=== PATIENT | female | born 1950 | race Caucasian/White ===

== ENCOUNTER 2023-02-01 08:34 | Outpatient (RCR) | payer MEDICARE, SELFPAY ==
--- NOTE | ~2023-02-01 | XR_ITS ---
EXAMINATION: XR ANKLE, RIGHT CLINICAL INFORMATION: Nonhealing wound rule out osteomyelitis COMPARISON: None available. TECHNIQUE: AP, lateral, and mortise views of the right ankle. FINDINGS: Diffuse marked soft tissue swelling about the ankle with a soft tissue defect overlying the medial malleolus which may reflect ulceration. ORIF of a chronic distal fibular diaphyseal fracture with hardware fracture of the lateral plate and lucency surrounding several of the fibular screws and a syndesmotic screws suggesting hardware loosening. Displaced medial malleolus fracture with medial dislocation of the tibia with respect to the talar dome. An additional osseous fragment is adjacent to the medial malleolus fracture of indeterminate donor site. Large tibiotalar joint effusion. There is some indistinctness of the fracture margins of the medial malleolus underlying soft tissue swelling and patchy lucency in the tibial metaphysis for which osteomyelitis cannot be excluded. XR/XR ankle RT min 3V IMPRESSION: 1. Diffuse marked soft tissue swelling about the ankle with a soft tissue defect overlying the medial malleolus which may reflect ulceration. 2. Displaced medial malleolus fracture with medial dislocation of the tibia with respect to the talar dome. An additional osseous fragment is adjacent to the medial malleolus fracture of indeterminate donor site. 3. There is some indistinctness of the fracture margins of the medial malleolus underlying soft tissue swelling and patchy lucency in the tibial metaphysis for which osteomyelitis cannot be excluded. MRI could be obtained for further evaluation. 4. ORIF of a chronic distal fibular diaphyseal fracture with hardware fracture of the lateral plate and lucency surrounding several of the fibular screws and a syndesmotic screws suggesting hardware loosening. 5. Large tibiotalar joint effusion.
[2023-04-11 07:57] LABS: MANUAL DIFF FLAG NO
[2023-04-11 08:34] LABS: Basophils Percent Auto 0.5 % (0-2); Eosinophils Absolute Auto 0.2 X10*3/uL (0.0-0.4); Hematocrit 33.2 % (37.0-47.0); Hemoglobin 10.1 g/dl (12.0-16.0); Imm Gran Abs Auto 0.04 X10*3/uL (0.00-0.03); Imm Gran Pct Auto 0.5 % (0.0-0.4); Lymphocytes Absolute Auto 1.4 X10*3/uL (1.2-4.9); Lymphocytes Percent Auto 17.5 % (20-40); Mean Corpuscular HGB Conc 30.4 g/dl (31.0-35.0); Mean Corpuscular Hemoglobin 31.9 pg (27.0-33.0); Mean Corpuscular Volume 104.7 fL (80.0-98.0); Mean Platelet Volume 9.5 fL (9.4-12.3); Monocytes Absolute Auto 0.6 X10*3/uL (0.1-1.2); Monocytes Percent Auto 7.2 % (2-11); Neutrophils Absolute Auto 5.7 x10*3/uL (2.0-8.3); Neutrophils Percent Auto 72.3 % (45-73); Platelet Count 271 X10*3/uL (160-400); Red Blood Count 3.17 X10*6/uL (4.20-5.50); Red Cell Distribution Width 14.4 % (11.0-16.0); White Blood Count 7.8 X10*3/uL (4.8-10.8)
[2023-04-11 09:19] LABS: Erythrocyte Sedimentation Rate 97 MM/HR (0-20)
[2023-04-11 09:20] LABS: Blood Urea Nitrogen 24 mg/dL (9-16); C Reactive Protein 3.41 mg/dL (< or = 0.50); Calcium 9.2 mg/dL (8.4-10.2); Estimated Glomerular Filt Rate 40; Glucose Random 141 mg/dL (60-115)
[2023-04-11 09:40] LABS: Anion Gap 16 (12-20); Carbon Dioxide 38 mmol/L (22-29); Chloride 94 mmol/L (96-108); Potassium 4.7 mmol/L (3.3-5.1); Sodium 143 mmol/L (135-145)
== END 2023-07-26 16:00 | disposition home or self-care (01) ==
LOC: HO.WCC 08:34
PROVIDERS: Physician Assistant; Visit Provider Surgery
DX: I87.311 Chronic venous hypertension (idiopathic) with ulcer of right lower extremity (principal); L97.319 Non-pressure chronic ulcer of right ankle with unspecified severity; L76.34 Postprocedural seroma of skin and subcutaneous tissue following other procedure; T81.41XD Infection following a procedure, superficial incisional surgical site, subsequent encounter; Z79.82 Long term (current) use of aspirin; Z79.84 Long term (current) use of oral hypoglycemic drugs; Z79.899 Other long term (current) drug therapy
CPT/HCPCS: 10140; 11042; 36415; 73610; 80048; 84134; 85025; 85652; 86140; 87070; 87073; 87077; 87147; 87186; 87205; 97597; 99212; 99213

== ENCOUNTER 2025-01-01 05:21 | Inpatient (IN) | payer MEDICARE, SELFPAY ==
[2025-01-01] VITALS (14 sets, daily range): BP systolic 129–155; BP diastolic 36–70; PULSE 60–76; RESP 12–25; TEMP 36.4–36.9; O2SAT 89–95; BMI 42.4; BMI 41.8
--- NOTE | 2025-01-01 | ECG_ITS ---
Test Reason : FALL Blood Pressure : */* mmHG Vent. Rate : 71 BPM Atrial Rate : 71 BPM P-R Int : 184 ms QRS Dur : 128 ms QT Int : 390 ms P-R-T Axes : 3 85 -56 degrees QTcB Int : 423 ms Normal sinus rhythm Right bundle branch block Septal infarct , age undetermined T wave abnormality, consider inferolateral ischemia Abnormal ECG No previous ECGs available Referred By: Generic ED Physician Electronically Signed By: TOM GUZMÁN
--- NOTE | ~2025-01-01 | XR_ITS ---
EXAMINATION: XR CHEST 1 VIEW HISTORY: CHF f/u COMPARISON: Comparison is made with the prior examination dated 01/02/2025. FINDINGS: A single AP portable view of the chest performed at 10:18 AM is submitted. There are low lung volumes. Again seen is prominence of the pulmonary vasculature, consistent with congestion. There are small bilateral pleural effusions. No pneumothorax. The heart is enlarged. The aorta is calcified. There is degenerative disc disease of the spine. XR/XR chest 1V IMPRESSION: Cardiomegaly, pulmonary vascular congestion, and small bilateral pleural effusions. Electronically signed by: Aman Griffin MD 01/07/2025 11:01 AM [facility]
--- NOTE | ~2025-01-01 | XR_ITS ---
EXAMINATION: XR KNEE, LEFT CLINICAL INFORMATION: S/p fall COMPARISON: None available. TECHNIQUE: Two views of the left knee. FINDINGS: There is osteopenia. No fracture, dislocation, or suspicious bone lesion. Probable subtle bone infarct in the distal femoral metaphysis. Normal alignment. The patella appears laterally subluxed on the AP view. No patellofemoral view. Joint spaces are preserved. No significant arthropathy. There is a suprapatellar joint effusion. There is prominent prepatellar soft tissue swelling. There are vascular calcifications present. XR/XR knee LT 2V IMPRESSION: 1. Osteopenia, with no definite fracture identified. 2. Mild lateral subluxation of the patella on the AP view. Correlate clinically for transient patellar dislocation. 3. There is a joint effusion and there is prominent prepatellar soft tissue swelling. 4. Probable subtle bone infarct in the distal femoral metaphysis. Electronically signed by: Gregory Hernandez MD 01/01/2025 09:14 AM [facility]
--- NOTE | ~2025-01-01 | XR_ITS ---
CLINICAL HISTORY: sob 1 view chest x-ray Comparison: None Findings: Low lung volumes. The heart is enlarged. Pulmonary vascular prominence with blunting of the costophrenic angles. Patchy airspace disease in the lung bases. No acute osseous findings. IMPRESSION: 1. Enlarged heart with small bilateral effusions and pulmonary vascular congestion suggesting edema. This document has been electronically signed by: Sandra Queen MD on 01/01/2025 07:20:17
--- NOTE | ~2025-01-01 | XR_ITS ---
EXAMINATION: XR HIP, LEFT CLINICAL INFORMATION: S/p fall and pain COMPARISON: None available. TECHNIQUE: Two views of the left hip. FINDINGS: Mildly limited exam due to habitus, and osteopenia. There is abdominal pannus overlying the hip joints. There are findings suggesting associated abdominal hernia. Allowing for limitations, no definite pelvic or hip fracture. Iliopectineal and ilioischial lines are intact. Normal hip joint alignment. Sacral arches are intact. Mild degenerative SI joint changes. Following for limitations, no discrete soft tissue abnormality. Vascular calcifications present. XR/XR hip LT min 2V IMPRESSION: 1. Exam limitations as described. 2. No definite fracture or dislocation evident. Electronically signed by: Gregory Hernandez MD 01/01/2025 09:11 AM [facility]
--- NOTE | ~2025-01-01 | CT_ITS ---
CLINICAL HISTORY: abd pain, hypothermia, obstipation CT abdomen and pelvis without contrast Comparison: None Findings: Moderate-sized right and trace left pleural effusions. Right lung base compressive atelectasis. Cardiomegaly. Distended gallbladder, measuring 6.6 cm in transverse dimension. There is cholelithiasis. No definitive gallbladder wall thickening. There is pericholecystic fluid/ascites. Cirrhotic liver morphology. There is a Warren catheter in the bladder which is decompressed. The other solid organs are unremarkable. No bowel wall thickening or dilation. A normal appendix is identified. Colonic diverticulosis. No aneurysm. Severe calcified atherosclerotic disease. No lymphadenopathy. Small ascites. Infiltration of the subcutaneous fat indicating anasarca. No acute osseous abnormality. Impression: Distended gallbladder with stones and pericholecystic fluid versus ascites. Consider acute cholecystitis. Moderate-sized right and trace left pleural effusions. Small ascites. Anasarca. This document has been electronically signed by: Nazanin Early MD on 01/12/2025 17:31:54
--- NOTE | ~2025-01-01 | XR_ITS ---
CLINICAL HISTORY: hypoxia 1 view chest x-ray Comparison: 01/01/2025 Findings: The heart is enlarged. Atherosclerotic vascular disease of the aortic arch. Prominence of pulmonary vasculature. Bilateral interstitial thickening and bilateral basilar pulmonary opacities. Bilateral pleural effusions. No significant pneumothorax. No acute fracture. IMPRESSION: 1. Findings suggestive of congestive heart failure with bilateral pleural effusions with interval mild worsening. 2. Bilateral basilar pneumonia not excluded. This document has been electronically signed by: Niharika Daly MD on 01/02/2025 02:11:05
--- NOTE | ~2025-01-01 | US_ITS ---
CLINICAL HISTORY: pain swelling L posterior thigh Venous duplex ultrasound left lower extremity Comparison: None Findings: The visualized deep veins are fully compressible with normal Doppler color flow and spectral tracings. No popliteal cyst. IMPRESSION: 1. Negative for left lower extremity deep vein thrombosis. This document has been electronically signed by: Michael Keith MD on 01/11/2025 12:21:23
--- NOTE | ~2025-01-01 | XR_ITS ---
CLINICAL HISTORY: hypothermia Chest Radiograph Comparison: CT/SR - CT ABDOMEN PELVIS WO IV CON - 01/12/25 16:05 EST CR - XR CHEST 1V - 01/11/25 08:32 EST CR/SR - XR CHEST 1V - 01/07/25 10:18 EST Findings: Cardiomegaly. Normal mediastinal contours. No pneumothorax. Right mid and lower lung zone opacity. Moderate-sized right pleural effusion. Normal upper abdomen. No acute fracture. Impression: Moderate-sized right pleural effusion. Right mid and lower lung zone opacity is likely secondary to atelectasis. This document has been electronically signed by: Nazanin Early MD on 01/12/2025 17:46:25
--- NOTE | ~2025-01-01 | XR_ITS ---
CLINICAL HISTORY: significant swelling and pain, abn xr 2 20, s p fa 2 view left knee Comparison: CR/AK/SR - XR KNEE LT 2V - 01/01/25 09:01 EST Findings: Bone infarct distal femur. Mild degenerative changes. Unchanged medial joint space narrowing. There is a large suprapatellar effusion. No radiopaque foreign body. IMPRESSION: 1. There is a large suprapatellar effusion. 2. Mild degenerative changes. Unchanged medial joint space narrowing. This document has been electronically signed by: Michael Keith MD on 01/11/2025 10:46:52
--- NOTE | ~2025-01-01 | XR_ITS ---
CLINICAL HISTORY: chf, sob, hypoxia 1 view chest x-ray Comparison: CR/SR - XR CHEST 1V - 01/07/25 10:18 EST Findings: There are bilateral pleural effusions possibly enlarging on the right. There is no focal pneumonia. Cardiomediastinal structures are magnified. No acute fracture. IMPRESSION: There are bilateral pleural effusions possibly enlarging on the right. This document has been electronically signed by: Michael Keith MD on 01/11/2025 10:15:21
--- NOTE | ~2025-01-01 | US_ITS ---
EXAMINATION: US RETROPERITONEAL LIMITED (RENAL ONLY) CLINICAL INFORMATION: CKD, rule out obstruction. COMPARISON: None available. TECHNIQUE: Real-time imaging of the kidneys. FINDINGS: Exam mildly limited by patient habitus. This limits sensitivity for subtle findings. RIGHT KIDNEY: 9.8 x 5.6 x 5.1 cm (SAG x AP x TRV). The kidney is normal in size, contour, and echogenicity. Renal cortical thickness is normal. No calculi or focal parenchymal lesions. No hydronephrosis. LEFT KIDNEY: 9.5 x 5.4 x 5.1 cm (SAG x AP x TRV). The kidney is normal in size, contour, and echogenicity. Renal cortical thickness is normal. No calculi or focal parenchymal lesions. No hydronephrosis. Cholelithiasis incidentally noted. US/US renal BI IMPRESSION: 1. Normal kidneys without hydronephrosis. 2. Cholelithiasis. Electronically signed by: Gregory Hernandez MD 01/06/2025 03:41 PM EST
[2025-01-01 06:17] LABS: MANUAL DIFF FLAG NO
[2025-01-01 06:18] LABS: Basophils Percent Auto 0.2 % (0-2); Eosinophils Absolute Auto 0.1 X10*3/uL (0.0-0.4); Hematocrit 26.9 % (37.0-47.0); Hemoglobin 7.7 g/dl (12.0-16.0); Imm Gran Abs Auto 0.07 X10*3/uL (0.00-0.03); Imm Gran Pct Auto 0.7 % (0.0-0.4); Lymphocytes Absolute Auto 1.1 X10*3/uL (1.2-4.9); Mean Corpuscular HGB Conc 28.6 g/dl (31.0-35.0); Mean Corpuscular Hemoglobin 30.9 pg (27.0-33.0); Mean Platelet Volume 9.8 fL (9.4-12.3); Monocytes Absolute Auto 0.5 X10*3/uL (0.1-1.2); Monocytes Percent Auto 4.8 % (2-11); NRBC Pct Auto 0.2 /100WBC (0.0-0.2); Neutrophils Percent Auto 82.3 % (45-73); Platelet Count 251 X10*3/uL (160-400); Red Blood Count 2.49 X10*6/uL (4.20-5.50); Red Cell Distribution Width 16.3 % (11.0-16.0); White Blood Count 9.7 X10*3/uL (4.8-10.8)
--- OUTSIDE RECORDS SUMMARY | 2025-01-01 06:23 | XMS_ITS | Encounter Summary ---
Author Organization [facility] Address [address] [place] [address] Care Team Providers Care Copper Plater Name Role Phone Maine Myers MD Primary Care Provider [phone] Encounter Details Date Type Department Care Team (Late st Contact Info) Description 08/08/2023 Orders Only [facility] Interventional Radiology [address] [place] [address] Aida Orozco PA [address] [place] [address] Social History Tobacco Use Types Packs/Day Years Used Date Smoking Tobacco: Former Cigarettes 1 50 Smokeless Tobacco: Never Comments:Quit 05/2020 Alcohol Use Standard Drinks/Week Comments Not Currently 0 (1 standard drink = 0.6 oz pur e alcohol) Comments No Sex and Gender Information Value Date Recorded Sex Assigned at Not on file Legal Sex Female 1:11 PM EDT Gender Identity Not on file Sexual Orientation Not on file documented as of this encounter Plan of Treatment Not on file documented as of this encounter Visit Diagnoses Not on filedocumented in this encounter Care Teams Copper Plater Relationship Specialty Start Date End Date Maine Myers MD PCP - General 05/02/23 documented as of this encounter
--- OUTSIDE RECORDS SUMMARY | 2025-01-01 06:23 | XMS_ITS | Encounter Summary ---
Author Organization [facility] Address [address] [place] [address] Care Team Providers Care Mirror Machine Feeder Name Role Phone Maine Myers MD Primary Care Provider [phone] Reason for Referral * Imaging (Routine) - Pending Review Specialty Diagnoses / Procedures Referred By Monique whittington Referred To Contact Radiology Diagnoses Encounter for screening mammogram for breast cancer Procedures MG Mammo Digital Screening w Trista bilat MG Mammo Digital Screening w Maine Watson MD [address] [place] [id number] Phone: tel: fax: [facility] Referral ID Status Reason Start Date Expiration Date V isits Requested Visits Authorized [id number] Pending Review 08/28/2024 08/28/2025 1 1 Reason for Visit * Imaging (Routine) - Pending Review Specialty Diagnoses / Procedures Referred By Monique whittington Referred To Contact Radiology Diagnoses Encounter for screening mammogram for breast cancer Procedures MG Mammo Digital Screening w Trista bilray MG Mammo Digital Screening w Maine Watson MD [address] [place] [address] Phone: tel: fax: [facility] Referral ID Status Reason Start Date Expiration Date V isits Requested Visits Authorized [id number] Pending Review 08/28/2024 08/28/2025 1 1 Encounter Details Date Type Department Care Team (Latest Contact Info) Description 12/11/2024 10:00 AM EST - 12/11/2024 11:59 PM EST Hospital Encounter Radiology Department - [address] [id number] Encounter for screening mammogram for breast cancer Discharge Disposition: Home or Self Care Social History Tobacco Use Types Packs/Day Years Used Date Smoking Tobacco: Former Cigarettes 1 40.5 0 11/12/1979 - 05/30/2020 Smokeless Tobacco: Never Alcohol Use Standard Drinks/Week Comments Yes 0 (1 standard drink = 0.6 oz pur e alcohol) Comments No Sex and Gender Information Value Date Recorded Sex Assigned at Not on file Legal Sex Female 3:19 PM EST Gender Identity Not on file Sexual Orientation Not on file documented as of this encounter Medications at Time of Discharge aspirin 81 mg chewable tablet Take 81 mg by mouth daily. bumetanide (BUMEX) 1 mg tablet TAKE 1 TABLET BY MOUTH IN THE MORNING AND 1 IN THE EVENING 01/25/2024 busPIRone (BUSPAR) 5 mg tablet Take 1 tablet (5 mg total) by mouth 3 (three) times a day. 270 tablet 1 11/18/2024 calcitrioL (ROCALTROL) 0.25 mcg capsule Take 1 capsule (0.25 mcg total) by mouth every other day. 03/10/2024 carvediloL (COREG) 3.125 mg tablet Take 1 Tablet by mouth 2 times daily (with meals). 01/14/2024 docusate sodium (COLACE) 100 mg capsule Take 1 Capsule by mouth daily as needed for Constipation. 07/13/2022 doxycycline (MONODOX) 100 mg capsule TAKE 1 CAPSULE BY MOUTH EVERY 12 HOURS CONTINUE 6 MONTHS OR LONGER DETERMINED BY INFECTIOUS DISEASE 11/14/2023 loratadine (CLARITIN) 10 mg tablet Take 1 tablet (10 mg total) by mouth 1 (one) time each day. 04/17/2024 multivit-min/jerzy emiliano fumarate (MULTI VITAMIN ORAL) t tab po qd 12/09/2007 omeprazole (PriLOSEC) [address] capsule Take 1 capsule (20 mg total) by mouth 1 (one) time each day. 03/04/2024 Oxygen Therapy (O2) gas Inhale 3 L into the lungs continuous prn (with rest exertion and sleep. Can you 2L when resting.). 04/01/2022 umeclidinium-ciara anteroL (Anoro Ellipta) 62.5-25 mcg/actuation inhaler Inhale 1 Puff into the lungs daily. 06/15/2023 documented as of this encounter Discharge Disposition Disposition Code Departure Means Destination Home or Self Care documented in this encounter Plan of Treatment Upcoming Encounters Date Type Department Care Team (Late st Contact Info) Description 07/29/2025 8:30 AM EDT Office Visit Pulmonolgy - [place] [address] [facility] [address] [place] [id number] Dana Sutherland NP [address] [facility] [address] [place] [address] documented as of this encounter Procedures Procedure Name Priority Date/Time Associated Diagnosis Comments MG MAMMO DIGITAL SCREENING W TRISTA BILAT Routine 12/11/2024 10:28 AM EST Encounter for screening mammogram for breast cancer documented in this encounter Results * MG Mammo Digital Screening w Trista bilat (12/11/2024 10:28 AM EST) Anatomical Region Laterality Modality Breast Bilateral Mammography 12/11/2024 3:23 PM EST Impressions 12/11/2024 3:26 PM EST Limited exam without mammographic evidence of malignancy. BREAST DENSITY: B - There are scattered areas of fibroglandular density. BI-RADS CATEGORY: 1 - NEGATIVE RECOMMENDATION: Screening bilateral mammogram is recommended in 1 year. MAMMO LOCATION: [facility], [address] [place] [address], [id number], . -------- FINAL REPORT -------- Dictated By: Yanely Miner Dictated Date: 12/11/2024 15:23 ET Assigned Physician: Yanely Miner Reviewed and Electronically Signed By: Yanely Miner Signed Date: 12/11/2024 15:26 ET Workstation ID: [id number] Transcribed By: Self Edit Transcribed Date: 12/11/2024 15:23 ET Narrative 12/11/2024 3:26 PM EST EXAM: Screening Mammogram CLINICAL: 74 years old, Female, routine annual exam. COMPARISON: 11/29/2023 and as far back as 10/15/2021 ?? TECHNIQUE: Bilateral MLO and CC views were obtained digitally with 3-D mammogram (digital breast tomosynthesis). Computer-aided detection was utilized in evaluation of this exam (CAD). ??Patient unable to hold breath for imaging and unable to stand resulting in suboptimal imaging. ??Images obtained are the best possible. FINDINGS: No new suspicious mass, architectural distortion, or suspicious calcifications. Procedure Note Yanely Miner MD - 12/11/2024 EXAM: Screening Mammogram CLINICAL: 74 years old, Female, routine annual exam. COMPARISON: 11/29/2023 and as far back as 10/15/2021 TECHNIQUE: Bilateral MLO and CC views were obtained digitally with 3-Dmammogram (digital breast tomosynthesis). Computer-aided detection wasutilized in evaluation of this exam (CAD). Patient unable to hold breathfor imaging and unable to stand resulting in suboptimal imaging. Imagesobtained are the best possible. FINDINGS: No new suspicious mass, architectural distortion, or suspiciouscalcifications. IMPRESSION: Limited exam without mammographic evidence of malignancy. BREAST DENSITY: B - There are scattered areas of fibroglandular density. BI-RADS CATEGORY: 1 - NEGATIVE RECOMMENDATION: Screening bilateral mammogram is recommended in 1 year. MAMMO LOCATION: [facility], [address] [place] [address], [id number], . -------- FINAL REPORT -------- Dictated By: Yanely Miner Dictated Date: 12/11/2024 15:23 ET Assigned Physician: Yanely Miner Reviewed and Electronically Signed By: Yanely Miner Signed Date: 12/11/2024 15:26 ET Workstation ID: [id number] Transcribed By: Self Edit Transcribed Date: 12/11/2024 15:23 ET us Maine Myers MD IMG BI PROCEDURES Final Result documented in this encounter Visit Diagnoses Diagnosis Encounter for screening mammogram for breast cancer documented in this encounter Care Teams Mirror Machine Feeder Relationship Specialty Start Date End Date Maine Myers MD [address] [place] [phone] PCP - General Internal Medicine 09/18/24 documented as of this encounter
--- OUTSIDE RECORDS SUMMARY | 2025-01-01 06:23 | XMS_ITS | Referral Summary ---
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 Active umeclidinium-vi lanteroL (Anoro Ellipta) 62.5-25 mcg/actuation blister with device Inhale by mouth. 1 puff in AM Active docusate sodium (COLACE) 100 mg capsule Take 100 mg by mouth daily as needed for constipation. Active acetaminophen (TYLENOL) 325 mg tablet Take 2 tablets (650 mg total) by mouth every 6 hours. 3 Active polyethylene glycol 3350 (MIRALAX) 17 gram packet Take 1 packet (17 g total) by mouth once a day. Mix powder in 4 to 8 oz of water, juice, coffee, or tea prior to administration. 3 Active Additional Information Patient not taking.Reported on 12/26/2023 senna (SENOKOT) 8.6 mg tablet Take 2 tablets (17.2 mg total) by mouth once a day. 3 Active Additional Information Patient not taking.Reported on 12/26/2023 multivitamin tablet Take 1 tablet by mouth once a day. 0 3 Active aspirin 81 mg EC tablet Take 1 tablet (81 mg total) by mouth 2 times a day. 3 Active oxyCODONE IR (ROXICODONE) 5 mg tablet 3 Active metFORMIN (GLUCOPHAGE) 500 mg tablet Take 500 mg by mouth 2 times a day with meals. Active Active Problems Problem Noted Date Diagnosed Date Acute blood loss anemia 10/12/2023 Assessment & Plan (10/18/2023 1:37 PM EST): Acute blood loss anemia postop with hemoglobin down to 6.1. 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 Patient underwent removal of her medial malleolus with fixation October 2022 due to irritation from the screws. She has had chronic residual displacement of the ankle and developed a draining wound.. As a result patient was admitted on July for which she underwent right ankle removal of hardware, I&D and ex-fix placement 07/31/[address] Nascimento. OR cultures positive for E faecalis,S ludanesis, Staph epi, and Staph auricularis for which ID recommended 6-week course of vancomycin and ceftriaxone, then placed on Bactrim suppression for prosthetic joint infection. Patient was seen in the orthopedic clinic on 09/19/2023, planned for definitive surgery of the fusion with antibiotic coated TTC nail removal of her external fixator. 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 Patient presented to [facility] on 10/11 for planned orthopedic surgery as above. Cultures were not obtained during that procedure. Patient received tobramycin and vancomycin on 10/11 day of admission as a paste that was used in the joint intraoperatively. Infectious Disease was consulted on admission. They noted that of all organisms isolated, Staph lugdunensis is the most pathogenic. Given that she continued to have retained hardware they recommended resumption of doxycycline. S/p R ankle external fixation removal, antibiotic nail, EFFIE on 10/11/23. 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 There were no significant valvular abnormalities. Her diuretics were restarted on hospital day 2 after she was noted to be fluid overloaded on exam, with a bump in creatinine, was about to receive a unit of blood for a low hemoglobin. She is not in respiratory distress at that time, tolerated the diuretic well. Her diuretics were held later that admission given a persistently elevated bicarbonate which was thought to be chronic metabolic alkalosis in response to a chronic respiratory acidosis. Her Lasix was restarted at 80 mg daily on 10/18. Her home dosing is 80 mg daily, 40 mg nightly. She also received a one-time dose of acetazolamide 250 mg x 1 on 10/18. -TTE 10/17/23 showed Normal LV systolic function with LVEF 55-60% by visual estimate. The right ventricle is dilated. There is mildly increased wall thickness. Global systolic function is reduced. Systolic flattening of the intraventricular septum consistent with right ventricular pressure overload. Bi-atrial enlargement. Moderate tricuspid valve regurgitation. Moderate pulmonary HTN. PASP of 52 mmHg by peak TR velocity plus right atrial pressure; inferior vena cava is not well visualized. At discharge: - Frequent evaluations of volume status - Continue Lasix 80 mg daily for 3 days (10/18 - 10/20) and then reassess volume status as well as kidney function with BMP - BMPs at least weekly if possible - If tolerating Lasix and still volume overloaded, ideally would titrate up to home dosing of Lasix 80 mg daily and 40 mg nightly Assessment & Plan (08/08/2023 3:00 PM EDT): Home meds: Lasix 80 mg in AM and 40 mg PM Last echocardiogram is from January 2022 revealing a normal left ventricular ejection fraction of 60 to 65% with septal flattening in diastole consistent with RV pressure overload, indeterminate diastolic function, mildly dilated right ventricle with preserved function, and no significant pulmonary hypertension noted. There were no significant valvular abnormalities. -Lasix as per CHEYANNE section -Strict I/Os -Daily weights Assessment & Plan (08/06/2023 3:14 PM EDT): Home meds: Lasix 80 mg in AM and 40 mg PM Last echocardiogram is from January 2022 revealing a normal left ventricular ejection fraction of 60 to 65% with septal flattening in diastole consistent with RV pressure overload, indeterminate diastolic function, mildly dilated right ventricle with preserved function, and no significant pulmonary hypertension noted. There were no significant valvular abnormalities. 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 She underwent removal of her medial malleolus fixation in Oct 2022 due to irration from screws. She also had residual displacement of the ankle fracture with a newly developed draining wound. She was referred from her orthopedic surgeon to [facility] orthopedics and seen in clinic on 05/23/23 with plan for hardware removal/admission for IV antibiotics. She is now s/p right ankle removal of hardware and negative pressure wound vac placement on 07/31. She was started on vancomycin and cefepime post-operatively. 07/31 OR cultures now growing Staph lugdunensis and Staph epidermidis. Per ID, cefepime discontinued and is clear to receive PICC for long-term IV antibiotics. 08/07: culture now with GNB: -Started ceftriaxone 2 g daily per ID recs, follow culture speciation -Continuing vancomycin (D1: 07/31) -PICC placement 08/03 -ID following,appreciate recs -DVT prophylaxis, pain management, surgical management per orthopedics Assessment & Plan (08/07/2023 5:22 PM EDT): The patient had a right ankle fracture in May 2022 with ORIF in June 2022. She underwent removal of her medial malleolus fixation in Oct 2022 due to irration from screws. She also had residual displacement of the ankle fracture with a newly developed draining wound. She was referred from her orthopedic surgeon to [facility] orthopedics and seen in clinic on 05/23/23 with plan for hardware removal/admission for IV antibiotics. She is now s/p right ankle removal of hardware and negative pressure wound vac placement on 07/31. She was started on vancomycin and cefepime post-operatively. 07/31 OR cultures now growing Staph lugdunensis and Staph epidermidis. Per ID, cefepime discontinued and is clear to receive PICC for long-term IV antibiotics. 08/07: culture now with GNB: -Started ceftriaxone 2 g daily per ID recs, follow culture speciation -Continuing vancomycin (D1: 07/31) -PICC placement 08/03 -ID following,appreciate recs -DVT prophylaxis, pain management, surgical management per orthopedics COPD (chronic obstructive pulmonary disease) Assessment & Plan (10/18/2023 1:27 PM EST): Home meds: Anoro Ellipta She follows with pulmonology. Past smoker with 46 pack year history, quit in May 2020. She is on 3L baseline O2 at home. No wheezing on exam, no concern for COPD exacerbation on admission. - Stiolto twice daily as interchange for an oral Ellipta (ellipta nonformulary) - resume home anoro ellipta at discharge - albuterol nebs as needed - Wean to home 3 L nasal cannula - SpO2 goal 88-92% Assessment & Plan (08/08/2023 3:00 PM EDT): Home meds: Anoro Ellipta She follows with pulmonology. Past smoker with 46 pack year history, quit in May 2020. She is on 3L baseline O2 at home, required LMA during procedure and successfully transitioned to 4LNC. Now back to baseline 3L NC and saturating well. -Supplemental O2 with goal sat 88-92% -Duonebs 4 times daily standing Assessment & Plan (08/06/2023 2:38 PM EDT): Home meds: Anoro Ellipta She follows with pulmonology. Past smoker with 46 pack year history, quit in May 2020. She is on 3L baseline O2 at home, required LMA during procedure and successfully transitioned to 4LNC. Now back to baseline 3L NC and saturating well. -Supplemental O2 with goal sat 88-92% -Duonebs 4 times daily standing HTN (hypertension) 07/31/2023 Assessment & Plan (10/12/2023 4:28 PM EST): Home meds: Coreg 3.125 BID Follow with cardiology, home meds as above. She has been hemodynamically stable since admission -Continue home dose Coreg with holding parameters Assessment & Plan (08/08/2023 3:00 PM EDT): Home meds: Coreg 3.125 BID Follow with cardiology, home meds as above. She has remained hemodynamically stable -Continue coreg 3.125 BID Assessment & Plan (08/06/2023 3:12 PM EDT): Home meds: Coreg 3.125 BID Follow with cardiology, home meds as above. She has remained hemodynamically stable -Continue coreg 3.125 BID Pulmonary hypertension 05/10/2022 Overview (10/12/2023): Last Assessment & Plan: She has a history of pulmonary hypertension although this was not present on most recent echocardiogram. Her breathing is stable. She has had no decompensations since her hospitalizations. She likely still has some degree given her severe COPD on oxygen. In any event I am not going to make any changes to medications. We will continue to monitor. Assessment & Plan (10/18/2023 1:30 PM EST): She follows with pulmonology and cardiology. Last TTE January 2022 showed EF 60- 65%, normal LV size and wall thickness, dilated RV with normal systolic fnx, septal flattening in diastole consistent with RV pressure overload, no valvular disease. Her pHTN is thought to be group 3 secondary to her COPD. -manage RV dysfunction and COPD per sections -TTE 10/17/23 showed Normal LV systolic function with LVEF 55-60% by visual estimate. The right ventricle is dilated. There is mildly increased wall thickness. Global systolic function is reduced. Systolic flattening of the intraventricular septum consistent with right ventricular pressure overload. Bi-atrial enlargement. Moderate tricuspid valve regurgitation. Moderate pulmonary HTN. PASP of 52 mmHg by peak TR velocity plus right atrial pressure; inferior vena cava is not well visualized. Discussed with patient that she will require outpatient pulmonology follow-up given that her pulmonary hypertension is suspected to be secondary to group 3 and related to her pulmonary disease. Her labs including blood gases indicate that she is in chronic respiratory failure and chronically retaining CO2, leading to compensatory metabolic alkalosis. Discussed with patient that she would greatly benefit from a sleep study, as well as possibly CPAP/BiPAP to help improve her chronic respiratory failure, in order to improve her quality of life, breathing. Initially patient was very hesitant to the idea of wearing a mask, but says that she will consider it. -Follow-up with outpatient pulmonology after discharge from rehabilitation (ideally within 1 month) Assessment & Plan (08/08/2023 3:00 PM EDT): She follows with pulmonology and cardiology. Last TTE January 2022 showed EF 60- 65%, normal LV size and wall thickness, dilated RV with normal systolic fnx, septal flattening in diastole consistent with RV pressure overload, no valvular disease. Her pHTN is thought to be secondary to her COPD. Assessment & Plan (08/06/2023 2:38 PM EDT): She follows with pulmonology and cardiology. Last TTE January 2022 showed EF 60- 65%, normal LV size and wall thickness, dilated RV with normal systolic fnx, septal flattening in diastole consistent with RV pressure overload, no valvular disease. Her pHTN is thought to be secondary to her COPD. Peripheral neuropathy 08/10/2021 Positive RASHMI (antinuclear antibody) 10/11/2020 Overview (10/12/2023): 09/2020-positive double-stranded DNA, positive anticardiolipin, negative C3/C4, negative anti-Graham/RADIOLOGY TEACHER, negative SSA/SSB. Anticardiolipin antibody positive 09/08/2020 Overview (10/12/2023): 09/2020-negative rheumatoid factor, mild elevated CRP, normal ESR 09/2020- Recheck in 3 to 4 months Assessment & Plan (10/12/2023 4:28 PM EST): Noted to be IgG anticardiolipin positive on multiple lab tests 12 weeks apart. She saw hematology in 2020 who did not believe she had antiphospholipid syndrome given no history of thromboembolic events or multiple miscarriages. They did not recommend full anticoagulation but were amenable with aspirin 81mg daily. -Continue home ASA 81 mg daily Assessment & Plan (08/08/2023 3:00 PM EDT): Noted to be IgG anticardiolipin positive on multiple lab tests 12 weeks apart. She saw hematology in 2020 who did not believe she had antiphospholipid syndrome given no history of thromboembolic events or multiple miscarriages. They did not recommend full anticoagulation but were amenable with aspirin 81mg daily. -Continue ASA 81 mg daily Assessment & Plan (08/06/2023 2:39 PM EDT): Noted to be IgG anticardiolipin positive on multiple lab tests 12 weeks apart. She saw hematology in 2020 who did not believe she had antiphospholipid syndrome given no history of thromboembolic events or multiple miscarriages. They did not recommend full anticoagulation but were amenable with aspirin 81mg daily. -Continue ASA 81 mg daily Cor pulmonale (chronic) 08/30/2020 Chronic hypoxemic respiratory failure 05/31/2020 Cataract 04/30/2020 Osteoarthritis of ankle and foot 09/11/2019 CKD (chronic kidney disease) stage 3, GFR 30-59 ml/min 12/30/2018 Assessment & Plan (10/16/2023 10:13 AM EST): Known CKD stage 3. Baseline Cre ranges between 1.3-1.6 based on chart review. - Trend BMP and replete electrolytes as indicated - inquire whether patient would be willing to follow up in [facility] renal CHEYANNE clinic - see CHEYANNE problem Assessment & Plan (08/08/2023 3:00 PM EDT): CKD3 with recent baseline Cr 1.3, on arrival Cr was 1.26. Creatinine bump to 1.68 on 08/03 possibly due to prolonged IV vancomycin. -Daily BMP -Avoid nephrotoxic agents -Renally dose medications -Strict I/Os Assessment & Plan (08/06/2023 2:38 PM EDT): CKD3 with recent baseline Cr 1.3, on arrival Cr was 1.26. Creatinine bump to 1.68 on 08/03 possibly due to prolonged IV vancomycin. -Daily BMP -Avoid nephrotoxic agents -Renally dose medications -Strict I/Os Onychomycosis 10/27/2015 Type 2 diabetes mellitus 09/28/2014 Assessment & Plan (10/18/2023 1:37 PM EST): Home meds: metformin 500mg BID Follows with endocrinology, not currently on insulin. A1c 6.1 on 07/31. Blood sugars have been well-controlled this admission on low-dose insulin correction scale alone At discharge: -discontinue metformin, given borderline GFR -Low dose insulin sliding scale -Diabetic diet Assessment & Plan (08/08/2023 3:00 PM EDT): Home meds: metformin 500mg BID Follows with endocrinology, not currently on insulin. A1c 6.1 on 07/31. -Hold metformin while inpatient -LDISS ACHS -Carb consistent diet -POCT glucose Assessment & Plan (08/06/2023 2:39 PM EDT): Home meds: metformin 500mg BID Follows with endocrinology, not currently on insulin. A1c 6.1 on 07/31. -Hold metformin while inpatient -LDISS ACHS -Carb consistent diet -POCT glucose Disorder of nervous system due to type 2 diabete s mellitus 09/28/2014 Edema of both legs 07/17/2014 Elevated brain natriuretic peptide (BNP) level 0 05/19/2014 Severe obesity (BMI 35.0-39.9) with comorbidity 11/06/2013 Overview (10/12/2023): BMI 40.52 on 09/15/13. Diverticulitis of colon without hemorrhage 04/04 Overview (10/12/2023): CN 04/04/2013. Osteopenia 12/31/2012 Tobacco use disorder 11/19/2008 Benign essential hypertension 04/02/2008 Overview (10/12/2023): Last Assessment & Plan: 138/80 in office today, well-controlled. Continue carvedilol and Lasix at current doses. Resolved Problems Problem Noted Date Diagnosed Date Resolved Date Acute kidney injury superimposed on CKD 08/04/2023 10/18/2023 Assessment & Plan (10/18/2023 1:34 PM EST): CKD stage 3 with baseline Cr 1.3-1.6, now with Creatinine of 1.94. Etiology of CHEYANNE is unclear. Patient has received a few days of her home lasix 80 mg QAM and 40 mg QPM and this may be contributing, however she still appears fluid overloaded on exam with 2+ pitting edema, faint crackles, and B lines on lung POCUS. UA showed no protein or casts, FEUrea showed >35% consistent with intrinsic disease, POCUS of lungs at bedside revealed B lines consistent with fluid overload. Renal US 10/16 showed no hydronephrosis. -VBG showed pco2 81, pH 7.36, consistent with suspected renal compensation for a degree of respiratory acidosis -Nephrology consulted, suspected CHEYANNE secondary to ATN versus prerenal. Daily BMPs and electrolytes were monitored At discharge: - Repeat BMP in 3 days (around 10/20 - 10/21) to monitor for bump in creatinine since resuming Lasix as per RV dysfunction section - Ideally would check BMP at least weekly - Avoid nephrotoxic medications - Caution with up titration of diuretics Assessment & Plan (08/08/2023 5:17 PM EDT): Patient with cr of 1.3 at baseline with worsening renal function. FEUrea <35% suggesting pre-renal disease. Does not appear to have an issue with PO intake at this time. -Hold lasix -Follow up 24 hour vanc level, dosing with pharm recs -Repeat BMP in the AM -Encourage PO intake -Daily BMP -Avoid nephrotoxic agents -Renally dose medications -Strict I/Os 08/07: creatinine remains elevated from baseline, seen by Renal team, consult appreciated, testing in progress: kidney US, complement levels, urine sediment, orthostatics 08/08-creatinine trending down, renal recommends outpatient follow up Assessment & Plan (08/07/2023 5:21 PM EDT): Patient with cr of 1.3 at baseline with worsening renal function. FEUrea <35% suggesting pre-renal disease. Does not appear to have an issue with PO intake at this time. -Hold lasix -Follow up 24 hour vanc level, dosing with pharm recs -Repeat BMP in the AM -Encourage PO intake -Daily BMP -Avoid nephrotoxic agents -Renally dose medications -Strict I/Os 08/07: creatinine remains elevated from baseline, seen by Renal team, consult appreciated, testing in progress: kidney US, complement levels, urine sediment, orthostatics Immunizations Immunization Administration Dates Next Due COVID-19, Pfizer, mRNA, Biva lent Booster, PF, 10 mcg/0.2 mL dose (for age 5-11 y) 09/02/2022 Influenza, High Dose Seasona l, Preservative Free 07/21/2019,07/19/2018,07/18/2017 Influenza, High Dose Seasona l, Quadrivalent PF 08/09/2023,09/02/2022,09/04/2020 Influenza, Trivalent, MDV, Injectable ,07/21/2019,07/19/2018,07/18,07/31/2016,07/30/2015,09/28/2014 ,08/08/2012,08/23/2011,09/06/2010,07/15,09/10/2008 Influenza, Unspecified 09/02/2022,2020,09/04/2020,08/03 Pneumococcal Conjugate Vacci ne, 13 Valent 06/02/2020,01/16/2018 Pneumococcal Polysaccharide Vaccine, 23 Valent 11/10/2021 Tetanus Toxoid, Reduced Diph theria Toxoid, and Acellular Pertussis Vaccine, Adsorbed 08/08/2012 Social History Tobacco Use Types Packs/Day Years [...] on file Sexual Orientation Not on file Last Filed Vital Signs Vital Sign Reading Time Taken Comments Blood Pressure 134/75 10/18/2023 7:41 PM EST Pulse 59 10/18/2023 7:41 PM EST Temperature 36.2 ??C (97.2 ??F) 10/18/2023 7:41 PM ES T Respiratory Rate 18 10/18/2023 7:41 PM EST Oxygen Saturation 98% 10/18/2023 7:41 PM EST Inhaled Oxygen Concentration - - Weight 87.5 kg (193 lb) 11/13/2023 10:36 AM EST Height 165.1 cm (5' 5 ) 11/13/2023 10:36 AM EST Body Mass Index 32.12 11/13/2023 10:36 AM EST Plan of Treatment Not on file Medical Devices Implanted Type Area Performance Improvement Manager Device Identifier Shelf Expiration Date Model / Serial / Lot Kit Rapid Cure 20cc Paste Volume 50cc Bead Volume Stimulan - [id number] Implanted:Qty: 1 on 10/11/2023 by Brandon Nascimento MD at [facility] Implant Right: Ankle [employer] 01/09/2026 [id number] / / [id number] Description:BOX STIMULAN MIX ED WITH 2 GRAMS VANCOMYCIN AND 1.2 GRAMS TOBRAMYCIN Nail Intramedullary Large Right [id number] Valor - [id number] Implanted:Qty: 1 on 10/11/2023 by Brandon Nascimento MD at [facility] Implant Right: Ankle [employer] 06/06/2031 [id number] / / [id number] Screw Bone Fully Threaded Titanium [id number] Valor - [id number] Implanted:Qty: 1 on 10/11/2023 by Brandon Nascimento MD at [facility] Implant Right: Ankle [employer] 10/26/2030 [id number] / / [id number] Cement Radiopaque Full Dose 40gr Simplex P - [id number] Implanted:Qty: 2 on 10/11/2023 by Brandon Nascimento MD at [facility] Implant Right: Ankle [employer] 12/12/2025 [id number] / / [id number] Screw Hindfoot [id number] Valor - [id number] Implanted:Qty: 1 on 10/11/2023 by Brandon Nascimento MD at [facility] Screw Right: Ankle [employer] 02/09/2031 [id number] / / [id number] Screw Hindfoot [id number] Valor - [id number] Implanted:Qty: 1 on 10/11/2023 by Brandon Nascimento MD at [facility] Screw Right: Ankle [place] 06/12/2031 [id number] / / [id number] Screw Bone Non Cannulated Non Locking Fully Threaded Non Sterile Titanium [id number] Valor - [id number] Implanted:Qty: 1 on 10/11/2023 by Brandon Nascimento MD at [facility] Screw Right: Ankle [employer] 07/06/2031 [id number] / / [id number] Screw Bone Fully Threaded Titanium [id number] Valor - [id number] Implanted:Qty: 1 on 10/11/2023 by Brandon Nascimento MD at [facility] Screw Right: Ankle [employer] 07/24/2031 [id number] / / [id number] Stimulan Implanted:Qty: 1 on 07/31/2023 by [facility] [facility] Right: Ankle [employer] 11/11/2025 620-020 / / [id number] Description:Adeed Tobramycin 1.2 grams x3, vancomycin 1 am x3 Explanted Type Area Performance Improvement Manager Device Identifier Shelf Expiration Date Model / Serial / Lot Pin Steinmann Central Thread [id number] - [id number] Implanted:Qty: 1 on 07/31/2023 by Brandon Nascimento MD at [facility] Explanted:Qty: 1 on 10/11/2023 by Brandon Nascimento MD at [facility] Implant Right: Ankle DEPUY [employer] 293.840 / / Screw Schanz Blunted Trocar Point 5.7eza900pd - [id number] Implanted:Qty: 1 on 07/31/2023 by Brandon Nascimento MD at [facility] Explanted:Qty: 1 on 10/11/2023 by Brandon Nascimento MD at [facility] Screw Right: Ankle DEPUY [employer] 294.55 / / Screw Schanz Self-Drilling 20mm Thread Stainless Steel 4.0mm/3.0mmx80 mm - [id number] Implanted:Qty: 2 on 07/31/2023 by Brandon Nascimento MD at [facility] Explanted:Qty: 2 on 10/11/2023 by Brandon Nascimento MD at [facility] Screw Right: Ankle DEPUY SYNTHES [employer] 294.771 / / Procedures * Due to [place] state law, this organization might not be sharing negative HIV tests. Procedure Name Priority Date/Time Associated Diagnosis Comments BASIC METABOLIC PANEL Add-On 10/18/2023 6:49 AM EST CBC STAT 10/17/2023 4:33 AM EST PHOSPHORUS Routine 10/12/2023 4:46 AM EST HEMOGLOBIN A1C Timed 07/31/2023 1:19 PM EDT VITAMIN D, 25-HYDROXY, TOTAL, IMMUNOASSAY Routine 05/23/2023 12:54 PM EDT Right ankle pain, unspecified chronicity PTH, INTACT (WITHOUT CALCIUM) Routine 05/23/2023 12:54 PM EDT Right ankle pain, unspecified chronicity from Last 3 Months or Most Recently Relevant to Health Maintenance Results * Due to [place] state law, this organization might not be sharing negative HIV tests. * (ABNORMAL) Basic metabolic panel (10/18/2023 6:49 AM EST) NA 141 135 - 145 mmol/L 10/18/2023 9:17 AM EST [facility] K 4.5 3.5 - 5.3 mmol/L 10/18/2023 9:17 AM EST [facility] Cl 93(L) 97 - 110 mmol/L 10/18/2023 9:17 AM EST [facility] CO2 42(HH) 24 - 32 mmol/L 10/18/2023 9:17 AM EST [facility] BUN 43(H) 7 - 23 mg/dL 10/18/2023 9:17 AM EST [facility] Creatinine 1.98(H) 0.50 - 1.20 mg/dL 10/18/2023 9:17 AM EST [facility] Glucose 94 70 - 99 mg/dL 10/18/2023 9:17 AM EST [facility] Calcium 9.9 8.7 - 10.7 mg/dL 10/18/2023 9:17 AM EST [facility] Anion Gap 6 5 - 15 10/18/2023 9:17 AM EST [facility] eGFR 27(L) >=60 mL/min/1 .73m2 10/18/2023 9:17 AM EST [facility] Comment:The estimated glomer ular filtration rate (eGFR) is calculated using a new formula developed by the NKF-ASN task force to eliminate race-based correction factors. The new formula uses serum/plasma creatinine, age, and gender to determine eGFR. A value below 60mls/min might indicate kidney disease and will be flagged. For additional information, see Familia et al, Am J Kidney Dis. 2021;79(2):268- 288, A Unifying Approach for GFR estimation: Recommendations of the NKF-ASN Task Force on Reassessing the Inclusion of Race in Diagnosing Kidney Disease . Blood Structure of peripheral vein / Unknown Venipuncture / Unknown 10/18/2023 6:49 AM EST 10/18/2023 7:02 AM EST us Familia Landers MD LAB BLOOD ORDERABLES Fin al Result [facility] [address] [place] [address], * (ABNORMAL) CBC (10/17/2023 4:33 AM EST) WBC 6.9 4.3 - 10.8 10*3/uL 10/17/2023 4:47 AM EST [facility] RBC 2.62(L) 3.80 - 5.10 10*6/uL 10/17/2023 4:47 AM EST [facility] Hemoglobin 7.8(L) 11.7 - 15.5 g/dL 10/17/2023 4:47 AM EST [facility] Hematocrit 24.6(L) 35.0 - 46.0 % 10/17/2023 4:47 AM EST [facility] MCV 94.1 80.0 - 100.0 fL 10/17/2023 4:47 AM EST [facility] MCH 29.8 27.0 - 34.0 pg 10/17/2023 4:47 AM EST [facility] MCHC 31.6 29.0 - 36.0 g/dL 10/17/2023 4:47 AM EST [facility] RDW 17.5(H) 11.0 - 15.0 % 10/17/2023 4:47 AM EST [facility] Platelets 221 140 - 440 10*3/uL 10/17/2023 4:47 AM EST [facility] MPV 7.6 7.6 - 11.6 fL 10/17/2023 4:47 AM EST [facility] Smear Review? No 10/17/2023 4:47 AM EST [facility] Blood Structure of peripheral vein / Unknown Venipuncture / Unknown 10/17/2023 4:33 AM EST 10/17/2023 4:42 AM EST Brandon Nascimento MD LAB BLOOD ORDERABLES Final Re sult Performing Organization Address City/[facility]/ZIP Co de Phone Number [facility] [address] [place] [address], [place] * (ABNORMAL) Phosphorus (10/12/2023 4:46 AM EST) Phosphorus 4.7(H) 2.5 - 4.5 mg/dL 10/12/2023 5:18 AM EST [facility] Blood Structure of peripheral vein / Unknown Venipuncture / Unknown 10/12/2023 4:46 AM EST 10/12/2023 4:46 AM EST Evette Byrne MD LAB BLOOD ORDERABLES Final Resul t Performing Organization Address City/[facility]/ZIP Co de Phone Number [facility] [address] [place] [address], [place] * (ABNORMAL) Hemoglobin A1c (07/31/2023 1:19 PM EDT) Hemoglobin A1C 6.1(H) <5.7 % of total Hgb 08/01/2023 1:[address] [facility] Comment: For someone without known diabetes, a hemoglobin A1c value between 5.7% and 6.4% is consistent with prediabetes and should be confirmed with a follow-up test. For someone with known diabetes, a value <7% indicates that their diabetes is well controlled. A1c targets should be individualized based on duration of diabetes, age, comorbid conditions, and other considerations. This assay result is consistent with an increased risk of diabetes. Currently, no consensus exists regarding use of hemoglobin A1c for diagnosis of diabetes for children. eAG (MG/DL) 128 mg/dL 08/01/2023 1:24 AM EDT [employer] eAG (MMOL/L) 7.1 mmol/L 08/01/2023 1:24 AM EDT [employer] Blood Structure of peripheral vein / Unknown Venipuncture / Unknown 07/31/2023 1:19 PM EDT 07/31/2023 1:28 PM EDT [facility] 08/01/2023 1:24 AM EDT [facility] Received Date: Brandon Nascimento MD LAB BLOOD ORDERABLES Final Re sult [facility] [address], [place] [address], [facility] [address], [place] [address], * Vitamin D, 25-Hydroxy, Total, Immunoassay (05/23/2023 12:54 PM EDT) [facility] Signature Calcidiol+ercalc idiol 57 30 - 100 ng/mL 05/23/2023 10:00 PM EDT [employer] Comment: Vitamin D Status ? 25-OH Vitamin D: Deficiency: ?<20 ng/mL Insufficiency: ? 20 - 29 ng/mL Optimal: ? > or = 30 ng/mL For 25-OH Vitamin D testing on patients on D2-supplementation and patients for whom quantitation of D2 and D3 fractions is required, the QuestAssureD() 25-OH VIT D, (D2,D3), LC/MS/MS is recommended: order code [id number] (patients >2yrs). See Note 1 Note 1 For additional information, please refer to http://education.Isentropic/faq/YDY725 (This link is being provided for informational/ educational purposes only.) Blood Structure of peripheral vein / Unknown Venipuncture / Unknown 05/23/2023 12:54 PM EDT 05/23/2023 1:01 PM EDT Narrative [facility] - 05/23/2023 10:00 PM EDT [facility] Received Date: Brandon Nascimento MD LAB BLOOD ORDERABLES Final Re sult [address], [place] [address], [facility] [address], [place] [address], * (ABNORMAL) PTH, Intact (without Calcium) (05/23/2023 12:54 PM EDT) Parathyroid Hormone, Intact 85(H) 16 - 77 pg/mL 05/24/2023 5:34 AM EDT [facility] [facility] Comment: Interpretive Guide ?Intact PTH ? Calcium ? ------- Normal Parathyroid ?Normal ? Normal Hypoparathyroidism ?Low or Low Normal ?Low Hyperparathyroidism ?? Primary ?Normal or High ? High ?? Secondary ?High ? Normal or Low ?? Tertiary ? High ? High Non-Parathyroid ?? Hypercalcemia ?Low or Low Normal ?High Blood Structure of peripheral vein / Unknown Venipuncture / Unknown 05/23/2023 12:54 PM EDT 05/23/2023 1:01 PM EDT Narrative [facility] - 05/24/2023 5:34 AM EDT [facility] Received Date:[id number] us Brandon Nascimento MD LAB BLOOD ORDERABLES Final Re sult [facility] 200 [facility] 3rd Floor, [place] [address], [place] [phone] [employer] [facility] 200 [facility] 3rd Floor, [place] [address], [place] [phone] from Last 3 Months or Most Recently Relevant to Health Maintenance Insurance BCBS MCR REPLACE PPO Advance Directives Documents on File Type Date Recorded Patient Counseling Director Expl anation Health Care Proxy 10/15/2023 9:45 AM 10-15 [facility]ST 10/12/2023 6:42 PM 08-09-2023 * Full Code (Latest Code Status on File) Date Activated Date Inactivated Comments 10/11/2023 3:09 PM 10/18/2023 10:20 PM * Full Code Date Activated Date Inactivated Comments 10/11/2023 7:13 AM 10/11/2023 3:09 PM * Full Code Date Activated Date Inactivated Comments 07/31/2023 6:04 AM 08/09/2023 4:59 PM Healthcare Agents on File Name Relationship Healthcare Agent Relationshi p Communication Renetta Umana Sister Health Care Agent Chau Johnson Alternate Health Care Age nt Care Teams Carbide Tool Maker Relationship Specialty Start Date End Date Maine Myers MD PCP - General 05/02/23
--- OUTSIDE RECORDS SUMMARY | 2025-01-01 06:23 | XMS_ITS | Clinical Summary ---
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 Patient presented to [facility] on 10/11 for planned orthopedic surgery as [...] was referred from her orthopedic surgeon to [facility] orthopedics and seen in clinic on [...] was referred from her orthopedic surgeon to [facility] orthopedics and seen in clinic on [...] double-stranded DNA, positive anticardiolipin, negative C3/C4, negative anti-Graham/MOUNTER SAXOPHONES, negative SSA/SSB. Anticardiolipin antibody positive 09/08/2020 Overview [...] would be willing to follow up in [facility] renal [facility] clinic - see CHEYANNE problem [...] 11/13/2023 10:36 AM EST Plan of Treatment Health Maintenance Due Date Last Done Comments CKD: Referral to Nephrology 1952 Cologuard 1952 Colon Cancer Screening 1952 Colonoscopy 1952 FOBT / Fit Test 1952 Hepatitis C Screening 1952 Sigmoidoscopy 1952 Ophthalmology Exam [address] Lung Cancer Screening (Baseline) 2002 Osteoporosis Screening 2002 Zoster Vaccines (1 of 2) 2002 DTaP,Tdap,and Td Vaccines (2 - Td or Tdap) 08/08/2022 08/08/2012 25 Hydroxy / Vitamin D 05/23/2024 05/23/2023 PTH 05/23/2024 05/23/2023 Hemoglobin A1C 05/28/2024 11/28/2023, 07/13, 06/01/2023, Additional history exists Basic Metabolic Panel 07/03/2024 03/03/2024 , 01/16/2024, 11/28/2023, Additional history exists COVID-19 Vaccine ( season) 2024 09/02/2022, 02/16/2022, 09/12/2021, Additional history exists Influenza Vaccine (#1) 2024 , 09/02/2022, 09/02/2022, Additional history exists Phosphorus 10/12/2024 10/12/2023 Hemoglobin 10/17/2024 10/17/2023, 03/2023, 10/15/2023, Additional history exists Alcohol/Substance Use Screening 11/12/2024 Depression Screening and Follow-Up 11/12/2024 Health Care Proxy Review 11/12/2024 Social Drivers of Health Annual Screening 11/12/2024 Mammogram 11/29/2025 11/29/2023, 11/24/2022 Pneumococcal Vaccine: 50+ Years Completed 11/10/2021, 06/02/2020, 01/16/2018 RSV Vaccine (60+ years old and patients) Completed 11/13/2023 Hepatitis B Vaccines Aged Out No long er eligible based on patient's age to complete this topic Medical Devices Implanted Type Area Electrical Assemblies Supervisor Device Identifier Shelf Expiration Date Model / Serial / Lot Kit Rapid Cure 20cc Paste Volume 50cc Bead Volume Stimulan - [id number] Implanted:Qty: 1 on 10/11/2023 by Brandon Nascimento MD at [facility] Implant Right: Ankle [employer] 01/09/2026 620-020 / / [id number] Description:BOX STIMULAN MIX ED WITH 2 GRAMS VANCOMYCIN AND 1.2 GRAMS TOBRAMYCIN Nail Intramedullary Large Right 73ldn794my Valor - [id number] Implanted:Qty: 1 on 10/11/2023 by Brandon Nascimento MD at [facility] Implant Right: Ankle [email or web address] 06/06/2031 [id number] / / [id number] Screw Bone Fully Threaded Titanium [id number] Valor - [id number] Implanted:Qty: 1 on 10/11/2023 by Brandon Nascimento MD at [facility] Implant Right: Ankle [email or web address] 10/26/2030 [id number] / / [id number] Cement Radiopaque Full Dose 40gr Simplex P - [id number] Implanted:Qty: 2 on 10/11/2023 by Brandon Nascimento MD at [facility] Implant Right: Ankle D[employer] 12/12/2025 6191-1-010 / / [id number] Screw Hindfoot 5.4evj55uu Valor - [id number] Implanted:Qty: 1 on 10/11/2023 by Brandon Nascimento MD at [facility] Screw Right: Ankle [email or web address] 02/09/2031 [id number] / / [id number] Screw Hindfoot 5.5adr71mv Valor - [id number] Implanted:Qty: 1 on 10/11/2023 by Brandon Nascimento MD at [facility] Screw Right: Ankle [email or web address] 06/12/2031 [id number] / / [id number] Screw Bone Non Cannulated Non Locking Fully Threaded Non Sterile Titanium [id number] Valor - [id number] Implanted:Qty: 1 on 10/11/2023 by Brandon Nascimento MD at [facility] Screw Right: Ankle [email or web address] 07/06/2031 [id number] / / [id number] Screw Bone Fully Threaded Titanium [id number] Valor - [id number] Implanted:Qty: 1 on 10/11/2023 by Brandon Nascimento MD at [facility] Screw Right: Ankle [email or web address] 07/24/2031 [id number] / / [id number] Stimulan Implanted:Qty: 1 on 07/31/2023 by Brandon Nascimento MD at [facility] Right: Ankle [employer] 11/11/2025 620-020 / / [id number] Description:Adeed Tobramycin 1.2 grams x3, vancomycin 1 am x3 Explanted Type Area Electrical Assemblies Supervisor Device Identifier Shelf Expiration Date Model / Serial / Lot Pin Steinmann Central Thread [id number] - [id number] Implanted:Qty: 1 on 07/31/2023 by Brandon Nascimento MD at [facility] Explanted:Qty: 1 on 10/11/2023 by Brandon Nascimento MD at [facility] Implant Right: Ankle DEPUY [employer] [facility] 293.840 / / Screw Schanz Blunted Trocar Point 5.7uob185gh - [id number] Implanted:Qty: 1 on 07/31/2023 by Brandon Nascimento MD at [facility] Explanted:Qty: 1 on 10/11/2023 by Brandon Nascimento MD at [facility] Screw Right: Ankle DEPUY [employer] [facility] 294.55 / / Screw Schanz Self-Drilling 20mm Thread Stainless Steel 4.0mm/3.0mmx80 mm - [id number] Implanted:Qty: 2 on 07/31/2023 by Brandon Nascimento MD at [facility] Explanted:Qty: 2 on 10/11/2023 by Brandon Nascimento MD at [facility] Screw Right: Ankle DEPUY [employer] 294.771 / / Procedures * Due to [place] state law, this organization might not be [...] to Health Maintenance Results * Due to [place] state law, this organization might not be sharing negative HIV tests. * (ABNORMAL) Basic metabolic panel (10/18/2023 6:49 AM EST) NA 141 135 - 145 mmol/L 10/18/2023 9:17 AM EST [facility] K 4.5 3.5 - 5.3 mmol/L 10/18/2023 9:17 AM EST [facility] Cl 93(L) 97 - 110 mmol/L 10/18/2023 9:17 AM EST [facility] CO2 42(HH) [...] will be flagged. For additional information, see Barbosa et al, Am J Kidney Dis. 2021;79(2):268- 288, A Unifying Approach for GFR estimation: Recommendations of the NKF-ASN Task Force on Reassessing the Inclusion of Race in Diagnosing Kidney Disease . Blood Structure of peripheral vein / Unknown Venipuncture / Unknown 10/18/2023 6:49 AM EST 10/18/2023 7:02 AM EST us Familia Landers MD LAB BLOOD ORDERABLES Fin al Result [facility] [employer] [facility] [address] [place] [address], * (ABNORMAL) CBC (10/17/2023 4:33 AM EST) [...] - 15.0 % 10/17/2023 4:47 AM EST [facility] [employer] [facility] Platelets 221 140 - 440 10*3/uL 10/17/2023 4:47 AM EST [facility] [employer] [facility] MPV 7.6 7.6 - 11.6 fL 10/17/2023 4:47 AM EST [facility] [employer] [facility] Smear Review? No 10/17/2023 4:47 AM EST [facility] Blood Structure of peripheral vein / Unknown Venipuncture / Unknown 10/17/2023 4:33 AM EST 10/17/2023 4:42 AM EST us Brandon Nascimento MD LAB BLOOD ORDERABLES Final Re sult Performing Organization Address [facility] Co de Phone Number [facility] [address] [place] [address], [place] * (ABNORMAL) Phosphorus (10/12/2023 4:46 AM EST) Phosphorus 4.7(H) 2.5 - 4.5 mg/dL 10/12/2023 5:18 AM EST [facility] Blood Structure of peripheral vein / Unknown Venipuncture / Unknown 10/12/2023 4:46 AM EST 10/12/2023 4:46 AM EST Evette Byrne MD LAB BLOOD ORDERABLES Final Resul t Performing Organization Address City/[facility]/ZIP Co de Phone Number [facility] [address] [place] [address], [place] * (ABNORMAL) Hemoglobin A1c (07/31/2023 1:19 PM EDT) Hemoglobin A1C 6.1(H) <5.7 % of total Hgb 08/01/2023 1:24 AM EDT [facility] Comment: For someone without known diabetes, a [...] (MG/DL) 128 mg/dL 08/01/2023 1:24 AM EDT [facility] eAG (MMOL/L) 7.1 mmol/L 08/01/2023 1:24 AM EDT [facility] Blood Structure of peripheral vein / Unknown Venipuncture / Unknown 07/31/2023 1:19 PM EDT 07/31/2023 1:28 PM EDT [facility] - 08/01/2023 1:24 AM EDT [facility] Received Date: Brandon Nascimento MD LAB BLOOD ORDERABLES Final Re sult [facility] 200 [facility] 3rd Floor, [place] [address], [facility] 200 [facility] 3rd Floor, [place] [address], * Vitamin D, 25-Hydroxy, Total, Immunoassay (05/23/2023 12:54 PM EDT) [facility] Signature Calcidiol+ercalc idiol 57 30 - 100 ng/mL 05/23/2023 10:00 PM EDT [facility] Comment: Vitamin D Status ? 25-OH Vitamin D: Deficiency: ?<20 ng/mL Insufficiency: ? 20 - 29 ng/mL Optimal: ? > or = 30 ng/mL For 25-OH Vitamin D testing on patients on D2-supplementation and patients for whom quantitation of D2 and D3 fractions is required, the QuestAssureD() 25-OH VIT D, (D2,D3), LC/MS/MS is recommended: order code [id number] (patients >2yrs). See Note 1 Note 1 For additional information, please refer to http://education.Sliced [employer]ing/faq/OEV973 (This link is being provided for informational/ educational purposes only.) Blood Structure of peripheral vein / Unknown Venipuncture / Unknown 05/23/2023 12:54 PM EDT 05/23/2023 1:01 PM EDT Narrative [facility] - 05/23/2023 10:00 PM EDT [facility] Received Date: Brandon Nascimento MD LAB BLOOD ORDERABLES Final Re sult [facility] [address], [place] [address], [facility] [address], [place] [address], * (ABNORMAL) PTH, Intact (without Calcium) (05/23/2023 12:54 PM EDT) Parathyroid Hormone, Intact 85(H) 16 - 77 pg/mL 05/24/2023 5:34 AM EDT [facility] Comment: Interpretive Guide ?Intact PTH ? Calcium [...] PM EDT 05/23/2023 1:01 PM EDT [facility]ative [facility] - 05/24/2023 5:34 AM EDT [facility] Received Date:[id number] us Brandon Nascimento MD LAB BLOOD ORDERABLES Final Re sult [facility] [address] [facility] 3rd Floor, [place] [address], [place] [phone] [facility] 200 [facility] 3rd Floor, [place] [address], [place] [phone] from Last 3 Months or Most Recently Relevant to Health Maintenance Insurance BCBS MCR REPLACE PPO Advance Directives Documents on File Type Date Recorded Patient Component Prep Operator Expl anation Health Care Proxy 10/15/2023 9:45 [...] Relationship Healthcare Agent Relationshi p Communication Renetta Reynoldselojuan Sister Health Care Agent Chau Johnson Alternate Health Care Age nt Care Teams Position Description Manager Relationship Specialty Start Date End Date Maine Myers MD PCP - General 05/02/23
--- OUTSIDE RECORDS SUMMARY | 2025-01-01 06:23 | XMS_ITS | Encounter Summary ---
Author Organization [facility] Address [address] [place] [address] Care Team Providers Care Physical Education Specialist Name Role Phone Maine Myers MD Primary Care Provider [phone] Encounter Details Date Type Department Care Team (Late st Contact Info) Description 08/03/2023 Orders Only [facility] Interventional Radiology [address] [place] [address] Aida Orozco PA [address] [place] [address] Social History Tobacco Use Types Packs/Day Years [...] on filedocumented in this encounter Care Teams Physical Education Specialist Relationship Specialty Start Date End Date Maine Myers MD PCP - General 05/02/23 documented as of this encounter
--- OUTSIDE RECORDS SUMMARY | 2025-01-01 06:23 | XMS_ITS | Clinical Summary ---
Author Organization [facility] [address] [place] [address] [place] [id number] Phone Care Team Providers Care Electronic Drafter Name Role Phone Maine Myers MD Primary Care Provider Allergies Active Allergy Reactions Criticality Noted Date Comments Hydrochlorothiazide Other 11/25/2010 Leukocytoclastic vasculitis Shellfish Containing Products Nausea And Vomiting High 06/26/2007 Shellfish Derived GI intolerance 09/25/2024 Sulfamethoxazole-Trimethop rim Rash 10/11/2023 There was clinical concern for SJS, treated with steroids with improvement in rash Medications umeclidinium-vi lanteroL (Anoro Ellipta) 62.5-25 mcg/actuation inhaler Inhale 1 Puff into the lungs daily. 3 Active carvediloL (COREG) 3.125 mg tablet Take 1 Tablet by mouth 2 times daily (with meals). 4 Active bumetanide (BUMEX) 1 mg tablet TAKE 1 TABLET BY MOUTH IN THE MORNING AND 1 IN THE EVENING 4 Active calcitrioL (ROCALTROL) 0.25 mcg capsule Take 1 capsule (0.25 mcg total) by mouth every other day. 4 Active loratadine (CLARITIN) 10 mg tablet Take 1 tablet (10 mg total) by mouth 1 (one) time each day. 4 Active omeprazole (PriLOSEC) [address] capsule Take 1 capsule (20 mg total) by mouth 1 (one) time each day. 4 Active doxycycline (MONODOX) 100 mg capsule TAKE 1 CAPSULE BY MOUTH EVERY 12 HOURS CONTINUE 6 MONTHS OR LONGER DETERMINED BY INFECTIOUS DISEASE 4 Active docusate sodium (COLACE) 100 mg capsule Take 1 Capsule by mouth daily as needed for Constipation. 2 Active Oxygen Therapy (O2) gas Inhale 3 L into the lungs continuous prn (with rest exertion and sleep. Can you 2L when resting.). 2 Active aspirin 81 mg chewable tablet Take 81 mg by mouth daily. Active multivit-min/fe rrous fumarate (MULTI VITAMIN ORAL) t tab po qd 8 Active busPIRone (BUSPAR) 5 mg tablet Take 1 tablet (5 mg total) by mouth 3 (three) times a day. 270 tablet 1 5 Active Active Problems Problem Noted Date Diagnosed Date Seasonal allergies 04/17/2024 Anxiety 04/17/2024 Pulmonary hypertension 05/10/2022 Overview (08/16/2024): Last Assessment & Plan: She has a history of pulmonary hypertension although this was not present on most recent echocardiogram. Her breathing is stable. She has had no decompensations since her hospitalizations. She likely still has some degree given her severe COPD on oxygen. In any event I am not going to make any changes to medications. We will continue to monitor. Peripheral neuropathy 08/10/2021 Positive anti-CCP test 10/11/2020 Overview (08/16/2024): 09/2020-negative rheumatoid factor, mild elevated CRP, normal ESR Positive RASHMI (antinuclear antibody) 10/11/2020 Overview (08/16/2024): 09/2020-positive double-stranded DNA, positive anticardiolipin, negative C3/C4, negative anti-Graham/[employer], negative SSA/SSB. Anticardiolipin antibody positive 09/08/2020 Overview (08/16/2024): 09/2020- Recheck in 3 to 4 months Cor pulmonale (chronic) 08/30/2020 Chronic hypoxemic respiratory failure 05/31/2020 COPD with hypoxia 04/30/2020 Cataract 04/30/2020 Osteoarthritis of ankle and foot 09/11/2019 CKD stage 3 secondary to diabetes 12/30/2018 CKD (chronic kidney disease) stage 3, GFR 30-59 ml/min 12/30/2018 Onychomycosis 10/27/2015 Type II or unspecified type diabetes mellitus with neurological manifestations, uncontrolled(250.62) 09/28/2014 Type 2 diabetes mellitus 09/28/2014 Edema of both legs 07/17/2014 Elevated MCV 05/19/2014 Elevated brain natriuretic peptide (BNP) level 0 05/19/2014 Morbid obesity 11/06/2013 Overview (08/16/2024): BMI 40.52 on 09/15/13. Severe obesity (BMI 35.0-39.9) with comorbidity 11/06/2013 Overview (08/16/2024): BMI 40.52 on 09/15/13. Diverticulitis of colon without hemorrhage 04/04 Overview (08/16/2024): CN 04/04/2013. Osteopenia 12/31/2012 Tobacco use disorder 11/19/2008 Benign essential hypertension 04/02/2008 Overview (08/16/2024): Last Assessment & Plan: 138/80 in office today, well-controlled. Continue carvedilol and Lasix at current doses. Encounters Date Type Department Care Team Description 12/11/2024 10:00 AM EST - 12/11/2024 11:59 PM [facility] Hospital Encounter Radiology Department - [address] [id number] Encounter for screening mammogram for breast cancer Discharge Disposition: Home or Self Care from Last 3 Months Immunizations Name Administration Dates Next Due Influenza trivalent, 0.5mL ( Fluzone High-dose) 65yo and older 09/02/2022,09/04/2020,07/21/2019,07/19,07/18/2017 Influenza trivalent, with pr eservative (Fluzone; Afluria) 6mo and older 07/31/2016,07/30/2015,09/28/2014,08/08,08/23/2011,09/06/2010,08/11/2009 ,09/10/2008 Influenza, Unspecified 08/01/2021,08/03/2020 Pfizer (ages 12 & older) Biv alent, COVID-19 09/02/2022 Pneumococcal conjugate 13 va lent (Prevnar 13, PCV13) 2mo and older 01/16/2018 Pneumococcal polysaccharide 23 valent (Pneumovax 23) 2yo and older 11/10/2021 Tdap Tetanus diptheria acell ular pertussis (Boostrix; Adacel) 7yo and older 08/08/2012 Surgical History Surgery Date Site/Laterality Comments TONSILLECTOMY PROCEDURE: HISTORICAL TONSILLECTOMY; COMMENT: child SECTION PROCEDURE: HISTORICAL DELIVERY COLONOSCOPY 2012 PROCEDURE: TN COLONOSCOPY FLX DX W/COLLJ SPEC WHEN PFRMD; COMMENT: Minimal diverticulosis Medical History Medical History Date Comments Obesity DX:Obesity Historical Medical DX DX:Diabete s mellitus without mention of complication Essential hypertension, benign D X:Essential hypertension, benign DM II (diabetes mellitus, ty pe II), controlled (CMS/HCC) 12/16/2012 DX:DM II (diabetes mellitus, type II), controlled ([facility]) Diverticulosis of colon (wit hout mention of hemorrhage) 04/04/2013 DX:Diverticulosis of colon ( without mention of hemorrhage); COMMENT: Incidental finding at colonoscopy 04/04/2013. Edema of both legs 07/17/2014 DX:Edema of b oth legs DM (diabetes mellitus), type 2 with renal complications (CMS/HCC) 08/10/2021 DX:DM (diabetes mellitus ), type 2 with renal complications (HCC) CKD (chronic kidney disease) stage 3, GFR 30-59 ml/min (CMS/HCC) 12/30/2018 DX:CKD (chronic kidney dise ase) stage 3, GFR 30-59 ml/min (HCC) Type 2 diabetes mellitus wit h cataract (CMS/HCC) 08/10/2021 DX:Type 2 diabetes mellitus with cataract (HCC) Severe obesity (BMI 35.0-39. 9) with comorbidity (CMS/HCC) 11/06/2013 DX:Severe obesity (BMI 35.0- 39.9) with comorbidity ([facility]); COMMENT: BMI 40.52 on 09/15/13. DM (diabetes mellitus), type 2 with neurological complications (CMS/HCC) 09/28/2014 DX:DM (diabetes m ellitus), type 2 with neurological complications (HCC) Peripheral neuropathy 08/10/2021 DX:Periphe ral neuropathy Family History Medical History Relation Name Comments No Known Problems Brother No Known Problems Father Arthritis Mother No Known Problems Sister Breast cancer Neg Hx Relation Name Status Comments Brother Alive Father Mother Sister Alive Social History Tobacco Use Types Packs/Day Years [...] on file Sexual Orientation Not on file Obstetrics History Para Term AB IAB SAB Ectopic Multiple Livin g Live Births 2 2 2 Date Outcome GA Total Labor Labor/2nd/3rd Weight Sex Type Anes PTL Fariha A1 A5 Name Clin Term Term Last Filed Vital Signs Vital Sign Reading Time Taken Comments Blood Pressure 138/64 09/25/2024 9:18 AM EST Pulse 85 09/25/2024 8:16 AM EST Temperature 36.6 ??C (97.8 ??F) 09/25/2024 8:16 AM ES T Respiratory Rate 18 09/25/2024 8:16 AM EST Oxygen Saturation 94% 09/25/2024 9:18 AM EST Inhaled Oxygen Concentration - - Weight 90.7 kg (200 lb) 09/25/2024 8:16 AM EST Height 165.1 cm (5' 5 ) 09/25/2024 8:16 AM EST Body Mass Index 33.28 09/25/2024 8:16 AM EST Plan of Treatment Upcoming Encounters Date Type Department Care Team (Late st Contact Info) Description 07/29/2025 8:30 AM EDT Office Visit Pulmonolgy - [place] [address] [place] [id number] Dana Sutherland NP [address] [place] [address] Health Maintenance Due Date Last Done Comments Diabetes: Annual Foot Exam 1962 Diabetes: Annual Retina Eye Exam 1960 DTaP,Tdap,and Td Vaccines (2 - Td or Tdap) 08/08/2022 08/08/2012 Falls Risk Assessment 10/21/2022 Lung Cancer Screening (Low Dose CT) 10/21/2022 Osteoporosis Screening (Bone Density Screening) 10/21/2022 Social Influencers of Health Screening 10/21/2022 Colorectal Cancer Screening: Colonoscopy 04/04/2023 04/04/2013 Diabetes: Blood Sugar Control Test (HGBA1C) 05/28/2024 11/28/2023, 07/31/2023 Depression Screening 06/12/2024 06/12/2023 Medicare Annual Wellness Visit 06/12/2024 06/12/2023 Zoster Vaccines (2 of 2) 09/24/2024 07/30/2024 Diabetes: Annual Urine Albumin-Creatinine Ratio (uACR) 08/26/2025 08/26/2024, 03/03/2024 Diabetes: Annual GFR (Glomerular Filtration Rate) 08/26/2025 08/26/2024, 01/16/2024, 10/18/2023 Hypertension/CHF/CAD Annual BMP Blood Test 08/26/2025 08/26/2024, 01/16/2024, 10/18/2023 Breast Cancer Screening 12/11/2026 12/11/19 25, 11/29/2023, 11/24/2022, Additional history exists Cholesterol Screening (Lipid Panel) 08/26/2029 08/26/2024, 11/28/2023 Hepatitis C Screening Completed 08/30/2020 Pneumococcal Vaccine: 50+ Years Completed 11/10/2021, 06/02/2020, 01/16/2018 RSV Immunization Patients 60+ Years Old Completed 11/13/2023 COVID-19 Vaccine Completed 07/30/2024, , 02/16/2022, Additional history exists Influenza Vaccine Completed 07/30/2024, , 09/02/2022, Additional history exists HIB Vaccines Aged Out No longer eligi ble based on patient's age to complete this topic HPV Vaccines Aged Out No longer eligi ble based on patient's age to complete this topic Hepatitis A Vaccines Aged Out No long er eligible based on patient's age to complete this topic Hepatitis B Vaccines Aged Out No long er eligible based on patient's age to complete this topic IPV Vaccines Aged Out No longer eligi ble based on patient's age to complete this topic MMR Vaccines Aged Out No longer eligi ble based on patient's age to complete this topic Meningococcal ACWY Vaccine Aged Out N o longer eligible based on patient's age to complete this topic Meningococcal B Vacine Aged Out No lo nger eligible based on patient's age to complete this topic RSV Immunization Patients Under 20 months Aged Out No longer eligible based on patient's age to complete this topic Varicella Vaccines Aged Out No longer eligible based on patient's age to complete this topic Procedures Procedure Name Priority Date/Time Associated Diagnosis Comments MG MAMMO DIGITAL SCREENING W OZZIE BILAT Routine 12/11/2024 10:28 AM EST Encounter for screening mammogram for breast cancer URINE ALBUMIN CREATININE RATIO Routine 03/03/2024 ANNUAL BMP BLOOD TEST Routine 01/16/2024 HEMOGLOBIN A1C Routine 11/28/2023 LIPID PANEL Routine 11/28/2023 DEPRESSION SCREENING Routine 06/12/2023 HEPATITIS C SCREENING Routine 08/30/2020 COLONOSCOPY Routine 04/04/2013 from Last 3 Months or Most Recently Relevant to Health Maintenance Results * MG Mammo Digital Screening w Ozzie bilat (12/11/2024 10:28 AM EST) Anatomical Region Laterality Modality Breast Bilateral Mammography 12/11/2024 3:23 PM EST Impressions 12/11/2024 3:26 PM EST Limited exam without mammographic evidence of malignancy. BREAST DENSITY: B - There are scattered areas of fibroglandular density. BI-RADS CATEGORY: 1 - NEGATIVE RECOMMENDATION: Screening bilateral mammogram is recommended in 1 year. MAMMO LOCATION: [facility], [address] [place] [address], [id number], . -------- FINAL REPORT -------- Dictated By: Yanely Miner Dictated Date: 12/11/2024 15:23 ET Assigned Physician: Yanely Miner Reviewed and Electronically Signed By: Yanely Miner Signed Date: 12/11/2024 15:26 ET Workstation ID: [id number] Transcribed By: Self Edit Transcribed Date: 12/11/2024 [...] is recommended in 1 year. MAMMO LOCATION: [facility], [address] [place] [address], [id number], . -------- FINAL REPORT -------- Dictated By: Yanely Miner Dictated Date: 12/11/2024 15:23 ET Assigned Physician: Yanely Miner Reviewed and Electronically Signed By: Yanely Miner Signed Date: 12/11/2024 15:26 ET Workstation ID: [id number] Transcribed By: Self Edit Transcribed Date: 12/11/2024 15:23 ET Result [facility] Maine Myers MD IMG BI PROCEDURES Final Result * Urine Albumin Creatinine Ratio (03/03/2024) [facility] Urine Albumin Creatinine Ratio ABSTRACTED Result [facility] HEALTH MAINTENANCE Final Result * Annual BMP Blood Test (01/16/2024) [facility] Annual BMP Blood Test ABSTRACTED Result [facility] HEALTH MAINTENANCE Final Result * Hemoglobin A1c (11/28/2023) [facility] Hemoglobin A1C 5.2 <=6.5 % Blood Venous blood specimen / Unknown Result [facility] Provider LAB BLOOD ORDERABLES Ce l Result * (ABNORMAL) Lipid panel (11/28/2023) [facility] LDL/HDL Ratio 4 0 - 4 Triglycerides 214(A) 0 - 150 mg/dL Cholesterol 168 0 - 200 mg/dL HDL 40 >=40 mg/dL LDL Cholesterol 86 0 - 100 mg/dL Blood Venous blood specimen / Unknown Result [facility] Provider LAB BLOOD ORDERABLES Ce l Result * Depression Screening (06/12/2023) [facility] Depression Screening ABSTRACTED Result [facility] Provider HEALTH MAINTENANCE Final Result * Hepatitis C Screening (08/30/2020) [facility] Hepatitis C Screening ABSTRACTED Result [facility] HEALTH MAINTENANCE Final Result * Colonoscopy (04/04/2013) Colonoscopy no interpretation , abstracted Anatomical Region Laterality Modality Other Historical Provider HEALTH MAINTENANCE Final Result from Last 3 Months or Most Recently Relevant to Health Maintenance Insurance BLUE CROSS - [place] MEDICARE ADVANTAGE [place]ICA[place] Care Teams Electronic Drafter Relationship Specialty Start Date End Date Maine Myers MD [address] [place] [id number] PCP - General Internal Medicine 09/18/24
--- OUTSIDE RECORDS SUMMARY | 2025-01-01 06:23 | XMS_ITS | Clinical Summary ---
Author Organization [facility] Address [address] [place] [address] Care Team Providers Care Urban Planner Name Role Phone Lor Francisco MD Primary Care Provider Allergies Active Allergy Reactions Criticality Noted Date Comments Hydrochlorothiazide 03/07/2021 Shellfish Nausea And Vomiting 03/07/2021 Medications Medication Sig Dispensed Refills Start Date End Date Status furosemide (LASIX) 40 MG tablet Take 40 mg by mouth 2 (two) times a day. 0 Active Diclofenac Sodium 1 % GEL Apply topically. 0 Active tiotropium (Spiriva HandiHaler) [address] 18 mcg into inhaler and inhale daily. 0 Active carvedilol (COREG) 3.125 MG tablet Take 3.125 mg by mouth 2 (two) times a day with meals. 0 Active silver sulfADIAZINE (SILVADENE) 1 % cream Apply 1 application topically 2 (two) times a day. 0 Active aspirin EC 81 MG tablet Take 81 mg by mouth daily. 0 Active Multiple Vitamin (MULTI-VITAMIN DAILY PO) Take by mouth. 0 Active Active Problems Problem Noted Date Diagnosed Date Abnormal laboratory test result 03/08/2021 Chronic hypoxemic respiratory failure 05/31/2020 COPD with hypoxia 04/30/2020 CKD stage 3 secondary to diabetes 12/30/2018 Type II diabetes mellitus wi th neurological manifestations, uncontrolled 09/28/2014 Morbid obesity 11/06/2013 Overview: BMI 40.52 on 09/15/13. Benign essential hypertension 04/02/2008 Anticardiolipin antibody positive Pulmonary hypertension Family History Medical History Relation Name Comments No Sig Med Hx Brother Heart attack Father Alcohol abuse Mother Relation Name Status Comments Brother Father (Age 89) Mother (Age 76) Complicati ons of alcoholism Social History Tobacco Use Types Packs/Day Years Used Date Smoking Tobacco: Former Cigarettes 1 Smokeless Tobacco: Never Alcohol Use Standard Drinks/Week Comments Yes 0 (1 standard drink = 0.6 oz pur e alcohol) rarely Sex and Gender Information Value Date Recorded Sex Assigned at Not on file Gender Identity Not on file Sexual Orientation Not on file Last Filed Vital Signs Vital Sign Reading Time Taken Comments Blood Pressure 184/80 03/08/2021 1:22 PM EDT Pulse 75 03/08/2021 1:22 PM EDT Temperature 36.3 ??C (97.4 ??F) 03/08/2021 1:22 PM ED T Respiratory Rate - - Oxygen Saturation 98% 03/08/2021 1:22 PM EDT Inhaled Oxygen Concentration - - Weight 110.7 kg (244 lb) 03/08/2021 1:22 PM EDT Height 165.1 cm (5' 5 ) 03/08/2021 1:22 PM EDT Body Mass Index 40.6 03/08/2021 1:22 PM EDT Plan of Treatment Health Maintenance Due Date Last Done Comments Hepatitis C Screening 1950 COVID-19 Vaccine (#1) 1952 Depression Screening 1964 Preventative Health Evaluation 1970 Colon Cancer Screening (Colonoscopy) 1997 Breast Cancer Screening (Mammogram) 2002 Shingrix-Zoster Vaccine (1 of 2) 2002 RSV Adult > 60+ Yrs or (1 - Risk 60-74 years 1-dose series) 2012 Fall Risk Assessment 2017 Osteoporosis Screening (DEXA Scan) 2017 Pneumococcal Vaccine (2 of 2 - PPSV23 or PCV20) 03/13/2018 01/16/2018 DTap / Tdap / Td (2 - Td or Tdap) 08/08/2022 08/08/2012 Influenza Vaccine (#1) 2024 9, 07/19/2018, 07/18/2017, Additional history exists Hepatitis B Vaccines Aged Out No long er eligible based on patient's age to complete this topic RSV Ped < 20 months Aged Out No longe r eligible based on patient's age to complete this topic Care Teams Urban Planner Relationship Specialty Start Date End Date Lor Francisco MD PCP - General Internal Medicine 02/04/21
[2025-01-01 06:30] LABS: Alanine Aminotransferase 7 U/L (0-31); Albumin Level 3.1 g/dL (3.5-5.0); Alkaline Phosphatase 73 U/L (39-117); Anion Gap 15 (12-20); Aspartate Amino Transferase 30 U/L (5-31); Bilirubin Total 0.6 mg/dL (0.0-1.0); Blood Urea Nitrogen 88 mg/dL (9-16); Calcium 8.6 mg/dL (8.4-10.2); Carbon Dioxide 38 mmol/L (22-29); Chloride 96 mmol/L (96-108); Creatinine Clr Calc Pharmacy 20.4; Estimated Glomerular Filt Rate 16; Glucose Random 172 mg/dL (60-115); Potassium 4.9 mmol/L (3.3-5.1); Sodium 144 mmol/L (135-145); Total Protein 7.7 g/dL (6.5-8.0)
[2025-01-01 06:33] LABS: Troponin-I High Sensitivity 19.6 ng/L (<3.5-17.0)
[2025-01-01 06:49] LABS: Influenza A PCR NEGATIVE (Negative); Influenza B PCR NEGATIVE (Negative); Resp Syncy Virus RNA Qual PCR NEGATIVE (Negative); SARS COV2 PCR INHOUSE NEGATIVE (Negative)
--- NOTE | 2025-01-01 08:15 | ED_ITS ---
HPI - General Adult General Chief complaint: General Medical Stated complaint: FALL/COPD/SOB Time Seen by Provider: 01/01/25 07:39 Source: patient and EMS Mode of arrival: EMS Limitations: no limitations History of Present Illness ED Provider: DR. Vences HPI narrative: 74-year-old female lives home with her sister mostly independently, patient ambulate with a walker at home, presented after sustained a mechanical fall this morning, patient stated that the walker got stuck in the rug causing her to fall on her left side landing on left elbow, left knee and left hip area, patient declined any head injury, no neck pain, no CP, no abdominal pain, no LOC before or after the fall, the was no symptoms of dizziness before the fall. Patient is reporting exertional dyspnea patient with history of COPD/emphysema use 3 L of supplemental oxygen normally. Patient also experiencing PND, bilateral lower extremity edema. No head injury, no headache, no LOC, no blood thinner, no neck pain, no CP, no abdominal pain. Patient sustained a superficial laceration to the left elbow, right chin, complaining of left knee pain. Related Data Home Medications ?Medication ?Instructions ?Recorded ?Confirmed aspirin 81 mg tablet,delayed 81 mg PO DAILY 01/01/25 01/01/25 release bumetanide 1 mg tablet 1 mg PO BID 01/01/25 01/01/25 buspirone 5 mg tablet 5 mg PO TID 01/01/25 01/01/25 calcitriol 0.25 mcg capsule 0.25 mcg PO Q OTHER DAY 01/01/25 01/01/25 carvedilol 3.125 mg tablet 3.125 mg PO BID 01/01/25 01/01/25 docusate sodium 100 mg capsule 100 mg PO DAILY PRN Constipation 01/01/25 01/01/25 multivitamin 1 tab PO DAILY 01/01/25 01/01/25 umeclidinium 62.5 mcg-vilanterol 1 ea inhalation DAILY 01/01/25 01/01/25 25 mcg/actuation powdr for inhalation (Anoro Ellipta) Allergies Allergy/AdvReac Type Severity Reaction Status Date / Time shellfish derived [shellfish] AdvReac Hives Verified 01/01/25 05:49 Review of Systems 2 Review of Systems: All other systems are reviewed and are negative Constitutional: Reports as per HPI and Reports no additional constitutional complaints Eyes: Reports as per HPI and Reports no additional eye complaints Reports system reviewed and no additional complaints, except as documented Cardiovascular: Reports as per HPI and Reports no additional cardiovascular complaints Respiratory: Reports as per HPI and Reports no additional respiratory complaints Gastrointestinal: Reports as per HPI and Reports no additional gastrointestinal complaints Genitourinary: Reports no additional female genitourinary complaints Musculoskeletal: Reports no additional musculoskeletal complaints Skin/Breast: Reports system reviewed and no additional complaints, except as docu Psychiatric: Reports no additional psychiatric complaints Endocrine: Reports no additional endocrine complaints Hematologic/Lymphatic: Reports no additional hematologic/lymphatic complaints Allergic/Immunologic: Reports no additional allergic/immunologic complaints Reports system reviewed and no additional complaints, except as documented and Reports Abnormal speech present [facility] Social History Social History Smoked in Last 30 Days: No Use of substances other than those prescribed or required for medical reasons: No Advance Directives: No Advance Directives Information Provided: Yes Do you have a plan to hurt others: No Plan Physical Exam ED Vital Signs: Vital Signs - 24 hr 01/01/25 05:43 01/01/25 06:32 01/01/25 11:42 Temperature 98.3 F 97.8 F Pulse Rate 76 75 71 Respiratory Rate 12 20 24 H Blood Pressure 143/60 H 131/44 L Pulse Oximetry 92 Oxygen Delivery Method Nasal Cannula Nasal Cannula Oxygen Flow Rate 5 01/01/25 11:47 01/01/25 12:13 Temperature Pulse Rate 67 Respiratory Rate 19 Blood Pressure 150/61 H 155/53 H Pulse Oximetry 91 L Oxygen Delivery Method Nasal Cannula Oxygen Flow Rate BMI result Body Mass Index 42.4 Vital signs have been reviewed and appear to be correct. Blood pressure elevated. Heart rate normal. Respiratory rate normal. Temperature normal. Oxygen saturation normal. Appearance: Alert. Oriented X3. No acute distress. Head: Normal external exam. Normocephalic. Atraumatic. No Hernandez signs noted. No raccoon eyes noted Eyes: PERRLA. EOMI. Conjunctiva and sclera normal. Eyelids normal. ENT: TM's Normal. Pharynx normal. Uvula midline. Moist mucous membranes. No trismus noted. No drooling noted. No muffled voice noted. Neck: Normal inspection. Neck supple. FROM. No adenopathy. Thyroid Normal. No meningeal signs. No neck mass noted. CVS: Normal heart rate and rhythm. Heart sound normal. No murmurs noted. Pulses normal throughout. Respiratory: No respiratory distress. Painless inspiration. Breath sounds normal. No wheezes/rales/rhonchi noted. Chest nontender. No accessory muscle usage noted or decreased air movement noted. Abdomen: Soft and nontender. Bowel sounds normal in all 4 quadrants. No distention noted. No organomegaly noted. No visible injury noted. Rectal exam: Brown stool trace of blood, guaiac positive. Back: No CVA tenderness. Full range of motion noted. Skin: Skin warm and dry. Normal skin color. Normal skin turgor. No rashes/lesions/lacerations noted. Extremities: Superficial skin tear over the left elbow otherwise neurovascularly intact of the left upper extremity. Bilateral lower extremities + 3 edema with draining blisters seems to be chronic otherwise neurovascularly intact. Left knee: Left knee effusion is appreciated. Neuro: Oriented X 3. Cranial nerve exam: II-XII are grossly intact No motor deficit. No sensory deficit. Reflexes normal. Course Reevaluation(s) Reevaluation #1: 74-year-old female came in after sustaining a mechanical fall with her walker. GCS of 15, normal neuro exam, no reported head injury. 1. Left knee effusion, left hip pain x-ray is equivocal for fracture patient was made to walk in the emergency department with a walker able to bear weight on her left lower extremity hip fracture/knee fracture is unlikely. Left knee effusion the need to be monitored. 2. CHF/bilateral lower extremity edema: Consider diuresis and Lasix. 3. COPD exacerbation, no sepsis: Continue with bronchodilator, Solu-Medrol, and magnesium. 4. Anemia with guaiac-positive will transfuse 1 unit of PRC Time: 11:44 Medications Administered Discontinued Medications Generic Name Dose Route Start Last Admin Trade Name Freq PRN Reason Stop Dose Admin Albuterol Sulfate 5 mg/ 0 mg 01/01/25 11:41 01/01/25 11:46 Albuterol/Ipratropium 3 ml INHALE 01/01/25 11:42 7.5 each ONCE ONE Administration Furosemide 40 mg 01/01/25 11:32 01/01/25 11:47 Furosemide 40 Mg/4 Ml Vial IVPUSH 01/01/25 11:33 40 mg STAT STA Administration Protocol Magnesium Sulfate 2 gm in 50 mls @ 25 mls/hr 01/01/25 11:32 01/01/25 11:47 Magnesium Sulfate/H2o IV 01/01/25 13:31 25 mls/hr ONCE ONE Administration Methylprednisolone Sodium Succinate 125 mg 01/01/25 11:32 01/01/25 11:47 Methylprednisolone Sod Succ 125 Mg/2 Ml Vial IVPUSH 01/01/25 11:33 125 mg ONCE ONE Administration Medical Decision Making Differential Diagnosis Differential Diagnoses: The differential diagnosis associated with the presentation includes (COPD, pneumonia, pneumothorax, CHF, ACS, left hip fracture, left knee fracture, electrolyte derangement, severe anemia.) Admission/Observation Consideration of admission/observation: Escalation of care including admission/observation considered Consult Healthcare Provider Management of the patient was discussed with: Hospitalist (Dr. Haines) Lab Data MDM Lab Attestation statement: I reviewed the patient's lab results. 01/01/25 06:06 01/01/25 06:06 Labs: Lab Results 01/01/25 01/01/25 01/01/25 Range/Units 06:06 08:22 08:24 WBC 9.7 (4.8-10.8) X10*3/uL RBC 2.49 L D (4.20-5.50) X10*6/uL Hgb 7.7 L D (12.0-16.0) g/dl Hct 26.9 L (37.0-47.0) % MCV 108.0 H (80.0-98.0) fL MCH 30.9 (27.0-33.0) pg MCHC 28.6 L (31.0-35.0) g/dl RDW 16.3 H (11.0-16.0) % Plt Count 251 (160-400) X10*3/uL MPV 9.8 (9.4-12.3) fL Immature Gran % (Auto) 0.7 H (0.0-0.4) % Neut % (Auto) 82.3 H (45-73) % Lymph % (Auto) 11.0 L (20-40) % [place] % (Auto) 4.8 (2-11) % Eos % (Auto) 1.0 (0-4) % Baso % (Auto) 0.2 (0-2) % Lymph # (Auto) 1.1 L (1.2-4.9) X10*3/uL [place] # (Auto) 0.5 (0.1-1.2) X10*3/uL Eos # (Auto) 0.1 (0.0-0.4) X10*3/uL Baso # (Auto) 0.0 (0.0-0.2) X10*3/uL Abs Immat Gran (auto) 0.07 H (0.00-0.03) X10*3/uL Absolute Neuts (auto) 8.0 (2.0-8.3) x10*3/uL Absolute Nucleated RBC 0.020 H (0.0-0.012) X10*3/uL Nucleated RBC % (auto) 0.2 (0.0-0.2) /100WBC Sodium 144 (135-145) mmol/L Potassium 4.9 (3.3-5.1) mmol/L Chloride 96 (96-108) mmol/L Carbon Dioxide 38 H (22-29) mmol/L Anion Gap 15 (12-20) BUN 88 H (9-16) mg/dL Creatinine 2.83 H (0.5-1.4) mg/dL Estim Creat Clear Calc 20.4 Estimated GFR 16 Random Glucose 172 H (60-115) mg/dL Calcium 8.6 D (8.4-10.2) mg/dL Total Bilirubin 0.6 (0.0-1.0) mg/dL AST 30 (5-31) U/L ALT 7 (0-31) U/L Alkaline Phosphatase 73 (39-117) U/L Total Creatine Kinase 15 L (26-140) U/L Troponin I High Sens 19.6 H 22.0 H (<3.5-17.0) ng/L B-Natriuretic Peptide 2967 H (<100) pg/mL Total Protein 7.7 (6.5-8.0) g/dL Albumin 3.1 L (3.5-5.0) g/dL Stool Occult Blood POSITIVE (NEGATIVE) Influenza Type A (PCR) NEGATIVE (Negative) Influenza Type B (PCR) NEGATIVE (Negative) RSV RNA Qual (PCR) NEGATIVE (Negative) SARS-CoV-2 RNA (RT-PCR) NEGATIVE (Negative) Blood Type Antibody Screen Crossmatch 01/01/25 Range/Units 10:53 WBC (4.8-10.8) X10*3/uL RBC (4.20-5.50) X10*6/uL Hgb (12.0-16.0) g/dl Hct (37.0-47.0) % MCV (80.0-98.0) fL MCH (27.0-33.0) pg MCHC (31.0-35.0) g/dl RDW (11.0-16.0) % Plt Count (160-400) X10*3/uL MPV (9.4-12.3) fL Immature Gran % (Auto) (0.0-0.4) % Neut % (Auto) (45-73) % Lymph % (Auto) (20-40) % [place] % (Auto) (2-11) % Eos % (Auto) (0-4) % Baso % (Auto) (0-2) % Lymph # (Auto) (1.2-4.9) X10*3/uL [place] # (Auto) (0.1-1.2) X10*3/uL Eos # (Auto) (0.0-0.4) X10*3/uL Baso # (Auto) (0.0-0.2) X10*3/uL Abs Immat Gran (auto) (0.00-0.03) X10*3/uL Absolute Neuts (auto) (2.0-8.3) x10*3/uL Absolute Nucleated RBC (0.0-0.012) X10*3/uL Nucleated RBC % (auto) (0.0-0.2) /100WBC Sodium (135-145) mmol/L Potassium (3.3-5.1) mmol/L Chloride (96-108) mmol/L Carbon Dioxide (22-29) mmol/L Anion Gap (12-20) BUN (9-16) mg/dL Creatinine (0.5-1.4) mg/dL Estim Creat Clear Calc Estimated GFR Random Glucose (60-115) mg/dL Calcium (8.4-10.2) mg/dL Total Bilirubin (0.0-1.0) mg/dL AST (5-31) U/L ALT (0-31) U/L Alkaline Phosphatase (39-117) U/L Total Creatine Kinase (26-140) U/L Troponin I High Sens (<3.5-17.0) ng/L B-Natriuretic Peptide (<100) pg/mL Total Protein (6.5-8.0) g/dL Albumin (3.5-5.0) g/dL Stool Occult Blood (NEGATIVE) Influenza Type A (PCR) (Negative) Influenza Type B (PCR) (Negative) RSV RNA Qual (PCR) (Negative) SARS-CoV-2 RNA (RT-PCR) (Negative) Blood Type O Positive Antibody Screen NEGATIVE Crossmatch See Detail Independent Interpretation I performed an independent interpretation of an: Plain X-Ray (Left knee/left hip:1. Exam limitations as described. 2. No definite fracture or dislocation evident. 1. Osteopenia, with no definite fracture identified. 2. Mild lateral subluxation of the patella on the AP view. Correlate clinically for transient patellar dislocation. 3. There is a joint effusion) Radiology Impression Discussion of test interpretation with radiology: I have reviewed the radiologist's reading. Critical Care Time Critical Care Time Critical Care Time: Yes Total Critical Care Time: 60 Attestation: The patient was critically ill with a high probability of imminent or life- threatening deterioration. I spent greater than 30 minutes of discontinuous time evaluating the patient, delivering critical care at the bedside, discussing evaluating data with consultants. Critical care time does not include time spent performing separately billable procedures or teaching. Time spent performing critical care was 60 minutes. Discharge Plan Discharge Clinical Impression: Congestive heart failure, COPD exacerbation, Knee effusion, left, Anemia Patient Disposition: Admitted As Inpatient Print Language: Com[place]an
[2025-01-01 08:33] LABS: OBS Int Ctl Valid YES; OBS1 POSITIVE (NEGATIVE)
[2025-01-01 08:51] LABS: B Type Natriuretic Peptide 2967 pg/mL (<100)
[2025-01-01] MEDS: Albuterol Sulfate 5 MG, Albuterol/Iprat 2.5/0.5MG 3 ML 3 ML INHALE (11:46)
[2025-01-01] MEDS: Magnesium Sulfate/H2O 2 GM/50 ML PIGGYBACK IV (11:47)
[2025-01-01] MEDS: methylPREDNISolone Sod Succ 125 MG/2 ML VIAL IVPUSH (11:47)
[2025-01-01] MEDS: Furosemide 40 MG/4 ML VIAL IVPUSH (11:47)
--- NOTE | 2025-01-01 13:01 | PHA.MEDREC ---
Pharmacy Consult ? Medication Reconciliation Pharmacy has completed the medication reconciliation. Spoke with pt at bedside to confirmed medications. She provided a list, which matched claims.
--- NOTE | 2025-01-01 14:43 | PM.IMHP ---
History of Present Illness Date of Service: 01/01/25 Chief Complaint: Mechanical fall 74-year-old female with past medical history significant for COPD on 3 L of home oxygen, history of chronic kidney disease unspecified, presented to [facility] after a mechanical fall this morning as per patient she was ambulating with a walker that got stuck in the rug causing her to fall on her left side landing on left elbow, left knee and left hip patient denied head injury, no chest pain, no abdominal pain, no nausea, no vomiting, no syncope patient denied symptoms of dizziness lightheadedness prior to fall, patient does provide history of chronic shortness of breath with exertion, orthopnea, denies shortness of breath at rest, denies chest pain, no palpitations No fevers, no chills, no recent illness patient missed her PCP appointment yesterday, was last seen by PCP 6 months ago, is being followed by Dr. Hand from Nephrology. ED workup showed hemoglobin 7.7, hematocrit 26.9, last hematocrit 33.22 years ago, chronically elevated MCV, stool guaiac positive, creatinine of 2.83 last creatinine 1.32 years ago, blood sugar 172, BNP 2967, troponin 19.6 repeat 22, albumin 3.1, chest x-ray showed enlarged heart with small bilateral effusion and pulmonary vascular congestion suggesting edema, left hip x-ray showed limited exam, no definite fracture or dislocation noted, x-ray left knee, showed osteopenia with no definite fractures, mild lateral subluxation of patella, joint effusion and prominent prepatellar soft tissue swelling, probable subtle bone infarction in the distal femoral metaphysis In ED patient received 1 unit of packed, IV Lasix 40 mg, IV steroid 125 mg, IV magnesium 2 g and updraft treatment patient is now being admitted to [facility] due to mechanical fall with significant left knee injury, anemia with guaiac-positive stool and probable acute on chronic [place] and congestive heart failure with unknown EF. Review of Systems Review of Systems: General no headache, no dizziness no fever chills. CVS no chest pain, no palpitation. Respiratory no cough , chronic dyspnea on exertion, positive orthopnea. Gastrointestinal no nausea no vomiting, no abdominal pain no urgency no frequency Musculoskeletal left knee pain All other system reviewed and are negative PMFSH Social History Household Members: Family Household Members Other:: sister Housing: House Do you presently have visiting nurse or other home services: No Patient Tobacco Use Status: Former Tobacco user Tobacco use type: Cigarette Meds Allergies Allergy/AdvReac Type Severity Reaction Status Date / Time shellfish derived [shellfish] AdvReac Hives Verified 01/01/25 05:49 Home Medications ?Medication ?Instructions ?Recorded ?Confirmed ?Last Taken ?Type aspirin 81 mg tablet,delayed 81 mg PO DAILY 01/01/25 01/01/25 12/31/24 History release bumetanide 1 mg tablet 1 mg PO BID 01/01/25 01/01/25 12/31/24 History buspirone 5 mg tablet 5 mg PO TID 01/01/25 01/01/25 12/31/24 History calcitriol 0.25 mcg capsule 0.25 mcg PO Q OTHER DAY 01/01/25 01/01/25 12/31/24 History carvedilol 3.125 mg tablet 3.125 mg PO BID 01/01/25 01/01/25 12/31/24 History docusate sodium 100 mg capsule 100 mg PO DAILY PRN Constipation 01/01/25 01/01/25 12/31/24 History multivitamin 1 tab PO DAILY 01/01/25 01/01/25 12/31/24 History umeclidinium 62.5 mcg-vilanterol 1 ea inhalation DAILY 01/01/25 01/01/25 12/31/24 History 25 mcg/actuation powdr for inhalation (Anoro Ellipta) Physical Exam Vital Signs and Narrative: Vital Signs: Last Vital Signs Temp 97.8 F 01/01/25 06:32 Pulse 67 01/01/25 12:13 Resp 19 01/01/25 12:13 BP 155/53 H 01/01/25 12:13 Pulse Ox 91 L 01/01/25 12:13 O2 Del Method Nasal Cannula 01/01/25 12:13 O2 Flow Rate 5 01/01/25 06:32 BMI result Body Mass Index 42.4 Const: Other: General alert oriented x3, in no acute distress. Anicteric sclera Neck supple no JVD. CVS regular rate rhythm, Respiratory lungs crackles, no respiratory distress, no wheeze, no rhonchi. Gastrointestinal abdomen soft, non tender, bowel sounds audible, no guarding , no rigidity,protuberant umblicus. Extremities bilateral lower extremity edema left greater than right, with left lower extremity redness and warmth Left elbow dressing in place Left knee ecchymosis/bruise/swelling Left hip good range of motion Neuro non focal ,moving all 4 extremity ,speech clear. Psych appropriate affect Results Labs 01/02/25 05:31 01/02/25 05:31 Labs: Laboratory Results - last 24 hr 01/01/25 01/01/25 01/01/25 06:06 08:22 08:24 MCV 108.0 H MCH 30.9 MCHC 28.6 L RDW 16.3 H Plt Count 251 MPV 9.8 Immature Gran % (Auto) 0.7 H Neut % (Auto) 82.3 H Lymph % (Auto) 11.0 L [place] % (Auto) 4.8 Eos % (Auto) 1.0 Baso % (Auto) 0.2 Lymph # (Auto) 1.1 L [place] # (Auto) 0.5 Eos # (Auto) 0.1 Baso # (Auto) 0.0 Abs Immat Gran (auto) 0.07 H Absolute Neuts (auto) 8.0 Absolute Nucleated RBC 0.020 H Nucleated RBC % (auto) 0.2 Anion Gap 15 Estim Creat Clear Calc 20.4 Estimated GFR 16 Random Glucose 172 H Calcium 8.6 D Total Bilirubin 0.6 AST 30 ALT 7 Alkaline Phosphatase 73 Total Creatine Kinase 15 L B-Natriuretic Peptide 2967 H Total Protein 7.7 Albumin 3.1 L Stool Occult Blood POSITIVE Influenza Type A (PCR) NEGATIVE Influenza Type B (PCR) NEGATIVE RSV RNA Qual (PCR) NEGATIVE SARS-CoV-2 RNA (RT-PCR) NEGATIVE Blood Type Antibody Screen Crossmatch 01/01/25 10:53 MCV MCH MCHC RDW Plt Count MPV Immature Gran % (Auto) Neut % (Auto) Lymph % (Auto) [place] % (Auto) Eos % (Auto) Baso % (Auto) Lymph # (Auto) [place] # (Auto) Eos # (Auto) Baso # (Auto) Abs Immat Gran (auto) Absolute Neuts (auto) Absolute Nucleated RBC Nucleated RBC % (auto) Anion Gap Estim Creat Clear Calc Estimated GFR Random Glucose Calcium Total Bilirubin AST ALT Alkaline Phosphatase Total Creatine Kinase B-Natriuretic Peptide Total Protein Albumin Stool Occult Blood Influenza Type A (PCR) Influenza Type B (PCR) RSV RNA Qual (PCR) SARS-CoV-2 RNA (RT-PCR) Blood Type O Positive Antibody Screen NEGATIVE Crossmatch See Detail Imaging Radiologist's Impressions: Impressions Hip X-Ray 01/01/25 08:00 IMPRESSION: 1. Exam limitations as described. 2. No definite fracture or dislocation evident. Electronically signed by: Gregory Hernandez MD 01/01/2025 09:11 AM [email or web address] Knee X-Ray 01/01/25 08:00 IMPRESSION: 1. Osteopenia, with no definite fracture identified. 2. Mild lateral subluxation of the patella on the AP view. Correlate clinically for transient patellar dislocation. 3. There is a joint effusion and there is prominent prepatellar soft tissue swelling. 4. Probable subtle bone infarct in the distal femoral metaphysis. Electronically signed by: Gregory Hernandez MD 01/01/2025 09:14 AM EST RP Assessment and Plan (1) Anemia: Status: Acute (2) Knee effusion, left: Status: Acute (3) COPD exacerbation: Status: Acute (4) Congestive heart failure: Status: Acute Plan 74-year-old female patient who lives at home with sister history of COPD on 3 L of home oxygen, history of chronic kidney disease unspecified presented to [facility] after a mechanical fall and sustained left elbow left knee and left hip injury without any preceding symptoms of lightheadedness dizziness, no chest pain or palpitations, patient provide history of chronic dyspnea on exertion, orthopnea in ED noted to have macro anemia, elevated creatinine and BNP with no recent baseline labs available, EKG showed normal sinus rhythm, right bundle branch block, T-wave abnormality inferolateral lead, no previous EKGs for comparison Will be admitted for following medical issues. Mechanical fall with left elbow/left hip and left knee injury Imaging study showed no acute fractures, x-ray left knee abnormal consult Orthopedic surgery/analgesics PT eval once medically stable Acute on chronic kidney disease/cardiorenal syndrome Spoke with Dr. Hand patient baseline creatinine between 1.8 in 2 Avoid nephrotoxins all medications renally dosed. Was on Bumex 1 mg b.i.d. will hold and place on IV Lasix drip Monitor BMP while being diuresed Acute on chronic macrocytic anemia No acute GI bleed, stool guaiac positive Check B12/folate/iron studies Received 1 unit of packed RBC follow CBC and obtained old record from PCP Further workup as per blood work report Acute on Chronic hypoxic respiratory failure due to acute chf exacerbation unspecified/no acute COPD exacerbation Elevated BNP due to acute CHF exacerbation unspecified EF, no prior labs available On 3 L of home oxygen Currently requiring OxyMask finger oximetry 90-92% Place on DuoNeb q.i.d./hold IV Solu-Medrol treatment IV Lasix drip as above Monitor I's and O's/daily weight follow BMP and BNP Echocardiogram/Cardiology consult Elevated troponin but flat, , asymptomatic no chest pain, abnormal EKG however no prior EKGs available for comparison. Cardiology consult Obtain echocardiogram Tele monitoring Hyperglycemia No history of diabetes check hemoglobin A1c Class 3 obesity Recommend low-calorie diet DVT prophylaxis compression boots due to anemia Full code In my clinical judgment patient requires 2 night inpatient hospitalization for management of acute CHF/acute hypoxic respiratory failure Quality Stroke Does the patient have a stroke diagnosis?: No VTE Prior VTE?: No VTE Risk Level:: Medical - moderate - high VTE Device Contraindication: N/A - Device Ordered VTE Drug Contraindication: Treatment Not Indicated
--- NOTE | 2025-01-01 15:00 | CA_ITS ---
Transthoracic Echocardiogram Patient (Last, First, Middle): Kylah Cisse, Gender: Female Date of : 1950 Age: 74 Procedure Date: 01/01/2025 Procedure Type: Transthoracic Echocardiogram Location: ER Height: 157. cm Weight: 104.78 kg BSA: 2.03 m2 Heart Rate: 73 bpm BP: 135 / 55 mmHg Drop Hammer Mechanic: ANN Referring MD: Thierno Haines MD Symptoms: chf Study Quality: Technically Difficult w/Contrast ECG Rhythm: Sinus Conclusions: - The left ventricular systolic function is hyperdynamic. The visually estimated ejection fraction is >70%. - Moderately increased right ventricular cavity size. - There is moderate tricuspid valve regurgitation. - Moderate to severe pulmonary hypertension is present. Findings Procedure Information Contrast agent, definity, is being given per protocol without apparent complications. Left Ventricle Normal left ventricular cavity size. The left ventricular systolic function is hyperdynamic. The visually estimated ejection fraction is >70%. There is no evidence of regional wall motion abnormalities. There is a flattened septum in systole consistent with right ventricular pressure overload. Right Ventricle Moderately increased right ventricular cavity size. There is normal right ventricular systolic function. Atria The left atrium is normal in size. The right atrium is moderately dilated. Aortic Valve There is a normal trileaflet aortic valve. There is no aortic valve stenosis. There is no aortic valve regurgitation. Mitral Valve There is mild mitral annular calcification. There is no mitral valve regurgitation. There is no mitral valve stenosis. Pulmonic Valve The pulmonic valve is likely normal. Tricuspid Valve Normal tricuspid valve structure. There is moderate tricuspid valve regurgitation. The right ventricular systolic pressure is 67 mmHg. Moderate to severe pulmonary hypertension is present. Great Vessels The asc aorta is normal in size. Venous The inferior vena cava is mildly dilated. Pericardium/Pleural There is no evidence of pericardial effusion. Prior Study Comparison No prior study available for comparison. Measurements 2D Linear Measurements IVSd: 0.95 0.6-0.9/0.6-1.0 cm LVIDd: 4.31 3.9-5.3/4.2-5.9 cm LVIDd Index: 2.12 2.4-3.2/2.2-3.1 cm/m2 LVIDs: 2.66 2.0-3.6 cm LVPWd: 1.14 0.7-1.1 cm LA Diam: 3.90 2.7-3.8/3.0-4.0 cm LAIDs Index: 1.92 1.5-2.3 cm/m2 LV Mass: 189.24 67-162/88-224 g LV Mass Index: 93.22 43-95/49-115 g/m2 LVOT Diam: 1.80 3.0+(-)1.3 cm 2D Systolic Function EF 4C: 80.90 >55% EF 2C: 62.30 >55% EF BiP: 73.10 >55% Mitral Valve MV Pk E: 1.22 MV PK A: 1.10 MV Decel Time: 373.00 E/A: 1.10 E'Lateral: 6.31 E'Medial: 5.00 E/E' Med: 24.40 E/E' Lat: 19.30 PHT: 109.00 MVA PHT: 2.02 Decel [place]: 3.27 Aortic Valve AoV Pk Jagdish: 2.07 AoV Mn Jagdish: 1.26 AoV VTI: 0.42 AoV Pk Grad: 17.00 Aov Mn Grad: 8.00 PHYLLIS Cont.VTI: 1.87 LVOT LVOT Pk Jagdish: 1.38 LVOT Mn Jagdish: 0.89 LVOT VTI: 0.31 LVOT Pk Grad: 8.00 LVOT Mn Grad: 4.00 LVOT Diam: 1.80 LVOT Area: 2.54 Diastolic Function MV Pk E: 1.22 MV Pk A: 1.10 E/A: 1.10 E'Medial: 5.00 E/E' Med: 24.40 E' Laterial: 6.31 E/E' Lat: 19.30 Right Ventricle TAPSE (mm): 16.80 TVS' Jagdish: 13.10 Tricuspid Valve TR Pk Jagdish: 3.85 TR Pk Grad: 59.00 RVSP: 67.00 Great Vessels Aorta Sinus of Valsalva: 2.80 2.0-3.5 cm Ao Asc: 3.00 2.1-3.4 cm Pulmonary Valve PV Pk Jagdish: 1.17 Peak PV Grad: 5.00 Updated in Other Vendor System with Status of Final José Miguel Keita MD electronically signed on 01/01/2025 4:28:47 PM with status of Final
--- NOTE | 2025-01-01 15:38 | PM.CNOR ---
History of Present Illness HPI Consult date: 01/01/25 Chief complaint: Acute congestive heart failure Narrative: 74-year-old female admitted to the hospital for evaluation and treatment of acute CHF and a fall onto the left knee with associated pain X-rays taken in the emergency department reveal slight lateralization of the patella, no definitive fracture or acute bony abnormality, questionable bony infarct of the medial condyle of the left femur reported on lateral view Patient does report knee pain at this time, but reports it has improved since arrival to the ED Patient does report that her left knee is very swollen, and that there is a small superficial abrasion just distal to the left knee Denies any other acute complaints or concerns at this time Review of Systems Review of Systems: Yes all other systems are reviewed and are negative PMFSH Social History Social History Smoked in Last 30 Days: No Use of substances other than those prescribed or required for medical reasons: No Advance Directives: No Advance Directives Information Provided: Yes Do you have a plan to hurt others: No Plan Meds Allergies Allergy/AdvReac Type Severity Reaction Status Date / Time shellfish derived [shellfish] AdvReac Hives Verified 01/01/25 05:49 Active Medications: Current Medications Acetaminophen (Acetaminophen 325 Mg Tablet) 650 mg PO Q6H PRN PRN Reason: Pain, Mild 1-3,fever,headache Aspirin (Aspirin Enteric Coated 81 Mg Tablet.Dr) 81 mg PO DAILY DAVID Buspirone HCl (Buspirone Hcl 5 Mg Tablet) 5 mg PO TID DAVID Calcitriol (Calcitriol 0.25 Mcg Capsule) 0.25 mcg PO Q48H DAVID Calcium Carbonate (Calcium Carbonate 750 Mg Tab.Chew) 750 mg PO Q4H PRN PRN Reason: Heartburn Carvedilol (Carvedilol 3.125 Mg Tablet) 3.125 mg PO BID [facility]; Protocol Docusate Sodium (Docusate Sodium 100 Mg Capsule) 100 mg PO DAILY PRN PRN Reason: Constipation Magnesium Hydroxide (Milk Of Magnesia 30 Ml Oral.Susp) 30 ml PO DAILY PRN PRN Reason: Constipation Melatonin (Melatonin 3 Mg Tablet) 6 mg PO BEDTIME PRN PRN Reason: Insomnia Multivitamins/Vitamin C (Multivitamin Tablet) 1 tab PO DAILY [facility] Non-Formulary Medication (Umeclidinium-Vilanterol [Anoro Ellipta]) 1 each INHALE DAILY [facility] Ondansetron HCl (Ondansetron Hcl 4 Mg/2 Ml Vial) 4 mg IVPUSH Q8H PRN PRN Reason: Nausea and Vomiting Sodium Chloride (0.9 % Sodium Chloride Flush 3 Ml Syringe) 3 ml IVFLUSH QSHIFT [facility] Home Medications ?Medication ?Instructions ?Recorded ?Confirmed ?Last Taken ?Type aspirin 81 mg tablet,delayed 81 mg PO DAILY 01/01/25 01/01/25 12/31/24 History release bumetanide 1 mg tablet 1 mg PO BID 01/01/25 01/01/25 12/31/24 History buspirone 5 mg tablet 5 mg PO TID 01/01/25 01/01/25 12/31/24 History calcitriol 0.25 mcg capsule 0.25 mcg PO Q OTHER DAY 01/01/25 01/01/25 12/31/24 History carvedilol 3.125 mg tablet 3.125 mg PO BID 01/01/25 01/01/25 12/31/24 History docusate sodium 100 mg capsule 100 mg PO DAILY PRN Constipation 01/01/25 01/01/25 12/31/24 History multivitamin 1 tab PO DAILY 01/01/25 01/01/25 12/31/24 History umeclidinium 62.5 mcg-vilanterol 1 ea inhalation DAILY 01/01/25 01/01/25 12/31/24 History 25 mcg/actuation powdr for inhalation (Anoro Ellipta) Physical Exam Vital Signs: Vital Signs: Last Vital Signs Temp 97.8 F 01/01/25 06:32 Pulse 72 01/01/25 14:54 Resp 23 H 01/01/25 14:54 BP 141/50 H 01/01/25 14:54 Pulse Ox 90 L 01/01/25 14:54 O2 Del Method Oxymask 01/01/25 14:54 O2 Flow Rate 5 01/01/25 06:32 BMI result Body Mass Index 42.4 Extrem: Other: Patient's left knee significantly swollen to inspection, with some ecchymosis concerning for potential hemarthrosis versus joint effusion No erythema noted Small abrasion noted distal to the the joint No evidence of infection Patient reports very mild tenderness to palpation of the circumferential left knee No evidence of patellar instability with apprehension testing Able to fully extend and flex the left knee to approximately 50 degrees without difficulty Distal sensation intact Capillary refill brisk Results Labs 01/01/25 06:06 01/01/25 06:06 Labs: Abnormal lab results 01/01/25 01/01/25 01/01/25 Range/Units 06:06 08:22 10:53 RBC 2.49 L D (4.20-5.50) X10*6/uL Hgb 7.7 L D (12.0-16.0) g/dl Hct 26.9 L (37.0-47.0) % MCV 108.0 H (80.0-98.0) fL MCHC 28.6 L (31.0-35.0) g/dl RDW 16.3 H (11.0-16.0) % Immature Gran % (Auto) 0.7 H (0.0-0.4) % Neut % (Auto) 82.3 H (45-73) % Lymph % (Auto) 11.0 L (20-40) % Lymph # (Auto) 1.1 L (1.2-4.9) X10*3/uL Abs Immat Gran (auto) 0.07 H (0.00-0.03) X10*3/uL Absolute Nucleated RBC 0.020 H (0.0-0.012) X10*3/uL Carbon Dioxide 38 H (22-29) mmol/L BUN 88 H (9-16) mg/dL Creatinine 2.83 H (0.5-1.4) mg/dL Random Glucose 172 H (60-115) mg/dL Total Creatine Kinase 15 L (26-140) U/L Troponin I High Sens 19.6 H 22.0 H (<3.5-17.0) ng/L B-Natriuretic Peptide 2967 H (<100) pg/mL Albumin 3.1 L (3.5-5.0) g/dL Crossmatch See Detail H & H 01/01/25 Range/Units 06:06 Hgb 7.7 L D (12.0-16.0) g/dl Hct 26.9 L (37.0-47.0) % All other labs normal. Diagnostic results Knee x-ray: report reviewed and image reviewed Assessment and Plan (1) Knee effusion, left: Status: Acute Plan 1. Effusion of left knee concerning for potential hemarthrosis Status post fall Date of injury 01/01/25 Patient was discussed with Dr. Acosta, and a collaborative treatment plan was formed: At this time, x-rays are not concerning for any acute surgical intervention, however there is a questionable area over the medial femoral condyle However, as the patient is largely nontender in this area, Dr. Acosta does not feel CT scan is necessary at this time Patient may weightbear as tolerated on the left knee per Dr. Acosta Continue with all other recommendations per Medicine Encourage gentle compression of the left knee for control of effusion Procedures Date of Service Date of Service: 01/01/25
[2025-01-01] MEDS: busPIRone HCl 5 MG TABLET PO ×2 (18:19→23:02)
[2025-01-01] MEDS: Furosemide 200 MG in 0.9 % Sodium Chloride 80 ML IVCONT (18:19)
[2025-01-01] MEDS: Albuterol/Iprat 2.5/0.5MG 3 ML AMPUL.NEB INHALE (19:27)
[2025-01-01] MEDS: carvediloL 3.125 MG TABLET PO (23:01)
[2025-01-01] MEDS: Acetaminophen 325 MG TABLET 650 MG PO (23:02)
[2025-01-02] VITALS (28 sets, daily range): BP systolic 99–146; BP diastolic 39–66; PULSE 50–70; RESP 14–28; TEMP 36–37; O2SAT 88–98
[2025-01-02 01:36] LABS: ABG Base Excess 15.1 mmol/L; ABG HCO3 45 mmol/L (22-26); ABG pCO2 103 mmHg (32-45); ABG pH 7.25 (7.35-7.45); ABG pO2 65 mmHg (83-108)
--- NOTE | 2025-01-02 01:53 | PM.EVENT ---
Event Note Date of Service: 01/02/25 Event Note: The RN reported desaturation while sleeping and has diffuse rales on exam, and a stat CXR shows pulmonary edema. ABG results indicate pH 7.24, pCO2 102, and O2 65. She has been on 15 liters of oxygen via Oxymask, maintaining a saturation of 90% at best, with significantly lower levels when asleep. Her medical history includes CKD, COPD on home oxygen, and morbid obesity, though she has no formal diagnosis of LUISITO, stating that she previously refused testing. On examination, she is awake, alert, and oriented, with bilateral rales and massive leg edema. She is currently on a Lasix drip at 5 mg/hr. In light of her hypoxia, CO2 retention, and acidosis, she will be transferred to the ICU for BiPAP. The Lasix drip may need to be increased or replaced with a Bumex drip for decompensated HFpEF, EF > 70%. This was discussed with ICU physician Dr. Preston. Time Spent With Patient Time: Total time managing care of this patient today ____ minutes.
[2025-01-02] MEDS: Docusate Sodium 100 MG CAPSULE PO (02:17)
--- NOTE | 2025-01-02 04:47 | PM.EVENT ---
Documented by User: Candida Hugo NP 01/02/25 04:50 Event Note Date of Service: 01/02/25 Event Note: The pt arrived in ICU. She is A&O x 3. BiPAP initiated on arrival. Time Spent With Patient Time: Total time managing care of this patient today ____ minutes. Documented by User: Sandra Preston MD 01/02/25 07:39 Event Note Date of Service: 01/02/25
--- NOTE | 2025-01-02 04:54 | PC.NURSE ---
Addendum entered by Alisa Segura RN 01/02/25 06:03: overnight provider notified that patient is sating 96% on 15L oxy mask while alseep, 88-90% while awake. pt presenting with diffuse crackles throughout. this RN called respiratory to the bedside to assess patient. Overnight provider to the bedside to assess patient. provider ordered stat CXR and ABGs. pt ABGs showing elevated co2, provider ordered for patient to transfer to ICU for Bipap. Pt alert & oriented x4, sating 86-90% awaiting bed for ICU. ICU called for report around 0335, patient then made ready for transport. case supervisor came to bedside and stated ICU still not ready to receive patient. This RN called respiratory to place patient on Bipap informed by respiratory unable to start bipap on this unit. Original Note: around 0100 overnight provider notified that patient is sating 96% on 15L oxy mask while alseep, 88-90% while awake. pt presenting with diffuse crackles throughout. this RN called respiratory to the bedside to assess patient. Overnight provider to the bedside to assess patient. provider ordered stat CXR and ABGs. pt ABGs showing elevated co2, provider ordered for patient to transfer to ICU for Bipap. Pt alert & oriented x4, sating 86-90% awaiting bed for ICU, wait time prolonged, This RN called respiratory to place patient on Bipap informed by respiratory unable to start bipap on this unit.
[2025-01-02 05:44] LABS: Hematocrit 28.7 % (37.0-47.0); Hemoglobin 8.3 g/dl (12.0-16.0); Mean Corpuscular HGB Conc 28.9 g/dl (31.0-35.0); Mean Corpuscular Hemoglobin 30.4 pg (27.0-33.0); Mean Corpuscular Volume 105.1 fL (80.0-98.0); Mean Platelet Volume 9.7 fL (9.4-12.3); NRBC Pct Auto 0.3 /100WBC (0.0-0.2); Platelet Count 198 X10*3/uL (160-400); Red Blood Count 2.73 X10*6/uL (4.20-5.50); Red Cell Distribution Width 18.6 % (11.0-16.0)
[2025-01-02 06:01] LABS: Albumin Level 2.8 g/dL (3.5-5.0); Anion Gap 17 (12-20); Blood Urea Nitrogen 81 mg/dL (9-16); Calcium 8.5 mg/dL (8.4-10.2); Carbon Dioxide 34 mmol/L (22-29); Chloride 99 mmol/L (96-108); Creatinine Clr Calc Pharmacy 20.8; Estimated Glomerular Filt Rate 17; Glucose Random 161 mg/dL (60-115); Iron 65 mcg/dL (30-160); Magnesium 2.9 mg/dL (1.6-2.6); Percent Iron Saturation 29 % (15-50); Potassium 6.1 mmol/L (3.3-5.1); Sodium 144 mmol/L (135-145); Total Iron Binding Capacity 223 mcg/dL (228-428); Unsaturated Iron Binding 158 ug/dL
[2025-01-02 06:03] LABS: B Type Natriuretic Peptide 3589 pg/mL (<100)
--- NOTE | 2025-01-02 06:10 | PC.RT ---
At 0100 RN calls this RT for high flow. This RT explained that there needs to be an order, and request for MD to evaluate as Pt has diffuse crackles. MD evaluates patient and orders ABG. ABG performed at 0130. MD orders pt to be transferred to ICU when results recieved. RT offerd to place pt on BIPAP prior to transport, MD wants patient in ICU, no orders provided. RN called RT at 0416 for BIPAP. Order requested, but patient transferred to ICU at this time, order placed by ICU provider.
--- NOTE | 2025-01-02 06:20 | HO.SKINPHOTO ---
Location: Buttocks Category: Stage: Length: Width: Depth: cm Location: L elbow Category: Stage: Length: Width: Depth: cm Location: L flank Category: Stage: Length: Width: Depth: cm Location: L knee Category: Stage: Length: Width: Depth: cm Location: L lower leg Category: Stage: Length: Width: Depth: cm Location: R lower leg Category: Stage: Length: Width: Depth: cm Location: L pannus Category: Stage: Length: Width: Depth: cm Location: R pannus Category: Stage: Length: Width: Depth: cm
[2025-01-02 06:35] LABS: Folate 15.9 ng/mL (> or = 4.0); Vitamin B12 1388 pg/mL (200-900)
[2025-01-02] MEDS: Albumin Human 25 % 50 ML 100 ML IV ×2 (07:04→07:39)
--- NOTE | 2025-01-02 07:18 | PC.NURSE ---
Pulley Man assumed care of this patent at 04:40 on arrival to ICU from [facility], requiring bipap. Pt arrived on 15L oxymask and was immediately transitioned to BIPAP by respiratory at bedside. Pt has been tolerating without issue. No cough noted. Denies sob. Breathing is even and unlabored without distress. Settings adjusted by RT; spo2 goal per MANAGER [place] for pt hx COPD. Pt has remained A&Ox4. SB with first degree HB and BBB on tele. Pt denies dizziness, chest pain, sob, and n/v. Lungs auscultated, dim with fine crackles throughout. Edema to BLE, elevated/offloaded in boots. Pt on lasix gtt infusing at 5mg/hr (2.5ml/hr) on arrival via left wrist IV. Lasix gtt was increased to 10mg/hr per MANAGER CHINA Bethel verbal order. Potassium back critical at 6.1 this morning. MANAGER [place] made aware. Lasix gtt had been recently increased. Albumin ordered and initiated. Pericare provided and purewick was replaced on arrival. Pt bladder scanned per MANAGER [place] request as pt had not voided and continues on lasix gtt. Results reported to MANAGER [place]. Pt has already declined an indwelling catheter that the MANAGER [place] had ordered on arrival for accurate fluid management. Discussed IUC again with patient, pt still declining. Later able to void cyu. Multiple wound photos, see photos uploaded. Foams placed, interdry placed to pannus. WC consult placed. Pt repositioned q2h. Bed alarm on, safety measures in place. Call altamirano within reach and educated on use. Please see shift assessment, tasks, and MAR for full details. Handoff report given to oncoming RN at 07:00.
[2025-01-02 07:23] LABS: Estimated Average Glucose 108 mg/dL; Hemoglobin A1C 78.9907 umol/L; Hemoglobin A1c % 5.4 % (<6.0); Total Hemoglobin (HGBA1C) 2207.6048 umol/L
[2025-01-02] MEDS: 0.9 % Sodium Chloride Flush 3 ML SYRINGE IVFLUSH ×3 (07:40→19:37)
--- NOTE | 2025-01-02 07:45 | P.PNCC_ITS ---
Subjective Subjective Date of Service: 01/02/25 Interval History: tranferred to ICU overnight d/t c/f mixed respiratory failure, started on BiPAP upon arrival to ICU Critical Care Time (minutes): 60 Physical Exam 2 Vital Signs: Vital Signs: Last Vital Signs Temp 97.4 F 01/02/25 04:40 Pulse 55 01/02/25 06:00 Resp 22 H 01/02/25 06:00 BP 99/52 L 01/02/25 06:00 Pulse Ox 97 01/02/25 06:00 O2 Del Method BiPAP 01/02/25 06:00 O2 Flow Rate 15 01/02/25 00:00 FiO2 60 01/02/25 06:00 BMI result Body Mass Index 41.8 Const: General: cooperative, healthy appearing, comfortable, no acute distress, well developed, alert and awake Orientation/consciousness: patient oriented x3 HEENT: Head: Yes normal to inspection, Yes normocephalic and Yes atraumatic Eyes: General: appearance normal, both eyes and all related structures Neck: Neck: Yes normal visual inspection, Yes full ROM, Yes no meningeal signs, Yes trachea midline and Yes supple Chest: Chest palpation & inspection: normal inspection of the chest Resp: Other: diminished breath sounds throughout; no appreciable overt rales, rhonchi, wheezing Effort & Inspection: normal respiratory effort Cardio: Rate: regular rate Rhythm: abnormal rhythm GI: Inspection: Yes normal to inspection, No Abdominal wall edema and No distended Palpation (GI): Soft to palpation, not firm, nontender, no guarding and not rigid Skin: General skin exam: no rashes or lesions noted Neuro: General: patient oriented x3, tone normal, moves all extremities, no meningeal signs and no focal motor deficits Extrem: Other: appreciable 1+ pitting edema to bilateral shins General: Yes normal to inspection, Yes full ROM and Yes capillary refill normal Psych: Appearance: grossly normal Objective Data Labs 01/02/25 05:31 01/02/25 05:31 Labs: Laboratory Results - last 24 hr 01/01/25 01/01/25 01/01/25 08:22 08:24 10:53 WBC RBC Hgb Hct MCV MCH MCHC RDW Plt Count MPV Absolute Nucleated RBC Nucleated RBC % (auto) O2 Saturation ABG pH at Pt Temp ABG pCO2 at Pt Temp ABG pO2 at Pt Temp ABG HCO3 ABG Base Excess (Actual) Sodium Potassium Chloride Carbon Dioxide Anion Gap BUN Creatinine Estim Creat Clear Calc Estimated GFR Random Glucose Estimat Average Glucose Hemoglobin A1c % Calcium Phosphorus Magnesium Iron TIBC % Saturation Unsat Iron Binding Total Creatine Kinase 15 L Troponin I High Sens 22.0 H B-Natriuretic Peptide 2967 H Albumin Vitamin B12 Folate Stool Occult Blood POSITIVE Blood Type O Positive Antibody Screen NEGATIVE Crossmatch See Detail 01/02/25 01/02/25 01:31 05:31 WBC 6.0 RBC 2.73 L Hgb 8.3 L Hct 28.7 L MCV 105.1 H MCH 30.4 MCHC 28.9 L RDW 18.6 H Plt Count 198 MPV 9.7 Absolute Nucleated RBC 0.020 H Nucleated RBC % (auto) 0.3 H O2 Saturation 86.0 ABG pH at Pt Temp 7.25 L ABG pCO2 at Pt Temp 103 H* ABG pO2 at Pt Temp 65 L ABG HCO3 45 H ABG Base Excess (Actual) 15.1 Sodium 144 Potassium 6.1 H* D Chloride 99 Carbon Dioxide 34 H Anion Gap 17 BUN 81 H Creatinine 2.75 H Estim Creat Clear Calc 20.8 Estimated GFR 17 Random Glucose 161 H Estimat Average Glucose 108 Hemoglobin A1c % 5.4 Calcium 8.5 Phosphorus 6.0 H Magnesium 2.9 H Iron 65 TIBC 223 L % Saturation 29 Unsat Iron Binding 158 Total Creatine Kinase Troponin I High Sens B-Natriuretic Peptide 3589 H Albumin 2.8 L Vitamin B12 1388 H Folate 15.9 Stool Occult Blood Blood Type Antibody Screen Crossmatch Progress Note: A&P Assessment and plan (1) COPD exacerbation: Status: Acute (2) CHF exacerbation: Status: Acute (3) Acute on chronic respiratory failure with hypoxia and hypercapnia: Status: Acute Plan Patient is a 74 Y F w/ CHF, COPD c/b chronic respiratory failure on 3L NC, chronic renal insufficiency, initially presenting to emergency department on 01/01 w/ L leg pain s/p mechanical fall; trauma work-up grossly reassuring, though further work-up demonstrating multiple abnormalities including elevated BNP, admitted medicine for diuresis; on 01/01 PM, patient developed mixed respiratory failure, transferred ICU for non-invasive ventilation N: no acute issues; to continue to monitor CV: CHF exacerbation, diuresis as tolerated; atrial fibrillation does not appear to be on anticoagulation R: acute on chronic mixed respiratory failure, likely multi-factorial including CHF and COPD exacerbation, BiPAP vs NC as tolerated, duonebs, steroids, empiric antibiotics GI: NPO while on BiPAP, otherwise cardiac diet : acute on chronic renal insufficiency; diuresis as tolerated; to closely monitor renal indices, electrolytes H: anemia; to continue to monitor; chemical DVT prophylaxis w/ heparin SQ ID: empiric antibiotics in setting of COPD exacerbation; otherwise, no overt stigmata of infection E: no acute issues; to monitor hypo-/hyper-glycemia P: no acute issues Quality Stroke Does the patient have a stroke diagnosis?: No VTE Prior VTE?: No VTE Risk Level:: Medical - moderate - high VTE Device Contraindication: N/A - Device Ordered VTE Drug Contraindication: N/A - Med Ordered
[2025-01-02 07:47] LABS: ABG Base Excess 18.3 mmol/L; ABG HCO3 47 mmol/L (22-26); ABG pCO2 84 mmHg (32-45); ABG pH 7.35 (7.35-7.45); ABG pO2 80 mmHg (83-108)
[2025-01-02] MEDS: methylPREDNISolone Sod Succ 125 MG/2 ML VIAL 60 MG IVPUSH ×2 (08:30→19:36)
[2025-01-02] MEDS: acetaZOLAMIDE sodium 500 MG VIAL IVPUSH (08:30)
[2025-01-02] MEDS: busPIRone HCl 5 MG TABLET PO ×2 (08:31→19:37)
[2025-01-02] MEDS: Heparin Sodium,Porcine 5,000 UNIT/ML VIAL 5000 UNIT SUBCUT ×3 (08:31→23:25)
[2025-01-02] MEDS: Aspirin Enteric Coated 81 MG TABLET.DR PO (08:31)
[2025-01-02] MEDS: Azithromycin 500 MG in 0.9 % Sodium Chloride 250 ML 125 MG IV (08:31)
[2025-01-02] MEDS: Bumetanide 25 MG in Container,Empty 0 ML 8 MG IVCONT ×2 (08:38→19:33)
[2025-01-02] MEDS: Nystatin Powder 15 GM BOTTLE 1 APPL TOPICAL ×2 (08:38→19:33)
[2025-01-02] MEDS: Albuterol/Iprat 2.5/0.5MG 3 ML AMPUL.NEB INHALE ×3 (11:49→21:21)
[2025-01-02 13:11] LABS: ABG Refer to POC result
--- NOTE | 2025-01-02 14:15 | MHC.CM.PN ---
Pt on BiPAP in ICU: difficulty conversing: call placed to pt's sister with whom she resides: pt is independent w/care needs, has a working glucometer, walker and [employer] for home O2. Renetta, pt's sister, transports her to all appointments. Renetta states pt is very depressed - son passed suddenly in October - would like a MH consult if applicable. Info to be relayed to MD. [facility] to transport pt to home, IMM in chart, HCP requested. CM to follow.
--- NOTE | 2025-01-02 18:11 | PC.NURSE ---
Patient remains in ICU for rescue Bipap - patient removed multiple times to Oxymask but became drowsy requiring bipap support. Care ongoing. 1800 VBG obtained - results pending.
[2025-01-02 18:14] LABS: VBG Base Excess 19.6 mmol/L; VBG HCO3 48 mmol/L (22-26); VBG pCO2 84 mmHg; VBG pH 7.36 (7.32-7.43); VBG pO2 30 mmHg
[2025-01-02 19:02] LABS: Anion Gap 13 (12-20); Blood Urea Nitrogen 89 mg/dL (9-16); Calcium 8.9 mg/dL (8.4-10.2); Carbon Dioxide 42 mmol/L (22-29); Chloride 96 mmol/L (96-108); Creatinine Clr Calc Pharmacy 19.4; Estimated Glomerular Filt Rate 16; Glucose Random 154 mg/dL (60-115); Magnesium 2.9 mg/dL (1.6-2.6); Phosphorus 5.8 mg/dL (2.7-4.5); Potassium 5.2 mmol/L (3.3-5.1); Sodium 146 mmol/L (135-145)
[2025-01-02] MEDS: Acetaminophen 325 MG TABLET 650 MG PO (19:38)
[2025-01-02 21:18] LABS: Venous Blood Gas Refer to POC result
[2025-01-03] VITALS (30 sets, daily range): BP systolic 118–157; BP diastolic 38–59; PULSE 55–76; RESP 13–25; TEMP 36.1–36.4; O2SAT 86–96
[2025-01-03] MEDS: Morphine Sulfate 2 MG/ML CARTRIDGE 1 MG IVPUSH (01:15)
[2025-01-03] MEDS: Acetaminophen 325 MG TABLET 650 MG PO (05:19)
[2025-01-03 05:21] LABS: VBG Base Excess 23.7 mmol/L; VBG HCO3 50 mmol/L (22-26); VBG pCO2 69 mmHg; VBG pH 7.46 (7.32-7.43); VBG pO2 31 mmHg
[2025-01-03 05:44] LABS: Venous Blood Gas Refer to POC result
[2025-01-03 05:48] LABS: Basophils Percent Auto 0.2 % (0-2); Hematocrit 25.3 % (37.0-47.0); Hemoglobin 7.3 g/dl (12.0-16.0); Imm Gran Abs Auto 0.02 X10*3/uL (0.00-0.03); Imm Gran Pct Auto 0.3 % (0.0-0.4); Lymphocytes Absolute Auto 0.2 X10*3/uL (1.2-4.9); Lymphocytes Percent Auto 3.3 % (20-40); MANUAL DIFF FLAG SCAN; Mean Corpuscular HGB Conc 28.9 g/dl (31.0-35.0); Mean Corpuscular Hemoglobin 30.4 pg (27.0-33.0); Mean Corpuscular Volume 105.4 fL (80.0-98.0); Mean Platelet Volume 10.1 fL (9.4-12.3); Monocytes Absolute Auto 0.2 X10*3/uL (0.1-1.2); Monocytes Percent Auto 2.5 % (2-11); NRBC Pct Auto 0.3 /100WBC (0.0-0.2); Neutrophils Absolute Auto 5.6 x10*3/uL (2.0-8.3); Neutrophils Percent Auto 93.7 % (45-73); Platelet Count 191 X10*3/uL (160-400); Red Cell Distribution Width 17.6 % (11.0-16.0); SCAN SMEAR FLAG 1
[2025-01-03] MEDS: Lidocaine 4 % Patch ADH..PATCH 1 PATCH TRANSDERMA (05:48)
[2025-01-03] MEDS: oxyCODONE HCl Immed Release 5 MG TABLET PO (05:49)
[2025-01-03 06:17] LABS: Albumin Level 3.3 g/dL (3.5-5.0); Anion Gap 15 (12-20); Blood Urea Nitrogen 96 mg/dL (9-16); Calcium 8.8 mg/dL (8.4-10.2); Carbon Dioxide 40 mmol/L (22-29); Chloride 96 mmol/L (96-108); Creatinine Clr Calc Pharmacy 19.8; Estimated Glomerular Filt Rate 16; Glucose Random 149 mg/dL (60-115); Magnesium 2.8 mg/dL (1.6-2.6); Phosphorus 5.1 mg/dL (2.7-4.5); Sodium 146 mmol/L (135-145)
[2025-01-03 06:43] LABS: SLIDE REVIEW VERIFIED
--- NOTE | 2025-01-03 07:35 | PC.NURSE ---
Upon initial assessment at 1900- pt A&Ox4, intermittently anxious and resistive to care. C/o pain to L knee/chest d/t previous fall. Given morphine 1 mg IVP x1 with little effect. PRN APAP given x2 and oxycodone 5 mg PO x1 per MAR. Lidocaine patch placed per pt request. Afebrile. NSR/SB on tele with BBB and PACs, HR 50-60s. Bumex gtt infusing per JAN. Tolerated BiPAP most of night, removed at approx 0545 and 5L Oxymask applied. Tolerating PO intake. Pt refused urinary catheter insertion, purewick in place, diuresing well- approx 1L out overnight. No BM. Skin overall intact- see skin integrity assessment. Repositioned in bed q2hr with pillows. Bed alarm on and locked in lowest position. Call altamirano in reach. Pt aware of plan of care. See EMR/flowsheet for further details.
[2025-01-03] MEDS: Albuterol/Iprat 2.5/0.5MG 3 ML AMPUL.NEB INHALE ×4 (07:59→19:39)
[2025-01-03] MEDS: Bumetanide 25 MG in Container,Empty 0 ML 8 MG IVCONT ×2 (08:18→18:45)
[2025-01-03] MEDS: busPIRone HCl 5 MG TABLET PO ×3 (08:18→21:29)
[2025-01-03] MEDS: Nystatin Powder 15 GM BOTTLE 1 APPL TOPICAL ×2 (08:18→21:29)
[2025-01-03] MEDS: Aspirin Enteric Coated 81 MG TABLET.DR PO (08:18)
[2025-01-03] MEDS: Heparin Sodium,Porcine 5,000 UNIT/ML VIAL 5000 UNIT SUBCUT ×2 (08:21→16:07)
[2025-01-03] MEDS: methylPREDNISolone Sod Succ 125 MG/2 ML VIAL 60 MG IVPUSH ×2 (08:21→21:29)
[2025-01-03] MEDS: 0.9 % Sodium Chloride Flush 3 ML SYRINGE IVFLUSH ×2 (08:22→16:07)
[2025-01-03] MEDS: Azithromycin 500 MG in 0.9 % Sodium Chloride 250 ML 125 MG IV (08:25)
--- NOTE | 2025-01-03 09:06 | P.PNCC_ITS ---
Subjective Subjective Date of Service: 01/03/25 Interval History: no significant overnight events; of note, intermittent compliance w/ BiPAP Critical Care Time (minutes): 60 Physical Exam 2 Vital Signs: Vital Signs: Last Vital Signs Temp 97.1 F 01/03/25 08:00 Pulse 69 01/03/25 08:01 Resp 18 01/03/25 08:01 BP 139/49 L 01/03/25 08:00 Pulse Ox 94 01/03/25 08:00 O2 Del Method Oxymask 01/03/25 08:00 O2 Flow Rate 5 01/03/25 08:00 FiO2 50 01/03/25 08:50 BMI result Body Mass Index 41.8 Const: General: cooperative, healthy appearing, comfortable, no acute distress, well developed, alert, awake and Physically active O rientation/consciousness: patient oriented x3 HEENT: Head: Yes normal to inspection, Yes normocephalic and Yes atraumatic Eyes: General: appearance normal, both eyes and all related structures Neck: Neck: Yes normal visual inspection, Yes full ROM, Yes trachea midline and Yes supple Chest: Chest palpation & inspection: normal inspection of the chest Resp: Other: diminished breath sounds throughout; no appreciable overt rales, rhonchi, wheezing Effort & Inspection: normal respiratory effort Cardio: Rate: bradycardic Rhythm: regular rhythm GI: Inspection: Yes normal to inspection, No Abdominal wall edema and No distended Palpation (GI): Soft to palpation, not firm, nontender, no guarding and not rigid Skin: General skin exam: no rashes or lesions noted Neuro: General: patient oriented x3, tone normal, moves all extremities and no focal motor deficits Extrem: Other: 1+ pitting edema to bilateral shins General: Yes normal to inspection, Yes full ROM and Yes capillary refill normal Psych: Appearance: grossly normal Objective Data Labs 01/03/25 05:13 01/03/25 05:13 Labs: Laboratory Results - last 24 hr 01/02/25 01/02/25 01/03/25 18:08 18:10 05:13 WBC 6.0 RBC 2.40 L Hgb 7.3 L Hct 25.3 L MCV 105.4 H MCH 30.4 MCHC 28.9 L RDW 17.6 H Plt Count 191 MPV 10.1 Immature Gran % (Auto) 0.3 Neut % (Auto) 93.7 H Lymph % (Auto) 3.3 L [place] % (Auto) 2.5 Eos % (Auto) 0.0 Baso % (Auto) 0.2 Lymph # (Auto) 0.2 L [place] # (Auto) 0.2 Eos # (Auto) 0.0 Baso # (Auto) 0.0 Abs Immat Gran (auto) 0.02 Absolute Neuts (auto) 5.6 Absolute Nucleated RBC 0.020 H Nucleated RBC % (auto) 0.3 H Smear Tech's Comments VERIFIED VBG pH 7.36 VBG pCO2 84 VBG pO2 30 VBG HCO3 48 H VBG O2 Saturation 43.0 VBG Base Excess 19.6 Sodium 146 H 146 H Potassium 5.2 H 5.0 Chloride 96 96 Carbon Dioxide 42 H* D 40 H* Anion Gap 13 15 BUN 89 H 96 H Creatinine 2.95 H 2.89 H Estim Creat Clear Calc 19.4 19.8 Estimated GFR 16 16 Random Glucose 154 H 149 H Calcium 8.9 8.8 Phosphorus 5.8 H 5.1 H Magnesium 2.9 H 2.8 H Albumin 3.3 L 01/03/25 05:17 WBC RBC Hgb Hct MCV MCH MCHC RDW Plt Count MPV Immature Gran % (Auto) Neut % (Auto) Lymph % (Auto) [place] % (Auto) Eos % (Auto) Baso % (Auto) Lymph # (Auto) [place] # (Auto) Eos # (Auto) Baso # (Auto) Abs Immat Gran (auto) Absolute Neuts (auto) Absolute Nucleated RBC Nucleated RBC % (auto) Smear Tech's Comments VBG pH 7.46 H VBG pCO2 69 VBG pO2 31 VBG HCO3 50 H VBG O2 Saturation 49.0 VBG Base Excess 23.7 Sodium Potassium Chloride Carbon Dioxide Anion Gap BUN Creatinine Estim Creat Clear Calc Estimated GFR Random Glucose Calcium Phosphorus Magnesium Albumin Progress Note: A&P Assessment and plan (1) Acute on chronic respiratory failure with hypoxia and hypercapnia: Status: Acute (2) COPD exacerbation: Status: Acute (3) CHF exacerbation: Status: Acute Plan Patient is a 74 Y F w/ CHF, COPD c/b chronic respiratory failure on 3L NC, chronic renal insufficiency, initially presenting to emergency department on 01/01 w/ L leg pain s/p mechanical fall; trauma work-up grossly reassuring, though further work-up demonstrating multiple abnormalities including elevated BNP, admitted medicine for diuresis; on 01/01 PM, patient developed mixed respiratory failure, transferred ICU for non-invasive ventilation N: no acute issues; to continue to monitor CV: CHF exacerbation, diuresis as tolerated; atrial fibrillation does not appear to be on anticoagulation R: acute on chronic mixed respiratory failure, likely multi-factorial including CHF and COPD exacerbation, BiPAP vs NC as tolerated, duonebs, steroids, empiric antibiotics GI: NPO while on BiPAP, otherwise cardiac diet : acute on chronic renal insufficiency; diuresis as tolerated; to closely monitor renal indices, electrolytes H: anemia; to continue to monitor; chemical DVT prophylaxis w/ heparin SQ ID: empiric antibiotics in setting of COPD exacerbation; otherwise, no overt stigmata of infection E: no acute issues; to monitor hypo-/hyper-glycemia P: no acute issues Quality Stroke Does the patient have a stroke diagnosis?: No VTE Prior VTE?: No VTE Risk Level:: Medical - moderate - high VTE Device Contraindication: N/A - Device Ordered VTE Drug Contraindication: N/A - Med Ordered
[2025-01-03] MEDS: Albumin Human 25 % 50 ML 100 ML IV (10:00)
[2025-01-03] MEDS: acetaZOLAMIDE sodium 500 MG VIAL IVPUSH (10:30)
[2025-01-03] MEDS: Lidocaine 4 % Patch ADH..PATCH 2 PATCH TRANSDERMA (11:21)
[2025-01-03] MEDS: Acetaminophen 325 MG TABLET 975 MG PO (11:23)
[2025-01-03 18:44] LABS: Anion Gap 16 (12-20); Blood Urea Nitrogen 99 mg/dL (9-16); Calcium 8.7 mg/dL (8.4-10.2); Carbon Dioxide 40 mmol/L (22-29); Chloride 93 mmol/L (96-108); Creatinine Clr Calc Pharmacy 18.7; Estimated Glomerular Filt Rate 15; Glucose Random 208 mg/dL (60-115); Magnesium 2.8 mg/dL (1.6-2.6); Phosphorus 6.1 mg/dL (2.7-4.5); Potassium 5.3 mmol/L (3.3-5.1); Sodium 144 mmol/L (135-145)
--- NOTE | 2025-01-03 19:27 | PC.NURSE ---
Patient alert and oriented, anxious at times placed on NC 6L due to desat while eating, as she removed oxymask to eat, tolerated well, refusing Bipap, allowed x1 this shift. patient made aware that needs Bipap while napping and at night for bed. purewick in place, draining clear yellow urine, pad moist x1 this shift, Bumex continues to run at 2mg/hr.
[2025-01-04] VITALS (30 sets, daily range): BP systolic 107–139; BP diastolic 30–56; PULSE 52–70; RESP 12–64; TEMP 35.9–36.6; O2SAT 89–98
[2025-01-04] MEDS: Heparin Sodium,Porcine 5,000 UNIT/ML VIAL 5000 UNIT SUBCUT ×3 (00:39→16:08)
[2025-01-04 04:50] LABS: VBG Base Excess 22.9 mmol/L; VBG HCO3 49 mmol/L (22-26); VBG pCO2 68 mmHg; VBG pH 7.46 (7.32-7.43); VBG pO2 47 mmHg
[2025-01-04 05:00] LABS: Hematocrit 25.4 % (37.0-47.0); Hemoglobin 7.2 g/dl (12.0-16.0); Imm Gran Abs Auto 0.02 X10*3/uL (0.00-0.03); Imm Gran Pct Auto 0.5 % (0.0-0.4); Lymphocytes Absolute Auto 0.2 X10*3/uL (1.2-4.9); Lymphocytes Percent Auto 3.9 % (20-40); MANUAL DIFF FLAG SCAN; Mean Corpuscular HGB Conc 28.3 g/dl (31.0-35.0); Mean Corpuscular Hemoglobin 29.9 pg (27.0-33.0); Mean Corpuscular Volume 105.4 fL (80.0-98.0); Mean Platelet Volume 9.8 fL (9.4-12.3); Monocytes Absolute Auto 0.1 X10*3/uL (0.1-1.2); NRBC Pct Auto 0.5 /100WBC (0.0-0.2); Neutrophils Absolute Auto 4.1 x10*3/uL (2.0-8.3); Neutrophils Percent Auto 93.6 % (45-73); Platelet Count 188 X10*3/uL (160-400); Red Blood Count 2.41 X10*6/uL (4.20-5.50); Red Cell Distribution Width 17.1 % (11.0-16.0); SCAN SMEAR FLAG 1; White Blood Count 4.4 X10*3/uL (4.8-10.8)
[2025-01-04 05:14] LABS: Albumin Level 3.4 g/dL (3.5-5.0); Anion Gap 16 (12-20); Blood Urea Nitrogen 104 mg/dL (9-16); Calcium 8.7 mg/dL (8.4-10.2); Carbon Dioxide 38 mmol/L (22-29); Chloride 95 mmol/L (96-108); Creatinine Clr Calc Pharmacy 19.3; Estimated Glomerular Filt Rate 16; Glucose Random 182 mg/dL (60-115); Magnesium 2.7 mg/dL (1.6-2.6); Phosphorus 5.4 mg/dL (2.7-4.5); Potassium 5.1 mmol/L (3.3-5.1); Sodium 144 mmol/L (135-145)
[2025-01-04 05:15] LABS: Venous Blood Gas Refer to POC result
[2025-01-04 05:19] LABS: SLIDE REVIEW VERIFIED
[2025-01-04] MEDS: acetaZOLAMIDE sodium 500 MG VIAL IVPUSH (07:43)
[2025-01-04] MEDS: methylPREDNISolone Sod Succ 125 MG/2 ML VIAL 60 MG IVPUSH (07:43)
[2025-01-04] MEDS: Azithromycin 500 MG TABLET PO (07:43)
[2025-01-04] MEDS: busPIRone HCl 5 MG TABLET PO ×3 (07:44→20:00)
[2025-01-04] MEDS: Albuterol/Iprat 2.5/0.5MG 3 ML AMPUL.NEB INHALE ×3 (07:44→19:21)
[2025-01-04] MEDS: 0.9 % Sodium Chloride Flush 3 ML SYRINGE IVFLUSH ×3 (07:44→20:04)
[2025-01-04] MEDS: Aspirin Enteric Coated 81 MG TABLET.DR PO (07:44)
[2025-01-04] MEDS: Lidocaine 4 % Patch ADH..PATCH 2 PATCH TRANSDERMA (07:46)
[2025-01-04] MEDS: Nystatin Powder 15 GM BOTTLE 1 APPL TOPICAL ×2 (07:47→20:04)
[2025-01-04] MEDS: Acetaminophen 325 MG TABLET 975 MG PO ×2 (07:49→23:27)
--- NOTE | 2025-01-04 08:25 | P.CDIM_ITS ---
PROVIDER RESPONSE TEXT: To clarify, the appropriate diagnosis supported by the clinical indicators: Acute renal insufficiency QUERY TEXT: PHYSICIAN'S DOCUMENTATION REQUEST Date of Query: 01/02/2025 09:58 AM EST Patient Name: Kylah Cisse Admit Date: 01/01/2025 Dear Sandra Preston MD, A review of the medical record indicates additional documentation may be needed. Please review below and update the documentation accordingly. Clinical Indicators: H&P dated 01/01 - Acute on chronic kidney disease/cardiorenal syndrome Avoid nephrotoxins all medications renally dosed. Was on Bumex 1 mg b.i.d. will hold and place on IV Lasix drip. Monitor BMP while being diuresed. ICU progress note 01/02 - Acute on chronic renal insufficiency; diuresis as tolerated; to closely catal[place] tor renal indices, electrolytes. Please clarify which of the following accurately represents the patient's renal status: Acute renal Injury ([place]) Acute renal insufficiency Other (explain) Clinically unable to determine (explain) Thank you, Kera Castellon, CCS, CDIS Use of terms such as suspected, likely, concern for, or probable (associated with a specific diagnosi s that is being evaluated, monitored, or treated as if it exists) are acceptable and can be coded in the inpatient se tting, when documented at the time of discharge. Please use your independent medical judgment in providing your response. THIS QUERY IS PART OF THE PERMANENT MEDICAL RECORD
--- NOTE | 2025-01-04 09:31 | P.PNCC_ITS ---
Subjective Subjective Date of Service: 01/04/25 Interval History: no significant overnight events; intermittent compliance w/ BiPAP Critical Care Time (minutes): 0 Physical Exam 2 Vital Signs: Vital Signs: Last Vital Signs Temp 97.8 F 01/04/25 08:00 Pulse 60 01/04/25 09:00 Resp 17 01/04/25 09:00 BP 115/46 L 01/04/25 09:00 Pulse Ox 90 L 01/04/25 09:00 O2 Del Method Nasal Cannula 01/04/25 09:00 O2 Flow Rate 5 01/04/25 09:00 FiO2 35 01/04/25 04:00 BMI result Body Mass Index 41.8 Const: General: cooperative, healthy appearing, comfortable, no acute distress, well developed and alert Objective Data Labs 01/04/25 04:43 01/04/25 04:43 Labs: Laboratory Results - last 24 hr 01/03/25 01/04/25 01/04/25 18:09 04:43 04:46 WBC 4.4 L RBC 2.41 L Hgb 7.2 L Hct 25.4 L MCV 105.4 H MCH 29.9 MCHC 28.3 L RDW 17.1 H Plt Count 188 MPV 9.8 Immature Gran % (Auto) 0.5 H Neut % (Auto) 93.6 H Lymph % (Auto) 3.9 L [place] % (Auto) 2.0 Eos % (Auto) 0.0 Baso % (Auto) 0.0 Lymph # (Auto) 0.2 L [place] # (Auto) 0.1 Eos # (Auto) 0.0 Baso # (Auto) 0.0 Abs Immat Gran (auto) 0.02 Absolute Neuts (auto) 4.1 Absolute Nucleated RBC 0.020 H Nucleated RBC % (auto) 0.5 H Smear Tech's Comments VERIFIED VBG pH 7.46 H VBG pCO2 68 VBG pO2 47 VBG HCO3 49 H VBG O2 Saturation 79.0 VBG Base Excess 22.9 Sodium 144 144 Potassium 5.3 H 5.1 Chloride 93 L 95 L Carbon Dioxide 40 H* 38 H Anion Gap 16 16 BUN 99 H 104 H Creatinine 3.06 H 2.97 H Estim Creat Clear Calc 18.7 19.3 Estimated GFR 15 16 Random Glucose 208 H 182 H Calcium 8.7 8.7 Phosphorus 6.1 H 5.4 H Magnesium 2.8 H 2.7 H Albumin 3.4 L Progress Note: A&P Assessment and plan (1) Acute on chronic respiratory failure with hypoxia and hypercapnia: Status: Acute (2) CHF exacerbation: Status: Acute (3) COPD exacerbation: Status: Acute Plan Patient is a 74 Y F w/ CHF, COPD c/b chronic respiratory failure on 3L NC, chronic renal insufficiency, initially presenting to emergency department on 01/01 w/ L leg pain s/p mechanical fall; trauma work-up grossly reassuring, though further work-up demonstrating multiple abnormalities including elevated BNP, admitted medicine for diuresis; on 01/01 PM, patient developed mixed respiratory failure, transferred ICU for non-invasive ventilation N: no acute issues; to continue to monitor CV: CHF exacerbation, diuresis as tolerated; atrial fibrillation does not appear to be on anticoagulation R: acute on chronic mixed respiratory failure, likely multi-factorial including CHF and COPD exacerbation, BiPAP vs NC as tolerated, duonebs, steroids, empiric antibiotics; suspect LUISITO, to follow-up sleep study; in the meantime BiPAP for naps and PM GI: NPO while on BiPAP, otherwise cardiac diet : acute on chronic renal insufficiency; diuresis as tolerated; to closely monitor renal indices, electrolytes H: anemia; to continue to monitor; chemical DVT prophylaxis w/ heparin SQ ID: empiric antibiotics in setting of COPD exacerbation; otherwise, no overt stigmata of infection E: no acute issues; to monitor hypo-/hyper-glycemia P: no acute issues Quality Stroke Does the patient have a stroke diagnosis?: No VTE Prior VTE?: No VTE Risk Level:: Medical - moderate - high VTE Device Contraindication: N/A - Device Ordered VTE Drug Contraindication: N/A - Med Ordered
[2025-01-04] MEDS: Albumin Human 25 % 50 ML 100 ML IV (10:55)
[2025-01-04] MEDS: Bumetanide 25 MG in Container,Empty 0 ML 4 MG IVCONT (16:09)
[2025-01-04 18:56] LABS: Anion Gap 15 (12-20); Blood Urea Nitrogen 117 mg/dL (9-16); Calcium 8.6 mg/dL (8.4-10.2); Carbon Dioxide 40 mmol/L (22-29); Chloride 93 mmol/L (96-108); Creatinine Clr Calc Pharmacy 19.4; Estimated Glomerular Filt Rate 16; Glucose Random 270 mg/dL (60-115); Magnesium 2.6 mg/dL (1.6-2.6); Phosphorus 6.4 mg/dL (2.7-4.5); Potassium 5.3 mmol/L (3.3-5.1); Sodium 143 mmol/L (135-145)
--- NOTE | 2025-01-04 19:03 | PC.NURSE ---
N-patient alert and oriented, anxious at times, encouragement needed, easily redirected, in better spirits with family at bedside.? CV-swelling to lower extremities and sacral/ abdomen, on Bumex drip at 1mg/hr Pulm- patient goal 88-92% on 5L NC, refusing Bipap for naps, encouraged to use for naps and Bedtime, desats while eating and intermittently but reaches goal easily.? GI- No BM noted, tolerating diet well. - Purewick in place draining pale yellow urine. Turn and repo as tolerated every 2hours to maintain skin integrity, abrasion to elbow to knee from fall, lidocaine patch in place, pink foam on coccyx C/D/I, under breast and abdomen cleansed and nystatin powder applied.? Medicated for pain with PRN Tylenol as requested with good effect stated per patient, See MAR for full details.?? bruising noted to left abdomen, aware
[2025-01-05] VITALS (25 sets, daily range): BP systolic 96–139; BP diastolic 41–73; PULSE 50–64; RESP 15–25; TEMP 36.3–36.6; O2SAT 4–97
[2025-01-05] MEDS: Heparin Sodium,Porcine 5,000 UNIT/ML VIAL 5000 UNIT SUBCUT ×3 (00:41→16:26)
[2025-01-05 04:36] LABS: VBG Base Excess 20.5 mmol/L; VBG HCO3 49 mmol/L (22-26); VBG pCO2 92 mmHg; VBG pH 7.34 (7.32-7.43); VBG pO2 28 mmHg
[2025-01-05 05:06] LABS: MANUAL DIFF FLAG NO
[2025-01-05 05:15] LABS: Hemoglobin 7.4 g/dl (12.0-16.0); Imm Gran Abs Auto 0.05 X10*3/uL (0.00-0.03); Imm Gran Pct Auto 0.9 % (0.0-0.4); Lymphocytes Absolute Auto 0.3 X10*3/uL (1.2-4.9); Lymphocytes Percent Auto 5.5 % (20-40); Mean Corpuscular HGB Conc 28.5 g/dl (31.0-35.0); Mean Corpuscular Hemoglobin 30.5 pg (27.0-33.0); Mean Platelet Volume 10.3 fL (9.4-12.3); Monocytes Absolute Auto 0.4 X10*3/uL (0.1-1.2); Monocytes Percent Auto 6.6 % (2-11); NRBC Pct Auto 0.5 /100WBC (0.0-0.2); Platelet Count 204 X10*3/uL (160-400); Red Blood Count 2.43 X10*6/uL (4.20-5.50); Red Cell Distribution Width 16.7 % (11.0-16.0); White Blood Count 5.8 X10*3/uL (4.8-10.8)
--- NOTE | 2025-01-05 05:41 | PC.NURSE ---
CARE ASSUMED 7PM..ALERT..ORIENTED X3..O2 5 L/M CANNULA..DENIESD SOB...BUMEX DRIP 1 MG/HR...PURWIK EXTERNAL CATHETER YELLOW URINE...BUMEX DRIP HELD 9PM PER ICU LEAD INVESTIGATOR..PLAN FOR NOCTURNAL BIPAP PER ICU LEAD INVESTIGATOR..PATIENT INITIALLY REFUSED BIPAP UNTIL I'M READY FOR SLEEP AT 11PM ....BIPA ATTEMPTED X3 TIMES OVERNIGHT BUT PATIENT UNABLE TO TOLERATE BIPAP MORE THAN 15 MINUTES EACH TIME....REMAINED ALERT..ORIENTED X3..MENTATING APPRPRIATELY..AM VBG= pH 7.34/PCO2 92...ICU LEAD INVESTIGATOR AT BEDSIDE..INFORMED PATIENT OF NECESSITY TO WEAR BIPAP...RETURNED TO BIPAP BACKUP RATE 15 16/8 AND FIO2 49%...Ve 8 L/M..SAO2 92-84%...TOLERATING BIPAP X45 MINUTES AND CURRENTLY DOZING
[2025-01-05 05:42] LABS: Albumin Level 3.5 g/dL (3.5-5.0); Anion Gap 16 (12-20); Blood Urea Nitrogen 116 mg/dL (9-16); Calcium 8.6 mg/dL (8.4-10.2); Carbon Dioxide 40 mmol/L (22-29); Chloride 94 mmol/L (96-108); Creatinine Clr Calc Pharmacy 18.4; Estimated Glomerular Filt Rate 15; Glucose Random 144 mg/dL (60-115); Magnesium 2.7 mg/dL (1.6-2.6); Phosphorus 6.5 mg/dL (2.7-4.5); Potassium 5.1 mmol/L (3.3-5.1); Sodium 145 mmol/L (135-145)
[2025-01-05] MEDS: Albuterol/Iprat 2.5/0.5MG 3 ML AMPUL.NEB INHALE ×4 (07:19→20:06)
[2025-01-05] MEDS: 0.9 % Sodium Chloride Flush 3 ML SYRINGE IVFLUSH ×2 (08:12→16:27)
[2025-01-05] MEDS: methylPREDNISolone Sod Succ 125 MG/2 ML VIAL 60 MG IVPUSH (08:12)
[2025-01-05] MEDS: Aspirin Enteric Coated 81 MG TABLET.DR PO (08:13)
[2025-01-05] MEDS: busPIRone HCl 5 MG TABLET PO ×3 (08:13→19:50)
[2025-01-05] MEDS: Lidocaine 4 % Patch ADH..PATCH 2 PATCH TRANSDERMA (08:13)
[2025-01-05] MEDS: Acetaminophen 325 MG TABLET 975 MG PO ×2 (08:14→19:54)
[2025-01-05] MEDS: Nystatin Powder 15 GM BOTTLE 1 APPL TOPICAL (08:15)
[2025-01-05 08:31] LABS: Venous Blood Gas Refer to POC result
[2025-01-05] MEDS: acetaZOLAMIDE sodium 500 MG VIAL IVPUSH (10:37)
--- NOTE | 2025-01-05 11:22 | P.PNCC_ITS ---
Subjective Subjective Date of Service: 01/05/25 Interval History: 74-year-old lady with underlying COPD on 3 L of home oxygen, diastolic dysfunction, pulmonary hypertension secondary to left heart dysfunction, CKD followed by [facility] admitted on 01/01/2025 after mechanical fall, and also worsening dyspnea on exertion and orthopnea. Patient initially admitted to telemetry abarca and started empiric treatment for congestive heart failure and COPD exacerbation. Hospital course significant for worsening respiratory failure with CO2 retention requiring BiPAP support and transferred to intensive care unit. Patient diuresed with Bumex drip and titrated off BiPAP support. No events overnight. Critical Care Time (minutes): 0 Physical Exam 2 Vital Signs: Vital Signs: Last Vital Signs Temp 97.6 F 01/05/25 08:00 Pulse 58 01/05/25 11:20 Resp 19 01/05/25 11:20 BP 125/45 L 01/05/25 10:00 Pulse Ox 91 L 01/05/25 10:00 O2 Del Method Nasal Cannula 01/05/25 10:00 O2 Flow Rate 5 01/05/25 10:00 FiO2 40 01/05/25 07:30 BMI result Body Mass Index 41.8 Const: General: no acute distress, alert and awake Eyes: Sclerae: sclerae normal EOM: EOMs intact bilaterally Neck: Neck: Yes no lymphadenopathy, Yes trachea midline and Yes supple Resp: Effort & Inspection: normal respiratory effort and no respiratory distress Auscultation: crackles (Mild bilateral) Cardio: Rate: bradycardic Rhythm: regular rhythm Heart sounds: no gallops, no murmurs and no rubs GI: Palpation (GI): Soft to palpation and Other GI palpation findings present ( Nontender) Auscultation: normal bowel sounds Extrem: General: No clubbing, No cyanosis and Yes edema (1+ bilateral) Objective Data Labs 01/05/25 04:31 01/05/25 04:31 Labs: Laboratory Results - last 24 hr 01/04/25 01/05/25 01/05/25 17:51 04:31 04:33 WBC 5.8 RBC 2.43 L Hgb 7.4 L Hct 26.0 L MCV 107.0 H MCH 30.5 MCHC 28.5 L RDW 16.7 H Plt Count 204 MPV 10.3 Immature Gran % (Auto) 0.9 H Neut % (Auto) 87.0 H Lymph % (Auto) 5.5 L [place] % (Auto) 6.6 Eos % (Auto) 0.0 Baso % (Auto) 0.0 Lymph # (Auto) 0.3 L [place] # (Auto) 0.4 Eos # (Auto) 0.0 Baso # (Auto) 0.0 Abs Immat Gran (auto) 0.05 H Absolute Neuts (auto) 5.0 Absolute Nucleated RBC 0.030 H Nucleated RBC % (auto) 0.5 H VBG pH 7.34 VBG pCO2 92 VBG pO2 28 VBG HCO3 49 H VBG O2 Saturation 31.0 VBG Base Excess 20.5 Sodium 143 145 Potassium 5.3 H 5.1 Chloride 93 L 94 L Carbon Dioxide 40 H* 40 H* Anion Gap 15 16 BUN 117 H 116 H Creatinine 2.95 H 3.12 H Estim Creat Clear Calc 19.4 18.4 Estimated GFR 16 15 Random Glucose 270 H 144 H Calcium 8.6 8.6 Phosphorus 6.4 H 6.5 H Magnesium 2.6 2.7 H Albumin 3.5 Progress Note: A&P Assessment and plan (1) CHF exacerbation: Status: Acute (2) Acute on chronic respiratory failure with hypoxia and hypercapnia: Status: Acute (3) COPD (chronic obstructive pulmonary disease): Status: Acute (4) History of chronic carbon dioxide retention: Status: Acute (5) CKD (chronic kidney disease): Status: Acute Plan Assessment: 74-year-old lady with underlying COPD on 3 L with chronic CO2 retention, CKD, diastolic heart failure admitted with dyspnea and hypoxia after mechanical fall. Plan: Neuro: No acute issues. Cardiac: Acute on chronic exacerbation of underlying diastolic congestive heart failure, improving with diuresis. Continue acetazolamide. Pulmonary: Acute on chronic hypoxic and hypercapnic respiratory failure secondary to exacerbation of underlying congestive heart failure and iatrogenic hyperoxia. Titrated off daytime BiPAP support. Continue nocturnal BiPAP. Maintain O2 saturation of 88-92%. Underlying chronic CO2 retention. Renal: No acute issues. Underlying chronic kidney disease. Endo: No acute issues. GI: No acute issues. ID: No acute issues Heme/Onc: No acute issues. Psych: No acute issues. Miscellaneous: No acute issues. Prophylaxis: Heparin Diet: Cardiac Quality Stroke Does the patient have a stroke diagnosis?: No VTE Prior VTE?: No VTE Risk Level:: Medical - moderate - high VTE Device Contraindication: N/A - Device Ordered VTE Drug Contraindication: N/A - Med Ordered
--- NOTE | 2025-01-05 14:30 | MHC.CM.PN ---
Met with pt and son to review d/c planning needs: pt considering STR before returning to home d/t deconditioning. [facility] referrals made. Pt may be able to transfer out of ICU on 01/06 to a medical floor where she will be evaluated by PT. CM to follow for finalization of d/c needs
--- NOTE | 2025-01-05 15:57 | HO.WOUND ---
Wound Consult: Initial 74yr old?female admitted to [facility] [place] on 01/01/25 - See progress notes and H&P for detailed history.? Wound consult placed for Sacrum and multiple abrasions and bruising secondary to fall.? Patient agreeable to assessment and photo documentation.? Sacrum Etiology: ??Intact Wound Bed: hyperpigmentation noted - irregular pattern noted Drainage / Odor: None Renetta wound: ? Intact Goals of Treatment: ? Preventative barrier cream or Foam dressing if foam dressing were to be able to stay dry in the presence of incontinence. Abrasions to elbow. knee and leg - continue to to treat for outcome of moist wound healing with xeroform and gauze dressings. Recommendations: 1. Turn and Reposition every 2 hours and as needed for patient comfort.? Use pillows or wedges to support off loading positions. 2. Off Load all bony prominences with use of pillows and heel boots if needed.? Apply Preventative foams where needed. ? 3. Monitor for incontinence and moisture control, use barrier creams when needed for prevention and treatment. 4. Provide adequate and supplemental nutrition.? 5. Continue low air loss mattress. 6. When applicable maintain blood glucose levels per Providers order. 7. Sacrum - Off Load Pressure with Q2 hr turns and use of pillows - Cleanse with PH balance spray or wipes, pat dry. ?Apply foam dressing to aid in off loading and protection from friction. Change every 5 days and PRN. 8. Abrasion site - Cleanse with NS moist gauze, pat dry. Apply skin prep. Cover wound bed with xeroform and abd pad and gauze wrap. Change daily. Re-consult wound care Nurse for wound deterioration or wound changes.
--- NOTE | 2025-01-05 17:53 | PC.NURSE ---
N-patient alert and oriented, anxious at times, encouragement needed, easily redirected, in better spirits today son at bedside.? CV-swelling to lower extremities and sacral/ abdomen, Diamox given this AM see LILIANA Pulm- patients SpO2 goal 88-92% on 3-4L O2 via NC, refusing Bipap for naps, encouraged to use for naps and Bedtime, desats while eating and intermittently but reaches goal easily.? GI- No BM noted, tolerating diet well. - Purewick in place draining pale yellow urine, incontinent of large amount this morning. Turn and repo as tolerated every 2hours to maintain skin integrity, refusing at times, abrasion to elbow to knee from fall, lidocaine patch in place, pink foam on coccyx C/D/I, under breast and abdomen cleansed and nystatin powder applied.? Medicated for pain with PRN Tylenol as requested with good effect stated per patient, See MAR for full details.??
--- NOTE | 2025-01-05 19:20 | PC.NURSE ---
Pt arrived to [facility] and settled in room, son at bedside. Pt denied pain, endorsed comfort at this time. She denies current needs. call altamirano in reach and bed alarm, tele alarm in place. report given to oncoming RN.
[2025-01-05] MEDS: acetaZOLAMIDE sodium 500 MG VIAL 375 MG IVPUSH (19:51)
[2025-01-05] MEDS: Milk of Magnesia 30 ML ORAL.SUSP PO (20:30)
[2025-01-06] VITALS (16 sets, daily range): BP systolic 117–151; BP diastolic 58–65; PULSE 53–66; RESP 18–29; TEMP 35.9–37.1; O2SAT 88–97
[2025-01-06] MEDS: Heparin Sodium,Porcine 5,000 UNIT/ML VIAL 5000 UNIT SUBCUT ×3 (01:06→17:02)
[2025-01-06] MEDS: 0.9 % Sodium Chloride Flush 3 ML SYRINGE IVFLUSH ×3 (01:07→17:02)
[2025-01-06 06:55] LABS: Glucose, Whole Blood 232 mg/dL (60-115)
--- NOTE | 2025-01-06 06:59 | PM.EVENT ---
Event Note Date of Service: 01/06/25 Event Note: Rapid response was called as patient was found to be hypoxic and lethargic. Patient was undergoing sleep study overnight and was on her baseline 3-4 L supplemental oxygen. Patient was put on non-rebreather initially. Ordered BiPAP. Opening eyes to verbal stimulus but falls back asleep. Will obtain ABG Time Spent With Patient Time: Total time managing care of this patient today ____ minutes.
--- NOTE | 2025-01-06 07:10 | HO.PM.IMPN ---
Subjective Subjective Date of Service: 01/07/25 Interval History: Rapid response called in this morning, patient was noted to be lethargic and hypoxic, was undergoing sleep study overnight on her baseline 3-4 L of supplemental oxygen, subsequently patient placed on BiPAP, ABG showed pH 7.25, pCO2 96 and PO2 of 72 patient tolerated BiPAP repeat ABGs showed pH 7.3 pCO2 93, patient became more awake alert, able to communicate and follow commands. Patient denies shortness of breath, no chest pain denies nausea, no vomiting, no abdominal pain, no lightheadedness or dizziness. Review of Systems All other system reviewed and are negative. Physical Exam Vital Signs: Vital Signs: Last Vital Signs Temp 98 F 01/06/25 03:47 Pulse 58 01/06/25 03:47 Resp 18 01/06/25 03:47 BP 127/64 01/06/25 03:47 Pulse Ox 90 L 01/06/25 03:47 O2 Del Method Nasal Cannula 01/06/25 03:47 O2 Flow Rate 4 01/06/25 03:47 FiO2 40 01/05/25 07:30 BMI result Body Mass Index 41.8 Const: Other: General resting comfortably in no acute distress. Anicteric sclera Moist mucous membrane Neck no JVD. CVS regular rate rhythm, Respiratory lungs clear to auscultation, no respiratory distress, no wheeze, no rhonchi. Gastrointestinal abdomen soft, non tender, bowel sounds audible Neuro non focal , moving all 4 extremity, speech clear. left knee dressing in place no drainage notedl Psych appropriate affect Objective Data Active Medications Acetaminophen (Acetaminophen 325 Mg Tablet) 975 mg PO Q6H PRN PRN Reason: Pain, Moderate(Pain Scale 4-6) Last Admin: 01/05/25 19:54 Dose: 975 mg Documented By: CLARK Acetazolamide (Acetazolamide Sodium 500 Mg Vial) 375 mg IVPUSH BID [facility] Last Admin: 01/05/25 19:51 Dose: 375 mg Documented By: CLARK Albuterol/Ipratropium (Albuterol/Iprat 2.5/0.5mg 3 Ml Ampul.Neb) 3 ml INHALE RQ4H WHILE AWAKE [facility] Last Admin: 01/05/25 20:06 Dose: 3 ml Documented By: TOSHIA Aspirin (Aspirin Enteric Coated 81 Mg Tablet.) 81 mg PO DAILY [facility] Last Admin: 01/05/25 08:13 Dose: 81 mg Documented By: MERCY Buspirone HCl (Buspirone Hcl 5 Mg Tablet) 5 mg PO TID [facility] Last Admin: 01/05/25 19:50 Dose: 5 mg Documented By: CLARK Heparin Sodium (Porcine) (Heparin Sodium,Porcine 5,000 Unit/Ml Vial) 5,000 unit SUBCUT Q8H [facility] Last Admin: 01/06/25 01:06 Dose: 5,000 unit Documented By: SAMUEL Lidocaine (Lidocaine 4 % Patch Adh..Patch) 2 patch TRANSDERMA DAILY [facility]; Protocol Last Admin: 01/05/25 08:13 Dose: 2 patch Documented By: MERCY Magnesium Hydroxide (Milk Of Magnesia 30 Ml Oral.Susp) 30 ml PO DAILY PRN PRN Reason: Constipation Last Admin: 01/05/25 20:30 Dose: 30 ml Documented By: CLARK Nystatin (Nystatin Powder 15 Gm Bottle) 1 appl TOPICAL BID [facility]; Protocol Last Admin: 01/05/25 19:51 Dose: Not Given Documented By: CLARK Non-Admin Reason: Med Not Available Ondansetron HCl (Ondansetron Hcl 4 Mg/2 Ml Vial) 4 mg IVPUSH Q8H PRN PRN Reason: Nausea and Vomiting Sodium Chloride (0.9 % Sodium Chloride Flush 3 Ml Syringe) 3 ml IVFLUSH QSHIFT [facility] Last Admin: 01/06/25 01:07 Dose: 3 ml Documented By: SAMUEL Labs 01/06/25 07:22 01/07/25 08:52 Labs: Laboratory Results - last 24 hr 01/06/25 06:49 POC Glucose 232 H Assessment and Plan (1) CKD (chronic kidney disease): Status: Acute (2) History of chronic carbon dioxide retention: Status: Acute (3) COPD (chronic obstructive pulmonary disease): Status: Acute (4) Acute on chronic respiratory failure with hypoxia and hypercapnia: Status: Acute (5) CHF exacerbation: Status: Acute (6) Anemia: Status: Acute Plan 74-year-old lady with underlying COPD on 3 L of home oxygen, diastolic dysfunction, pulmonary hypertension secondary to left heart dysfunction, CKD followed by [facility] admitted on 01/01/2025 after mechanical fall, and also worsening dyspnea on exertion and orthopnea. Patient initially admitted to telemetry abarca and started empiric treatment for congestive heart failure and COPD exacerbation. Hospital course significant for worsening respiratory failure with CO2 retention requiring BiPAP support and transferred to intensive care unit. Patient diuresed with Bumex drip and titrated off daytime BiPAP support, continued on nocturnal BiPAP due to underlying chronic CO2 retention. Acute on Chronic hypercarbic and hypoxic respiratory failure due to acute chf exacerbation pEF moderate TR and [id number] pulmonary hypo/no acute COPD exacerbation/likely LUISITO Elevated BNP 2967 on admission repeat 3589 , no prior labs available,On 3 L of home oxygen, treated in ICU initially with IV Bumex subsequently transitioned to acetazolamide IV Echocardiogram showed EF greater than 70, moderately increased right ventricular cavity size, moderate tricuspid regurg, [id number] pulmonary hypertension, no wall motion abnormality Case discussed with Dr. Hand from Nephrology he recommend to place patient back on Bumex 1 mg b.i.d. Strict Is&Os/daily weight Follow overnight sleep study result Continue BiPAP at night and daytime for naps Place Warren catheter for fluid management Acute on chronic kidney disease/cardiorenal syndrome baseline creatinine between 1.8 was on Bumex 1 mg b.i.d. at home Creatinine trending up from 2.83 to 3.09 Case discussed with Nephrology they recommend renal ultrasound rule out obstruction, check UA, urinary sodium/creatinine, spot urine protein creatinine ratio Avoid nephrotoxins all medications renally dosed. Monitor BMP while being diuresed Elevated phosphorus/magnesium, follow labs add phosphate binders Acute on chronic macrocytic anemia likely anemia of chronic disease No acute GI bleed, stool guaiac positive nl B12/folate/iron studies Received 1 unit of packed RBC , hematocrit improved but trending down Will require Procrit consult nephrology Elevated troponin but flat, , asymptomatic no chest pain, abnormal EKG however no prior EKGs available for comparison. echocardiogram no WMA Tele monitoring Hold Coreg due to bradycardia cardiology consult Mechanical fall with left elbow/left hip and left knee injury Imaging study showed no acute fractures, x-ray left knee abnormal Ortho recommended no acute intervention outpatient follow-up upon discharge Hyperglycemia No history of diabetes hemoglobin A1c 5.4 Class 3 obesity Recommend low-calorie diet DVT prophylaxis compression boots /heparin Full code In my clinical judgment patient requires continued inpatient hospitalization for management of acute CHF/acute hypoxic respiratory failure Quality Stroke Does the patient have a stroke diagnosis?: No VTE Prior VTE?: No VTE Risk Level:: Medical - moderate - high VTE Device Contraindication: N/A - Device Ordered VTE Drug Contraindication: N/A - Med Ordered
[2025-01-06 07:14] LABS: ABG Base Excess 12.6 mmol/L; ABG HCO3 42 mmol/L (22-26); ABG pCO2 96 mmHg (32-45); ABG pH 7.25 (7.35-7.45); ABG pO2 72 mmHg (83-108)
[2025-01-06 07:28] LABS: MANUAL DIFF FLAG NO
[2025-01-06] MEDS: Albuterol/Iprat 2.5/0.5MG 3 ML AMPUL.NEB INHALE ×4 (07:33→19:36)
[2025-01-06 07:34] LABS: Venous Blood Gas Refer to POC result
[2025-01-06 07:35] LABS: VBG Base Excess 14.7 mmol/L; VBG HCO3 44 mmol/L (22-26); VBG pCO2 92 mmHg; VBG pH 7.28 (7.32-7.43); VBG pO2 88 mmHg
[2025-01-06 07:35] LABS: Basophils Percent Auto 0.2 % (0-2); Hematocrit 28.2 % (37.0-47.0); Hemoglobin 7.8 g/dl (12.0-16.0); Lymphocytes Absolute Auto 0.5 X10*3/uL (1.2-4.9); Lymphocytes Percent Auto 4.8 % (20-40); Mean Corpuscular HGB Conc 27.7 g/dl (31.0-35.0); Mean Corpuscular Volume 108.5 fL (80.0-98.0); Monocytes Absolute Auto 0.8 X10*3/uL (0.1-1.2); Monocytes Percent Auto 7.7 % (2-11); NRBC Pct Auto 1.2 /100WBC (0.0-0.2); Neutrophils Percent Auto 86.3 % (45-73); Platelet Count 253 X10*3/uL (160-400); Red Cell Distribution Width 16.8 % (11.0-16.0); White Blood Count 10.4 X10*3/uL (4.8-10.8)
[2025-01-06 07:52] LABS: Albumin Level 3.5 g/dL (3.5-5.0); Anion Gap 17 (12-20); Calcium 8.5 mg/dL (8.4-10.2); Carbon Dioxide 38 mmol/L (22-29); Chloride 93 mmol/L (96-108); Creatinine Clr Calc Pharmacy 18.5; Estimated Glomerular Filt Rate 15; Glucose Random 237 mg/dL (60-115); Phosphorus 7.8 mg/dL (2.7-4.5); Potassium 5.2 mmol/L (3.3-5.1); Sodium 143 mmol/L (135-145)
[2025-01-06 08:03] LABS: Blood Urea Nitrogen 132 mg/dL (9-16)
--- NOTE | 2025-01-06 08:19 | PC.NURSE ---
Pt A&O at start of shift, unitizing 4-5L O2 via NC, had sleep study done overnight with respiratory therapist, occasionally episodes of desats, Around 0640, pt noted to desating as low as 60% bradycardic, HR30s, lethargic, pale, Rapid Response called, placed on BiPAP by respiratory team, ordered by Dr Amanda Rosales, Sats up to 90% on 188 @ 45%. [id number], Resp 16bpm, BP172/71mmHg, Pt more alert, oriented x 4. See RR documentation for more details
[2025-01-06] MEDS: acetaZOLAMIDE sodium 500 MG VIAL 375 MG IVPUSH (09:01)
[2025-01-06] MEDS: Lidocaine 4 % Patch ADH..PATCH 2 PATCH TRANSDERMA (09:02)
[2025-01-06 11:21] LABS: ABG Refer to POC result
[2025-01-06 11:40] LABS: VBG Base Excess 17.2 mmol/L; VBG HCO3 46 mmol/L (22-26); VBG pCO2 93 mmHg; VBG pO2 42 mmHg
[2025-01-06 11:41] LABS: Venous Blood Gas Refer to POC result
[2025-01-06 13:56] LABS: Appearance Urine Clear; Color Urine Yellow; Glucose Urine UA Negative (Negative); Leukocyte Esterase Urine Trace (Negative); Nitrite Urine Negative (Negative); PH 5.5 (5.0-9.0); Specific Gravity - Urine 1.015 (1.005-1.025); UMIC TRIGGER UA YES; Urine Blood Negative (Negative); Urine Ketones Negative (Negative); Urine Protein Negative (Neg-Trace)
[2025-01-06 14:08] LABS: Bacteria Urine 4+ (None Seen); RBC Urine 0-2 /HPF (0-2); Squamous Epithelial Cell Urine 0-2 /HPF (0-2); WBC Urine 0-5 /HPF (0-5)
[2025-01-06 14:30] LABS: Creatinine Urine 78.39 mg/dL; Total Protein Urine Random 10 mg/dL (<12)
[2025-01-06] MEDS: busPIRone HCl 5 MG TABLET PO ×2 (17:02→20:38)
[2025-01-06] MEDS: Bumetanide 1 MG TABLET PO (17:02)
[2025-01-07] VITALS (12 sets, daily range): BP systolic 116–139; BP diastolic 55–65; PULSE 55–73; RESP 18–24; TEMP 36.2–36.9; O2SAT 88–98
--- NOTE | 2025-01-07 | ECG_ITS ---
Test Reason : ABNORMAL RYTHM Blood Pressure : */* mmHG Vent. Rate : 72 BPM Atrial Rate : 72 BPM P-R Int : 192 ms QRS Dur : 136 ms QT Int : 406 ms P-R-T Axes : * 121 228 degrees QTcB Int : 444 ms Sinus rhythm with Premature supraventricular complexes Right bundle branch block Cannot rule out Septal infarct Lateral infarct , age undetermined Inferior infarct , age undetermined T wave abnormality, consider anterior ischemia Abnormal ECG When compared with ECG of 01-Jan-2025 05:32, Significant changes have occurred Referred By: Thierno Haines Electronically Signed By: Eliezer Garcia
[2025-01-07] MEDS: Heparin Sodium,Porcine 5,000 UNIT/ML VIAL 5000 UNIT SUBCUT ×2 (01:24→23:01)
[2025-01-07] MEDS: 0.9 % Sodium Chloride Flush 3 ML SYRINGE IVFLUSH ×4 (01:25→21:03)
[2025-01-07] MEDS: Albuterol/Iprat 2.5/0.5MG 3 ML AMPUL.NEB INHALE ×4 (07:47→20:06)
[2025-01-07] MEDS: Lidocaine 4 % Patch ADH..PATCH 2 PATCH TRANSDERMA (08:54)
[2025-01-07] MEDS: Aspirin Enteric Coated 81 MG TABLET.DR PO (09:09)
[2025-01-07] MEDS: busPIRone HCl 5 MG TABLET PO ×3 (09:09→21:02)
[2025-01-07] MEDS: Nystatin Powder 15 GM BOTTLE 1 APPL TOPICAL ×2 (09:10→21:02)
[2025-01-07 09:32] LABS: Anion Gap 17 (12-20); Calcium 8.3 mg/dL (8.4-10.2); Carbon Dioxide 36 mmol/L (22-29); Chloride 94 mmol/L (96-108); Creatinine Clr Calc Pharmacy 21.3; Estimated Glomerular Filt Rate 17; Glucose Random 94 mg/dL (60-115); Magnesium 2.8 mg/dL (1.6-2.6); Potassium 4.8 mmol/L (3.3-5.1); Sodium 142 mmol/L (135-145)
[2025-01-07 09:41] LABS: Blood Urea Nitrogen 124 mg/dL (9-16)
--- NOTE | 2025-01-07 09:59 | P.CONCA_ITS ---
History of Present Illness History of Present Illness Date of Service: 01/07/25 Requesting physician: Thierno Haines Chief complaint: Acute congestive heart failure Narrative: [age] year female with complex medical issues who was in the intensive care unit with hypercapnia requiring BiPAP support. She has background of COPD on 3 L oxygen at home, chronic kidney disease who presented with mechanical fall and left elbow and knee injury. She had acute kidney injury anemia and required blood transfusions. She is currently on oral Bumex and we have been asked to see her for congestive heart failure. The patient just got off the BiPAP. She was coherent and complaining of pain all over the body. She also had some shortness of breath but was saying that overall she feels better. She is not coughing up any phlegm. No other complaints. She is currently on oral Bumex. She is on supplemental oxygen. EKG and echo reviewed. [facility] Social History Social History Household Members: Family Household Members Other:: sister Housing: House Do you presently have visiting nurse or other home services: No Comment: 1:1 sitter at bedside Patient Tobacco Use Status: Former Tobacco user Tobacco use type: Cigarette service: No Meds Allergies Allergy/AdvReac Type Severity Reaction Status Date / Time shellfish derived [shellfish] AdvReac Hives Verified 01/01/25 05:49 Active Medications: Current Medications Acetaminophen (Acetaminophen 325 Mg Tablet) 975 mg PO Q6H PRN PRN Reason: Pain, Moderate(Pain Scale 4-6) Last Admin: 01/05/25 19:54 Dose: 975 mg Albuterol/Ipratropium (Albuterol/Iprat 2.5/0.5mg 3 Ml Ampul.Neb) 3 ml INHALE RQ4H WHILE AWAKE [facility] Last Admin: 01/07/25 07:47 Dose: 3 ml Aspirin (Aspirin Enteric Coated 81 Mg Tablet.) 81 mg PO DAILY [facility] Last Admin: 01/07/25 09:09 Dose: 81 mg Bumetanide (Bumetanide 1 Mg Tablet) 1 mg PO BID@0800,1700 [facility]; Protocol Last Admin: 01/06/25 17:02 Dose: 1 mg Buspirone HCl (Buspirone Hcl 5 Mg Tablet) 5 mg PO TID [facility] Last Admin: 01/07/25 09:09 Dose: 5 mg Heparin Sodium (Porcine) (Heparin Sodium,Porcine 5,000 Unit/Ml Vial) 5,000 unit SUBCUT Q8H [facility] Last Admin: 01/07/25 09:18 Dose: Not Given Lidocaine (Lidocaine 4 % Patch Adh..Patch) 2 patch TRANSDERMA DAILY [facility]; Protocol Last Admin: 01/07/25 08:54 Dose: 2 patch Magnesium Hydroxide (Milk Of Magnesia 30 Ml Oral.Susp) 30 ml PO DAILY PRN PRN Reason: Constipation Last Admin: 01/05/25 20:30 Dose: 30 ml Nystatin (Nystatin Powder 15 Gm Bottle) 1 appl TOPICAL BID [facility]; Protocol Last Admin: 01/07/25 09:10 Dose: 1 appl Ondansetron HCl (Ondansetron Hcl 4 Mg/2 Ml Vial) 4 mg IVPUSH Q8H PRN PRN Reason: Nausea and Vomiting Sodium Chloride (0.9 % Sodium Chloride Flush 3 Ml Syringe) 3 ml IVFLUSH QSHIFT [facility] Last Admin: 01/07/25 09:18 Dose: 3 ml Home Medications ?Medication ?Instructions ?Recorded ?Confirmed ?Last Taken ?Type aspirin 81 mg tablet,delayed 81 mg PO DAILY 01/01/25 01/01/25 12/31/24 History release bumetanide 1 mg tablet 1 mg PO BID 01/01/25 01/01/25 12/31/24 History buspirone 5 mg tablet 5 mg PO TID 01/01/25 01/01/25 12/31/24 History calcitriol 0.25 mcg capsule 0.25 mcg PO Q OTHER DAY 01/01/25 01/01/25 12/31/24 History carvedilol 3.125 mg tablet 3.125 mg PO BID 01/01/25 01/01/25 12/31/24 History docusate sodium 100 mg capsule 100 mg PO DAILY PRN Constipation 01/01/25 01/01/25 12/31/24 History multivitamin 1 tab PO DAILY 01/01/25 01/01/25 12/31/24 History umeclidinium 62.5 mcg-vilanterol 1 ea inhalation DAILY 01/01/25 01/01/25 12/31/24 History 25 mcg/actuation powdr for inhalation (Anoro Ellipta) Physical Exam 2 Vital Signs: Vital Signs: Last Vital Signs Temp 98.3 F 01/07/25 07:24 Pulse 55 01/07/25 07:50 Resp 18 01/07/25 07:50 BP 116/55 L 01/07/25 07:24 Pulse Ox 94 01/07/25 07:24 O2 Del Method Nasal Cannula 01/07/25 07:24 O2 Flow Rate 4 01/07/25 07:24 FiO2 32 01/07/25 04:00 BMI result Body Mass Index 41.8 GENERAL APPEARANCE: in no acute distress, pleasant. On supplemental oxygen. NECK: no carotid bruit, ++ jugular venous distention. SKIN: no suspicious lesions, warm and dry. HEART: no murmurs, regular rate and rhythm. Systolic murmur left sternal border. LUNGS: Diminished at bases with some crackles. ABDOMEN: soft, nontender. EXTREMITIES: Mild edema. PERIPHERAL PULSES: equal. NEUROLOGIC: No gross deficits, AAO X 3 Objective Labs and Meds 01/06/25 07:22 01/07/25 08:52 Lab results: Laboratory Results - last 24 hr 01/06/25 01/06/25 01/07/25 11:31 13:48 08:52 VBG pH 7.30 L VBG pCO2 93 VBG pO2 42 VBG HCO3 46 H VBG O2 Saturation 64.0 VBG Base Excess 17.2 Sodium 142 Potassium 4.8 Chloride 94 L Carbon Dioxide 36 H Anion Gap 17 BUN 124 H Creatinine 2.69 H Estim Creat Clear Calc 21.3 Estimated GFR 17 Random Glucose 94 Calcium 8.3 L Magnesium 2.8 H Urine Color Yellow Urine Appearance Clear Urine pH 5.5 Ur Specific [place] 1.015 Urine Protein Negative Urine Glucose (UA) Negative Urine Ketones Negative Urine Blood Negative Urine Nitrite Negative Ur Leukocyte Esterase Trace H Urine RBC 0-2 Urine WBC 0-5 Ur Squamous Epith Cells 0-2 Urine Bacteria 4+ Hyaline Casts 3-5 U Random Total Protein 10 Ur Random Sodium 28.0 Urine Creatinine 78.39 Imaging Radiologist's impression: Impressions Renal Ultrasound 01/06/25 14:46 IMPRESSION: 1. Normal kidneys without hydronephrosis. 2. Cholelithiasis. Electronically signed by: Gregory Hernandez MD 01/06/2025 03:41 PM [facility] Assessment and Plan (1) Acute on chronic respiratory failure with hypoxia and hypercapnia: Status: Acute (2) CHF exacerbation: Status: Acute Plan [age] year female with complex medical issues who presented with mechanical fall and hypercapnic respiratory failure. She has been requiring BiPAP off and on. Clinically she does appear to be volume overloaded. She also has diminished breath sounds at bases. Check chest x-ray today to assess for any effusions. She has significant volume overload then would favor starting her on a Lasix or Bumex drip. Otherwise 1 mg IV b.i.d. Bumex should be started. She has [id number] pulmonary hypertension, moderate RV dysfunction and hyperdynamic left ventricle. We will follow along with you. Thank you for allowing me to participate in the care of your patient. Please feel free to contact me if you have any questions. Procedures Date of Service Date of Service: 01/07/25
--- NOTE | 2025-01-07 10:08 | PM.PNNEP ---
Subjective Subjective Date of Service: 01/07/25 Interval history: Chart reviewed Full consult dictated Cr is better Continue Bumex PO No need for Acetazolamide now Epo 20 K x 1 dose ordered Fe stores are OK . Physical Exam Vital Signs: Vital Signs: Last Vital Signs Temp 98.3 F 01/07/25 07:24 Pulse 55 01/07/25 07:50 Resp 18 01/07/25 07:50 BP 116/55 L 01/07/25 07:24 Pulse Ox 94 01/07/25 07:24 O2 Del Method Nasal Cannula 01/07/25 07:24 O2 Flow Rate 4 01/07/25 07:24 FiO2 32 01/07/25 04:00 BMI result Body Mass Index 41.8 Objective Data Labs 01/06/25 07:22 01/07/25 08:52 Labs: Laboratory Results - last 24 hr 01/06/25 01/06/25 01/07/25 11:31 13:48 08:52 VBG pH 7.30 L VBG pCO2 93 VBG pO2 42 VBG HCO3 46 H VBG O2 Saturation 64.0 VBG Base Excess 17.2 Sodium 142 Potassium 4.8 Chloride 94 L Carbon Dioxide 36 H Anion Gap 17 BUN 124 H Creatinine 2.69 H Estim Creat Clear Calc 21.3 Estimated GFR 17 Random Glucose 94 Calcium 8.3 L Magnesium 2.8 H Urine Color Yellow Urine Appearance Clear Urine pH 5.5 Ur Specific [place] 1.015 Urine Protein Negative Urine Glucose (UA) Negative Urine Ketones Negative Urine Blood Negative Urine Nitrite Negative Ur Leukocyte Esterase Trace H Urine RBC 0-2 Urine WBC 0-5 Ur Squamous Epith Cells 0-2 Urine Bacteria 4+ Hyaline Casts 3-5 U Random Total Protein 10 Ur Random Sodium 28.0 Urine Creatinine 78.39 Procedures Date of Service Date of Service: 01/07/25 Assessment & Plan Time Spent With Patient Time: Total time managing care of this patient today ____ minutes. Progress Note: Quality Stroke Does the patient have a stroke diagnosis?: No
--- NOTE | 2025-01-07 10:29 | MHC.CM.PN ---
Per ROUNDS discussion, Patient is not yet medically cleared for dc (Still in heart failure); Patient may benefit from a PT Eval to assist with disposition. CM will follow.
--- NOTE | 2025-01-07 11:42 | HO.WOUND ---
Wound Consult: Follow up 74yr old?female admitted to [facility] [place] on 01/01/25 - See progress notes and H&P for detailed history.? Wound consult placed for Sacrum and multiple abrasions and bruising secondary to fall.? Patient agreeable to assessment and photo documentation.? Iniital assessment completed after photo review and discussion with direct care nurse. Today skin was assessed in person. Sacrum Etiology: Deep tissue Injury POA Wound Bed: Red maroon purple nonblanchable tissue over sacral bones - irregular pattern remains intact Drainage / Odor: None Renetta wound: ? MASD Goals of Treatment: ? Foam dressing Bilateral Ischium Etiology: Chronic MASD Wound Bed: Red purple blanchable tissue mirrored pattern Drainage / Odor: None Renetta wound: ? MASD Goals of Treatment: ?barrier cream to protect from moisture and friction Right Heel Etiology: Deep tissue Injury POA Wound Bed: purple nonblanchable intact tissue Drainage / Odor: None Renetta wound: ? red pink slow to bhargav tissue Goals of Treatment: ? Foam dressing to aid in pressure redistribution Right Lower Leg Abrasions to elbow. knee and leg - continue to to treat for outcome of moist wound healing with xeroform and gauze dressings. Recommendations: 1. Turn and Reposition every 2 hours and as needed for patient comfort.? Use pillows or wedges to support off loading positions. 2. Off Load all bony prominences with use of pillows and heel boots if needed.? Apply Preventative foams where needed. ? 3. Monitor for incontinence and moisture control, use barrier creams when needed for prevention and treatment. 4. Provide adequate and supplemental nutrition.? 5. Continue low air loss mattress. 6. When applicable maintain blood glucose levels per Providers order. 7. Sacrum - Off Load Pressure with Q2 hr turns and use of pillows - Cleanse with PH balance spray or wipes, pat dry. ?Apply foam dressing to aid in off loading and protection from friction. Change every 5 days and PRN. 8. Abrasion site - Cleanse with NS moist gauze, pat dry. Apply skin prep. Cover wound bed with xeroform and abd pad and gauze wrap. Change daily. 9. Bilateral Heels - Elevate heels off of bed surface with pillows - Apply skin prep allow to dry. Apply foam dressing to aid in off loading and protection from friction. Change every 5 days and PRN. 10. Right Leung - Cleanse with NS moist gauze, pat dry. Apply skin prep. Cover wound bed with foam dressing change every 3 days and PRN. Re-consult wound care Nurse for wound deterioration or wound changes.
[2025-01-07] MEDS: Sevelamer Carbonate Tablet 800 MG TABLET PO ×2 (12:19→16:43)
[2025-01-07] MEDS: Bumetanide 1 MG TABLET PO ×2 (12:19→16:43)
--- NOTE | 2025-01-07 13:09 | CONS_ITS ---
DATE OF SERVICE: 01/07/2025 REASON FOR CONSULTATION: Consult requested by the medical team to evaluate and help in management of patient with renal insufficiency. HISTORY OF PRESENT ILLNESS: Patient is a 74-year-old female with past medical history of COPD, on home oxygen; history of chronic kidney disease. Baseline creatinine ranging around 1.8, who presented a few days ago to [facility] after she had a mechanical fall and sustained a left elbow, left knee, and left hip injury without any preceding symptoms. She had chronic dyspnea on exertion. Patient in the ER was noted to have anemia and elevated creatinine around 3. She also had elevated BNP. She was initially admitted to the medical floor. Patient has been followed up in our office. She was initially in the telemetry unit for treatment of the CHF and COPD exacerbation. Hospital course was significant for worsening respiratory failure with CO2 retention, requiring BiPAP, respiratory support, and transferred to the ICU. Patient was also initially diuresed with Bumex drip and she is off BiPAP at the present time. She is continued on nocturnal BiPAP. Echocardiogram showed EF of around 70%. She was initiated on acetazolamide. Yesterday, we switched over the Bumex to 1 mg p.o. b.i.d. She does have a Warren catheter in place. At the present time, patient is feeling better. There is no chest pain. She does complain of shortness of breath and fatigue. REVIEW OF SYSTEMS: As noted above. Other system review negative. PAST MEDICAL HISTORY: Include history of COPD, oxygen dependency, chronic kidney disease stage 3/4 at baseline, history of recent mechanical fall, secondary hyperparathyroidism, obesity. ALLERGIES: INCLUDE ALLERGY TO SHELLFISH. MEDICATIONS: At home include aspirin, Bumex 1 mg p.o. b.i.d., buspirone, calcitriol 0.25 mcg every other day, carvedilol 3.125 b.i.d., Colace, multivitamin. She is also on Ellipta. PHYSICAL EXAMINATION: GENERAL: Patient is resting in the bed. Awake, alert, oriented x3. VITAL SIGNS: Blood pressure was 116/55, pulse 56, afebrile. HEENT: Shows pupils equal, round, and reactive bilaterally to light. No jugular venous distention is noted. NECK: Supple. CARDIOVASCULAR SYSTEM: S1, S2 without rub. RESPIRATORY SYSTEM: Mildly decreased in the bases. No crepitation or rhonchi. ABDOMEN: Obese, soft. Bowel sounds normal. EXTREMITIES: Showed chronic changes without significant edema. LABORATORY DATA: Last VBG was 7.30, pCO2 of 93, pO2 of 42. Labs done today; sodium 142, potassium 4.8, chloride 94, CO2 of 36, BUN 124, creatinine 2.69. Estimated GFR was 17, calcium 8.3, magnesium 2.8. Urinalysis yesterday showed yellow urine, which is clear, specific gravity 1.015, protein negative, glucose negative, rbc's were 0 to 2, wbc 0 to 5. Renal ultrasound done yesterday showed kidney size is around 9.5 to 9.8 without any hydronephrosis or stones. Hemoglobin yesterday was 7.8, hematocrit 28.2. Urine sodium was 28. Urine creatinine 78. Review of patient's baseline creatinine shows that they have been anywhere around 1.8 to 2.0. IMPRESSION: 1. A 74-year-old female with acute kidney injury. Acute kidney injury in this patient likely due to multifactorial reasons. Patient initially presented with congestive heart failure and likely had renal hypoperfusion associated with it. She was also diuresed with diuretic-induced worsening renal function/mild cardiorenal state. Obstruction has been ruled out on this patient. I doubt patient has acute glomerulonephritis/interstitial nephritis in the absence of hematuria/pyuria or proteinuria. 2. Chronic kidney disease stage IIIB at baseline in setting of longstanding hypertension. 3. Congestive heart failure. 4. Chronic obstructive pulmonary disease exacerbation. 5. Anemia of chronic disease. RECOMMENDATION: At this juncture, I recommend continuation of Bumex at 1 mg p.o. b.i.d. There is no immediate need for acetazolamide at the present time. She does have COPD and we need to aggressively manage COPD with bronchodilators. In regard to anemia, her iron stores are acceptable and I will give her 1 dose of erythropoietin 20,000 units. From renal standpoint, she needs to be on 2 g sodium diet and a fluid restriction of 2 L. Her renal function is already improving and we will continue to monitor. When she is ready to be discharged, she can be followed up in our office. Thank you for allowing me to participate in medical management of the patient. MD THAD Barnett/EMILIA / [phone]
--- NOTE | 2025-01-07 15:21 | HO.PM.IMPN ---
Subjective Subjective Date of Service: 01/07/25 Interval History: More awake alert complaining of generalized pain, overall not feeling well complaining of shortness of breath, no chest pain, no palpitations, no fevers or chills. No acute events overnight tolerating BiPAP. Review of Systems All other system reviewed and are negative Physical Exam Vital Signs: Vital Signs: Last Vital Signs Temp 97.5 F 01/07/25 11:09 Pulse 67 01/07/25 14:33 Resp 18 01/07/25 14:33 BP 139/65 01/07/25 11:09 Pulse Ox 95 01/07/25 11:09 O2 Del Method Nasal Cannula 01/07/25 11:09 O2 Flow Rate 4 01/07/25 11:09 FiO2 32 01/07/25 04:00 BMI result Body Mass Index 41.8 Const: Other: General resting comfortably in no acute distress. Anicteric sclera Moist mucous membrane Neck + JVD. CVS regular rate rhythm, Respiratory lungs bilateral basilar crackles, no respiratory distress, no wheeze, no rhonchi. Gastrointestinal abdomen soft, non tender, bowel sounds audible Neuro non focal , moving all 4 extremity, speech clear. left knee dressing in place no drainage notedl Psych appropriate affect Objective Data Active Medications Acetaminophen (Acetaminophen 325 Mg Tablet) 975 mg PO Q6H PRN PRN Reason: Pain, Moderate(Pain Scale 4-6) Last Admin: 01/05/25 19:54 Dose: 975 mg Documented By: CLARK Albuterol/Ipratropium (Albuterol/Iprat 2.5/0.5mg 3 Ml Ampul.Neb) 3 ml INHALE RQ4H WHILE AWAKE [facility] Last Admin: 01/07/25 14:33 Dose: 3 ml Documented By: VANNESA Aspirin (Aspirin Enteric Coated 81 Mg Tablet.) 81 mg PO DAILY [facility] Last Admin: 01/07/25 09:09 Dose: 81 mg Documented By: PANCHO Bumetanide (Bumetanide 1 Mg Tablet) 1 mg PO BID@0800,1700 [facility]; Protocol Last Admin: 01/07/25 12:19 Dose: 1 mg Documented By: PANCHO Buspirone HCl (Buspirone Hcl 5 Mg Tablet) 5 mg PO TID [facility] Last Admin: 01/07/25 09:09 Dose: 5 mg Documented By: PANCHO Heparin Sodium (Porcine) (Heparin Sodium,Porcine 5,000 Unit/Ml Vial) 5,000 unit SUBCUT Q8H [facility] Last Admin: 01/07/25 09:18 Dose: Not Given Documented By: PANCHO Non-Admin Reason: Physician Approved Lidocaine (Lidocaine 4 % Patch Adh..Patch) 2 patch TRANSDERMA DAILY [facility]; Protocol Last Admin: 01/07/25 08:54 Dose: 2 patch Documented By: PANCHO Magnesium Hydroxide (Milk Of Magnesia 30 Ml Oral.Susp) 30 ml PO DAILY PRN PRN Reason: Constipation Last Admin: 01/05/25 20:30 Dose: 30 ml Documented By: CLARK Nystatin (Nystatin Powder 15 Gm Bottle) 1 appl TOPICAL BID [facility]; Protocol Last Admin: 01/07/25 09:10 Dose: 1 appl Documented By: PANCHO Ondansetron HCl (Ondansetron Hcl 4 Mg/2 Ml Vial) 4 mg IVPUSH Q8H PRN PRN Reason: Nausea and Vomiting Oxycodone HCl (Oxycodone Hcl Immed Release 5 Mg Tablet) 5 mg PO Q6H PRN PRN Reason: Pain, Moderate(Pain Scale 4-6) Sevelamer Carbonate (Sevelamer Carbonate Tablet 800 Mg Tablet) 800 mg PO TIDWM [facility] Last Admin: 01/07/25 12:19 Dose: 800 mg Documented By: PANCHO Sodium Chloride (0.9 % Sodium Chloride Flush 3 Ml Syringe) 3 ml IVFLUSH QSHIFT [facility] Last Admin: 01/07/25 09:18 Dose: 3 ml Documented By: PANCHO Labs 01/06/25 07:22 01/07/25 08:52 Labs: Laboratory Results - last 24 hr 01/06/25 01/07/25 07:22 08:52 Smear Path Review Anion Gap 17 Estim Creat Clear Calc 21.3 Estimated GFR 17 Random Glucose 94 Calcium 8.3 L Magnesium 2.8 H Assessment and Plan (1) CKD (chronic kidney disease): Status: Acute (2) History of chronic carbon dioxide retention: Status: Acute (3) COPD (chronic obstructive pulmonary disease): Status: Acute (4) Acute on chronic respiratory failure with hypoxia and hypercapnia: Status: Acute Plan 74-year-old lady with underlying COPD on 3 L of home oxygen, diastolic dysfunction, pulmonary hypertension secondary to left heart dysfunction, CKD followed by [facility] admitted on 01/01/2025 after mechanical fall, and also worsening dyspnea on exertion and orthopnea. Patient initially admitted to telemetry abarca and started empiric treatment for congestive heart failure and COPD exacerbation. Hospital course significant for worsening respiratory failure with CO2 retention requiring BiPAP support and transferred to intensive care unit. Patient diuresed with Bumex drip and titrated off daytime BiPAP support, continued on nocturnal BiPAP due to underlying chronic CO2 retention. Acute on Chronic hypercarbic and hypoxic respiratory failure due to acute chf exacerbation pEF moderate TR and [id number]-ph-[id number] pulmonary hypo/no acute COPD exacerbation/likely LUISITO Elevated BNP 2967 on admission repeat 3589 , no prior labs available,On 3 L of home oxygen, treated in ICU initially with IV Bumex subsequently transitioned to acetazolamide IV Echocardiogram showed EF greater than 70, moderately increased right ventricular cavity size, moderate tricuspid regurg, [id number]-we-rsicyu pulmonary hypertension, no wall motion abnormality Chest x-ray 01/07 showed cardiomegaly, pulmonary vascular congestion and small bilateral effusion Continue Bumex 1 mg b.i.d. give metolazone 5 mg x 1 Seen by cardiology they agree with diuresis Strict Is&Os/daily weight Follow overnight sleep study result Continue BiPAP at night and daytime for naps Place Warren catheter for fluid management Acute on chronic kidney disease/cardiorenal syndrome baseline creatinine between 1.8 was on Bumex 1 mg b.i.d. at home Creatinine trending down Renal ultrasound showed no obstruction Monitor BMP while being diuresed Elevated phosphorus/magnesium, follow labs add phosphate binders Acute on chronic macrocytic anemia likely anemia of chronic disease No acute GI bleed, stool guaiac positive nl B12/folate/iron studies Received 1 unit of packed RBC , hematocrit improved , Procrit given Elevated troponin but flat, , asymptomatic no chest pain, abnormal EKG however no prior EKGs available for comparison. echocardiogram no [facility] Tele monitor showed atrial tachycardia Seen by cardiology resume Coreg Mechanical fall with left elbow/left hip and left knee injury Imaging study showed no acute fractures, x-ray left knee abnormal Ortho recommended no acute intervention outpatient follow-up upon discharge Hyperglycemia No history of diabetes hemoglobin A1c 5.4 Class 3 obesity Recommend low-calorie diet DVT prophylaxis compression boots /heparin Full code In my clinical judgment patient requires continued inpatient hospitalization for management of acute CHF/acute hypoxic respiratory failure Quality Stroke Does the patient have a stroke diagnosis?: No VTE Prior VTE?: No VTE Risk Level:: Medical - moderate - high VTE Device Contraindication: N/A - Device Ordered VTE Drug Contraindication: N/A - Med Ordered
[2025-01-07] MEDS: metOLazone 5 MG TABLET PO (16:43)
[2025-01-07] MEDS: oxyCODONE HCl Immed Release 5 MG TABLET PO (16:43)
[2025-01-07] MEDS: carvediloL 3.125 MG TABLET PO (21:02)
[2025-01-08] VITALS (14 sets, daily range): BP systolic 117–140; BP diastolic 50–72; PULSE 56–66; RESP 15–23; TEMP 36.1–37.1; O2SAT 91–95; BMI 42.6
[2025-01-08 07:05] LABS: B Type Natriuretic Peptide 2860 pg/mL (<100)
[2025-01-08 07:09] LABS: Anion Gap 15 (12-20); Blood Urea Nitrogen 125 mg/dL (9-16); Calcium 8.4 mg/dL (8.4-10.2); Chloride 92 mmol/L (96-108); Creatinine Clr Calc Pharmacy 22.5; Estimated Glomerular Filt Rate 18; Glucose Random 153 mg/dL (60-115); Magnesium 2.9 mg/dL (1.6-2.6); Potassium 4.7 mmol/L (3.3-5.1); Sodium 142 mmol/L (135-145)
[2025-01-08 07:16] LABS: Carbon Dioxide 40 mmol/L (22-29)
[2025-01-08] MEDS: 0.9 % Sodium Chloride Flush 3 ML SYRINGE IVFLUSH ×3 (08:01→21:25)
[2025-01-08] MEDS: carvediloL 3.125 MG TABLET PO (08:30)
[2025-01-08] MEDS: Aspirin Enteric Coated 81 MG TABLET.DR PO (08:30)
[2025-01-08] MEDS: Heparin Sodium,Porcine 5,000 UNIT/ML VIAL 5000 UNIT SUBCUT ×2 (08:32→16:27)
[2025-01-08] MEDS: acetaZOLAMIDE 250 MG TABLET PO ×2 (08:38→21:25)
[2025-01-08] MEDS: Bumetanide 1 MG TABLET PO ×2 (08:49→16:29)
[2025-01-08] MEDS: busPIRone HCl 5 MG TABLET PO ×3 (08:49→21:25)
[2025-01-08] MEDS: Albuterol/Iprat 2.5/0.5MG 3 ML AMPUL.NEB INHALE ×3 (08:52→19:38)
[2025-01-08] MEDS: Lidocaine 4 % Patch ADH..PATCH 2 PATCH TRANSDERMA (10:59)
[2025-01-08] MEDS: Nystatin Powder 15 GM BOTTLE 1 APPL TOPICAL ×2 (11:04→21:25)
--- NOTE | 2025-01-08 11:26 | P.PNIM_ITS ---
Subjective Subjective Date of Service: 01/08/25 Interval History: Receiving updraft treatment feels better with less shortness of breath, denies chest pain, no headache, no dizziness, tolerated BiPAP but intermittently take of BiPAP mask, sitter in place. Review of Systems All other system reviewed and negative. Physical Exam 2 Vital Signs: Vital Signs: Last Vital Signs Temp 98.7 F 01/08/25 11:13 Pulse 60 01/08/25 11:13 Resp 15 01/08/25 11:13 BP 120/52 L 01/08/25 11:13 Pulse Ox 95 01/08/25 11:13 O2 Del Method Nasal Cannula 01/08/25 11:13 O2 Flow Rate 4 01/08/25 11:13 FiO2 32 01/08/25 08:00 BMI result Body Mass Index 42.6 Const: Other: General resting comfortably in no acute distress. Anicteric sclera Moist mucous membrane Neck + JVD. CVS regular rate rhythm, Respiratory lungs bilateral basilar crackles, no respiratory distress, no wheeze, no rhonchi. Gastrointestinal abdomen soft, non tender, bowel sounds audible Neuro non focal , moving all 4 extremity, speech clear. left knee dressing in place no drainage noted Psych appropriate affect Objective Data Active Medications Acetaminophen (Acetaminophen 325 Mg Tablet) 975 mg PO Q6H PRN PRN Reason: Pain, Moderate(Pain Scale 4-6) Last Admin: 01/05/25 19:54 Dose: 975 mg Documented By: CLARK Acetazolamide (Acetazolamide 250 Mg Tablet) 250 mg PO BID [facility] Last Admin: 01/08/25 08:38 Dose: 250 mg Documented By: FERMIN Albuterol/Ipratropium (Albuterol/Iprat 2.5/0.5mg 3 Ml Ampul.Neb) 3 ml INHALE RQ4H WHILE AWAKE [facility] Last Admin: 01/08/25 08:52 Dose: 3 ml Documented By: JASON Aspirin (Aspirin Enteric Coated 81 Mg Tablet.) 81 mg PO DAILY [facility] Last Admin: 01/08/25 08:30 Dose: 81 mg Documented By: FERMIN Bumetanide (Bumetanide 1 Mg Tablet) 1 mg PO BID@0800,1700 [facility]; Protocol Last Admin: 01/08/25 08:49 Dose: 1 mg Documented By: FERMIN Buspirone HCl (Buspirone Hcl 5 Mg Tablet) 5 mg PO TID [facility] Last Admin: 01/08/25 08:49 Dose: 5 mg Documented By: FERMIN Carvedilol (Carvedilol 3.125 Mg Tablet) 3.125 mg PO BID [facility]; Protocol Last Admin: 01/08/25 08:30 Dose: 3.125 mg Documented By: FERMIN Heparin Sodium (Porcine) (Heparin Sodium,Porcine 5,000 Unit/Ml Vial) 5,000 unit SUBCUT Q8H [facility] Last Admin: 01/08/25 08:32 Dose: 5,000 unit Documented By: FERMIN Lidocaine (Lidocaine 4 % Patch Adh..Patch) 2 patch TRANSDERMA DAILY [facility]; Protocol Last Admin: 01/08/25 10:59 Dose: 2 patch Documented By: FERMIN Magnesium Hydroxide (Milk Of Magnesia 30 Ml Oral.Susp) 30 ml PO DAILY PRN PRN Reason: Constipation Last Admin: 01/05/25 20:30 Dose: 30 ml Documented By: CLARK Nystatin (Nystatin Powder 15 Gm Bottle) 1 appl TOPICAL BID [facility]; Protocol Last Admin: 01/08/25 11:04 Dose: 1 appl Documented By: FERMIN Ondansetron HCl (Ondansetron Hcl 4 Mg/2 Ml Vial) 4 mg IVPUSH Q8H PRN PRN Reason: Nausea and Vomiting Oxycodone HCl (Oxycodone Hcl Immed Release 5 Mg Tablet) 5 mg PO Q6H PRN PRN Reason: Pain, Moderate(Pain Scale 4-6) Last Admin: 01/07/25 16:43 Dose: 5 mg Documented By: PANCHO Sevelamer Carbonate (Sevelamer Carbonate Tablet 800 Mg Tablet) 800 mg PO TIDWM [facility] Last Admin: 01/08/25 08:54 Dose: Not Given Documented By: FERMIN Non-Admin Reason: Patient Refused Sodium Chloride (0.9 % Sodium Chloride Flush 3 Ml Syringe) [facility] Last Admin: 01/08/25 08:01 Dose: 3 ml Documented By: FERMIN Labs 01/06/25 07:22 01/08/25 06:13 Labs: Laboratory Results - last 24 hr 01/06/25 01/08/25 07:22 06:13 Smear Path Review Anion Gap 15 Estim Creat Clear Calc 22.5 Estimated GFR 18 Random Glucose 153 H Calcium 8.4 Magnesium 2.9 H B-Natriuretic Peptide 2860 H Assessment and Plan (1) CHF exacerbation: Status: Acute (2) Anemia: Status: Acute (3) Congestive heart failure: Status: Acute Plan 74-year-old lady with underlying COPD on 3 L of home oxygen, diastolic dysfunction, pulmonary hypertension secondary to left heart dysfunction, CKD followed by [facility] admitted on 01/01/2025 after mechanical fall, and also worsening dyspnea on exertion and orthopnea. Patient initially admitted to telemetry abarca and started empiric treatment for congestive heart failure and COPD exacerbation. Hospital course significant for worsening respiratory failure with CO2 retention requiring BiPAP support and transferred to intensive care unit. Patient diuresed with Bumex drip and titrated off daytime BiPAP support, continued on nocturnal BiPAP due to underlying chronic CO2 retention. Acute on Chronic hypercarbic and hypoxic respiratory failure due to obstructive sleep apnea not on home CPAP acute chf exacerbation pEF moderate TR and [id number]-[id number] pulmonary hypo/no acute COPD exacerbation Elevated BNP 2967 on admission repeat 3589 , no prior labs available,On 3 L of home oxygen, treated in ICU initially with IV Bumex subsequently transitioned to acetazolamide IV Echocardiogram showed EF greater than 70, moderately increased right ventricular cavity size, moderate tricuspid regurg, [id number] pulmonary hypertension, no wall motion abnormality Chest x-ray 01/07 showed cardiomegaly, pulmonary vascular congestion and small bilateral effusion Continue Bumex 1 mg b.i.d. s/p metolazone 5 mg x 1 on 01/07 Strict Is&Os/daily weight > 1liter neg Follow overnight sleep study result Continue BiPAP at night and daytime for naps Warren catheter for fluid management Acute on chronic kidney disease stage 3/cardiorenal syndrome baseline creatinine between 1.8 was on Bumex 1 mg b.i.d. at home Creatinine trending down with diuresis Renal ultrasound showed no obstruction Monitor BMP while being diuresed Elevated phosphorus/magnesium, follow labs add phosphate binders Supraventricular tachycardia continue Coreg/tele monitoring Acute on chronic macrocytic anemia likely anemia of chronic disease No acute GI bleed, stool guaiac positive nl B12/folate/iron studies Received 1 unit of packed RBC , hematocrit improved , Procrit given 01/07 Elevated troponin but flat, , asymptomatic no chest pain, abnormal EKG however no prior EKGs available for comparison. echocardiogram no [facility] Tele monitor showed atrial tachycardia Seen by cardiology resume Coreg Mechanical fall with left elbow/left hip and left knee injury Imaging study showed no acute fractures, x-ray left knee abnormal Ortho recommended no acute intervention outpatient follow-up upon discharge Hyperglycemia No history of diabetes hemoglobin A1c 5.4 Class 3 obesity Recommend low-calorie diet DVT prophylaxis compression boots /heparin Full code In my clinical judgment patient requires continued inpatient hospitalization for management of acute CHF/acute hypoxic respiratory failure Quality Stroke Does the patient have a stroke diagnosis?: No VTE Prior VTE?: No VTE Risk Level:: Medical - moderate - high VTE Device Contraindication: N/A - Device Ordered VTE Drug Contraindication: N/A - Med Ordered
[2025-01-08] MEDS: Sevelamer Carbonate Tablet 800 MG TABLET PO ×2 (12:19→16:30)
--- NOTE | 2025-01-08 13:08 | P.PNCA_ITS ---
Subjective Subjective Date of Service: 01/08/25 Interval history: Seen examined at bedside. She has been off and on BiPAP. Overnight she was pulling the BiPAP off and had sitter in the room. Physical Exam Vital Signs: Last Vital Signs Temp 98.7 F 01/08/25 11:13 Pulse 59 01/08/25 11:33 Resp 16 01/08/25 11:33 BP 120/52 L 01/08/25 11:13 Pulse Ox 95 01/08/25 11:13 O2 Del Method Nasal Cannula 01/08/25 11:13 O2 Flow Rate 4 01/08/25 11:13 FiO2 32 01/08/25 08:00 BMI result Body Mass Index 42.6 GENERAL APPEARANCE: in no acute distress, pleasant. On supplemental oxygen. NECK: no carotid bruit, ++ jugular venous distention. SKIN: no suspicious lesions, warm and dry. HEART: regular rate and rhythm. Systolic murmur left sternal border. LUNGS: Diminished at bases with some crackles. ABDOMEN: soft, nontender. EXTREMITIES: Mild edema. PERIPHERAL PULSES: equal. NEUROLOGIC: No gross deficits, AAO X 3 Objective Labs and Meds 01/06/25 07:22 01/08/25 06:13 Lab results: Laboratory Results - last 24 hr 01/06/25 01/08/25 07:22 06:13 Smear Path Review Sodium 142 Potassium 4.7 Chloride 92 L Carbon Dioxide 40 H* Anion Gap 15 BUN 125 H Creatinine 2.57 H Estim Creat Clear Calc 22.5 Estimated GFR 18 Random Glucose 153 H Calcium 8.4 Magnesium 2.9 H B-Natriuretic Peptide 2860 H Progress Note: A&P Assessment and plan (1) CHF exacerbation: Status: Acute Plan [age] year female with chronic kidney disease, COPD, acute on chronic respiratory failure with hypoxia and hypercapnia and congestive heart failure. She is requiring BiPAP due to hypercapnia. She should be using it every time she naps or sleeps. She continues to be volume overloaded. Agree with IV diuretics. I's and O's need to be monitor closely. Overall she is still hypervolemic at this point and we should continue diuresis with close monitoring of electrolytes. She had run of supraventricular tachycardia on telemetry. She is on carvedilol currently. I think we continue diuresing for now and not titrate the beta- everton further till she reaches euvolemia. Thank you for allowing me to participate in the care of your patient. Please feel free to contact me if you have any questions. Time Spent With Patient Time: Total time managing care of this patient today ____ minutes. Progress Note: Quality Stroke Does the patient have a stroke diagnosis?: No Procedures Date of Service Date of Service: 01/08/25
[2025-01-08] MEDS: oxyCODONE HCl Immed Release 5 MG TABLET PO (17:14)
--- NOTE | 2025-01-08 18:17 | PC.NURSE ---
Patient reporting right lateral abdominal pain 6-8/10 described as aching and sharp stating she can not bear the pain. Medicated with 5mg immediate release oxycodone at 1715. Last bowel movement 12/31. Discussed with Dr. Haines who evaluated patient and will add bowel regimen to patient's MAR. Re-evaluated patient after 1 hour and patient reporting pain reduction to 4/10. Will continue to monitor.
[2025-01-09] VITALS (15 sets, daily range): BP systolic 107–141; BP diastolic 49–70; PULSE 53–94; RESP 16–22; TEMP 36.2–36.6; O2SAT 90–97; BMI 42.6
[2025-01-09] MEDS: Heparin Sodium,Porcine 5,000 UNIT/ML VIAL 5000 UNIT SUBCUT ×3 (02:02→16:21)
[2025-01-09 06:56] LABS: Calcium 9.1 mg/dL (8.4-10.2); Creatinine Clr Calc Pharmacy 24.1; Estimated Glomerular Filt Rate 20; Glucose Random 122 mg/dL (60-115)
[2025-01-09] MEDS: Albuterol/Iprat 2.5/0.5MG 3 ML AMPUL.NEB INHALE ×3 (07:33→19:14)
[2025-01-09 07:40] LABS: Anion Gap 16 (12-20); Blood Urea Nitrogen 119 mg/dL (9-16); Carbon Dioxide 40 mmol/L (22-29); Chloride 90 mmol/L (96-108); Potassium 4.3 mmol/L (3.3-5.1); Sodium 142 mmol/L (135-145)
[2025-01-09] MEDS: 0.9 % Sodium Chloride Flush 3 ML SYRINGE IVFLUSH ×3 (07:47→21:19)
--- NOTE | 2025-01-09 08:08 | PC.NURSE ---
08 run of SVT on front desk monitor reverting to SR. Patient receiving duoneb treatment at the time. Patient denies palpitations, dizziness or shortness of breath.
[2025-01-09] MEDS: carvediloL 3.125 MG TABLET PO (08:36)
[2025-01-09] MEDS: Bumetanide 1 MG TABLET PO ×2 (08:37→16:20)
[2025-01-09] MEDS: busPIRone HCl 5 MG TABLET PO ×3 (08:37→21:18)
[2025-01-09] MEDS: Aspirin Enteric Coated 81 MG TABLET.DR PO (08:38)
[2025-01-09] MEDS: Sevelamer Carbonate Tablet 800 MG TABLET PO ×2 (08:39→17:28)
[2025-01-09] MEDS: Nystatin Powder 15 GM BOTTLE 1 APPL TOPICAL ×2 (08:43→21:22)
[2025-01-09] MEDS: Lidocaine 4 % Patch ADH..PATCH 2 PATCH TRANSDERMA (08:43)
[2025-01-09] MEDS: acetaZOLAMIDE 250 MG TABLET 500 MG PO ×2 (08:47→21:19)
--- NOTE | 2025-01-09 10:13 | MHC.CM.PN ---
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
[2025-01-09] MEDS: Sennosides/Docusate Sodium TABLET 1 TAB PO (10:34)
--- NOTE | 2025-01-09 11:48 | MHC.CLN ---
PT WITH INCREASED NUTRITION RISK R/T PRESSURE INJURY CARDIAC DIET IN PLACE WITH POOR PO INTAKE RECOMMEND ADDING ENSURE MAX BID TO PROMOTE WOUND HEALING SUPP TO PROVIDE 300KCALS, 60G PROTEIN MONITOR PO INTAKE AND ENCOURAGE SUPPLEMENTS SEE ALSO FULL CLINICAL NUTRITION ASSESSMENT
--- NOTE | 2025-01-09 12:56 | PM.PNCARD ---
Subjective Subjective Date of Service: 01/09/25 Interval history: Seen and examined at bedside. She is denying any significant symptoms currently. She is on BiPAP. On telemetry she has runs of atrial tachycardia with aberrancy. Physical Exam Vital Signs: Last Vital Signs Temp 97.2 F 01/09/25 11:31 Pulse 69 01/09/25 11:31 Resp 21 H 01/09/25 11:49 BP 107/59 L 01/09/25 11:31 Pulse Ox 92 01/09/25 11:31 O2 Del Method BiPAP 01/09/25 11:31 O2 Flow Rate 3 01/09/25 07:42 FiO2 35 01/09/25 11:31 BMI result Body Mass Index 42.6 GENERAL APPEARANCE: in no acute distress, pleasant. On supplemental oxygen. NECK: no carotid bruit, ++ jugular venous distention. SKIN: no suspicious lesions, warm and dry. HEART: regular rate and rhythm. Systolic murmur left sternal border. LUNGS: Diminished at bases with some crackles. ABDOMEN: soft, nontender. EXTREMITIES: Mild edema. PERIPHERAL PULSES: equal. NEUROLOGIC: No gross deficits, AAO X 3 Objective Labs and Meds 01/06/25 07:22 01/09/25 05:56 Lab results: Laboratory Results - last 24 hr 01/09/25 05:56 Hold Purple Top SEE NOTE Sodium 142 Potassium 4.3 Chloride 90 L Carbon Dioxide 40 H* Anion Gap 16 BUN 119 H Creatinine 2.41 H Estim Creat Clear Calc 24.1 Estimated GFR 20 Random Glucose 122 H Calcium 9.1 D Progress Note: A&P Assessment and plan (1) CHF exacerbation: Status: Acute Plan [age] year female with chronic kidney disease, COPD, acute on chronic respiratory failure with hypoxia and hypercapnia and congestive heart failure. She is requiring BiPAP due to hypercapnia. She should be using it every time she naps or sleeps. She continues to be volume overloaded. Agree with IV diuretics. I's and O's need to be monitor closely. Overall she is still hypervolemic at this point and we should continue diuresis with close monitoring of electrolytes. We can runs of atrial tachycardia. Low-dose beta-everton and electrolyte management. Thank you for allowing me to participate in the care of your patient. Please feel free to contact me if you have any questions. Time Spent With Patient Time: Total time managing care of this patient today ____ minutes. Progress Note: Quality Stroke Does the patient have a stroke diagnosis?: No Procedures Date of Service Date of Service: 01/09/25
--- NOTE | 2025-01-09 14:24 | P.PNIM_ITS ---
Subjective Subjective Date of Service: 01/09/25 Interval History: Being followed for acute on chronic hypoxic and hypercarbic respiratory failure Tolerating BiPAP at night and with naps Complaining of shortness of breath/right flank pain has resolved/constipated no bowel movement in several days. Tolerating diet no nausea no vomiting or abdominal pain. Review of Systems All other systems reviewed and are negative Physical Exam 2 Vital Signs: Vital Signs: Last Vital Signs Temp 97.2 F 01/09/25 11:31 Pulse 69 01/09/25 11:31 Resp 21 H 01/09/25 11:49 BP 107/59 L 01/09/25 11:31 Pulse Ox 92 01/09/25 11:31 O2 Del Method BiPAP 01/09/25 11:31 O2 Flow Rate 3 01/09/25 07:42 FiO2 35 01/09/25 11:31 BMI result Body Mass Index 42.6 Const: Other: General resting comfortably in no acute distress. Anicteric sclera Moist mucous membrane Neck + JVD. CVS regular rate rhythm, Respiratory lungs bilateral basilar crackles, no respiratory distress, no wheeze, no rhonchi. Gastrointestinal abdomen soft, non tender, bowel sounds audible Lower back subcutaneous edema Neuro non focal , moving all 4 extremity, speech clear. left knee dressing in place no drainage noted No edema Psych appropriate affect Objective Data Active Medications Acetaminophen (Acetaminophen 325 Mg Tablet) 975 mg PO Q6H PRN PRN Reason: Pain, Moderate(Pain Scale 4-6) Last Admin: 01/05/25 19:54 Dose: 975 mg Documented By: CLARK Acetazolamide (Acetazolamide 250 Mg Tablet) 500 mg PO BID [facility] Last Admin: 01/09/25 08:47 Dose: 500 mg Documented By: FERMIN Albuterol/Ipratropium (Albuterol/Iprat 2.5/0.5mg 3 Ml Ampul.Neb) 3 ml INHALE RQ6H WHILE AWAKE [facility] Last Admin: 01/09/25 07:33 Dose: 3 ml Documented By: VANNESA Aspirin (Aspirin Enteric Coated 81 Mg Tablet.) 81 mg PO DAILY [facility] Last Admin: 01/09/25 08:38 Dose: 81 mg Documented By: FERMIN Bumetanide (Bumetanide 1 Mg Tablet) 1 mg PO BID@0800,1700 [facility]; Protocol Last Admin: 01/09/25 08:37 Dose: 1 mg Documented By: FERMIN Buspirone HCl (Buspirone Hcl 5 Mg Tablet) 5 mg PO TID [facility] Last Admin: 01/09/25 08:37 Dose: 5 mg Documented By: FERMIN Docusate Sodium (Docusate Sodium 100 Mg Capsule) 100 mg PO BEDTIME [facility] Heparin Sodium (Porcine) (Heparin Sodium,Porcine 5,000 Unit/Ml Vial) 5,000 unit SUBCUT Q8H [facility] Last Admin: 01/09/25 08:39 Dose: 5,000 unit Documented By: FERMIN Lactulose (Lactulose 20 Gm/30 Ml Solution) 10 gm PO DAILY PRN PRN Reason: Constipation Lidocaine (Lidocaine 4 % Patch Adh..Patch) 2 patch TRANSDERMA DAILY [facility]; Protocol Last Admin: 01/09/25 08:43 Dose: 2 patch Documented By: FERMIN Magnesium Hydroxide (Milk Of Magnesia 30 Ml Oral.Susp) 30 ml PO DAILY PRN PRN Reason: Constipation Last Admin: 01/05/25 20:30 Dose: 30 ml Documented By: CLARK Nystatin (Nystatin Powder 15 Gm Bottle) 1 appl TOPICAL BID [facility]; Protocol Last Admin: 01/09/25 08:43 Dose: 1 appl Documented By: FERMIN Ondansetron HCl (Ondansetron Hcl 4 Mg/2 Ml Vial) 4 mg IVPUSH Q8H PRN PRN Reason: Nausea and Vomiting Oxycodone HCl (Oxycodone Hcl Immed Release 5 Mg Tablet) 5 mg PO Q6H PRN PRN Reason: Pain, Moderate(Pain Scale 4-6) Last Admin: 01/08/25 17:14 Dose: 5 mg Documented By: FERMIN Polyethylene Glycol (Polyethylene Glycol 3350 17 Gm Powd.Pack) 17 gm PO DAILY [facility] Sevelamer Carbonate (Sevelamer Carbonate Tablet 800 Mg Tablet) 800 mg PO TIDWM [facility] Last Admin: 01/09/25 12:04 Dose: Not Given Documented By: FERMIN Non-Admin Reason: on BiPAP Sodium Chloride (0.9 % Sodium Chloride Flush 3 Ml Syringe) 3 ml IVFLUSH QSHIFT [facility] Last Admin: 01/09/25 07:47 Dose: 3 ml Documented By: FERMIN Labs 01/06/25 07:22 01/09/25 05:56 Labs: Laboratory Results - last 24 hr 01/09/25 05:56 Hold Purple Top SEE NOTE Anion Gap 16 Estim Creat Clear Calc 24.1 Estimated GFR 20 Random Glucose 122 H Calcium 9.1 D Assessment and Plan (1) CKD (chronic kidney disease): Status: Acute (2) History of chronic carbon dioxide retention: Status: Acute (3) COPD (chronic obstructive pulmonary disease): Status: Acute (4) Acute on chronic respiratory failure with hypoxia and hypercapnia: Status: Acute (5) CHF exacerbation: Status: Acute (6) Anemia: Status: Acute (7) Knee effusion, left: Status: Acute Plan 74-year-old lady with underlying COPD on 3 L of home oxygen, diastolic dysfunction, pulmonary hypertension secondary to left heart dysfunction, CKD followed by [facility] admitted on 01/01/2025 after mechanical fall, and also worsening dyspnea on exertion and orthopnea. Patient initially admitted to telemetry abarca and started empiric treatment for congestive heart failure and COPD exacerbation. Hospital course significant for worsening respiratory failure with CO2 retention requiring BiPAP support and transferred to intensive care unit. Patient diuresed with Bumex drip and titrated off daytime BiPAP support, continued on nocturnal BiPAP due to underlying chronic CO2 retention. Acute on Chronic hypercarbic and hypoxic respiratory failure due to obstructive sleep apnea not on home CPAP/mild COPD exacerbation overnight sleep study done to be read by Dr. Mercer Continue BiPAP at night and daytime for naps Elevated bicarb added diamox Continue updraft q.6 hours. Acute chf exacerbation pEF moderate TR and [id number] pulmonary hypertension Elevated BNP 2967 > 3589 >2860, no prior labs available,On 3 L of home oxygen, treated in ICU initially with IV Bumex subsequently transitioned to acetazolamide IV Echocardiogram showed EF greater than 70, moderately increased right ventricular cavity size, moderate tricuspid regurg, [id number] pulmonary hypertension, no wall motion abnormality Chest x-ray 01/07 showed cardiomegaly, pulmonary vascular congestion and small bilateral effusion Discussed with Cardiology and Nephrology they recommend to continue Bumex 1 mg b.i.d. s/p metolazone 5 mg x 1 on 01/07 Strict Is&Os/daily weight > 2liter neg Warren catheter for fluid management Acute on chronic kidney disease stage 3/cardiorenal syndrome baseline creatinine between 1.8 was on Bumex 1 mg b.i.d. at home Creatinine trending down 3.12 to 2.41 with diuresis > 2 L negative Renal ultrasound showed no obstruction Monitor BMP while being diuresed Elevated phosphorus/magnesium, follow labs added phosphate binders Renvela 800 mg t.i.d. on 01/01 Supraventricular tachycardia Tele monitor showed frequent atrial tachycardia/SVT with episode of bradycardia case discussed with Cardiology, will dc Coreg, heart rate improved with BiPAP Acute on chronic macrocytic anemia likely anemia of chronic disease No acute GI bleed, stool guaiac positive nl B12/folate/iron studies Received 1 unit of packed RBC , hematocrit improved , Procrit given 01/07 Elevated troponin but flat, , asymptomatic no chest pain, abnormal EKG however no prior EKGs available for comparison. echocardiogram no WMA Constipation added stool softeners. Mechanical fall with left elbow/left hip and left knee injury Imaging study showed no acute fractures, x-ray left knee abnormal Ortho recommended no acute intervention outpatient follow-up upon discharge PT eval prior to discharge once respiratory status and heart rate stable Hyperglycemia No history of diabetes hemoglobin A1c 5.4 Class 3 obesity Recommend low-calorie diet Deep tissue injury sacrum/ischium/right heel present on admission continue barrier cream and foam dressing to sacrum DVT prophylaxis compression boots /heparin Full code Disposition will require PT prior to discharge will likely need short-term rehab In my clinical judgment patient requires continued inpatient hospitalization for management of acute CHF/acute hypoxic respiratory failure Quality Stroke Does the patient have a stroke diagnosis?: No VTE Prior VTE?: No VTE Risk Level:: Medical - moderate - high VTE Device Contraindication: N/A - Device Ordered VTE Drug Contraindication: N/A - Med Ordered
--- NOTE | 2025-01-09 14:56 | P.CDIM_ITS ---
PROVIDER RESPONSE TEXT: To clarify, the appropriate diagnosis supported by the clinical indicators: Deep tissue injury right heel: present QUERY TEXT: PHYSICIAN'S DOCUMENTATION REQUEST Date of Query: 01/09/2025 07:52 AM EST Patient Name: Kylah Cisse Admit Date: 01/01/2025 Dear Thierno Haines MD, A review of the medical record indicates additional documentation may be needed. Please review below and update the documentation accordingly. Clinical Indicators: Wound care consultation note 01/07 - Deep tissue injury right heel, present on arrival. Purple non-blanchable intact tissue. Foam dressing to aid in pressure redistribution. Based on the above, could you please provide further information regarding the ulcer/wound/injury: Deep tissue injury right heel possible, probable, suspected Pressure (decubitus) ulcer right heel Other (explain) Clinically unable to determine (explain) Thank you, Kera Castellon, CCS, CDIS Use of terms such as suspected, likely, concern for, or probable (associated with a specific diagnosi s that is being evaluated, monitored, or treated as if it exists) are acceptable and can be coded in the inpatient se tting, when documented at the time of discharge. Please use your independent medical judgment in providing your response. THIS QUERY IS PART OF THE PERMANENT MEDICAL RECORD
--- NOTE | 2025-01-09 14:56 | P.CDIM_ITS ---
PROVIDER RESPONSE TEXT: To clarify, the appropriate diagnosis supported by the clinical indicators: Deep Tissue Injury sacrum: present QUERY TEXT: PHYSICIAN'S DOCUMENTATION REQUEST Date of Query: 01/09/2025 07:49 AM EST Patient Name: Kylah Cisse Admit Date: 01/01/2025 Dear Thierno Haines MD, A review of the medical record indicates additional documentation may be needed. Please review below and update the documentation accordingly. Clinical Indicators: Wound care consultation note dated 01/07 - Deep tissue injury sacrum, present on arrival. Red maroon purple non-blanchable tissue over sacral bones - irregular pattern. Foam dressing. Based on the above, could you please provide further information regarding the ulcer/wound/injury: Deep Tissue Injury sacrum possible, probable, suspected Pressure (decubitus) ulcer sacrum Other (explain) Clinically unable to determine (explain) Thank you, Kera Castellon, CCS, CDIS Use of terms such as suspected, likely, concern for, or probable (associated with a specific diagnosi s that is being evaluated, monitored, or treated as if it exists) are acceptable and can be coded in the inpatient se tting, when documented at the time of discharge. Please use your independent medical judgment in providing your response. THIS QUERY IS PART OF THE PERMANENT MEDICAL RECORD
[2025-01-09] MEDS: Docusate Sodium 100 MG CAPSULE PO (21:18)
[2025-01-10] VITALS (13 sets, daily range): BP systolic 110–125; BP diastolic 53–60; PULSE 55–67; RESP 18–22; TEMP 36.2–36.7; O2SAT 88–95; BMI 43.2
[2025-01-10] MEDS: Heparin Sodium,Porcine 5,000 UNIT/ML VIAL 5000 UNIT SUBCUT ×4 (01:05→23:52)
--- NOTE | 2025-01-10 03:11 | PC.NURSE ---
Assumed care of patient at 19:00. Pt continues on tele; see tele assessment for full details. +radial and dp/pt pulses, +cms. Pt on 3L nc per baseline on assuming care. Denies sob. Breathing is even and unlabored without distress. Pt educated on BIPAP for naps and sleep per MD order due to increased co2. Pt required much education/resisted bipap but was later agreeable and bipap was placed by RT at ~22:00. Pt tolerated bipap for one hour before requesting bipap be removed and nc was replaced. RT was notified. Pt continues with tavares catheter. Intact and patent of concentrated cyu. Tavares wipes/catheter care provided. Bed alarm on and safety measures in place. Q2h turning and repositioning provided, though with much pt resistance requiring education and encouragement. Remains on low air loss bed. Call altamirano is within reach and educated on use. Rings to make needs known. Please see shift assessments, tasks, and MAR for full details
[2025-01-10] MEDS: Albuterol/Iprat 2.5/0.5MG 3 ML AMPUL.NEB INHALE ×3 (07:32→18:58)
[2025-01-10] MEDS: 0.9 % Sodium Chloride Flush 3 ML SYRINGE IVFLUSH ×3 (08:05→20:56)
--- NOTE | 2025-01-10 08:05 | HO.PM.IMPN ---
Subjective Subjective Date of Service: 01/10/25 Interval History: Seen in follow-up for acute on chronic respiratory failure, CHF, acute kidney injury Interval history: Reports improvement in work of breathing and shortness of breath. +orthopnea and edema. Hgb 6.6 this morning. BUN 130. A&Ox3. Variable HR 50s-60s with nonsustained runs atrial tachycardia up to 130s. Reports no BM in 1 week. No abd pain, n/v Review of Systems Review of Systems: Yes all other systems are reviewed and are negative Physical Exam Vital Signs: Vital Signs: Last Vital Signs Temp 97.1 F 01/10/25 07:52 Pulse 56 01/10/25 07:52 Resp 18 01/10/25 07:52 BP 110/53 L 01/10/25 07:52 Pulse Ox 88 L 01/10/25 07:52 O2 Del Method Nasal Cannula 01/10/25 07:52 O2 Flow Rate 2 01/10/25 07:52 FiO2 35 01/09/25 11:31 BMI result Body Mass Index 43.2 Constitutional - Awake and Alert, No apparent distress Eyes - PERRLA, EOMI Cardiovascular - S1S2, RRR, 2+ edema Respiratory - Normal lung expansion, Normal respiratory effort, No respiratory distress, scattered crackles Gastrointestinal - NT / ND; +BS; No rebound or guarding Extremities - no calf tenderness bilaterally, no swelling Musculoskeletal - Normal inspection, normal ROM Skin - Warm/Dry Neurological - Alert & oriented x3 Psychological - Appropriate affect Objective Data Active Medications Acetaminophen (Acetaminophen 325 Mg Tablet) 975 mg PO Q6H PRN PRN Reason: Pain, Moderate(Pain Scale 4-6) Last Admin: 01/05/25 19:54 Dose: 975 mg Documented By: CLARK Acetazolamide (Acetazolamide 250 Mg Tablet) 500 mg PO BID [facility] Last Admin: 01/09/25 21:19 Dose: 500 mg Documented By: GEETA Albuterol/Ipratropium (Albuterol/Iprat 2.5/0.5mg 3 Ml Ampul.Neb) 3 ml INHALE RQ6H WHILE AWAKE [facility] Last Admin: 01/10/25 07:32 Dose: 3 ml Documented By: MEERA Aspirin (Aspirin Enteric Coated 81 Mg Tablet.) 81 mg PO DAILY [facility] Last Admin: 01/09/25 08:38 Dose: 81 mg Documented By: FERMIN Bumetanide (Bumetanide 1 Mg Tablet) 1 mg PO BID@0800,1700 [facility]; Protocol Last Admin: 01/09/25 16:20 Dose: 1 mg Documented By: FERMIN Buspirone HCl (Buspirone Hcl 5 Mg Tablet) 5 mg PO TID [facility] Last Admin: 01/09/25 21:18 Dose: 5 mg Documented By: GEETA Docusate Sodium (Docusate Sodium 100 Mg Capsule) 100 mg PO BEDTIME [facility] Last Admin: 01/09/25 21:18 Dose: 100 mg Documented By: GEETA Heparin Sodium (Porcine) (Heparin Sodium,Porcine 5,000 Unit/Ml Vial) 5,000 unit SUBCUT Q8H [facility] Last Admin: 01/10/25 01:05 Dose: 5,000 unit Documented By: GEETA Lactulose (Lactulose 20 Gm/30 Ml Solution) 10 gm PO DAILY PRN PRN Reason: Constipation Lidocaine (Lidocaine 4 % Patch Adh..Patch) 2 patch TRANSDERMA DAILY [facility]; Protocol Last Admin: 01/09/25 08:43 Dose: 2 patch Documented By: FERMIN Magnesium Hydroxide (Milk Of Magnesia 30 Ml Oral.Susp) 30 ml PO DAILY PRN PRN Reason: Constipation Last Admin: 01/05/25 20:30 Dose: 30 ml Documented By: CLARK Nystatin (Nystatin Powder 15 Gm Bottle) 1 appl TOPICAL BID [facility]; Protocol Last Admin: 01/09/25 21:22 Dose: 1 appl Documented By: GEETA Ondansetron HCl (Ondansetron Hcl 4 Mg/2 Ml Vial) 4 mg IVPUSH Q8H PRN PRN Reason: Nausea and Vomiting Oxycodone HCl (Oxycodone Hcl Immed Release 5 Mg Tablet) 5 mg PO Q6H PRN PRN Reason: Pain, Moderate(Pain Scale 4-6) Last Admin: 01/08/25 17:14 Dose: 5 mg Documented By: FERMIN Polyethylene Glycol (Polyethylene Glycol 3350 17 Gm Powd.Pack) 17 gm PO DAILY [facility] Sevelamer Carbonate (Sevelamer Carbonate Tablet 800 Mg Tablet) 800 mg PO TIDWM [facility] Last Admin: 01/09/25 17:28 Dose: 800 mg Documented By: FERMIN Sodium Chloride (0.9 % Sodium Chloride Flush 3 Ml Syringe) 3 ml IVFLUSH QSHIFT [facility] Last Admin: 01/09/25 21:19 Dose: 3 ml Documented By: GEETA Labs 01/10/25 07:38 01/10/25 07:38 Assessment and Plan (1) CHF exacerbation: Status: Acute (2) Acute on chronic respiratory failure with hypoxia and hypercapnia: Status: Acute (3) COPD (chronic obstructive pulmonary disease): Status: Acute (4) Anemia: Status: Acute (5) History of chronic carbon dioxide retention: Status: Acute (6) CKD (chronic kidney disease): Status: Acute (7) Atrial tachycardia: Status: Acute Plan 74-year-old lady with underlying COPD on 3 L of home oxygen, diastolic dysfunction, pulmonary hypertension secondary to left heart dysfunction, CKD followed by [facility] admitted on 01/01/2025 after mechanical fall, and also worsening dyspnea on exertion and orthopnea. Patient initially admitted to telemetry abarca and started empiric treatment for congestive heart failure and COPD exacerbation. Hospital course significant for worsening respiratory failure with CO2 retention requiring BiPAP support and transferred to intensive care unit. Patient diuresed with Bumex drip and titrated off daytime BiPAP support, continued on nocturnal BiPAP due to underlying chronic CO2 retention. Acute on Chronic hypercarbic and hypoxic respiratory failure due to obstructive sleep apnea not on home CPAP/mild COPD exacerbation overnight sleep study done to be read by Dr. Mercer Continue BiPAP at night and daytime for naps. Supplemental O2, baseline 3-4 L Elevated bicarb added diamox Continue updraft q.6 hours. Acute chf exacerbation pEF moderate TR and [id number] pulmonary hypertension Elevated BNP 2967 > 3589 >2860 > 2547, no prior labs available,On 3 L of home oxygen, treated in ICU initially with IV Bumex subsequently transitioned to acetazolamide IV Echocardiogram showed EF greater than 70, moderately increased right ventricular cavity size, moderate tricuspid regurg, [id number] pulmonary hypertension, no wall motion abnormality Chest x-ray 01/07 showed cardiomegaly, pulmonary vascular congestion and small bilateral effusion Discussed with Cardiology and Nephrology they recommend to continue Bumex 1 mg b.i.d. s/p metolazone 5 mg x 1 on 01/07. Continue diamox 500mg BID Strict Is&Os/daily weight > 3.5liter neg Warren catheter for fluid management, strict I&O Acute on chronic kidney disease stage 3/cardiorenal syndrome baseline creatinine between 1.8 was on Bumex 1 mg b.i.d. at home Creatinine trending down 3.12 to 2.41 with diuresis > 2 L negative Renal ultrasound showed no obstruction Monitor BMP while being diuresed Elevated phosphorus/magnesium, follow labs added phosphate binders Renvela 800 mg t.i.d. on 01/01 Supraventricular tachycardia Tele monitor showed frequent atrial tachycardia/SVT with episode of bradycardia case discussed with Cardiology, dinh espinal'd 01/07, heart rate improved with BiPAP Continues with runs of tachcyardia. Added metoprolol 12.5mg bid Acute on chronic macrocytic anemia likely anemia of chronic disease Stool guaiac positive in ED nl B12/folate/iron studies Received 1 unit of packed RBC , hematocrit improved , Procrit given 01/07 Worsening Hgb 6.6 this am, given 1 unit PRBC Given worsening anemia despite the above and increasing BUN 130 today, recheck FOBT. IV PPI, clear liquids, GI consult Elevated BUN Mentation baseline- no uremia possibly steroid related, but consider GI bleed Recheck FOBT, IV PPI and clears for now GI consult Elevated troponin but flat, , asymptomatic no chest pain, abnormal EKG however no prior EKGs available for comparison. echocardiogram no WMA Constipation added stool softeners. Mechanical fall with left elbow/left hip and left knee injury Imaging study showed no acute fractures, x-ray left knee abnormal Ortho recommended no acute intervention outpatient follow-up upon discharge PT eval prior to discharge once respiratory status and heart rate stable Hyperglycemia No history of diabetes hemoglobin A1c 5.4 Class 3 obesity Recommend low-calorie diet Deep tissue injury sacrum/ischium/right heel present on admission continue barrier cream and foam dressing to sacrum DVT prophylaxis compression boots /heparin Full code Disposition will require PT prior to discharge will likely need short-term rehab In my clinical judgment patient requires continued inpatient hospitalization for management of acute CHF/acute hypoxic respiratory failure Quality Stroke Does the patient have a stroke diagnosis?: No VTE Prior VTE?: No VTE Risk Level:: Medical - moderate - high VTE Device Contraindication: N/A - Device Ordered VTE Drug Contraindication: N/A - Med Ordered
[2025-01-10] MEDS: acetaZOLAMIDE 250 MG TABLET 500 MG PO ×2 (08:06→20:56)
[2025-01-10] MEDS: Aspirin Enteric Coated 81 MG TABLET.DR PO (08:06)
[2025-01-10] MEDS: busPIRone HCl 5 MG TABLET PO ×3 (08:07→20:56)
[2025-01-10] MEDS: polyethylene glycoL 3350 17 GM POWD.PACK PO (08:07)
[2025-01-10] MEDS: Sevelamer Carbonate Tablet 800 MG TABLET PO ×3 (08:07→16:59)
[2025-01-10] MEDS: Bumetanide 1 MG TABLET PO ×2 (08:07→16:59)
[2025-01-10] MEDS: Lidocaine 4 % Patch ADH..PATCH 2 PATCH TRANSDERMA (08:08)
[2025-01-10 08:09] LABS: Hematocrit 22.6 % (37.0-47.0); Mean Corpuscular HGB Conc 29.2 g/dl (31.0-35.0); Mean Corpuscular Hemoglobin 30.7 pg (27.0-33.0); Mean Corpuscular Volume 105.1 fL (80.0-98.0); Mean Platelet Volume 11.4 fL (9.4-12.3); Platelet Count 161 X10*3/uL (160-400); Red Blood Count 2.15 X10*6/uL (4.20-5.50); Red Cell Distribution Width 17.2 % (11.0-16.0); White Blood Count 7.7 X10*3/uL (4.8-10.8)
[2025-01-10 08:24] LABS: Hemoglobin 6.6 g/dl (12.0-16.0)
[2025-01-10 08:25] LABS: Anion Gap 16 (12-20); Blood Urea Nitrogen 130 mg/dL (9-16); Calcium 8.6 mg/dL (8.4-10.2); Carbon Dioxide 38 mmol/L (22-29); Chloride 90 mmol/L (96-108); Creatinine Clr Calc Pharmacy 22.6; Estimated Glomerular Filt Rate 18; Glucose Random 95 mg/dL (60-115); Potassium 4.1 mmol/L (3.3-5.1); Sodium 140 mmol/L (135-145)
[2025-01-10 08:41] LABS: B Type Natriuretic Peptide 2547 pg/mL (<100)
[2025-01-10 12:35] LABS: Magnesium 2.7 mg/dL (1.6-2.6)
[2025-01-10] MEDS: Milk of Magnesia 30 ML ORAL.SUSP PO (13:13)
[2025-01-10] MEDS: Nystatin Powder 15 GM BOTTLE 1 APPL TOPICAL ×2 (13:20→22:56)
[2025-01-10] MEDS: Mineral OiL enema 133 ML ENEMA PR (16:59)
[2025-01-10] MEDS: Pantoprazole Sodium 40 MG/10 ML VIAL IVPUSH (16:59)
[2025-01-10] MEDS: Docusate Sodium 100 MG CAPSULE PO (20:56)
[2025-01-10] MEDS: Metoprolol Tartrate 12.5 MG HALFTAB PO (20:56)
[2025-01-10 21:39] LABS: Hemoglobin 7.7 g/dl (12.0-16.0)
[2025-01-11] VITALS (13 sets, daily range): BP systolic 98–124; BP diastolic 48–66; PULSE 50–80; RESP 14–22; TEMP 35.8–36.3; O2SAT 90–95; BMI 43.2
--- NOTE | 2025-01-11 00:50 | PC.NURSE ---
Addendum entered by Tory Gonzales RN 01/11/25 06:53: Patient tolerated bipap until ~05:00 when she removed it and refused to wear the mask any further. NC was placed as per prior to bipap. Original Note: Assumed care of patient at 19:00. Pt repeat H+H improved this evening, 7.7/26.0. VSS. Pt is A&Ox3-4, denies dizziness, vision changes, chest pain, sob, and n/v. On 4L nc on assuming care. Pt found removing NC with associated desats to upper 80's in the evening, spo2 improved with replacing nc. Pt was resistive to bipap when discussing plan of care in the evening, though agreeable to try closer to midnight after education attempts. Bipap placed by RT around midnight which pt was agreeable to and is tolerating at this time with spo2 maintained. Continues with in-room camera for safety. Pt has not yet had a BM despite having received an enema during the day. +Fltaus. Pt was agreeable to evening scheduled bowel regimen, refused prn lactulose despite education attempts. Bed alarm on and safety measures in place. Please see shift assessments, tasks, and MAR for full details.
[2025-01-11] MEDS: Pantoprazole Sodium 40 MG/10 ML VIAL IVPUSH (06:20)
[2025-01-11 07:19] LABS: Eosinophils Absolute Auto 0.1 X10*3/uL (0.0-0.4); Eosinophils Percent Auto 0.7 % (0-4); Hematocrit 25.1 % (37.0-47.0); Hemoglobin 7.4 g/dl (12.0-16.0); Imm Gran Abs Auto 0.02 X10*3/uL (0.00-0.03); Imm Gran Pct Auto 0.2 % (0.0-0.4); Lymphocytes Absolute Auto 0.5 X10*3/uL (1.2-4.9); Lymphocytes Percent Auto 5.8 % (20-40); MANUAL DIFF FLAG NO; Mean Corpuscular HGB Conc 29.5 g/dl (31.0-35.0); Mean Corpuscular Hemoglobin 30.3 pg (27.0-33.0); Mean Corpuscular Volume 102.9 fL (80.0-98.0); Mean Platelet Volume 11.6 fL (9.4-12.3); Monocytes Absolute Auto 0.6 X10*3/uL (0.1-1.2); NRBC Pct Auto 0.5 /100WBC (0.0-0.2); Neutrophils Absolute Auto 7.1 x10*3/uL (2.0-8.3); Neutrophils Percent Auto 86.3 % (45-73); Platelet Count 169 X10*3/uL (160-400); Red Blood Count 2.44 X10*6/uL (4.20-5.50); Red Cell Distribution Width 18.5 % (11.0-16.0); White Blood Count 8.2 X10*3/uL (4.8-10.8)
--- NOTE | 2025-01-11 07:29 | P.PNIM_ITS ---
Subjective Subjective Date of Service: 01/11/25 Interval History: Seen in follow-up for acute on chronic respiratory failure, CHF, acute kidney injury Interval history: Reports improvement in work of breathing and shortness of breath. +orthopnea and edema. Hgb 6.6 improved to 7.7 last night -->7.4. BUN 130. A&Ox3. Variable HR 50s-60s with nonsustained runs atrial tachycardia up to 130s. No BM since 12/31, has been refusing lactulose and was not able to assist with enema. No abd pain, n/v. Reporting significant pain in the posterior left thigh. Review of Systems Review of Systems: Yes all other systems are reviewed and are negative Physical Exam 2 Vital Signs: Vital Signs: Last Vital Signs Temp 97.4 F 01/11/25 03:43 Pulse 56 01/11/25 03:43 Resp 20 01/11/25 04:15 BP 121/66 01/11/25 03:43 Pulse Ox 93 01/11/25 03:43 O2 Del Method BiPAP 01/11/25 03:43 O2 Flow Rate 4 01/10/25 20:00 FiO2 35 01/11/25 03:58 BMI result Body Mass Index 43.2 Constitutional - Awake and Alert, No apparent distress Eyes - PERRLA, EOMI Cardiovascular - S1S2, RRR, 3+ edema ble extending to the thighs Respiratory - Normal lung expansion, increased work of breathing with accessory muscle usage, bilateral rales, dimished at the bases Gastrointestinal - NT / ND; +BS; No rebound or guarding Extremities - no calf tenderness bilaterally, pain left posterior thigh not reproducible Musculoskeletal - Significant swelling/effusion with ecchymosis L knee with limited ROM Skin - Warm/Dry Neurological - Alert & oriented x3, 2/5 strength ble Psychological - Appropriate affect Objective Data Active Medications Acetaminophen (Acetaminophen 325 Mg Tablet) 975 mg PO Q6H PRN PRN Reason: Pain, Moderate(Pain Scale 4-6) Last Admin: 01/05/25 19:54 Dose: 975 mg Documented By: CLARK Acetazolamide (Acetazolamide 250 Mg Tablet) 500 mg PO BID DAVID Last Admin: 01/10/25 20:56 Dose: 500 mg Documented By: GEETA Albuterol/Ipratropium (Albuterol/Iprat 2.5/0.5mg 3 Ml Ampul.Neb) 3 ml INHALE RQ6H WHILE AWAKE [facility] Last Admin: 01/10/25 18:58 Dose: 3 ml Documented By: BRIANDA Aspirin (Aspirin Enteric Coated 81 Mg Tablet.Dr) 81 mg PO DAILY [facility] Last Admin: 01/10/25 08:06 Dose: 81 mg Documented By: CALEB Bumetanide (Bumetanide 1 Mg Tablet) 1 mg PO BID@0800,1700 [facility]; Protocol Last Admin: 01/10/25 16:59 Dose: 1 mg Documented By: CALEB Buspirone HCl (Buspirone Hcl 5 Mg Tablet) 5 mg PO TID [facility] Last Admin: 01/10/25 20:56 Dose: 5 mg Documented By: GEETA Docusate Sodium (Docusate Sodium 100 Mg Capsule) 100 mg PO BEDTIME [facility] Last Admin: 01/10/25 20:56 Dose: 100 mg Documented By: GEETA Heparin Sodium (Porcine) (Heparin Sodium,Porcine 5,000 Unit/Ml Vial) 5,000 unit SUBCUT Q8H [facility] Last Admin: 01/10/25 23:52 Dose: 5,000 unit Documented By: GEETA Lactulose (Lactulose 20 Gm/30 Ml Solution) 10 gm PO DAILY PRN PRN Reason: Constipation Lidocaine (Lidocaine 4 % Patch Adh..Patch) 2 patch TRANSDERMA DAILY [facility]; Protocol Last Admin: 01/10/25 08:08 Dose: 2 patch Documented By: CALEB Magnesium Hydroxide (Milk Of Magnesia 30 Ml Oral.Susp) 30 ml PO DAILY PRN PRN Reason: Constipation Last Admin: 01/10/25 13:13 Dose: 30 ml Documented By: CALEB Metoprolol Tartrate (Metoprolol Tartrate 12.5 Mg Halftab) 12.5 mg PO BID [facility]; Protocol Last Admin: 01/10/25 20:56 Dose: 12.5 mg Documented By: GEETA Nystatin (Nystatin Powder 15 Gm Bottle) 1 appl TOPICAL BID [facility]; Protocol Last Admin: 01/10/25 22:56 Dose: 1 appl Documented By: GEETA Ondansetron HCl (Ondansetron Hcl 4 Mg/2 Ml Vial) 4 mg IVPUSH Q8H PRN PRN Reason: Nausea and Vomiting Oxycodone HCl (Oxycodone Hcl Immed Release 5 Mg Tablet) 5 mg PO Q6H PRN PRN Reason: Pain, Moderate(Pain Scale 4-6) Last Admin: 01/08/25 17:14 Dose: 5 mg Documented By: FERMIN Pantoprazole Sodium (Pantoprazole Sodium 40 Mg/10 Ml Vial) 40 mg IVPUSH BID@0630,1630 [facility] Last Admin: 01/11/25 06:20 Dose: 40 mg Documented By: GEETA Polyethylene Glycol (Polyethylene Glycol 3350 17 Gm Powd.Pack) 17 gm PO DAILY [facility] Last Admin: 01/10/25 08:07 Dose: 17 gm Documented By: CALEB Sevelamer Carbonate (Sevelamer Carbonate Tablet 800 Mg Tablet) 800 mg PO TIDWM [facility] Last Admin: 01/10/25 16:59 Dose: 800 mg Documented By: CALEB Sodium Chloride (0.9 % Sodium Chloride Flush 3 Ml Syringe) 3 ml IVFLUSH QSHIFT [facility] Last Admin: 01/10/25 20:56 Dose: 3 ml Documented By: GEETA Labs 01/11/25 06:54 01/11/25 06:54 Labs: Laboratory Results - last 24 hr 01/10/25 01/10/25 01/11/25 07:38 10:38 06:54 MCV 105.1 H 102.9 H MCH 30.7 30.3 MCHC 29.2 L 29.5 L RDW 17.2 H 18.5 H Plt Count 161 D 169 MPV 11.4 11.6 Immature Gran % (Auto) 0.2 Neut % (Auto) 86.3 H Lymph % (Auto) 5.8 L [place] % (Auto) 7.0 Eos % (Auto) 0.7 Baso % (Auto) 0.0 Lymph # (Auto) 0.5 L [place] # (Auto) 0.6 Eos # (Auto) 0.1 Baso # (Auto) 0.0 Abs Immat Gran (auto) 0.02 Absolute Neuts (auto) 7.1 Absolute Nucleated RBC 0.000 0.040 H Nucleated RBC % (auto) 0.0 0.5 H Anion Gap 16 Estim Creat Clear Calc 22.6 Estimated GFR 18 Random Glucose 95 Calcium 8.6 Magnesium 2.7 H B-Natriuretic Peptide 2547 H Blood Type O Positive Antibody Screen NEGATIVE Crossmatch See Detail Assessment and Plan (1) CHF exacerbation: Status: Acute (2) Acute on chronic respiratory failure with hypoxia and hypercapnia: Status: Acute (3) COPD (chronic obstructive pulmonary disease): Status: Acute (4) Anemia: Status: Acute (5) History of chronic carbon dioxide retention: Status: Acute (6) CKD (chronic kidney disease): Status: Acute (7) Atrial tachycardia: Status: Acute Plan 74-year-old lady with underlying COPD on 3 L of home oxygen, diastolic dysfunction, pulmonary hypertension secondary to left heart dysfunction, CKD followed by [facility] admitted on 01/01/2025 after mechanical fall, and also worsening dyspnea on exertion and orthopnea. Patient initially admitted to telemetry abarca and started empiric treatment for congestive heart failure and COPD exacerbation. Hospital course significant for worsening respiratory failure with CO2 retention requiring BiPAP support and transferred to intensive care unit. Patient diuresed with Bumex drip and titrated off daytime BiPAP support, continued on nocturnal BiPAP due to underlying chronic CO2 retention. Acute on Chronic hypercarbic and hypoxic respiratory failure due to obstructive sleep apnea not on home CPAP/mild COPD exacerbation overnight sleep study done to be read by Dr. Mercer Continue BiPAP at night and daytime for naps. Supplemental O2, baseline 3-4 L, bipap added 01/11 due to increased WOB, volume overload Elevated bicarb added diamox, stable Continue updraft q.6 hours. Acute chf exacerbation pEF moderate TR and [id number] pulmonary hypertension Elevated BNP 2967 > 3589 >2860 > 2547, no prior labs available,On 3 L of home oxygen, treated in ICU initially with IV Bumex subsequently transitioned to acetazolamide IV Echocardiogram showed EF greater than 70, moderately increased right ventricular cavity size, moderate tricuspid regurg, [id number] pulmonary hypertension, no wall motion abnormality Chest x-ray 01/07 showed cardiomegaly, pulmonary vascular congestion and small bilateral effusion. CXR 01/11 showed bilateral effusions, possibly worsening Discussed with Cardiology and Nephrology they recommend to continue Bumex 1 mg b.i.d. s/p metolazone 5 mg x 1 on 01/07. Continue diamox 500mg BID. 01/11 changed to bumex drip and added high flow due to volume overload with clinical improvement. Per cardiology consider change to po bumex tomorrow Strict Is&Os/daily weight > 3.7liter neg Warren catheter for fluid management, strict I&O Acute on chronic kidney disease stage 3/cardiorenal syndrome baseline creatinine between 1.8 was on Bumex 1 mg b.i.d. at home Creatinine trending down 3.12 to 2.41 to 2.8 with diuresis > 3.7 L negative Renal ultrasound showed no obstruction Monitor BMP while being diuresed Elevated phosphorus/magnesium, follow labs added phosphate binders Renvela 800 mg t.i.d. on 01/01 Supraventricular tachycardia Tele monitor showed frequent atrial tachycardia/SVT with episode of bradycardia case discussed with Cardiology, dinh espinal'd 01/07, heart rate improved with BiPAP Continues with runs of tachcyardia. Added metoprolol 12.5mg bid Acute on chronic macrocytic anemia likely anemia of chronic disease vs myelodysplastic syndrome Stool guaiac positive in ED nl B12/folate/iron studies Received 1 unit of packed RBC , hematocrit improved , Procrit given 01/07. Addl unit PRBC 01/10 Given worsening anemia despite the above and increasing BUN 130 today, recheck FOBT. IV PPI, clear liquids. Seen by GI, doubt GI bleed. Recommended Heme consult Heme consult placed Elevated BUN Mentation baseline- no uremia Likely r/t steroid use. No gi bleed per gi Elevated troponin but flat, , asymptomatic no chest pain, abnormal EKG however no prior EKGs available for comparison. echocardiogram no WMA Constipation No BM since 12/31. Mild abd pain. No n/v Ordered KUB but unable to lay flat Continue docusate and miralax. Encourage PRNs (refuses lactulose). Added glycerin supp. Consider golytely once volume status improves Fecal impaction present. Unable to advance enema to assist with impaction. General surgery consult placed Mechanical fall with left elbow/left hip and left knee injury Imaging study showed no acute fractures, x-ray left knee abnormal Ortho recommended no acute intervention outpatient follow-up upon discharge PT eval prior to discharge once respiratory status and heart rate stable Repeat xr 01/11 showed large effusion. Compression bandage and outpt follow up Posterior L thigh pain Venous duplex negative for DVT likely r/t edema. continue diuresis Hyperglycemia No history of diabetes hemoglobin A1c 5.4 Class 3 obesity Recommend low-calorie diet Deep tissue injury sacrum/ischium/right heel present on admission continue barrier cream and foam dressing to sacrum DVT prophylaxis compression boots /heparin Full code Disposition will require PT prior to discharge will likely need short-term rehab In my clinical judgment patient requires continued inpatient hospitalization for management of acute CHF/acute hypoxic respiratory failure Quality Stroke Does the patient have a stroke diagnosis?: No VTE Prior VTE?: No VTE Risk Level:: Medical - moderate - high VTE Device Contraindication: N/A - Device Ordered VTE Drug Contraindication: N/A - Med Ordered
[2025-01-11] MEDS: Albuterol/Iprat 2.5/0.5MG 3 ML AMPUL.NEB INHALE ×3 (07:35→19:09)
[2025-01-11 07:38] LABS: Anion Gap 19 (12-20); Calcium 8.4 mg/dL (8.4-10.2); Carbon Dioxide 36 mmol/L (22-29); Chloride 88 mmol/L (96-108); Creatinine Clr Calc Pharmacy 20.6; Estimated Glomerular Filt Rate 16; Glucose Random 123 mg/dL (60-115); Potassium 4.5 mmol/L (3.3-5.1); Sodium 138 mmol/L (135-145)
[2025-01-11 07:56] LABS: B Type Natriuretic Peptide 2930 pg/mL (<100)
--- NOTE | 2025-01-11 08:00 | PC.NURSE ---
Addendum entered by Janet Ann RN 01/11/25 18:21: pt tolerating high flow throughout shift. pt removed high flow once to clear nose and desat to 60%. high flow placed back on pt with no issues. pt compliant with taking PRN bowel med for constipation. no BM this shift. bowel sounds x4, abd soft. Original Note: This RN at bedside d/t pt o2 in mid 80s. o2 increased to 4L with sats of 88-90%. pt staated that she cant catch her breath and having difficulty taking deep breathes. This RN attempted to elevate the HOB but pt then complained that doing so causes pain to her abd and makes breathing worse. pt was also sinus jimenez in 50s as low as 49. pt also stating i dont want to breathe. i want to . help me please Tammy BAH notified and came to bedside. [facility] [place] [facility]. medicated per JAN. see new orders.
[2025-01-11 08:18] LABS: Blood Urea Nitrogen 132 mg/dL (9-16)
[2025-01-11] MEDS: Lidocaine 4 % Patch ADH..PATCH 2 PATCH TRANSDERMA (09:12)
[2025-01-11] MEDS: polyethylene glycoL 3350 17 GM POWD.PACK PO (09:12)
[2025-01-11] MEDS: acetaZOLAMIDE 250 MG TABLET 500 MG PO ×2 (09:12→21:25)
[2025-01-11] MEDS: Sevelamer Carbonate Tablet 800 MG TABLET PO ×2 (09:15→17:17)
[2025-01-11] MEDS: 0.9 % Sodium Chloride Flush 3 ML SYRINGE IVFLUSH (09:15)
[2025-01-11] MEDS: Heparin Sodium,Porcine 5,000 UNIT/ML VIAL 5000 UNIT SUBCUT ×2 (09:16→17:17)
[2025-01-11] MEDS: Morphine Sulfate 2 MG/ML CARTRIDGE IVPUSH (09:16)
[2025-01-11] MEDS: busPIRone HCl 5 MG TABLET PO ×3 (09:17→21:25)
[2025-01-11] MEDS: Nystatin Powder 15 GM BOTTLE 1 APPL TOPICAL ×2 (09:28→21:25)
--- NOTE | 2025-01-11 09:41 | PM.GICN ---
History of Present Illness Data of Consult Service Date: 01/11/25 Requesting physician: Thierno Haines Primary Care Provider: Maine Myers MD HPI Reason for consult: anemia 74-year-old female with hx of COPD on 3 L of home oxygen, history of chronic kidney disease, CHF who I am seeing for assessment for anemia Patient initially presented with a fall and mechanical injury. During her stay she required bipap for severe resp failure and also bumex drip for pulm congestion. She received 1-2 units intermittently during her stay thus far. She was FOB pos but denies any overt GIB. MCV was elevated, b12 was nml, and also iron studies were nml on admission. HGB has been running around 7-8 g/dl this admission. She does have few bruises on arms and left knee area also admits to taking baby aspirin and on and off nose bleeds due to oygen use. She denies abdominal pain, nausea, vomtiing, fever, or joint swelling. no diarrhea but had constipation Review of Systems Review of Systems: Constitutional : No Weight loss, No Fever, No Chills ENT/Mouth : No sore throat, No Rhinorrhea Eyes: No Swelling, No Redness Cardiovascular : No Chest Pain, + SOB, + Edema Respiratory : No Cough, No Sputum, No Wheezing Gastrointestinal : see HPI Genitourinary : NO Dysuria, No Urinary Frequency, No Hematuria, No Urgency Musculoskeletal : + joint pain, No Myalgias, No Joint Swelling Skin : No Skin Lesions, No rash Neuro : + Weakness, No Numbness, No Dizziness, No Headache Psych : No Anxiety/Panic, No Depression Heme/Lymph: No Bruising, No Lymphadenopathy Endocrine : No Polyuria, No Polydipsia All other systems reviewed and are negative. [facility] Family History Pertinent family history: no fh of cRC Social History Social History Household Members: Family Household Members Other:: sister Housing: House Do you presently have visiting nurse or other home services: No Comment: 1:1 sitter at bedside Patient Tobacco Use Status: Former Tobacco user Tobacco use type: Cigarette service: No Meds Allergies Allergy/AdvReac Type Severity Reaction Status Date / Time shellfish derived [shellfish] AdvReac Hives Verified 01/01/25 05:49 Active Medications: Current Medications Acetaminophen (Acetaminophen 325 Mg Tablet) 975 mg PO Q6H PRN PRN Reason: Pain, Moderate(Pain Scale 4-6) Last Admin: 01/05/25 19:54 Dose: 975 mg Acetazolamide (Acetazolamide 250 Mg Tablet) 500 mg PO BID [facility] Last Admin: 01/11/25 09:12 Dose: 500 mg Albuterol/Ipratropium (Albuterol/Iprat 2.5/0.5mg 3 Ml Ampul.Neb) 3 ml INHALE RQ6H WHILE AWAKE [facility] Last Admin: 01/11/25 07:35 Dose: 3 ml Aspirin (Aspirin Enteric Coated 81 Mg Tablet.Dr) 81 mg PO DAILY [facility] Last Admin: 01/10/25 08:06 Dose: 81 mg Buspirone HCl (Buspirone Hcl 5 Mg Tablet) 5 mg PO TID [facility] Last Admin: 01/11/25 09:17 Dose: 5 mg Docusate Sodium (Docusate Sodium 100 Mg Capsule) 100 mg PO BEDTIME [facility] Last Admin: 01/10/25 20:56 Dose: 100 mg Heparin Sodium (Porcine) (Heparin Sodium,Porcine 5,000 Unit/Ml Vial) 5,000 unit SUBCUT Q8H [facility] Last Admin: 01/11/25 09:16 Dose: 5,000 unit Bumetanide 25 mg/ IV (Miscellaneous Supplies) 100 mls @ 2 mls/hr IVCONT .Q24H [facility] Lactulose (Lactulose 20 Gm/30 Ml Solution) 10 gm PO DAILY PRN PRN Reason: Constipation Lidocaine (Lidocaine 4 % Patch Adh..Patch) 2 patch TRANSDERMA DAILY [facility]; Protocol Last Admin: 01/11/25 09:12 Dose: 2 patch Magnesium Hydroxide (Milk Of Magnesia 30 Ml Oral.Susp) 30 ml PO DAILY PRN PRN Reason: Constipation Last Admin: 01/10/25 13:13 Dose: 30 ml Metoprolol Tartrate (Metoprolol Tartrate 12.5 Mg Halftab) 12.5 mg PO BID [facility]; Protocol Last Admin: 01/11/25 09:28 Dose: Not Given Nystatin (Nystatin Powder 15 Gm Bottle) 1 appl TOPICAL BID [facility]; Protocol Last Admin: 01/11/25 09:28 Dose: 1 appl Ondansetron HCl (Ondansetron Hcl 4 Mg/2 Ml Vial) 4 mg IVPUSH Q8H PRN PRN Reason: Nausea and Vomiting Oxycodone HCl (Oxycodone Hcl Immed Release 5 Mg Tablet) 5 mg PO Q6H PRN PRN Reason: Pain, Moderate(Pain Scale 4-6) Last Admin: 01/08/25 17:14 Dose: 5 mg Pantoprazole Sodium (Pantoprazole Sodium 40 Mg/10 Ml Vial) 40 mg IVPUSH BID@0630,1630 [facility] Last Admin: 01/11/25 06:20 Dose: 40 mg Polyethylene Glycol (Polyethylene Glycol 3350 17 Gm Powd.Pack) 17 gm PO DAILY [facility] Last Admin: 01/11/25 09:12 Dose: 17 gm Sevelamer Carbonate (Sevelamer Carbonate Tablet 800 Mg Tablet) 800 mg PO TIDWM [facility] Last Admin: 01/11/25 09:15 Dose: 800 mg Sodium Chloride (0.9 % Sodium Chloride Flush 3 Ml Syringe) [facility] Last Admin: 01/11/25 09:15 Dose: 3 ml Home Medications ?Medication ?Instructions ?Recorded ?Confirmed ?Last Taken ?Type aspirin 81 mg tablet,delayed 81 mg PO DAILY 01/01/25 01/01/25 12/31/24 History release bumetanide 1 mg tablet 1 mg PO BID 01/01/25 01/01/25 12/31/24 History buspirone 5 mg tablet 5 mg PO TID 01/01/25 01/01/25 12/31/24 History calcitriol 0.25 mcg capsule 0.25 mcg PO Q OTHER DAY 01/01/25 01/01/25 12/31/24 History carvedilol 3.125 mg tablet 3.125 mg PO BID 01/01/25 01/01/25 12/31/24 History docusate sodium 100 mg capsule 100 mg PO DAILY PRN Constipation 01/01/25 01/01/25 12/31/24 History multivitamin 1 tab PO DAILY 01/01/25 01/01/25 12/31/24 History umeclidinium 62.5 mcg-vilanterol 1 ea inhalation DAILY 01/01/25 01/01/25 12/31/24 History 25 mcg/actuation powdr for inhalation (Anoro Ellipta) Physical Exam Vital Signs: Vital Signs: Last Vital Signs Temp 97.1 F 01/11/25 07:34 Pulse 52 01/11/25 07:35 Resp 18 01/11/25 07:35 BP 113/54 L 01/11/25 07:34 Pulse Ox 92 01/11/25 07:34 O2 Del Method Nasal Cannula 01/11/25 07:34 O2 Flow Rate 4 01/11/25 07:34 FiO2 35 01/11/25 03:58 BMI result Body Mass Index 43.2 EXAM: GENERAL: The patient is obese, SOB and on BIPAP VITAL SIGNS:see workflow HEENT: Nonicteric sclerae, PERRLA, EOMI. Oropharynx clear. Moist mucous membranes. Conjunctivae appear well perfused. No thyroid mass. CHEST: Chest wall is nontender. HEART: Regular rate and rhythm without murmurs. LUNGS: Clear to auscultation bilaterally. ABDOMEN: Soft, positive bowel sounds, nontender, no organomegaly.no flank tenderness SKIN: No rash, no excessive bruising, petechiae, or purpura. NEUROLOGIC: Cranial nerves II-XII intact without motor/sensory deficit. Psych: normal affect Results Labs 01/11/25 06:54 01/11/25 06:54 Labs: Short CBC 01/10/25 01/11/25 Range/Units 21:23 06:54 WBC 8.2 (4.8-10.8) X10*3/uL Hgb 7.7 L 7.4 L (12.0-16.0) g/dl Hct 26.0 L 25.1 L (37.0-47.0) % Plt Count 169 (160-400) X10*3/uL BMP 01/11/25 06:54 Sodium 138 Potassium 4.5 Chloride 88 L Carbon Dioxide 36 H BUN 132 H Creatinine 2.84 H Calcium 8.4 Assessment and Plan (1) Anemia: Qualifiers: Anemia type: other cause Status: Acute Plan 1/ Macrocytic anemia, with nml b12,folate, suspect she may have myelodysplasia - other contributers to anemia, incl nose bleeds, bruising on extremities and her CKD PLAN: 1/ recommend hematology assessment 2/ BID low dose PPI 3/ hold on endoscopy and colo - v high risk due to her cardio resp issues, if further ix needed of GI tract then upper gi series 4/ use humdifiied oxygen 5/ check nickerson test and haptoglobin, retic count Procedures Date of Service Date of Service: 01/11/25
[2025-01-11] MEDS: Bumetanide 25 MG in Container,Empty 0 ML IVCONT (11:13)
--- NOTE | 2025-01-11 12:22 | PM.PNCARD ---
Subjective Subjective Date of Service: 01/11/25 Interval history: Seen and examined at bedside. She received 1 unit of blood yesterday. Volume status improving. Physical Exam Vital Signs: Last Vital Signs Temp 96.5 F L 01/11/25 11:49 Pulse 52 01/11/25 11:49 Resp 18 01/11/25 11:49 BP 105/51 L 01/11/25 11:49 Pulse Ox 93 01/11/25 11:49 O2 Del Method High Flow Nasal Cannula 01/11/25 11:49 O2 Flow Rate 40 01/11/25 11:49 FiO2 37.4 01/11/25 11:49 BMI result Body Mass Index 43.2 GENERAL APPEARANCE: in no acute distress, pleasant. On high-flow oxygen. NECK: no carotid bruit, no significant jugular venous distention. SKIN: no suspicious lesions, warm and dry. HEART: regular rate and rhythm. Systolic murmur left sternal border. LUNGS: Clear to auscultation anteriorly. ABDOMEN: soft, nontender. EXTREMITIES: No significant edema. PERIPHERAL PULSES: equal. NEUROLOGIC: No gross deficits, AAO X 3 Objective Labs and Meds 01/11/25 06:54 01/11/25 06:54 Lab results: Laboratory Results - last 24 hr 01/10/25 01/10/25 01/10/25 07:38 10:38 21:23 WBC RBC Hgb 7.7 L Hct 26.0 L MCV MCH MCHC RDW Plt Count MPV Immature Gran % (Auto) Neut % (Auto) Lymph % (Auto) [place] % (Auto) Eos % (Auto) Baso % (Auto) Lymph # (Auto) [place] # (Auto) Eos # (Auto) Baso # (Auto) Abs Immat Gran (auto) Absolute Neuts (auto) Absolute Nucleated RBC Nucleated RBC % (auto) Sodium Potassium Chloride Carbon Dioxide Anion Gap BUN Creatinine Estim Creat Clear Calc Estimated GFR Random Glucose Calcium Magnesium 2.7 H B-Natriuretic Peptide Blood Type O Positive Antibody Screen NEGATIVE Crossmatch See Detail 01/11/25 06:54 WBC 8.2 RBC 2.44 L Hgb 7.4 L Hct 25.1 L MCV 102.9 H MCH 30.3 MCHC 29.5 L RDW 18.5 H Plt Count 169 MPV 11.6 Immature Gran % (Auto) 0.2 Neut % (Auto) 86.3 H Lymph % (Auto) 5.8 L [place] % (Auto) 7.0 Eos % (Auto) 0.7 Baso % (Auto) 0.0 Lymph # (Auto) 0.5 L [place] # (Auto) 0.6 Eos # (Auto) 0.1 Baso # (Auto) 0.0 Abs Immat Gran (auto) 0.02 Absolute Neuts (auto) 7.1 Absolute Nucleated RBC 0.040 H Nucleated RBC % (auto) 0.5 H Sodium 138 Potassium 4.5 Chloride 88 L Carbon Dioxide 36 H Anion Gap 19 BUN 132 H Creatinine 2.84 H Estim Creat Clear Calc 20.6 Estimated GFR 16 Random Glucose 123 H Calcium 8.4 Magnesium B-Natriuretic Peptide 2930 H Blood Type Antibody Screen Crossmatch Progress Note: A&P Assessment and plan (1) CHF exacerbation: Status: Acute Plan 74-year-old female with chronic kidney disease, COPD, acute on chronic respiratory failure with hypoxia and hypercapnia and congestive heart failure. She is requiring BiPAP due to hypercapnia. She should be using it every time she naps or sleeps. Overall volume status is improving. She is currently on Bumex drip. Potentially can be transitioned to oral Bumex tomorrow 1 mg twice a day. Continue acetazolamide for now. She had runs of atrial tachycardia. These were happening in the setting of hypercapnia but sensory started using BiPAP things are stable. She is anemic and is requiring blood transfusion. GI seeing her for potential further workup. She was on primary prevention aspirin which has been discontinued. Thank you for allowing me to participate in the care of your patient. Please feel free to contact me if you have any questions. Time Spent With Patient Time: Total time managing care of this patient today ____ minutes. Progress Note: Quality Stroke Does the patient have a stroke diagnosis?: No Procedures Date of Service Date of Service: 01/11/25
[2025-01-11] MEDS: Lactulose 20 GM/30 ML SOLUTION 10 GM PO (14:50)
[2025-01-11] MEDS: Docusate Sodium 100 MG CAPSULE PO (21:25)
[2025-01-12] VITALS (17 sets, daily range): BP systolic 92–125; BP diastolic 46–58; PULSE 46–80; RESP 16–20; TEMP 35.3–36.2; O2SAT 92–97; BMI 40.6
[2025-01-12] MEDS: Heparin Sodium,Porcine 5,000 UNIT/ML VIAL 5000 UNIT SUBCUT ×3 (00:31→16:36)
[2025-01-12] MEDS: Albuterol/Iprat 2.5/0.5MG 3 ML AMPUL.NEB INHALE ×3 (07:13→19:56)
--- NOTE | 2025-01-12 08:21 | P.PNIM_ITS ---
Subjective Subjective Date of Service: 01/12/25 Interval History: Seen in follow-up for acute on chronic respiratory failure, CHF, acute kidney injury Interval history: Denies sob, cough, or chest pain. Denies abd pain, n/v. Still no bm. (last 12/31). Reports improvement in pain in L thigh. Review of Systems Review of Systems: Yes all other systems are reviewed and are negative Physical Exam 2 Vital Signs: Vital Signs: Last Vital Signs Temp 97.1 F 01/12/25 07:11 Pulse 51 01/12/25 07:13 Resp 18 01/12/25 07:13 BP 125/49 L 01/12/25 07:11 Pulse Ox 92 01/12/25 07:11 O2 Del Method BiPAP 01/12/25 07:11 O2 Flow Rate 5 01/12/25 00:00 FiO2 35.7 01/11/25 19:28 BMI result Body Mass Index 40.6 Constitutional - Awake and Alert, No apparent distress Eyes - PERRLA, EOMI Cardiovascular - S1S2, RRR, 3+ edema ble extending to the thighs Respiratory - Normal lung expansion, normal work of breathing without accessory muscle usage, scattered faint crackles Gastrointestinal - NT / ND; +BS; No rebound or guarding Extremities - no calf tenderness bilaterally Musculoskeletal - Significant swelling/effusion with ecchymosis L knee with limited ROM Skin - Warm/Dry Neurological - Alert & oriented x3 Psychological - Appropriate affect Objective Data Active Medications Acetaminophen (Acetaminophen 325 Mg Tablet) 975 mg PO Q6H PRN PRN Reason: Pain, Moderate(Pain Scale 4-6) Last Admin: 01/05/25 19:54 Dose: 975 mg Documented By: CLARK Acetazolamide (Acetazolamide 250 Mg Tablet) 500 mg PO BID [facility] Last Admin: 01/11/25 21:25 Dose: 500 mg Documented By: GREGORIO Albuterol/Ipratropium (Albuterol/Iprat 2.5/0.5mg 3 Ml Ampul.Neb) 3 ml INHALE RQ6H WHILE AWAKE [facility] Last Admin: 01/12/25 07:13 Dose: 3 ml Documented By: MEERA Aspirin (Aspirin Enteric Coated 81 Mg Tablet.) 81 mg PO DAILY [facility] Last Admin: 01/10/25 08:06 Dose: 81 mg Documented By: CALEB Buspirone HCl (Buspirone Hcl 5 Mg Tablet) 5 mg PO TID [facility] Last Admin: 01/11/25 21:25 Dose: 5 mg Documented By: GREGORIO Docusate Sodium (Docusate Sodium 100 Mg Capsule) 100 mg PO BEDTIME [facility] Last Admin: 01/11/25 21:25 Dose: 100 mg Documented By: GREGORIO Heparin Sodium (Porcine) (Heparin Sodium,Porcine 5,000 Unit/Ml Vial) 5,000 unit SUBCUT Q8H [facility] Last Admin: 01/12/25 00:31 Dose: 5,000 unit Documented By: GREGORIO Bumetanide 25 mg/ IV (Miscellaneous Supplies) 100 mls @ 2 mls/hr IVCONT .Q24H [facility] Last Admin: 01/11/25 11:13 Dose: 0.5 mg/hr, 2 mls/hr Documented By: CLIF Lactulose (Lactulose 20 Gm/30 Ml Solution) 10 gm PO DAILY PRN PRN Reason: Constipation Last Admin: 01/11/25 14:50 Dose: 10 gm Documented By: CLIF Lidocaine (Lidocaine 4 % Patch Adh..Patch) 2 patch TRANSDERMA DAILY [facility]; Protocol Last Admin: 01/11/25 09:12 Dose: 2 patch Documented By: CLIF Magnesium Hydroxide (Milk Of Magnesia 30 Ml Oral.Susp) 30 ml PO DAILY PRN PRN Reason: Constipation Last Admin: 01/10/25 13:13 Dose: 30 ml Documented By: CALEB Metoprolol Tartrate (Metoprolol Tartrate 12.5 Mg Halftab) 12.5 mg PO BID [facility]; Protocol Last Admin: 01/11/25 21:25 Dose: Not Given Documented By: GREGORIO Non-Admin Reason: HR 50 Mineral Oil (Mineral Oil Enema 133 Ml Enema) 133 ml OR ONCE PRN PRN Reason: Constipation Nystatin (Nystatin Powder 15 Gm Bottle) 1 appl TOPICAL BID [facility]; Protocol Last Admin: 01/11/25 21:25 Dose: 1 appl Documented By: GREGORIO Ondansetron HCl (Ondansetron Hcl 4 Mg/2 Ml Vial) 4 mg IVPUSH Q8H PRN PRN Reason: Nausea and Vomiting Oxycodone HCl (Oxycodone Hcl Immed Release 5 Mg Tablet) 5 mg PO Q6H PRN PRN Reason: Pain, Moderate(Pain Scale 4-6) Last Admin: 01/08/25 17:14 Dose: 5 mg Documented By: FERMIN Polyethylene Glycol (Polyethylene Glycol 3350 17 Gm Powd.Pack) 17 gm PO DAILY [facility] Last Admin: 01/11/25 09:12 Dose: 17 gm Documented By: CLIF Sevelamer Carbonate (Sevelamer Carbonate Tablet 800 Mg Tablet) 800 mg PO TIDWM [facility] Last Admin: 01/11/25 17:17 Dose: 800 mg Documented By: CLIF Sodium Chloride (0.9 % Sodium Chloride Flush 3 Ml Syringe) 3 ml IVFLUSH QSHIFT [facility] Last Admin: 01/11/25 21:26 Dose: Not Given Documented By: GRGEORIO Non-Admin Reason: IV Running Labs 01/12/25 16:28 01/12/25 16:28 Assessment and Plan (1) CHF exacerbation: Status: Acute (2) Acute on chronic respiratory failure with hypoxia and hypercapnia: Status: Acute (3) COPD (chronic obstructive pulmonary disease): Status: Acute (4) Anemia: Status: Acute (5) History of chronic carbon dioxide retention: Status: Acute (6) CKD (chronic kidney disease): Status: Acute (7) Atrial tachycardia: Status: Acute Plan 74-year-old lady with underlying COPD on 3 L of home oxygen, diastolic dysfunction, pulmonary hypertension secondary to left heart dysfunction, CKD followed by [facility] admitted on 01/01/2025 after mechanical fall, and also worsening dyspnea on exertion and orthopnea. Patient initially admitted to telemetry abarca and started empiric treatment for congestive heart failure and COPD exacerbation. Hospital course significant for worsening respiratory failure with CO2 retention requiring BiPAP support and transferred to intensive care unit. Patient diuresed with Bumex drip and titrated off daytime BiPAP support, continued on nocturnal BiPAP due to underlying chronic CO2 retention. Acute on Chronic hypercarbic and hypoxic respiratory failure due to obstructive sleep apnea not on home CPAP/mild COPD exacerbation overnight sleep study done to be read by Dr. Mercer Continue BiPAP at night and daytime for naps. Supplemental O2, baseline 3-4 L, bipap added 3/2 due to increased WOB, volume overload Elevated bicarb added diamox, stable Continue updraft q.6 hours. Acute chf exacerbation pEF moderate TR and [id number] pulmonary hypertension Elevated BNP 2967 > 3589 >2860 > 2547, no prior labs available,On 3 L of home oxygen, treated in ICU initially with IV Bumex subsequently transitioned to acetazolamide IV Echocardiogram showed EF greater than 70, moderately increased right ventricular cavity size, moderate tricuspid regurg, [id number] pulmonary hypertension, no wall motion abnormality Chest x-ray 01/07 showed cardiomegaly, pulmonary vascular congestion and small bilateral effusion. CXR 01/11 showed bilateral effusions, possibly worsening Discussed with Cardiology and Nephrology they recommend to continue Bumex 1 mg b.i.d. s/p metolazone 5 mg x 1 on 01/07. Continue diamox 500mg BID. 01/11 changed to bumex drip and added high flow due to volume overload with clinical improvement. 01/12- Per cardiology, diuresis has slowed. Creat is increasing. Recommends dc'ing bumex and nephrology consult which was placed. BNP increasing Strict Is&Os/daily weight > 3.7liter neg Warren catheter for fluid management, strict I&O Hypothermia No other SIRS criteria Rule out infectious etiology with CBC, CXR, UA, CT abdomen/pelvis CBC and BMP as well as liver panel ordered. Check for influenza, RSV, COVID-19 Acute on chronic kidney disease stage 3/cardiorenal syndrome baseline creatinine between 1.8 was on Bumex 1 mg b.i.d. at home Creatinine trending down 3.12 to 2.41 to 2.8 with diuresis > 3.14 Renal ultrasound showed no obstruction 01/12 resume gentle fluid resuscitation and follow BMP Elevated phosphorus/magnesium, follow labs added phosphate binders Renvela 800 mg t.i.d. on 01/01 Supraventricular tachycardia Tele monitor showed frequent atrial tachycardia/SVT with episode of bradycardia case discussed with Cardiology, coreg dc'd 01/07, heart rate improved with BiPAP Continues with runs of tachcyardia. Metoprolol initially recommended. Discontinued due to bradycardia Acute on chronic macrocytic anemia likely anemia of chronic disease vs myelodysplastic syndrome Stool guaiac positive in ED nl B12/folate/iron studies Received 1 unit of packed RBC , hematocrit improved , Procrit given 01/07. Addl unit PRBC 01/10 Given worsening anemia despite the above and increasing BUN 130 today, recheck FOBT. IV PPI, clear liquids. Seen by GI, doubt GI bleed. Recommended Heme consult Heme following Elevated BUN Mentation baseline- no uremia Likely r/t steroid use. No gi bleed per gi Elevated troponin but flat, , asymptomatic no chest pain, abnormal EKG however no prior EKGs available for comparison. echocardiogram no WMA Constipation No BM since 12/31. Mild abd pain. No n/v Ordered KUB but unable to lay flat Continue docusate and miralax. Encourage PRNs (refuses lactulose). Added glycerin supp. Consider golytely once volume status improves Fecal impaction present. Unable to advance enema to assist with impaction. Disimpacted by General surgery on 01/12 without any further bowel movement CT abdomen/pelvis ordered Mechanical fall with left elbow/left hip and left knee injury Imaging study showed no acute fractures, x-ray left knee abnormal Ortho recommended no acute intervention outpatient follow-up upon discharge PT eval prior to discharge once respiratory status and heart rate stable Repeat xr 01/11 showed large effusion. Compression bandage and outpt follow up Posterior L thigh pain Venous duplex negative for DVT likely r/t edema. continue diuresis Hyperglycemia No history of diabetes hemoglobin A1c 5.4 Class 3 obesity Recommend low-calorie diet Deep tissue injury sacrum/ischium/right heel present on admission continue barrier cream and foam dressing to sacrum DVT prophylaxis compression boots /heparin Full code- rediscussed code status and patient desires to be full code Disposition will require PT prior to discharge will likely need short-term rehab In my clinical judgment patient requires continued inpatient hospitalization for management of acute CHF/acute hypoxic respiratory failure Quality Stroke Does the patient have a stroke diagnosis?: No VTE Prior VTE?: No VTE Risk Level:: Medical - moderate - high VTE Device Contraindication: N/A - Device Ordered VTE Drug Contraindication: N/A - Med Ordered
[2025-01-12] MEDS: acetaZOLAMIDE 250 MG TABLET 500 MG PO ×2 (08:23→21:29)
[2025-01-12] MEDS: busPIRone HCl 5 MG TABLET PO ×3 (08:23→21:29)
[2025-01-12] MEDS: Sevelamer Carbonate Tablet 800 MG TABLET PO ×3 (08:23→16:36)
[2025-01-12] MEDS: Metoprolol Tartrate 12.5 MG HALFTAB PO (08:23)
[2025-01-12] MEDS: oxyCODONE HCl Immed Release 5 MG TABLET PO (08:24)
[2025-01-12] MEDS: polyethylene glycoL 3350 17 GM POWD.PACK PO (08:25)
[2025-01-12] MEDS: Lidocaine 4 % Patch ADH..PATCH 2 PATCH TRANSDERMA (08:25)
[2025-01-12] MEDS: Nystatin Powder 15 GM BOTTLE 1 APPL TOPICAL ×2 (08:27→21:29)
[2025-01-12] MEDS: 0.9 % Sodium Chloride Flush 3 ML SYRINGE IVFLUSH ×2 (08:28→16:40)
[2025-01-12 10:02] LABS: Basophils Percent Auto 0.4 % (0-2); Eosinophils Absolute Auto 0.1 X10*3/uL (0.0-0.4); Eosinophils Percent Auto 1.3 % (0-4); Hematocrit 28.6 % (37.0-47.0); Hemoglobin 8.2 g/dl (12.0-16.0); Imm Gran Abs Auto 0.04 X10*3/uL (0.00-0.03); Imm Gran Pct Auto 0.5 % (0.0-0.4); Immature Retic Fraction 21.2 % (3.0-15.9); Lymphocytes Absolute Auto 0.6 X10*3/uL (1.2-4.9); MANUAL DIFF FLAG SCAN; Mean Corpuscular HGB Conc 28.7 g/dl (31.0-35.0); Mean Corpuscular Volume 104.8 fL (80.0-98.0); Mean Platelet Volume 11.6 fL (9.4-12.3); Monocytes Absolute Auto 0.6 X10*3/uL (0.1-1.2); Monocytes Percent Auto 7.6 % (2-11); NRBC Pct Auto 0.4 /100WBC (0.0-0.2); Neutrophils Absolute Auto 6.9 x10*3/uL (2.0-8.3); Neutrophils Percent Auto 83.2 % (45-73); Platelet Count 186 X10*3/uL (160-400); Red Blood Count 2.73 X10*6/uL (4.20-5.50); Red Cell Distribution Width 18.3 % (11.0-16.0); Retic HGB Equivalent 24.9 pg (30.0-35.0); Reticulocyte Percent 3.7 % (0.5-1.8); SCAN SMEAR FLAG 1; White Blood Count 8.3 X10*3/uL (4.8-10.8)
[2025-01-12 10:05] LABS: Haptoglobin 243 mg/dL (63-273)
[2025-01-12 10:06] LABS: Anion Gap 19 (12-20); Calcium 8.8 mg/dL (8.4-10.2); Carbon Dioxide 36 mmol/L (22-29); Chloride 87 mmol/L (96-108); Estimated Glomerular Filt Rate 15; Glucose Random 93 mg/dL (60-115); Lactate Dehydrogenase 204 U/L (122-220); Potassium 4.9 mmol/L (3.3-5.1); Sodium 137 mmol/L (135-145)
[2025-01-12 10:10] LABS: B Type Natriuretic Peptide 2530 pg/mL (<100)
[2025-01-12 10:22] LABS: Blood Urea Nitrogen 160 mg/dL (9-16)
--- NOTE | 2025-01-12 10:39 | PM.PNCARD ---
Subjective Subjective Date of Service: 01/12/25 Principal diagnosis: shortness of breath, sinus bradycardia Interval history: patient not very participatory in present any complaints. However noted that her urine output is overall tepid. She has had negative balance of about 2 L over the last 4 days including with Bumex drip. Bumex drip was started yesterday due to significant respiratory distress with crackles heard on her chest exam as well as abnormal chest x-ray. overall negative balance of 200 cc although patient seems to have improved. Oxygenation has improved still requiring 6 L by nasal cannula appears using BiPAP. Her creatinine has gone up with by IV Bumex. Patient does not complain of any symptoms currently. Overall remains in sinus bradycardia overnight with heart rate in the 40s and 50s. Review of Systems Review of Systems Yes Unobtainable due to mental status Physical Exam Vital Signs: Last Vital Signs Temp 97.1 F 01/12/25 07:11 Pulse 51 01/12/25 07:13 Resp 18 01/12/25 07:13 BP 125/49 L 01/12/25 07:11 Pulse Ox 92 01/12/25 07:11 O2 Del Method BiPAP 01/12/25 07:11 O2 Flow Rate 5 01/12/25 00:00 FiO2 35.7 01/11/25 19:28 BMI result Body Mass Index 40.6 Const General: cooperative, no acute distress, alert and awake Nutritional Appearance: obese Orientation/consciousness: patient oriented x3 Neck Neck: Yes trachea midline, Yes supple and Yes no JVD ( However difficult to assess due to her body habitus) Resp Effort & Inspection: decreased respiratory effort Auscultation: clear to auscultation bilaterally and diminished lung sounds Cardio Rate: bradycardic Rhythm: regular rhythm Heart sounds: S1 normal heart sound present, S2 normal heart sound present, no click and no gallops GI Inspection: Yes obesity Auscultation: normal bowel sounds Skin General skin exam: no rashes or lesions noted and ecchymosis Neuro General: patient oriented x3 and moves all extremities Extrem General: No clubbing, No cyanosis and Yes edema Objective Labs and Meds 01/11/25 06:54 01/12/25 09:30 Lab results: Laboratory Results - last 24 hr 01/12/25 09:30 Sodium 137 Potassium 4.9 Chloride 87 L Carbon Dioxide 36 H Anion Gap 19 BUN 160 H Creatinine 3.13 H Estim Creat Clear Calc 18.0 Estimated GFR 15 Random Glucose 93 Haptoglobin 243 Calcium 8.8 Lactate Dehydrogenase 204 B-Natriuretic Peptide 2530 H Progress Note: A&P Assessment and plan (1) Acute on chronic respiratory failure with hypoxia and hypercapnia: Status: Acute Assessment and Plan: patient with acute hypoxemic respiratory failure with possibly component of CHF. She was put on IV Bumex drip and today her oxygen requirement is low although she was not diuresed much. Her BNP still remains elevated in the 2500 range although clinically does not appear to be markedly fluid overloaded. Her creatinine is got worse. At this point time not really sure as to her fluid status overall but does not appear to be significantly fluid overloaded or in pulmonary edema at this point time. Hypoxemia and hypercapnia more likely related to obesity hypoventilation as well as underlying COPD and poor respiratory reserve as well as poor respiratory effort. At this point time I would continue with BiPAP therapy and continue with oxygen therapy. Incentive spirometry should be considered. I would back off on Bumex drip at this point time and watch her creatinine. Also please consult with Nephrology to help us manage her volume status. Overall remains bradycardic in sinus bradycardia with no significant arrhythmias would stop her metoprolol for now. Overall prognosis is guarded. Will continue to follow with you Time Spent With Patient Time: Total time managing care of this patient today ____ minutes. Progress Note: Quality Stroke Does the patient have a stroke diagnosis?: No Procedures Date of Service Date of Service: 01/12/25
[2025-01-12 10:41] LABS: SLIDE REVIEW VERIFIED
--- NOTE | 2025-01-12 10:51 | MHC.CM.PN ---
Per ROUNDS discussion, Patient is not yet medically cleared for dc (fluid Overload/high Flow O2); Patient may benefit from a PT Eval to assist with disposition. CM will follow.
--- NOTE | 2025-01-12 11:04 | PM.CNGS ---
History of Present Illness Consult details Consult date: 01/12/25 Reason for consult: other (fecal impaction) Narrative: 74-year-old female with multiple medical comorbidities including COPD on 3 L of home oxygen, diastolic dysfunction, pulmonary hypertension secondary to left heart dysfunction, CKD admitted on 01/01/2025 after mechanical fall. Patient was admitted to the hospitalist service initially to the medical/telemerty floor and was started on empiric treatment for congestive heart failure and COPD exacerbation. She however developed worsening respiratory failure with CO2 retention requiring BiPAP support and was transferred to intensive care unit. Patient diuresed with Bumex drip and titrated off daytime BiPAP support, continued on nocturnal BiPAP due to underlying chronic CO2 retention. Now back on med/tele. No BM since 12/31/24. On miralax, colace and lactulose 10mg once per day. Enema was ordered yesterday however they were unable to advance the catheter due to fecal impaction. General surgery was therefore consulted. She denies significant abd pain. She is passing flatus. She is tolerating a solid diet without nausea or vomiting. Review of Systems Constitutional: Constitutional: Denies fever(s) Cardiovascular: Cardiovascular: Denies chest pain and Reports dyspnea Respiratory: Respiratory: Reports dyspnea Gastrointestinal: Gastrointestinal: Reports as per HPI and Reports constipation Integumentary/Breasts: Skin/Breast: Denies rash PMFSH Social History Social History Household Members: Family Household Members Other:: sister Housing: House Do you presently have visiting nurse or other home services: No Comment: 1:1 sitter at bedside Patient Tobacco Use Status: Former Tobacco user Tobacco use type: Cigarette service: No Meds Allergies Allergy/AdvReac Type Severity Reaction Status Date / Time shellfish derived [shellfish] AdvReac Hives Verified 01/01/25 05:49 Active Medications: Current Medications Acetaminophen (Acetaminophen 325 Mg Tablet) 975 mg PO Q6H PRN PRN Reason: Pain, Moderate(Pain Scale 4-6) Last Admin: 01/05/25 19:54 Dose: 975 mg Acetazolamide (Acetazolamide 250 Mg Tablet) 500 mg PO BID [facility] Last Admin: 01/12/25 08:23 Dose: 500 mg Albuterol/Ipratropium (Albuterol/Iprat 2.5/0.5mg 3 Ml Ampul.Neb) 3 ml INHALE RQ6H WHILE AWAKE [facility] Last Admin: 01/12/25 07:13 Dose: 3 ml Aspirin (Aspirin Enteric Coated 81 Mg Tablet.Dr) 81 mg PO DAILY [facility] Last Admin: 01/10/25 08:06 Dose: 81 mg Buspirone HCl (Buspirone Hcl 5 Mg Tablet) 5 mg PO TID [facility] Last Admin: 01/12/25 08:23 Dose: 5 mg Docusate Sodium (Docusate Sodium 100 Mg Capsule) 100 mg PO BEDTIME [facility] Last Admin: 01/11/25 21:25 Dose: 100 mg Heparin Sodium (Porcine) (Heparin Sodium,Porcine 5,000 Unit/Ml Vial) 5,000 unit SUBCUT Q8H [facility] Last Admin: 01/12/25 08:23 Dose: 5,000 unit Bumetanide 25 mg/ IV (Miscellaneous Supplies) 100 mls @ 2 mls/hr IVCONT .Q24H [facility] Last Admin: 01/11/25 11:13 Dose: 0.5 mg/hr, 2 mls/hr Lactulose (Lactulose 20 Gm/30 Ml Solution) 10 gm PO DAILY PRN PRN Reason: Constipation Last Admin: 01/11/25 14:50 Dose: 10 gm Lidocaine (Lidocaine 4 % Patch Adh..Patch) 2 patch TRANSDERMA DAILY [facility]; Protocol Last Admin: 01/12/25 08:25 Dose: 2 patch Magnesium Hydroxide (Milk Of Magnesia 30 Ml Oral.Susp) 30 ml PO DAILY PRN PRN Reason: Constipation Last Admin: 01/10/25 13:13 Dose: 30 ml Metoprolol Tartrate (Metoprolol Tartrate 12.5 Mg Halftab) 12.5 mg PO BID [facility]; Protocol Last Admin: 01/12/25 08:23 Dose: 12.5 mg Mineral Oil (Mineral Oil Enema 133 Ml Enema) 133 ml [place] ONCE PRN PRN Reason: Constipation Nystatin (Nystatin Powder 15 Gm Bottle) 1 appl TOPICAL BID [facility]; Protocol Last Admin: 01/12/25 08:27 Dose: 1 appl Ondansetron HCl (Ondansetron Hcl 4 Mg/2 Ml Vial) 4 mg IVPUSH Q8H PRN PRN Reason: Nausea and Vomiting Oxycodone HCl (Oxycodone Hcl Immed Release 5 Mg Tablet) 5 mg PO Q6H PRN PRN Reason: Pain, Moderate(Pain Scale 4-6) Last Admin: 01/12/25 08:24 Dose: 5 mg Polyethylene Glycol (Polyethylene Glycol 3350 17 Gm Powd.Pack) 17 gm PO DAILY [facility] Last Admin: 01/12/25 08:25 Dose: 17 gm Sevelamer Carbonate (Sevelamer Carbonate Tablet 800 Mg Tablet) 800 mg PO TIDWM [facility] Last Admin: 01/12/25 08:23 Dose: 800 mg Sodium Chloride (0.9 % Sodium Chloride Flush 3 Ml Syringe) 3 ml IVFLUSH QSHIFT [facility] Last Admin: 01/12/25 08:28 Dose: 3 ml Home Medications ?Medication ?Instructions ?Recorded ?Confirmed ?Last Taken ?Type aspirin 81 mg tablet,delayed 81 mg PO DAILY 01/01/25 01/01/25 12/31/24 History release bumetanide 1 mg tablet 1 mg PO BID 01/01/25 01/01/25 12/31/24 History buspirone 5 mg tablet 5 mg PO TID 01/01/25 01/01/25 12/31/24 History calcitriol 0.25 mcg capsule 0.25 mcg PO Q OTHER DAY 01/01/25 01/01/25 12/31/24 History carvedilol 3.125 mg tablet 3.125 mg PO BID 01/01/25 01/01/25 12/31/24 History docusate sodium 100 mg capsule 100 mg PO DAILY PRN Constipation 01/01/25 01/01/25 12/31/24 History multivitamin 1 tab PO DAILY 01/01/25 01/01/25 12/31/24 History umeclidinium 62.5 mcg-vilanterol 1 ea inhalation DAILY 01/01/25 01/01/25 12/31/24 History 25 mcg/actuation powdr for inhalation (Anoro Ellipta) Physical Exam Vital Signs: Vital Signs: Last Vital Signs Temp 97.1 F 01/12/25 07:11 Pulse 51 01/12/25 07:13 Resp 18 01/12/25 07:13 BP 125/49 L 01/12/25 07:11 Pulse Ox 92 01/12/25 07:11 O2 Del Method BiPAP 01/12/25 07:11 O2 Flow Rate 5 01/12/25 00:00 FiO2 35.7 01/11/25 19:28 BMI result Body Mass Index 40.6 Const: General: cooperative, no acute distress and awake Resp: Effort & Inspection: normal respiratory effort, not labored and not tachypneic GI: Other: very corpulent abdomen soft, no significant tenderness, nondistended palpable ventral hernia, soft Rectal Exam - Female: visual inspection normal, normal sphincter tone, fecal impaction (large amount of hard stool balls encountered in rectal vault ), No mass and No tenderness Skin: General skin exam: no rashes or lesions noted Results Labs 01/12/25 09:30 01/12/25 09:30 Labs: Abnormal lab results 01/12/25 Range/Units 09:30 RBC 2.73 L (4.20-5.50) X10*6/uL Hgb 8.2 L (12.0-16.0) g/dl Hct 28.6 L (37.0-47.0) % MCV 104.8 H (80.0-98.0) fL MCHC 28.7 L (31.0-35.0) g/dl RDW 18.3 H (11.0-16.0) % Immature Gran % (Auto) 0.5 H (0.0-0.4) % Neut % (Auto) 83.2 H (45-73) % Lymph % (Auto) 7.0 L (20-40) % Lymph # (Auto) 0.6 L (1.2-4.9) X10*3/uL Abs Immat Gran (auto) 0.04 H (0.00-0.03) X10*3/uL Absolute Nucleated RBC 0.030 H (0.0-0.012) X10*3/uL Nucleated RBC % (auto) 0.4 H (0.0-0.2) /100WBC Absolute Retic 0.100 H (0.026-0.095) X10*6/uL Percent Retic 3.7 H (0.5-1.8) % Immature Retic Fraction 21.2 H (3.0-15.9) % Retic Hgb Equivalent 24.9 L (30.0-35.0) pg Chloride 87 L (96-108) mmol/L Carbon Dioxide 36 H (22-29) mmol/L BUN 160 H (9-16) mg/dL Creatinine 3.13 H (0.5-1.4) mg/dL B-Natriuretic Peptide 2530 H (<100) pg/mL Short CBC 01/12/25 Range/Units 09:30 WBC 8.3 (4.8-10.8) X10*3/uL Hgb 8.2 L (12.0-16.0) g/dl Hct 28.6 L (37.0-47.0) % Plt Count 186 (160-400) X10*3/uL BMP 01/12/25 09:30 Sodium 137 Potassium 4.9 Chloride 87 L Carbon Dioxide 36 H BUN 160 H Creatinine 3.13 H Calcium 8.8 Urine 01/06/25 Range/Units 13:48 Urine Color Yellow Urine Appearance Clear Urine pH 5.5 (5.0-9.0) Ur Specific [place] 1.015 (1.005-1.025) Urine Protein Negative (Neg-Trace) mg/dL Urine Glucose (UA) Negative (Negative) mg/dL All other labs normal. Assessment and Plan (1) Fecal impaction: Status: Acute Plan 74-year-old female with multiple medical comorbidities including COPD on 3 L of home oxygen, diastolic dysfunction, pulmonary hypertension secondary to left heart dysfunction, CKD admitted on 01/01/2025 after mechanical fall with CHF and COPD exacerbation. She has had no BM since 12/31. General surgery was consulted for disimpaction. This was discussed with her and she agreed. She was placed in right lateral decubitus and this was performed at bedside uneventfully. Large amount of hard stool balls encountered and removed. She does have a small amount of residual stool in rectal vault however this was soft and therefore left. Patient tolerated well. Needs good bowel regimen. Rec colace 100mg BID, continuing miralax and lactulose daily, enemas PRN. Procedures Date of Service Date of Service: 01/12/25
[2025-01-12] MEDS: Docusate Sodium 100 MG CAPSULE PO ×2 (11:51→21:29)
--- NOTE | 2025-01-12 12:17 | PM.HEMONCCN ---
Subjective - Subjective Chief complaint: Status post fall, weakness Patient: new to practice Consult date: 01/12/25 Primary Care Provider: aMine Myers MD Working Foreman Utilized?: No - British Speaking HPI - Consult Narrative Reason for consult: Macrocytic anemia Narrative: Kylah Cisse is a 74 year old female past medical history significant for COPD on 3 L of home oxygen, history of chronic kidney disease unspecified, presented to [facility] after a mechanical. As per sister who is the main historian, patient did not have symptoms of dizziness lightheadedness prior to fall, patient does provide history of chronic shortness of breath with exertion, orthopnea, denies shortness of breath at rest, denies chest pain, no palpitations She was chronic kidney disease and follows with Nephrology. Workup in the ED showed hemoglobin 7.7, hematocrit 26.9, last hematocrit 33.22 years ago, chronically elevated MCV, stool guaiac positive, creatinine of 2.83 last creatinine 1.32 years ago. Chest x-ray showed enlarged heart with small bilateral effusion and pulmonary vascular congestion suggesting edema, left hip x-ray showed limited exam, no definite fracture or dislocation noted, x-ray left knee, showed osteopenia with no definite fractures, mild lateral subluxation of patella, joint effusion and prominent prepatellar soft tissue swelling, probable subtle bone infarction in the distal femoral metaphysis In the past, patient received blood transfusion around 2022 after right ankle surgery. She however was not told of chronic anemia, she has never seen a cell biology scientist. She was never diagnosed with any cancer and denies any family history of cancer. She had a colonoscopy more than 10 years ago. She had 2 children, 1 son unexpectedly at age 49. Review of Systems - Constitutional Reports as per HPI, Reports fatigue, Reports malaise PMFSH Social History: Social History (Last Reviewed 01/01/25 @ 08:21 by Millicent Vences MD) Living Situation History: Household Members: Family Household Members Other:: sister Housing: House Do you presently have visiting nurse or other home services: No Tobacco History: Patient Tobacco Use Status: Former Tobacco user Tobacco use type: Cigarette Smoking End Date: 11/12/19 Occupation Assessmet: service: No Home Medications and Allergies Current Medications: Current Medications Acetaminophen (Acetaminophen 325 Mg Tablet) 975 mg PO Q6H PRN PRN Reason: Pain, Moderate(Pain Scale 4-6) Last Admin: 01/05/25 19:54 Dose: 975 mg Acetazolamide (Acetazolamide 250 Mg Tablet) 500 mg PO BID [facility] Last Admin: 01/12/25 08:23 Dose: 500 mg Albuterol/Ipratropium (Albuterol/Iprat 2.5/0.5mg 3 Ml Ampul.Neb) 3 ml INHALE RQ6H WHILE AWAKE [facility] Last Admin: 01/12/25 07:13 Dose: 3 ml Aspirin (Aspirin Enteric Coated 81 Mg Tablet.Dr) 81 mg PO DAILY [facility] Last Admin: 01/10/25 08:06 Dose: 81 mg Buspirone HCl (Buspirone Hcl 5 Mg Tablet) 5 mg PO TID [facility] Last Admin: 01/12/25 08:23 Dose: 5 mg Docusate Sodium (Docusate Sodium 100 Mg Capsule) 100 mg PO BID [facility] Last Admin: 01/12/25 11:51 Dose: 100 mg Heparin Sodium (Porcine) (Heparin Sodium,Porcine 5,000 Unit/Ml Vial) 5,000 unit SUBCUT Q8H [facility] Last Admin: 01/12/25 08:23 Dose: 5,000 unit Lactulose (Lactulose 20 Gm/30 Ml Solution) 10 gm PO DAILY PRN PRN Reason: Constipation Last Admin: 01/11/25 14:50 Dose: 10 gm Lidocaine (Lidocaine 4 % Patch Adh..Patch) 2 patch TRANSDERMA DAILY [facility]; Protocol Last Admin: 01/12/25 08:25 Dose: 2 patch Magnesium Hydroxide (Milk Of Magnesia 30 Ml Oral.Susp) 30 ml PO DAILY PRN PRN Reason: Constipation Last Admin: 01/10/25 13:13 Dose: 30 ml Metoprolol Tartrate (Metoprolol Tartrate 12.5 Mg Halftab) 12.5 mg PO BID [facility]; Protocol Last Admin: 01/12/25 08:23 Dose: 12.5 mg Mineral Oil (Mineral Oil Enema 133 Ml Enema) 133 ml [place] ONCE PRN PRN Reason: Constipation Nystatin (Nystatin Powder 15 Gm Bottle) 1 appl TOPICAL BID [facility]; Protocol Last Admin: 01/12/25 08:27 Dose: 1 appl Ondansetron HCl (Ondansetron Hcl 4 Mg/2 Ml Vial) 4 mg IVPUSH Q8H PRN PRN Reason: Nausea and Vomiting Oxycodone HCl (Oxycodone Hcl Immed Release 5 Mg Tablet) 5 mg PO Q6H PRN PRN Reason: Pain, Moderate(Pain Scale 4-6) Last Admin: 01/12/25 08:24 Dose: 5 mg Polyethylene Glycol (Polyethylene Glycol 3350 17 Gm Powd.Pack) 17 gm PO DAILY [facility] Last Admin: 01/12/25 08:25 Dose: 17 gm Sevelamer Carbonate (Sevelamer Carbonate Tablet 800 Mg Tablet) 800 mg PO TIDWM [facility] Last Admin: 01/12/25 11:51 Dose: 800 mg Sodium Chloride (0.9 % Sodium Chloride Flush 3 Ml Syringe) [facility] Last Admin: 01/12/25 08:28 Dose: 3 ml Home Medications ?Medication ?Instructions ?Recorded ?Confirmed ?Type aspirin 81 mg tablet,delayed 81 mg PO DAILY 01/01/25 01/01/25 History release bumetanide 1 mg tablet 1 mg PO BID 01/01/25 01/01/25 History buspirone 5 mg tablet 5 mg PO TID 01/01/25 01/01/25 History calcitriol 0.25 mcg capsule 0.25 mcg PO Q OTHER DAY 01/01/25 01/01/25 History carvedilol 3.125 mg tablet 3.125 mg PO BID 01/01/25 01/01/25 History docusate sodium 100 mg capsule 100 mg PO DAILY PRN Constipation 01/01/25 01/01/25 History multivitamin 1 tab PO DAILY 01/01/25 01/01/25 History umeclidinium 62.5 mcg-vilanterol 1 ea inhalation DAILY 01/01/25 01/01/25 History 25 mcg/actuation powdr for inhalation (Anoro Ellipta) Allergies Allergy/AdvReac Type Severity Reaction Status Date / Time shellfish derived [shellfish] AdvReac Hives Verified 01/01/25 05:49 Physical Exam Vital signs: Vital Signs Temp 97.2 F 01/12/25 11:27 Pulse 46 L 01/12/25 11:27 Resp 16 01/12/25 11:27 BP 103/51 L 01/12/25 11:27 Pulse Ox 92 01/12/25 11:27 O2 Del Method Nasal Cannula 01/12/25 11:27 O2 Flow Rate 4 01/12/25 11:27 FiO2 35.7 01/11/25 19:28 Intake & Output 01/11/25 01/12/25 01/12/25 18:59 06:59 18:59 Intake Total 120 / 120 49.1 / 49.1 Output Total 375 / 375 Balance 120 / -255 -375 / -255 49.1 / 49.1 Urine Output (Average ml/kg/hr) 0.31 0.31 Intake: Intake, Oral Amount 120 / 120 Intake, IV Amount 49.1 / 49.1 Bumetanide 25 mg In Container, 49.1 / 49.1 Empty 0 ml @ 0.5 MG/HR 2 mls/hr IVCONT .Q24H [facility] Rx#: [id number] Output: Output, Urine Amount 225 / 225 Output, Urine Amount (Catheter) 150 / 150 2-way Urethral 150 / 150 Other: Meal Refused No NPO No Breakfast % Eaten 0% Lunch % Eaten 0% Eating (Feeding) Ability Independent Urine tavares Urine Color Yellow Last Bowel Movement 12/31/24 12/31/24 Weight 100.6 kg [place] Weight in Grams 239325 Weight 100.6 kg - Constitutional Present: no acute distress, obese - Routine HEENT Exam Head: Present: normal inspection Eye: Present: conjunctivae pale - Routine Neck Exam Absent: swelling - Routine Respiratory Exam Present: decreased breath sounds. Absent: accessory muscle use, wheezes - Routine Cardiovascular Exam Cardiovascular: Present: S1, S2 Hem/Onc Consult Result - Labs CBC & Chem 7: 01/12/25 09:30 01/12/25 09:30 Labs: Short CBC 01/12/25 Range/Units 09:30 WBC 8.3 (4.8-10.8) X10*3/uL Hgb 8.2 L (12.0-16.0) g/dl Hct 28.6 L (37.0-47.0) % Plt Count 186 (160-400) X10*3/uL BMP 01/12/25 09:30 Sodium 137 Potassium 4.9 Chloride 87 L Carbon Dioxide 36 H BUN 160 H Creatinine 3.13 H Calcium 8.8 Assessment and Plan Patient Active problem list reviewed?: Yes (1) Anemia Status: Acute Assessment and plan: 1. This is a 74-year-old woman with chronic COPD, oxygen-dependent, acute on chronic renal failure presenting with macrocytic anemia. She has no hematinic deficiencies, iron studies were normal with elevated vitamin B12 level. Normal LDH and haptoglobin level. Apart from worsening kidney failure, anemia could be from underlying bone marrow condition such as myelodysplastic syndrome, lymphoma or leukemia. Further evaluation with serum protein electrophoresis and immunofixation will be submitted. For definitive diagnosis she will need bone marrow biopsy which can be performed as outpatient. I thank you for the consultation. - Time Spent With Patient Time Spent with Patient (in minutes): 15 Additional Coding: - Additional E/M codes Complex E/M visit Add On: CPT G2211
--- NOTE | 2025-01-12 12:35 | MHC.CLN ---
F/U PT WITH INCREASED NUTRITION RISK R/T PRESSURE INJURY VARIABLE INTAKE RANGING FROM 0-100% NOTED FECAL IMPACTION AND NO BM SINCE 12/31/[address] PT RECEIVING ENSURE MAX BID TO PROMOTE WOUND HEALING SUPP PROVIDES 300KCALS, 60G PROTEIN MONITOR PO INTAKE AND ENCOURAGE SUPPLEMENTS
--- NOTE | 2025-01-12 15:39 | P.CONNP_ITS ---
History of Present Illness Reason for Consult Consult date: 01/12/25 Reason for consult: [place] Chief Complaint Chief complaint: Acute congestive heart failure History of Present Illness Narrative: 74-year-old woman with chronic kidney disease with a baseline creatinine of 2.4 mg/dL [facility] Social History Social History Household Members: Family Household Members Other:: sister Housing: House Do you presently have visiting nurse or other home services: No Comment: 1:1 sitter at bedside Patient Tobacco Use Status: Former Tobacco user Tobacco use type: Cigarette service: No Meds Allergies Allergy/AdvReac Type Severity Reaction Status Date / Time shellfish derived [shellfish] AdvReac Hives Verified 01/01/25 05:49 Active Medications: Current Medications Acetaminophen (Acetaminophen 325 Mg Tablet) 975 mg PO Q6H PRN PRN Reason: Pain, Moderate(Pain Scale 4-6) Last Admin: 01/05/25 19:54 Dose: 975 mg Acetazolamide (Acetazolamide 250 Mg Tablet) 500 mg PO BID [facility] Last Admin: 01/12/25 08:23 Dose: 500 mg Albuterol/Ipratropium (Albuterol/Iprat 2.5/0.5mg 3 Ml Ampul.Neb) 3 ml INHALE RQ6H WHILE AWAKE [facility] Last Admin: 01/12/25 13:25 Dose: 3 ml Aspirin (Aspirin Enteric Coated 81 Mg Tablet.Dr) 81 mg PO DAILY [facility] Last Admin: 01/10/25 08:06 Dose: 81 mg Buspirone HCl (Buspirone Hcl 5 Mg Tablet) 5 mg PO TID [facility] Last Admin: 01/12/25 08:23 Dose: 5 mg Docusate Sodium (Docusate Sodium 100 Mg Capsule) 100 mg PO BID [facility] Last Admin: 01/12/25 11:51 Dose: 100 mg Heparin Sodium (Porcine) (Heparin Sodium,Porcine 5,000 Unit/Ml Vial) 5,000 unit SUBCUT Q8H [facility] Last Admin: 01/12/25 08:23 Dose: 5,000 unit Sodium Chloride (Ns) 1,000 mls @ 75 mls/hr IVCONT .[id number] [facility] Lactulose (Lactulose 20 Gm/30 Ml Solution) 10 gm PO DAILY PRN PRN Reason: Constipation Last Admin: 01/11/25 14:50 Dose: 10 gm Lidocaine (Lidocaine 4 % Patch Adh..Patch) 2 patch TRANSDERMA DAILY [facility]; Protocol Last Admin: 01/12/25 08:25 Dose: 2 patch Magnesium Hydroxide (Milk Of Magnesia 30 Ml Oral.Susp) 30 ml PO DAILY PRN PRN Reason: Constipation Last Admin: 01/10/25 13:13 Dose: 30 ml Metoprolol Tartrate (Metoprolol Tartrate 12.5 Mg Halftab) 12.5 mg PO BID [facility]; Protocol Last Admin: 01/12/25 08:23 Dose: 12.5 mg Mineral Oil (Mineral Oil Enema 133 Ml Enema) 133 ml [place] ONCE PRN PRN Reason: Constipation Nystatin (Nystatin Powder 15 Gm Bottle) 1 appl TOPICAL BID [facility]; Protocol Last Admin: 01/12/25 08:27 Dose: 1 appl Ondansetron HCl (Ondansetron Hcl 4 Mg/2 Ml Vial) 4 mg IVPUSH Q8H PRN PRN Reason: Nausea and Vomiting Polyethylene Glycol (Polyethylene Glycol 3350 17 Gm Powd.Pack) 17 gm PO DAILY [facility] Last Admin: 01/12/25 08:25 Dose: 17 gm Sevelamer Carbonate (Sevelamer Carbonate Tablet 800 Mg Tablet) 800 mg PO TIDWM [facility] Last Admin: 01/12/25 11:51 Dose: 800 mg Sodium Chloride (0.9 % Sodium Chloride Flush 3 Ml Syringe) [address] [facility] Last Admin: 01/12/25 08:28 Dose: 3 ml Home Medications ?Medication ?Instructions ?Recorded ?Confirmed ?Last Taken ?Type aspirin 81 mg tablet,delayed 81 mg PO DAILY 01/01/25 01/01/25 12/31/24 History release bumetanide 1 mg tablet 1 mg PO BID 01/01/25 01/01/25 12/31/24 History buspirone 5 mg tablet 5 mg PO TID 01/01/25 01/01/25 12/31/24 History calcitriol 0.25 mcg capsule 0.25 mcg PO Q OTHER DAY 01/01/25 01/01/25 12/31/24 History carvedilol 3.125 mg tablet 3.125 mg PO BID 01/01/25 01/01/25 12/31/24 History docusate sodium 100 mg capsule 100 mg PO DAILY PRN Constipation 01/01/25 01/01/25 12/31/24 History multivitamin 1 tab PO DAILY 01/01/25 01/01/25 12/31/24 History umeclidinium 62.5 mcg-vilanterol 1 ea inhalation DAILY 01/01/25 01/01/25 12/31/24 History 25 mcg/actuation powdr for inhalation (Anoro Ellipta) Physical Exam Vital Signs: Last Vital Signs Temp 95.6 F L 01/12/25 15:10 Pulse 46 L 01/12/25 15:10 Resp 16 01/12/25 15:34 BP 92/49 L 01/12/25 15:10 Pulse Ox 93 01/12/25 15:10 O2 Del Method Nasal Cannula 01/12/25 15:10 O2 Flow Rate 4 01/12/25 15:10 FiO2 35.7 01/11/25 19:28 BMI result Body Mass Index 40.6 Results Lab Results 01/12/25 09:30 01/12/25 09:30 Lab results: Chemistry 01/10/25 01/11/25 01/12/25 07:38 06:54 09:30 Sodium 140 138 137 Potassium 4.1 4.5 4.9 Carbon Dioxide 38 H 36 H 36 H BUN 130 H 132 H 160 H Creatinine 2.58 H 2.84 H 3.13 H Calcium 8.6 8.4 8.8 Hematology 01/10/25 01/10/25 01/11/25 07:38 21:23 06:54 WBC 7.7 8.2 Hgb 6.6 L* 7.7 L 7.4 L Plt Count 161 D 169 01/12/25 09:30 WBC 8.3 Hgb 8.2 L Plt Count 186 Procedures Date of Service Date of Service: 01/12/25
[2025-01-12 16:20] LABS: TSH reflex Free T4 1.39 uIU/mL (0.32-4.0)
[2025-01-12 16:36] LABS: MANUAL DIFF FLAG NO
[2025-01-12] MEDS: 0.9 % Sodium Chloride 1,000 ML 75 ML IVCONT (16:40)
[2025-01-12 16:42] LABS: Basophils Percent Auto 0.1 % (0-2); Eosinophils Absolute Auto 0.1 X10*3/uL (0.0-0.4); Eosinophils Percent Auto 0.7 % (0-4); Hematocrit 27.2 % (37.0-47.0); Hemoglobin 7.8 g/dl (12.0-16.0); Imm Gran Abs Auto 0.06 X10*3/uL (0.00-0.03); Imm Gran Pct Auto 0.6 % (0.0-0.4); Lymphocytes Absolute Auto 0.3 X10*3/uL (1.2-4.9); Lymphocytes Percent Auto 3.2 % (20-40); Mean Corpuscular HGB Conc 28.7 g/dl (31.0-35.0); Mean Corpuscular Hemoglobin 30.6 pg (27.0-33.0); Mean Corpuscular Volume 106.7 fL (80.0-98.0); Mean Platelet Volume 10.7 fL (9.4-12.3); Monocytes Absolute Auto 0.7 X10*3/uL (0.1-1.2); Monocytes Percent Auto 6.8 % (2-11); NRBC Pct Auto 0.4 /100WBC (0.0-0.2); Neutrophils Absolute Auto 8.6 x10*3/uL (2.0-8.3); Neutrophils Percent Auto 88.6 % (45-73); Platelet Count 174 X10*3/uL (160-400); Red Blood Count 2.55 X10*6/uL (4.20-5.50); Red Cell Distribution Width 18.3 % (11.0-16.0); White Blood Count 9.7 X10*3/uL (4.8-10.8)
[2025-01-12 16:57] LABS: Alanine Aminotransferase < 6 U/L (0-31); Albumin Level 3.1 g/dL (3.5-5.0); Alkaline Phosphatase 61 U/L (39-117); Anion Gap 18 (12-20); Aspartate Amino Transferase 26 U/L (5-31); Bilirubin Direct 0.3 mg/dL (0.0-0.5); Bilirubin Total 0.6 mg/dL (0.0-1.0); Calcium 8.1 mg/dL (8.4-10.2); Carbon Dioxide 39 mmol/L (22-29); Chloride 86 mmol/L (96-108); Creatinine Clr Calc Pharmacy 16.1; Estimated Glomerular Filt Rate 13; Glucose Random 125 mg/dL (60-115); Potassium 5.1 mmol/L (3.3-5.1); Sodium 138 mmol/L (135-145); Total Protein 6.9 g/dL (6.5-8.0)
[2025-01-12 17:12] LABS: Blood Urea Nitrogen 153 mg/dL (9-16)
[2025-01-12 17:23] LABS: Appearance Urine Cloudy; Color Urine Yellow; Glucose Urine UA Negative (Negative); Leukocyte Esterase Urine Moderate (2+) (Negative); Nitrite Urine Positive (Negative); UMIC TRIGGER UACC YES; Urine Blood Moderate (2+) (Negative); Urine Ketones Negative (Negative); Urine Protein 30 (1+) mg/dL (Neg-Trace)
[2025-01-12 17:36] LABS: Bacteria Urine 4+ (None Seen); UACC Culture Trigger YES; WBC Urine >50 /HPF (0-5)
[2025-01-12 17:47] LABS: Influenza A PCR NEGATIVE (Negative); Influenza B PCR NEGATIVE (Negative); Resp Syncy Virus RNA Qual PCR NEGATIVE (Negative); SARS COV2 PCR INHOUSE NEGATIVE (Negative)
[2025-01-12] MEDS: Piperacillin Sodium/Tazobactam 2.25 GM in 0.9 % Sodium Chloride 50 ML IV (21:29)
[2025-01-13] VITALS (11 sets, daily range): BP systolic 93–142; BP diastolic 47–64; PULSE 46–57; RESP 15–24; TEMP 36.1–36.6; O2SAT 88–100; BMI 41.5
[2025-01-13] MEDS: Heparin Sodium,Porcine 5,000 UNIT/ML VIAL 5000 UNIT SUBCUT ×3 (00:22→15:34)
[2025-01-13] MEDS: Piperacillin Sodium/Tazobactam 2.25 GM in 0.9 % Sodium Chloride 50 ML IV ×3 (05:25→23:19)
[2025-01-13] MEDS: 0.9 % Sodium Chloride 1,000 ML 75 ML IVCONT ×2 (05:29→18:29)
[2025-01-13] MEDS: Sevelamer Carbonate Tablet 800 MG TABLET PO (07:29)
[2025-01-13] MEDS: busPIRone HCl 5 MG TABLET PO (07:29)
[2025-01-13] MEDS: Docusate Sodium 100 MG CAPSULE PO (07:29)
[2025-01-13] MEDS: acetaZOLAMIDE 250 MG TABLET 500 MG PO (07:29)
[2025-01-13] MEDS: Lidocaine 4 % Patch ADH..PATCH 2 PATCH TRANSDERMA (07:30)
[2025-01-13] MEDS: polyethylene glycoL 3350 17 GM POWD.PACK PO (07:30)
[2025-01-13 07:37] LABS: Anion Gap 19 (12-20); Calcium 8.1 mg/dL (8.4-10.2); Carbon Dioxide 34 mmol/L (22-29); Chloride 88 mmol/L (96-108); Estimated Glomerular Filt Rate 13; Glucose Random 89 mg/dL (60-115); Potassium 5.4 mmol/L (3.3-5.1); Sodium 136 mmol/L (135-145)
[2025-01-13 07:42] LABS: Blood Urea Nitrogen 149 mg/dL (9-16)
[2025-01-13] MEDS: Lactulose 20 GM/30 ML SOLUTION 10 GM PO (07:45)
[2025-01-13] MEDS: Nystatin Powder 15 GM BOTTLE 1 APPL TOPICAL ×2 (07:48→22:00)
[2025-01-13] MEDS: 0.9 % Sodium Chloride Flush 3 ML SYRINGE IVFLUSH ×2 (07:48→15:42)
--- NOTE | 2025-01-13 08:48 | HO.PM.IMPN ---
Subjective Subjective Date of Service: 01/13/25 Interval History: Seen in follow-up for acute on chronic respiratory failure, CHF, acute kidney injury Interval history: Pt minimally responsive on bipap during interview. Minimal urine output. No bm. Review of Systems Review of Systems: Yes all other systems are reviewed and are negative Physical Exam Vital Signs: Vital Signs: Last Vital Signs Temp 97.8 F 01/13/25 07:10 Pulse 55 01/13/25 07:10 Resp 20 01/13/25 07:10 BP 105/51 L 01/13/25 07:10 Pulse Ox 95 01/13/25 07:10 O2 Del Method Nasal Cannula 01/13/25 07:10 O2 Flow Rate 4 01/13/25 07:10 FiO2 35.7 01/11/25 19:28 BMI result Body Mass Index 41.5 Constitutional - obtunded, No apparent distress Eyes - PERRLA, EOMI Cardiovascular - S1S2, RRR, 2+ edema Respiratory - Normal lung expansion, Normal respiratory effort, No respiratory distress, bilateral crackles Gastrointestinal - NT / ND; +BS; No rebound or guarding Extremities - no calf tenderness bilaterally, no swelling Skin - Warm/Dry Neurological - obtunded Objective Data Active Medications Acetaminophen (Acetaminophen 325 Mg Tablet) 975 mg PO Q6H PRN PRN Reason: Pain, Moderate(Pain Scale 4-6) Last Admin: 01/05/25 19:54 Dose: 975 mg Documented By: CLARK Acetazolamide (Acetazolamide 250 Mg Tablet) 500 mg PO BID [facility] Last Admin: 01/13/25 07:29 Dose: 500 mg Documented By: REYNA Albuterol/Ipratropium (Albuterol/Iprat 2.5/0.5mg 3 Ml Ampul.Neb) 3 ml INHALE RQ6H WHILE AWAKE [facility] Last Admin: 01/13/25 07:23 Dose: Not Given Documented By: VANNESA Non-Admin Reason: Patient Refused Aspirin (Aspirin Enteric Coated 81 Mg Tablet.) 81 mg PO DAILY [facility] Last Admin: 01/10/25 08:06 Dose: 81 mg Documented By: CALEB Buspirone HCl (Buspirone Hcl 5 Mg Tablet) 5 mg PO TID [facility] Last Admin: 01/13/25 07:29 Dose: 5 mg Documented By: REYNA Docusate Sodium (Docusate Sodium 100 Mg Capsule) 100 mg PO BID [facility] Last Admin: 01/13/25 07:29 Dose: 100 mg Documented By: REYNA Heparin Sodium (Porcine) (Heparin Sodium,Porcine 5,000 Unit/Ml Vial) 5,000 unit SUBCUT Q8H [facility] Last Admin: 01/13/25 07:46 Dose: 5,000 unit Documented By: REYNA Sodium Chloride (Ns) 1,000 mls @ 75 mls/hr IVCONT .[id number] [facility] Last Admin: 01/13/25 05:29 Dose: 75 mls/hr Documented By: SAMUEL Piperacillin Sod/Tazobactam (Sod 2.25 gm/ Sodium Chloride) 50 mls @ 100 mls/hr IV Q8H [facility] Last Infusion: 01/13/25 06:30 Dose: Infused Documented By: SAMUEL Lactulose (Lactulose 20 Gm/30 Ml Solution) 10 gm PO DAILY PRN PRN Reason: Constipation Last Admin: 01/13/25 07:45 Dose: 10 gm Documented By: REYNA Lidocaine (Lidocaine 4 % Patch Adh..Patch) 2 patch TRANSDERMA DAILY [facility]; Protocol Last Admin: 01/13/25 07:30 Dose: 2 patch Documented By: REYNA Magnesium Hydroxide (Milk Of Magnesia 30 Ml Oral.Susp) 30 ml PO DAILY PRN PRN Reason: Constipation Last Admin: 01/10/25 13:13 Dose: 30 ml Documented By: CALEB Mineral Oil (Mineral Oil Enema 133 Ml Enema) 133 ml [place] ONCE PRN PRN Reason: Constipation Nystatin (Nystatin Powder 15 Gm Bottle) 1 appl TOPICAL BID [facility]; Protocol Last Admin: 01/13/25 07:48 Dose: 1 appl Documented By: REYNA Ondansetron HCl (Ondansetron Hcl 4 Mg/2 Ml Vial) 4 mg IVPUSH Q8H PRN PRN Reason: Nausea and Vomiting Polyethylene Glycol (Polyethylene Glycol 3350 17 Gm Powd.Pack) 17 gm PO DAILY [facility] Last Admin: 01/13/25 07:30 Dose: 17 gm Documented By: ERYNA Sevelamer Carbonate (Sevelamer Carbonate Tablet 800 Mg Tablet) 800 mg PO TIDWM [facility] Last Admin: 01/13/25 07:29 Dose: 800 mg Documented By: REYNA Sodium Chloride (0.9 % Sodium Chloride Flush 3 Ml Syringe) [facility] Last Admin: 01/13/25 07:48 Dose: 3 ml Documented By: REYNA Labs 01/12/25 16:28 01/13/25 06:54 Labs: Laboratory Results - last 24 hr 01/12/25 01/12/25 01/12/25 09:30 15:32 16:28 MCV 104.8 H 106.7 H MCH 30.0 30.6 MCHC 28.7 L 28.7 L RDW 18.3 H 18.3 H Plt Count 186 174 MPV 11.6 10.7 Immature Gran % (Auto) 0.5 H 0.6 H Neut % (Auto) 83.2 H 88.6 H Lymph % (Auto) 7.0 L 3.2 L [place] % (Auto) 7.6 6.8 Eos % (Auto) 1.3 0.7 Baso % (Auto) 0.4 0.1 Lymph # (Auto) 0.6 L 0.3 L [place] # (Auto) 0.6 0.7 Eos # (Auto) 0.1 0.1 Baso # (Auto) 0.0 0.0 Abs Immat Gran (auto) 0.04 H 0.06 H Absolute Neuts (auto) 6.9 8.6 H Absolute Nucleated RBC 0.030 H 0.040 H Nucleated RBC % (auto) 0.4 H 0.4 H Smear Tech's Comments VERIFIED Absolute Retic 0.100 H Percent Retic 3.7 H Immature Retic Fraction 21.2 H Retic Hgb Equivalent 24.9 L Hold Purple Top Anion Gap 19 18 Estim Creat Clear Calc 18.0 16.1 Estimated GFR 15 13 Random Glucose 93 125 H Haptoglobin 243 Calcium 8.8 8.1 L D Total Bilirubin 0.6 Direct Bilirubin 0.3 AST 26 ALT < 6 Alkaline Phosphatase 61 Lactate Dehydrogenase 204 B-Natriuretic Peptide 2530 H Total Protein 6.9 Albumin 3.1 L TSH 1.39 Urine Color Urine Appearance Urine pH Ur Specific [place] Urine Protein Urine Glucose (UA) Urine Ketones Urine Blood Urine Nitrite Ur Leukocyte Esterase Urine RBC Urine WBC Ur Squamous Epith Cells Urine Bacteria Hyaline Casts Influenza Type A (PCR) Influenza Type B (PCR) RSV RNA Qual (PCR) SARS-CoV-2 RNA (RT-PCR) 01/12/25 01/13/25 17:04 06:54 MCV MCH MCHC RDW Plt Count MPV Immature Gran % (Auto) Neut % (Auto) Lymph % (Auto) [place] % (Auto) Eos % (Auto) Baso % (Auto) Lymph # (Auto) [place] # (Auto) Eos # (Auto) Baso # (Auto) Abs Immat Gran (auto) Absolute Neuts (auto) Absolute Nucleated RBC Nucleated RBC % (auto) Smear Tech's Comments Absolute Retic Percent Retic Immature Retic Fraction Retic Hgb Equivalent Hold Purple Top SEE NOTE Anion Gap 19 Estim Creat Clear Calc 16.0 Estimated GFR 13 Random Glucose 89 Haptoglobin Calcium 8.1 L Total Bilirubin Direct Bilirubin AST ALT Alkaline Phosphatase Lactate Dehydrogenase B-Natriuretic Peptide Total Protein Albumin TSH Urine Color Yellow Urine Appearance Cloudy Urine pH 5.0 Ur Specific [place] 1.010 Urine Protein 30 (1+) H Urine Glucose (UA) Negative Urine Ketones Negative Urine Blood Moderate (2+) H Urine Nitrite Positive H Ur Leukocyte Esterase Moderate (2+) H Urine RBC 3-5 H Urine WBC >50 H Ur Squamous Epith Cells 11-20 Urine Bacteria 4+ Hyaline Casts 11-20 Influenza Type A (PCR) NEGATIVE Influenza Type B (PCR) NEGATIVE RSV RNA Qual (PCR) NEGATIVE SARS-CoV-2 RNA (RT-PCR) NEGATIVE Assessment and Plan (1) CHF exacerbation: Status: Acute (2) Acute on chronic respiratory failure with hypoxia and hypercapnia: Status: Acute (3) COPD (chronic obstructive pulmonary disease): Status: Acute (4) Anemia: Status: Acute (5) History of chronic carbon dioxide retention: Status: Acute (6) CKD (chronic kidney disease): Status: Acute (7) Atrial tachycardia: Status: Acute Plan 74-year-old lady with underlying COPD on 3 L of home oxygen, diastolic dysfunction, pulmonary hypertension secondary to left heart dysfunction, CKD followed by [facility] admitted on 01/01/2025 after mechanical fall, and also worsening dyspnea on exertion and orthopnea. Patient initially admitted to telemetry abarca and started empiric treatment for congestive heart failure and COPD exacerbation. Hospital course significant for worsening respiratory failure with CO2 retention requiring BiPAP support and transferred to intensive care unit. Patient diuresed with Bumex drip and titrated off daytime BiPAP support, continued on nocturnal BiPAP due to underlying chronic CO2 retention. Acute toxic metabolic encephalopathy likely r/t multiorgan failure ammonia 98- pr lactulose ordered with minimal improvement Discussed with Dr. Carrillo for possible ICU transfer. Prognosis guarded. Call placed to patient's brother who is driving to hospital to discuss goals of care Acute on Chronic hypercarbic and hypoxic respiratory failure due to obstructive sleep apnea not on home CPAP/mild COPD exacerbation overnight sleep study done to be read by Dr. Mercer Continue BiPAP at night and daytime for naps. Supplemental O2, baseline 3-4 L, bipap added 3/ due to increased WOB, volume overload Elevated bicarb added diamox, stable Continue updraft q.6 hours. Continue bipap. Transfer to ICU for intubation if indicated. Based on discussion with patient yesterday, desires to be full code even if on a ventilator. Should she become more lucid and awake, consider incentive spirometry Acute chf exacerbation pEF moderate TR and [id number] pulmonary hypertension Elevated BNP 2967 > 3589 >2860 > 2547, no prior labs available,On 3 L of home oxygen, treated in ICU initially with IV Bumex subsequently transitioned to acetazolamide IV Echocardiogram showed EF greater than 70, moderately increased right ventricular cavity size, moderate tricuspid regurg, [id number] pulmonary hypertension, no wall motion abnormality Chest x-ray 01/07 showed cardiomegaly, pulmonary vascular congestion and small bilateral effusion. CXR 01/11 showed bilateral effusions, possibly worsening Discussed with Cardiology and Nephrology they recommend to continue Bumex 1 mg b.i.d. s/p metolazone 5 mg x 1 on 01/07. Continue diamox 500mg BID. 01/11 changed to bumex drip and added high flow due to volume overload with clinical improvement. 01/12- Per cardiology, diuresis has slowed. Creat is increasing. Recommends dc'ing bumex and nephrology consult which was placed. Strict Is&Os/daily weight > 3.7liter neg Warren catheter for fluid management, strict I&O Hypothermia No other SIRS criteria Rule out infectious etiology with CBC, CXR, UA, CT abdomen/pelvis CBC and BMP as well as liver panel ordered. Check for influenza, RSV, COVID-19 Acute on chronic kidney disease stage 3/cardiorenal syndrome baseline creatinine between 1.8 was on Bumex 1 mg b.i.d. at home Creatinine trending down 3.12 to 2.41 to 2.8 with diuresis > 3.14 Renal ultrasound showed no obstruction Continue gentle fluid resuscitation and follow BMP Elevated phosphorus/magnesium, follow labs added phosphate binders Renvela 800 mg t.i.d. on 01/01 6th Per nephrology, add sodium zirconium Strict I&O If no improvement, will need renal replacement Supraventricular tachycardia Tele monitor showed frequent atrial tachycardia/SVT with episode of bradycardia case discussed with Cardiology, dinh dc'd 01/07, heart rate improved with BiPAP Continues with runs of tachcyardia. Metoprolol initially recommended. Discontinued due to bradycardia Acute on chronic macrocytic anemia likely anemia of chronic disease vs myelodysplastic syndrome Stool guaiac positive in ED nl B12/folate/iron studies Received 1 unit of packed RBC , hematocrit improved , Procrit given 01/07. Addl unit PRBC 01/10 Given worsening anemia despite the above and increasing BUN 130 today, recheck FOBT. IV PPI, clear liquids. Seen by GI, doubt GI bleed. Recommended Heme consult Heme following Elevated BUN Mentation baseline- no uremia Likely r/t steroid use. No gi bleed per gi Elevated troponin but flat, , asymptomatic no chest pain, abnormal EKG however no prior EKGs available for comparison. echocardiogram no WMA Constipation No BM since 12/31. Mild abd pain. No n/v Ordered KUB but unable to lay flat Continue docusate and miralax. Encourage PRNs (refuses lactulose). Added glycerin supp. Consider golytely once volume status improves Fecal impaction present. Unable to advance enema to assist with impaction. Disimpacted by General surgery on 01/12 without any further bowel movement CT abdomen/pelvis ordered Mechanical fall with left elbow/left hip and left knee injury Imaging study showed no acute fractures, x-ray left knee abnormal Ortho recommended no acute intervention outpatient follow-up upon discharge PT eval prior to discharge once respiratory status and heart rate stable Repeat xr 01/11 showed large effusion. Compression bandage and outpt follow up Posterior L thigh pain Venous duplex negative for DVT likely r/t edema. continue diuresis Hyperglycemia No history of diabetes hemoglobin A1c 5.4 Class 3 obesity Recommend low-calorie diet Deep tissue injury sacrum/ischium/right heel present on admission continue barrier cream and foam dressing to sacrum DVT prophylaxis compression boots /heparin Full code- rediscussed code status and patient desires to be full code. Patient obtunded, call placed to patient's brother who is driving to the hospital to further discuss goals of care. Discussed with Dr. Carrillo who will transfer the patient to the ICU should intubation/ventilation be indicated given patient's current code status. In my clinical judgment patient requires continued inpatient hospitalization for management of acute CHF/acute hypoxic respiratory failure Quality Stroke Does the patient have a stroke diagnosis?: No VTE Prior VTE?: No VTE Risk Level:: Medical - moderate - high VTE Device Contraindication: N/A - Device Ordered VTE Drug Contraindication: N/A - Med Ordered
--- NOTE | 2025-01-13 10:05 | P.PNGS_ITS ---
Subjective Subjective Date of Service: 01/13/25 Interval history: No BM following disimpaction. Denies abd pain. Oral intake is minimal. Passing flatus. Physical Exam 2 Vital Signs: Vital Signs: Last Vital Signs Temp 97.8 F 01/13/25 07:10 Pulse 55 01/13/25 07:10 Resp 20 01/13/25 07:10 BP 105/51 L 01/13/25 07:10 Pulse Ox 95 01/13/25 07:10 O2 Del Method Nasal Cannula 01/13/25 07:10 O2 Flow Rate 4 01/13/25 07:10 FiO2 35.7 01/11/25 19:28 BMI result Body Mass Index 41.5 Const: General: comfortable, no acute distress and alert Resp: Effort & Inspection: not labored and not tachypneic GI: Other: markedly corpulent abdomen mild upper and lower abd tenderness Percussion: Yes normal to percussion Skin: General skin exam: no rashes or lesions noted Objective Data Active Medications Acetaminophen (Acetaminophen 325 Mg Tablet) 975 mg PO Q6H PRN PRN Reason: Pain, Moderate(Pain Scale 4-6) Last Admin: 01/05/25 19:54 Dose: 975 mg Documented By: CLARK Acetazolamide (Acetazolamide 250 Mg Tablet) 500 mg PO BID [facility] Last Admin: 01/13/25 07:29 Dose: 500 mg Documented By: REYNA Albuterol/Ipratropium (Albuterol/Iprat 2.5/0.5mg 3 Ml Ampul.Neb) 3 ml INHALE RQ6H WHILE AWAKE [facility] Last Admin: 01/13/25 07:23 Dose: Not Given Documented By: VANNESA Non-Admin Reason: Patient Refused Aspirin (Aspirin Enteric Coated 81 Mg Tablet.) 81 mg PO DAILY [facility] Last Admin: 01/10/25 08:06 Dose: 81 mg Documented By: CALEB Buspirone HCl (Buspirone Hcl 5 Mg Tablet) 5 mg PO TID [facility] Last Admin: 01/13/25 07:29 Dose: 5 mg Documented By: REYNA Docusate Sodium (Docusate Sodium 100 Mg Capsule) 100 mg PO BID [facility] Last Admin: 01/13/25 07:29 Dose: 100 mg Documented By: REYNA Heparin Sodium (Porcine) (Heparin Sodium,Porcine 5,000 Unit/Ml Vial) 5,000 unit SUBCUT Q8H [facility] Last Admin: 01/13/25 07:46 Dose: 5,000 unit Documented By: REYNA Sodium Chloride (Ns) 1,000 mls @ 75 mls/hr IVCONT .[id number] [facility] Last Admin: 01/13/25 05:29 Dose: 75 mls/hr Documented By: SAMUEL Piperacillin Sod/Tazobactam (Sod 2.25 gm/ Sodium Chloride) 50 mls @ 100 mls/hr IV Q8H [facility] Last Infusion: 01/13/25 06:30 Dose: Infused Documented By: SAMUEL Lactulose (Lactulose 20 Gm/30 Ml Solution) 10 gm PO DAILY PRN PRN Reason: Constipation Last Admin: 01/13/25 07:45 Dose: 10 gm Documented By: REYNA Lidocaine (Lidocaine 4 % Patch Adh..Patch) 2 patch TRANSDERMA DAILY [facility]; Protocol Last Admin: 01/13/25 07:30 Dose: 2 patch Documented By: REYNA Magnesium Hydroxide (Milk Of Magnesia 30 Ml Oral.Susp) 30 ml PO DAILY PRN PRN Reason: Constipation Last Admin: 01/10/25 13:13 Dose: 30 ml Documented By: CALEB Mineral Oil (Mineral Oil Enema 133 Ml Enema) 133 ml [place] ONCE PRN PRN Reason: Constipation Nystatin (Nystatin Powder 15 Gm Bottle) 1 appl TOPICAL BID [facility]; Protocol Last Admin: 01/13/25 07:48 Dose: 1 appl Documented By: REYNA Ondansetron HCl (Ondansetron Hcl 4 Mg/2 Ml Vial) 4 mg IVPUSH Q8H PRN PRN Reason: Nausea and Vomiting Polyethylene Glycol (Polyethylene Glycol 3350 17 Gm Powd.Pack) 17 gm PO DAILY [facility] Last Admin: 01/13/25 07:30 Dose: 17 gm Documented By: REYNA Sevelamer Carbonate (Sevelamer Carbonate Tablet 800 Mg Tablet) 800 mg PO TIDWM [facility] Last Admin: 01/13/25 07:29 Dose: 800 mg Documented By: REYNA Sodium Chloride (0.9 % Sodium Chloride Flush 3 Ml Syringe) 3 ml IVFLUSH QSHIFT [facility] Last Admin: 01/13/25 07:48 Dose: 3 ml Documented By: REYNA Labs 01/12/25 16:28 01/13/25 06:54 Labs: Laboratory Results - last 24 hr 01/12/25 01/12/25 01/12/25 09:30 15:32 16:28 MCV 104.8 H 106.7 H MCH 30.0 30.6 MCHC 28.7 L 28.7 L RDW 18.3 H 18.3 H Plt Count 186 174 MPV 11.6 10.7 Immature Gran % (Auto) 0.5 H 0.6 H Neut % (Auto) 83.2 H 88.6 H Lymph % (Auto) 7.0 L 3.2 L [place] % (Auto) 7.6 6.8 Eos % (Auto) 1.3 0.7 Baso % (Auto) 0.4 0.1 Lymph # (Auto) 0.6 L 0.3 L [place] # (Auto) 0.6 0.7 Eos # (Auto) 0.1 0.1 Baso # (Auto) 0.0 0.0 Abs Immat Gran (auto) 0.04 H 0.06 H Absolute Neuts (auto) 6.9 8.6 H Absolute Nucleated RBC 0.030 H 0.040 H Nucleated RBC % (auto) 0.4 H 0.4 H Smear Tech's Comments VERIFIED Absolute Retic 0.100 H Percent Retic 3.7 H Immature Retic Fraction 21.2 H Retic Hgb Equivalent 24.9 L Hold Purple Top Anion Gap 19 18 Estim Creat Clear Calc 18.0 16.1 Estimated GFR 15 13 Random Glucose 93 125 H Haptoglobin 243 Calcium 8.8 8.1 L D Total Bilirubin 0.6 Direct Bilirubin 0.3 AST 26 ALT < 6 Alkaline Phosphatase 61 Lactate Dehydrogenase 204 B-Natriuretic Peptide 2530 H Total Protein 6.9 Albumin 3.1 L TSH 1.39 Urine Color Urine Appearance Urine pH Ur Specific [place] Urine Protein Urine Glucose (UA) Urine Ketones Urine Blood Urine Nitrite Ur Leukocyte Esterase Urine RBC Urine WBC Ur Squamous Epith Cells Urine Bacteria Hyaline Casts Influenza Type A (PCR) Influenza Type B (PCR) RSV RNA Qual (PCR) SARS-CoV-2 RNA (RT-PCR) 01/12/25 01/13/25 17:04 06:54 MCV MCH MCHC RDW Plt Count MPV Immature Gran % (Auto) Neut % (Auto) Lymph % (Auto) [place] % (Auto) Eos % (Auto) Baso % (Auto) Lymph # (Auto) [place] # (Auto) Eos # (Auto) Baso # (Auto) Abs Immat Gran (auto) Absolute Neuts (auto) Absolute Nucleated RBC Nucleated RBC % (auto) Smear Tech's Comments Absolute Retic Percent Retic Immature Retic Fraction Retic Hgb Equivalent Hold Purple Top SEE NOTE Anion Gap 19 Estim Creat Clear Calc 16.0 Estimated GFR 13 Random Glucose 89 Haptoglobin Calcium 8.1 L Total Bilirubin Direct Bilirubin AST ALT Alkaline Phosphatase Lactate Dehydrogenase B-Natriuretic Peptide Total Protein Albumin TSH Urine Color Yellow Urine Appearance Cloudy Urine pH 5.0 Ur Specific [place] 1.010 Urine Protein 30 (1+) H Urine Glucose (UA) Negative Urine Ketones Negative Urine Blood Moderate (2+) H Urine Nitrite Positive H Ur Leukocyte Esterase Moderate (2+) H Urine RBC 3-5 H Urine WBC >50 H Ur Squamous Epith Cells 11-20 Urine Bacteria 4+ Hyaline Casts 11-20 Influenza Type A (PCR) NEGATIVE Influenza Type B (PCR) NEGATIVE RSV RNA Qual (PCR) NEGATIVE SARS-CoV-2 RNA (RT-PCR) NEGATIVE Procedures Date of Service Date of Service: 01/13/25 Progress Note: A&P Assessment and plan (1) Fecal impaction: Status: Acute Plan CT scan abd/pelvis ordered yesterday and reviewed. She does appear to have large stool burden in the proximal sigmoid which is unreachable for further disimpaction but has air distally in rectum. No evidence of obstruction. Recommend enema and the patient is currently agreeable. Can attempt bowel prep if comorbidities allow. CT questioning acute cholecystitis due to gallbladder distention however this may be due to lack emptying given her poor PO intake. She denies RUQ pain and is non tender on exam. Time Spent With Patient Time: Total time managing care of this patient today ____ minutes. Quality Stroke Does the patient have a stroke diagnosis?: No VTE Prior VTE?: No VTE Risk Level:: Medical - moderate - high VTE Device Contraindication: N/A - Device Ordered VTE Drug Contraindication: N/A - Med Ordered
--- NOTE | 2025-01-13 10:48 | PM.PNCARD ---
Subjective Subjective Date of Service: 01/13/25 Principal diagnosis: shortness of breath, sinus bradycardia Interval history: Patient did receive metoprolol yesterday overnight had some sinus bradycardia. This morning heart rate in the 50s. Blood pressure is stable. No more arrhythmias noted. Remains to require high levels of oxygen with some hypoxemia noted. Overall positive fluid balance but renal function has been worsening. No significant worsening leg edema or other symptoms. Patient was not very forthcoming with any other symptoms at this time. Remains anemic Review of Systems Review of Systems Yes Unobtainable due to mental status Physical Exam Vital Signs: Last Vital Signs Temp 97.8 F 01/13/25 07:10 Pulse 55 01/13/25 07:10 Resp 20 01/13/25 07:10 BP 105/51 L 01/13/25 07:10 Pulse Ox 95 01/13/25 07:10 O2 Del Method Nasal Cannula 01/13/25 07:10 O2 Flow Rate 4 01/13/25 07:10 FiO2 35.7 01/11/25 19:28 BMI result Body Mass Index 41.5 Const General: cooperative, alert, awake and tired appearing Nutritional Appearance: obese Orientation/consciousness: patient oriented x3 Neck Neck: Yes trachea midline, Yes supple and Yes no JVD ( However difficult to assess due to her body habitus) Resp Effort & Inspection: decreased respiratory effort Auscultation: clear to auscultation bilaterally and diminished lung sounds Cardio Rate: bradycardic Rhythm: regular rhythm Heart sounds: S1 normal heart sound present, S2 normal heart sound present, no click and no gallops GI Inspection: Yes obesity Auscultation: normal bowel sounds Skin General skin exam: no rashes or lesions noted and ecchymosis Neuro General: patient oriented x3 and moves all extremities Extrem General: No clubbing, No cyanosis and Yes edema Objective Labs and Meds 01/12/25 16:28 01/13/25 06:54 Lab results: Laboratory Results - last 24 hr 01/12/25 01/12/25 01/12/25 15:32 16:28 17:04 WBC 9.7 RBC 2.55 L Hgb 7.8 L Hct 27.2 L MCV 106.7 H MCH 30.6 MCHC 28.7 L RDW 18.3 H Plt Count 174 MPV 10.7 Immature Gran % (Auto) 0.6 H Neut % (Auto) 88.6 H Lymph % (Auto) 3.2 L [place] % (Auto) 6.8 Eos % (Auto) 0.7 Baso % (Auto) 0.1 Lymph # (Auto) 0.3 L [place] # (Auto) 0.7 Eos # (Auto) 0.1 Baso # (Auto) 0.0 Abs Immat Gran (auto) 0.06 H Absolute Neuts (auto) 8.6 H Absolute Nucleated RBC 0.040 H Nucleated RBC % (auto) 0.4 H Hold Purple Top Sodium 138 Potassium 5.1 Chloride 86 L Carbon Dioxide 39 H Anion Gap 18 BUN 153 H Creatinine 3.50 H Estim Creat Clear Calc 16.1 Estimated GFR 13 Random Glucose 125 H Calcium 8.1 L D Total Bilirubin 0.6 Direct Bilirubin 0.3 AST 26 ALT < 6 Alkaline Phosphatase 61 Total Protein 6.9 Albumin 3.1 L TSH 1.39 Urine Color Yellow Urine Appearance Cloudy Urine pH 5.0 Ur Specific [place] 1.010 Urine Protein 30 (1+) H Urine Glucose (UA) Negative Urine Ketones Negative Urine Blood Moderate (2+) H Urine Nitrite Positive H Ur Leukocyte Esterase Moderate (2+) H Urine RBC 3-5 H Urine WBC >50 H Ur Squamous Epith Cells 11-20 Urine Bacteria 4+ Hyaline Casts 11-20 Influenza Type A (PCR) NEGATIVE Influenza Type B (PCR) NEGATIVE RSV RNA Qual (PCR) NEGATIVE SARS-CoV-2 RNA (RT-PCR) NEGATIVE 01/13/25 06:54 WBC RBC Hgb Hct MCV MCH MCHC RDW Plt Count MPV Immature Gran % (Auto) Neut % (Auto) Lymph % (Auto) [place] % (Auto) Eos % (Auto) Baso % (Auto) Lymph # (Auto) [place] # (Auto) Eos # (Auto) Baso # (Auto) Abs Immat Gran (auto) Absolute Neuts (auto) Absolute Nucleated RBC Nucleated RBC % (auto) Hold Purple Top SEE NOTE Sodium 136 Potassium 5.4 H Chloride 88 L Carbon Dioxide 34 H Anion Gap 19 BUN 149 H Creatinine 3.57 H Estim Creat Clear Calc 16.0 Estimated GFR 13 Random Glucose 89 Calcium 8.1 L Total Bilirubin Direct Bilirubin AST ALT Alkaline Phosphatase Total Protein Albumin TSH Urine Color Urine Appearance Urine pH Ur Specific [place] Urine Protein Urine Glucose (UA) Urine Ketones Urine Blood Urine Nitrite Ur Leukocyte Esterase Urine RBC Urine WBC Ur Squamous Epith Cells Urine Bacteria Hyaline Casts Influenza Type A (PCR) Influenza Type B (PCR) RSV RNA Qual (PCR) SARS-CoV-2 RNA (RT-PCR) Progress Note: A&P Assessment and plan (1) Acute on chronic respiratory failure with hypoxia and hypercapnia: Status: Acute Assessment and Plan: Acute respiratory failure most likely due to poor ventilation in this elderly woman with underlying significant emphysema with obesity hypoventilation syndrome with poor respiratory reserve as well as respiratory strength. Does not appear to be in overt heart failure. Kidney function is still worsening. Nephrology consultation should be considered. Hold off on metoprolol therapy to prevent significant bradycardia that may affect cardiac output. Continue supportive care. Out of bed to chair incentive spirometry should be considered if possible. Continue BiPAP therapy. Overall prognosis remains guarded. (2) Atrial tachycardia: Status: Acute Assessment and Plan: Atrial tachycardia remained suppressed at this point time. Avoid any rate lowering medication due to significant bradycardia at this point time. Use pulmonary specific bronchodilators. (3) Sinus bradycardia: Status: Acute Assessment and Plan: Sinus bradycardia probably suggestive underlying sinoatrial madonna dysfunction. Avoid rate lowering medication for now. Will follow with you Time Spent With Patient Time: Total time managing care of this patient today ____ minutes. Progress Note: Quality Stroke Does the patient have a stroke diagnosis?: No Procedures Date of Service Date of Service: 01/13/25
--- NOTE | 2025-01-13 11:41 | PM.PNNEP ---
Subjective Subjective Date of Service: 01/13/25 Principal diagnosis: shortness of breath, sinus bradycardia Interval history: Seen and examined Denies sob, cough, or chest pain Physical Exam Vital Signs: Vital Signs: Last Vital Signs Temp 97.3 F 01/13/25 11:13 Pulse 57 01/13/25 11:13 Resp 20 01/13/25 11:13 BP 124/53 L 01/13/25 11:13 Pulse Ox 88 L 01/13/25 11:13 O2 Del Method BiPAP 01/13/25 11:13 O2 Flow Rate 4 01/13/25 07:10 FiO2 35.7 01/11/25 19:28 BMI result Body Mass Index 41.5 Const: General: alert and awake Neck: Neck: Yes supple Resp: Auscultation: diminished lung sounds Cardio: Heart sounds: S1 normal heart sound present and S2 normal heart sound present GI: Palpation (GI): Soft to palpation and nontender Extrem: Right upper extremity: edema Objective Data Labs 01/12/25 16:28 01/13/25 06:54 Labs: Laboratory Results - last 24 hr 01/12/25 01/12/25 01/12/25 15:32 16:28 17:04 WBC 9.7 RBC 2.55 L Hgb 7.8 L Hct 27.2 L MCV 106.7 H MCH 30.6 MCHC 28.7 L RDW 18.3 H Plt Count 174 MPV 10.7 Immature Gran % (Auto) 0.6 H Neut % (Auto) 88.6 H Lymph % (Auto) 3.2 L [place] % (Auto) 6.8 Eos % (Auto) 0.7 Baso % (Auto) 0.1 Lymph # (Auto) 0.3 L [place] # (Auto) 0.7 Eos # (Auto) 0.1 Baso # (Auto) 0.0 Abs Immat Gran (auto) 0.06 H Absolute Neuts (auto) 8.6 H Absolute Nucleated RBC 0.040 H Nucleated RBC % (auto) 0.4 H Hold Purple Top Sodium 138 Potassium 5.1 Chloride 86 L Carbon Dioxide 39 H Anion Gap 18 BUN 153 H Creatinine 3.50 H Estim Creat Clear Calc 16.1 Estimated GFR 13 Random Glucose 125 H Calcium 8.1 L D Total Bilirubin 0.6 Direct Bilirubin 0.3 AST 26 ALT < 6 Alkaline Phosphatase 61 Total Protein 6.9 Albumin 3.1 L TSH 1.39 Urine Color Yellow Urine Appearance Cloudy Urine pH 5.0 Ur Specific [place] 1.010 Urine Protein 30 (1+) H Urine Glucose (UA) Negative Urine Ketones Negative Urine Blood Moderate (2+) H Urine Nitrite Positive H Ur Leukocyte Esterase Moderate (2+) H Urine RBC 3-5 H Urine WBC >50 H Ur Squamous Epith Cells 11-20 Urine Bacteria 4+ Hyaline Casts 11-20 Influenza Type A (PCR) NEGATIVE Influenza Type B (PCR) NEGATIVE RSV RNA Qual (PCR) NEGATIVE SARS-CoV-2 RNA (RT-PCR) NEGATIVE 01/13/25 06:54 WBC RBC Hgb Hct MCV MCH MCHC RDW Plt Count MPV Immature Gran % (Auto) Neut % (Auto) Lymph % (Auto) [place] % (Auto) Eos % (Auto) Baso % (Auto) Lymph # (Auto) [place] # (Auto) Eos # (Auto) Baso # (Auto) Abs Immat Gran (auto) Absolute Neuts (auto) Absolute Nucleated RBC Nucleated RBC % (auto) Hold Purple Top SEE NOTE Sodium 136 Potassium 5.4 H Chloride 88 L Carbon Dioxide 34 H Anion Gap 19 BUN 149 H Creatinine 3.57 H Estim Creat Clear Calc 16.0 Estimated GFR 13 Random Glucose 89 Calcium 8.1 L Total Bilirubin Direct Bilirubin AST ALT Alkaline Phosphatase Total Protein Albumin TSH Urine Color Urine Appearance Urine pH Ur Specific [place] Urine Protein Urine Glucose (UA) Urine Ketones Urine Blood Urine Nitrite Ur Leukocyte Esterase Urine RBC Urine WBC Ur Squamous Epith Cells Urine Bacteria Hyaline Casts Influenza Type A (PCR) Influenza Type B (PCR) RSV RNA Qual (PCR) SARS-CoV-2 RNA (RT-PCR) Microbiology Microbiology Results: Microbiology 01/12/25 Unknown Urine clean catch - Clean Catch Midstream Urine Culture - Preliminary Gram negative mariana Procedures Date of Service Date of Service: 01/13/25 Assessment & Plan Assessment and plan (1) CHEYANNE (acute kidney injury): Status: Acute (2) Hyperkalemia: Status: Acute (3) (HFpEF) heart failure with preserved ejection fraction: Status: Acute (4) CKD (chronic kidney disease): Status: Acute Plan worsening kidney function dismal kidney clearance with poor urine output she will likely need renal replacement therapy if no improvement multifactorial CHEYANNE: -CRS -acute tubular injury LVEF 70% with moderate to severe pulmonary HTN volume status acceptable known CKD nephrogenic anemia +/- other REC sodium zirconium 10 g hold diuresis if no improvement will have IR place permcath and would initiate HD monitor urine output follow kidney function and electrolytes Time Spent With Patient Time: Total time managing care of this patient today ____ minutes. Progress Note: Quality Stroke Does the patient have a stroke diagnosis?: No
[2025-01-13 12:03] LABS: Venous Blood Gas Refer to POC result
[2025-01-13 12:05] LABS: VBG Base Excess 19.2 mmol/L; VBG HCO3 47 mmol/L (22-26); VBG pCO2 85 mmHg; VBG pH 7.35 (7.32-7.43); VBG pO2 93 mmHg
[2025-01-13 12:12] LABS: Ammonia 94 umol/L (13-55)
[2025-01-13] MEDS: Lactulose 320 GM/480 ML SOLUTION 200 GM PR (15:10)
[2025-01-13] MEDS: Albuterol/Iprat 2.5/0.5MG 3 ML AMPUL.NEB INHALE ×2 (15:42→20:00)
--- NOTE | 2025-01-13 17:55 | PM.CCN ---
Critical Care Event Note Summary Date of Service: 01/13/25 Code activated: No Narrative: This case had a high probability of a clinically significant, sudden, or life threatening deterioration of this patient's condition which required my full and direct attention, intervention and personal management. Critical Care Time (minutes): 35 Comment: Consulted for the management of multiple organ failure including acute on chronic hypoxemic respiratory failure secondary to COPD and LUISITO needing BiPAP support, acute on chronic renal failure currently anuric, acute encephalopathy, hepatic encephalopathy with ammonia 85, urinary tract infection. Explained patient's son her critical situation with multiple organ failures given her morbid obesity, chronic lung disease she would be a poor candidate to go on ventilator support and it is more likely that we may not be able to extubate her. She also has a renal failure and would need renal replacement therapy, has elevated ammonia possibly suggestive of liver failure. On top of this patient is complaining of significant abdominal distention and pain and she is suffering. Patient's son Chau stated that he does not want her to suffer, she has been through a lot in her life and he wants her to be comfortable. So he makes a decision to make her DNI DNR; He will consider making her comfort care later this evening.
[2025-01-13 22:28] LABS: IgA 373 mg/dL (70-320); IgG 1156 mg/dL (600-1540); IgM 107 mg/dL (50-300)
[2025-01-13 22:39] LABS: Prot Elec - Albumin 2.9 g/dL (3.8-4.8); Prot Elec - Alpha1 0.6 g/dL (0.2-0.3); Prot Elec - Alpha2 0.8 g/dL (0.5-0.9); Prot Elec - Beta 1 0.5 g/dL (0.4-0.6); Prot Elec - Beta 2 0.4 g/dL (0.2-0.5); Prot Elec - Total Protein 6.2 g/dL (6.1-8.1)
[2025-01-14] MEDS: Heparin Sodium,Porcine 5,000 UNIT/ML VIAL 5000 UNIT SUBCUT (01:11)
[2025-01-14 03:51] VITALS: BP 125/50; PULSE 51; RESP 18; TEMP 36.2; O2SAT 98
[2025-01-14 04:00] VITALS: PULSE 56; RESP 18; O2SAT 93
[2025-01-14 06:00] VITALS: BMI 41.4
--- NOTE | 2025-01-14 06:33 | PC.NURSE ---
Son at bedside till 2200, then returned at 0400 with several family members. Pt remained on BiPap majority of shift, once instance when pt removed mask. Pt allowed RN to place mask back on. MD at bedside aware of family possibly considering PAID SEARCH SPECIALIST status per son. notified at 0520 that pt's family now wishes her to be made PAID SEARCH SPECIALIST. at bedside approx 0620 awaiting orders. Insole Stiffener notified per family request and is enroute to hospital at this time.
[2025-01-14 07:32] VITALS: BP 118/53; PULSE 54; RESP 22; TEMP 36.1; O2SAT 97
[2025-01-14] MEDS: Scopolamine 1.5 MG PATCH.TD.3 TRANSDERMA (10:41)
--- NOTE | 2025-01-14 10:50 | MHC.CM.PN ---
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 CM will follow.
--- NOTE | 2025-01-14 13:30 | P.PNIM_ITS ---
Subjective Subjective Date of Service: 01/14/25 Interval History: Seen in examined this morning Interval history: Family at bedside. Patient oriented x3 but still appears encephalopathic with some confusion. She is on BiPAP but desires to have the mask removed. Goals of care discussed with patient's family last night and code status was changed to DNR/DNI. Discussed with son to transitioned to comfort care this morning Review of Systems Review of Systems: Yes all other systems are reviewed and are negative Physical Exam 2 Vital Signs: Vital Signs: Last Vital Signs Temp 97.0 F 01/14/25 07:32 Pulse 54 01/14/25 07:32 Resp 22 H 01/14/25 07:32 BP 118/53 L 01/14/25 07:32 Pulse Ox 97 01/14/25 07:32 O2 Del Method BiPAP 01/14/25 07:32 O2 Flow Rate 7 01/13/25 13:36 FiO2 40 01/13/25 16:30 BMI result Body Mass Index 41.4 Constitutional - Awake and Alert, No apparent distress Eyes - PERRLA, EOMI Cardiovascular - S1S2, RRR, 2+ edema Respiratory - Normal lung expansion, Normal respiratory effort, No respiratory distress on bipap, bilateral rales - tavares in placed with scant urine output Extremities - no calf tenderness bilaterally, no swelling Skin - Warm/Dry Neurological - Alert & oriented x3 but disoriented to situation Psychological - Appropriate affect Objective Data Active Medications Lidocaine (Lidocaine 4 % Patch Adh..Patch) 2 patch TRANSDERMA DAILY [facility]; Protocol Last Admin: 01/14/25 10:14 Dose: Not Given Documented By: JANINE Non-Admin Reason: 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 provider and family Ondansetron HCl (Ondansetron Hcl 4 Mg/2 Ml Vial) 4 mg IVPUSH Q8H PRN PRN Reason: Nausea and Vomiting Sodium Chloride (0.9 % Sodium Chloride Flush 3 Ml Syringe) 3 ml IVFLUSH QSHIFT [facility] Last Admin: 01/14/25 10:06 Dose: Not Given Documented By: JANINE Non-Admin Reason: Previously Administered Labs 01/12/25 16:28 01/13/25 06:54 Labs: Laboratory Results - last 24 hr 01/12/25 15:32 Total Protein (PEP) 6.2 Albumin (PEP) 2.9 L Tqikt-6-Yhaezusiu 0.6 H Tgxvl-5-Ryewkmmxb 0.8 Qbsh-4-Ztsqgxff 0.5 Sisd-8-Lqoikacn 0.4 Gamma Globulins 1.0 PEP Interpretation SEE NOTE IgG Total 1156 IgA Total 373 H IgM 107 CHRISTINE Interpretation SEE NOTE Microbiology Microbiology Results: Microbiology 01/12/25 Unknown Urine Culture - Final Urine clean catch - Clean Catch Midstream Escherichia coli Assessment and Plan (1) CHF exacerbation: Status: Acute (2) Acute on chronic respiratory failure with hypoxia and hypercapnia: Status: Acute (3) COPD (chronic obstructive pulmonary disease): Status: Acute (4) Anemia: Status: Acute (5) History of chronic carbon dioxide retention: Status: Acute (6) CKD (chronic kidney disease): Status: Acute (7) Atrial tachycardia: Status: Acute Plan 74-year-old lady with underlying COPD on 3 L of home oxygen, diastolic dysfunction, pulmonary hypertension secondary to left heart dysfunction, CKD followed by [facility] admitted on 01/01/2025 after mechanical fall, and also worsening dyspnea on exertion and orthopnea. Patient initially admitted to telemetry abarca and started empiric treatment for congestive heart failure and COPD exacerbation. Hospital course significant for worsening respiratory failure with CO2 retention requiring BiPAP support and transferred to intensive care unit. Patient diuresed with Bumex drip and titrated off daytime BiPAP support, continued on nocturnal BiPAP due to underlying chronic CO2 retention. Now in multi-system organ failure transitioned to 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 family request Acute toxic metabolic encephalopathy likely r/t multiorgan failure and patient obtunded 3/4 ammonia 98- pr lactulose ordered with minimal improvement Discussed with Dr. Carrillo for possible ICU transfer. Prognosis guarded. Call placed to patient's brother who arrived at the hospital with patient's 2 sisters. Goals of care discussed and patient was made DNR/DNI 3/5 pt requested to have bipap removed with some increased work of breathing. Discussed prognosis with patient and family. Family opted for comfort measures. Pt requested [employer]. contacted and came to hospital per patient request 3/5 Pt transitioned to comfort care Acute on Chronic hypercarbic and hypoxic respiratory failure due to obstructive sleep apnea not on home CPAP/mild COPD exacerbation overnight sleep study done to be read by Dr. Mercer Continue BiPAP at night and daytime for naps. Supplemental O2, baseline 3-4 L, bipap added 3 due to increased WOB, volume overload Elevated bicarb added diamox, stable Continue updraft q.6 hours. Continue bipap. Transfer to ICU for intubation if indicated. Based on discussion with patient yesterday, desires to be full code even if on a ventilator. Should she become more lucid and awake, consider incentive spirometry Acute chf exacerbation pEF moderate TR and xtzhainf-sc-zvixqm pulmonary hypertension Elevated BNP 2967 > 3589 >2860 > 2547, no prior labs available,On 3 L of home oxygen, treated in ICU initially with IV Bumex subsequently transitioned to acetazolamide IV Echocardiogram showed EF greater than 70, moderately increased right ventricular cavity size, moderate tricuspid regurg, [id number] pulmonary hypertension, no wall motion abnormality Chest x-ray 01/07 showed cardiomegaly, pulmonary vascular congestion and small bilateral effusion. CXR 01/11 showed bilateral effusions, possibly worsening Discussed with Cardiology and Nephrology they recommend to continue Bumex 1 mg b.i.d. s/p metolazone 5 mg x 1 on 01/07. Continue diamox 500mg BID. 01/11 changed to bumex drip and added high flow due to volume overload with clinical improvement. 01/12- Per cardiology, diuresis has slowed. Creat is increasing. Recommends dc'ing bumex and nephrology consult which was placed. Strict Is&Os/daily weight > 3.7liter neg Tavares catheter for fluid management, strict I&O Hypothermia No other SIRS criteria Rule out infectious etiology with CBC, CXR, UA, CT abdomen/pelvis CBC and BMP as well as liver panel ordered. Check for influenza, RSV, COVID-19 Acute on chronic kidney disease stage 3/cardiorenal syndrome baseline creatinine between 1.8 was on Bumex 1 mg b.i.d. at home Creatinine trending down 3.12 to 2.41 to 2.8 with diuresis > 3.14 >3.57 Renal ultrasound showed no obstruction Continue gentle fluid resuscitation and follow BMP Elevated phosphorus/magnesium, follow labs added phosphate binders Renvela 800 mg t.i.d. on 01/01 6th Per nephrology, add sodium zirconium Strict I&O If no improvement, will need renal replacement Supraventricular tachycardia Tele monitor showed frequent atrial tachycardia/SVT with episode of bradycardia case discussed with Cardiology, coreg dc'd 01/07, heart rate improved with BiPAP Continues with runs of tachcyardia. Metoprolol initially recommended. Discontinued due to bradycardia Acute on chronic macrocytic anemia likely anemia of chronic disease vs myelodysplastic syndrome Stool guaiac positive in ED nl B12/folate/iron studies Received 1 unit of packed RBC , hematocrit improved , Procrit given 01/07. Addl unit PRBC 01/10 Given worsening anemia despite the above and increasing BUN 130 today, recheck FOBT. IV PPI, clear liquids. Seen by GI, doubt GI bleed. Recommended Heme consult Heme following Elevated BUN Mentation baseline- no uremia Likely r/t steroid use. No gi bleed per gi Elevated troponin but flat, , asymptomatic no chest pain, abnormal EKG however no prior EKGs available for comparison. echocardiogram no WMA Constipation No BM since 12/31. Mild abd pain. No n/v Ordered KUB but unable to lay flat Continue docusate and miralax. Encourage PRNs (refuses lactulose). Added glycerin supp. Consider golytely once volume status improves Fecal impaction present. Unable to advance enema to assist with impaction. Disimpacted by General surgery on 01/12 without any further bowel movement CT abdomen/pelvis ordered Mechanical fall with left elbow/left hip and left knee injury Imaging study showed no acute fractures, x-ray left knee abnormal Ortho recommended no acute intervention outpatient follow-up upon discharge PT eval prior to discharge once respiratory status and heart rate stable Repeat xr 01/11 showed large effusion. Compression bandage and outpt follow up Posterior L thigh pain Venous duplex negative for DVT likely r/t edema. continue diuresis Hyperglycemia No history of diabetes hemoglobin A1c 5.4 Class 3 obesity Recommend low-calorie diet Deep tissue injury sacrum/ischium/right heel present on admission continue barrier cream and foam dressing to sacrum DVT prophylaxis compression boots /heparin DNR/DNI- SUPERVISOR EVAPORATOR In my clinical judgment patient requires continued inpatient hospitalization for management of acute CHF/acute hypoxic respiratory failure now in multi system organ failure now SUPERVISOR EVAPORATOR Quality Stroke Does the patient have a stroke diagnosis?: No VTE Prior VTE?: No VTE Risk Level:: Medical - moderate - high VTE Device Contraindication: N/A - Device Ordered VTE Drug Contraindication: N/A - Med Ordered
--- NOTE | 2025-01-14 14:16 | MHC.CLN ---
F/U PT TRANSITIONED TO MARKET INTELLIGENCE CONSULTANT TODAY DIET D/C R/T NOT TAKING PO CAN ADD FEED FROM FLOOR DIET IF NEEDED KITCHEN CAN PROVIDE COFFEE CART FOR FAMILY PER REQUEST WILL FOLLOW WITH TEAM AND PROVIDE SUPPORT NEEDED
[2025-01-14 15:48] VITALS: RESP 15
[2025-01-14 19:04] VITALS: RESP 14
[2025-01-14 23:49] VITALS: RESP 15
--- NOTE | 2025-01-15 03:03 | PM.EVENT ---
Event Note Date of Service: 01/15/25 Time Spent With Patient Time: Total time managing care of this patient today ____ minutes. Pronouncement Note Date and Time of Date of : 01/15/25 Time of : 03:00 PCOD Preliminary cause of : Respiratory failure with hypoxia and hypercapnia Contributing Factors (1) CHF exacerbation: (2) COPD (chronic obstructive pulmonary disease): (3) Anemia: (4) History of chronic carbon dioxide retention: (5) CKD (chronic kidney disease): (6) Atrial tachycardia: Summary Additional details: This 74-year-old white female with underlying COPD on 3 L of home oxygen, diastolic congestive heart failure, pulmonary hypertension secondary to left heart dysfunction, chronic kidney disease, and anemia of chronic illness was admitted to hospital on 01/01/2025 after mechanical fall, and also worsening dyspnea on exertion and orthopnea. She was initially admitted to telemetry abarca and started empiric treatment for congestive heart failure and COPD exacerbation. Her hospital course was significant for worsening respiratory failure with CO2 retention requiring BiPAP support and transfer to the intensive care unit. She was diuresed with Bumex drip and titrated off daytime BiPAP support, continued on nocturnal BiPAP due to underlying chronic CO2 retention. Her condition unfortunately did not get any better and so after lengthy discussion she decided to change her code status room full code to DNR. She was transferred from the ICU to regular floor as and continued on BiPAP but she would not tolerate this well and so after some time requested to be taken off BiPAP and was transition to comfort measures only. She unfortunately passed stone on 01/15/2025 at 3:00 a.m.. Her family members were at bedside at the time she passed stone. Additional Data Confirmation of : no pulse, no respirations, no heart sounds and pupils fixed and dilated Family: at bedside Attending/PCP notified?: Yes Attending physician: OLVIN Tavares Was code activated?: No Autopsy requested?: No product examiner notified?: No Organ bank notified?: No Advance directives: Yes
--- NOTE | 2025-01-15 03:21 | PC.NURSE ---
Addendum entered by Tiki Ordoñez RN 01/15/25 03:42: organ bank accepted pt for potential donation. referral number #[id number]. Original Note: pt bernard MATHIS on tele, Dr. Oro to bedside to pronounce, TOD 0300, organ bank called at this time, stated someone will call back. son at bedside at time of .
--- NOTE | 2025-01-19 09:04 | PM.DS ---
DS: Providers Provider Date of Service: 01/19/25 Date of admission: 01/01/25 14:47 Date of discharge: 01/14/25 Primary care physician: Maine Myers MD Attending physician on admission: Thierno Haines Attending physician on discharge: Michael Brizuela Discharging clinician: Trudi Gordon DS: Diagnosis Discharge Diagnosis (1) CHF exacerbation: Status: Acute (2) COPD (chronic obstructive pulmonary disease): Status: Acute (3) Anemia: Status: Acute (4) History of chronic carbon dioxide retention: Status: Acute (5) CKD (chronic kidney disease): Status: Acute (6) Atrial tachycardia: Status: Acute DS: Summary Hospital Course Hospital Course: HPI on admission by Dr. Haines 01/01/25: Chief Complaint: Mechanical fall 74-year-old female with past medical history significant for COPD on 3 L of home oxygen, history of chronic kidney disease unspecified, presented to [facility] after a mechanical fall this morning as per patient she was ambulating with a walker that got stuck in the rug causing her to fall on her left side landing on left elbow, left knee and left hip patient denied head injury, no chest pain, no abdominal pain, no nausea, no vomiting, no syncope patient denied symptoms of dizziness lightheadedness prior to fall, patient does provide history of chronic shortness of breath with exertion, orthopnea, denies shortness of breath at rest, denies chest pain, no palpitations No fevers, no chills, no recent illness patient missed her PCP appointment yesterday, was last seen by PCP 6 months ago, is being followed by Dr. Hand from Nephrology. ED workup showed hemoglobin 7.7, hematocrit 26.9, last hematocrit 33.22 years ago, chronically elevated MCV, stool guaiac positive, creatinine of 2.83 last creatinine 1.32 years ago, blood sugar 172, BNP 2967, troponin 19.6 repeat 22, albumin 3.1, chest x-ray showed enlarged heart with small bilateral effusion and pulmonary vascular congestion suggesting edema, left hip x-ray showed limited exam, no definite fracture or dislocation noted, x-ray left knee, showed osteopenia with no definite fractures, mild lateral subluxation of patella, joint effusion and prominent prepatellar soft tissue swelling, probable subtle bone infarction in the distal femoral metaphysis In ED patient received 1 unit of packed, IV Lasix 40 mg, IV steroid 125 mg, IV magnesium 2 g and updraft treatment patient is now being admitted to [facility] due to mechanical fall with significant left knee injury, anemia with guaiac-positive stool and probable acute on chronic CHEYANNE and congestive heart failure with unknown EF. Hospital Course: 74-year-old white female with underlying COPD on 3 L of home oxygen, diastolic congestive heart failure, pulmonary hypertension secondary to left heart dysfunction, chronic kidney disease, and anemia of chronic illness was admitted to hospital on 01/01/2025 after mechanical fall, and also worsening dyspnea on exertion and orthopnea. She was initially admitted to telemetry abarca and started empiric treatment for congestive heart failure and COPD exacerbation. Her hospital course was significant for worsening respiratory failure with CO2 retention requiring BiPAP support and transfer to the intensive care unit. She was diuresed with Bumex drip and titrated off daytime BiPAP support, continued on nocturnal BiPAP due to underlying chronic CO2 retention. She was followed by cardiology who recommended disontinuing diuresis and recommended nephrology consult given euvolemia with worsening creatinine. Creatinine continued worsening and nephrology recommended renal replacement should she continue to deteriorate. The following day patient was found obtunded and subsequent labs revealed significantly elevated ammonia level. Lactulose administered and ICU consulted. At that time, goals of care were discussed with patient's family and she was made DNR/DNI. Ultimately given patient's decline and poor prognosis, unlikely to recover, patient was converted to conform measures and passed peacefully surrounded by family 01/15/25. Acute toxic metabolic encephalopathy likely r/t multiorgan failure and patient obtunded / ammonia 98- pr lactulose ordered with minimal improvement Discussed with Dr. Carrillo for possible ICU transfer. Prognosis guarded. Call placed to patient's brother who arrived at the hospital with patient's 2 sisters. Goals of care discussed and patient was made DNR/DNI / pt requested to have bipap removed with some increased work of breathing. Discussed prognosis with patient and family. Family opted for comfort measures. Pt requested [employer]. contacted and came to hospital per patient request 3/5 Pt transitioned to comfort care Acute on Chronic hypercarbic and hypoxic respiratory failure due to obstructive sleep apnea not on home CPAP/mild COPD exacerbation overnight sleep study done to be read by Dr. Ruslan Continue BiPAP at night and daytime for naps. Supplemental O2, baseline 3-4 L, bipap added 01/11 due to increased WOB, volume overload Elevated bicarb added diamox, stable Continue updraft q.6 hours. Continue bipap. Transfer to ICU for intubation if indicated. Based on discussion with patient yesterday, desires to be full code even if on a ventilator. Should she become more lucid and awake, consider incentive spirometry Acute chf exacerbation pEF moderate TR and jbakylbo-sc-fuoelp pulmonary hypertension Elevated BNP 2967 > 3589 >2860 > 2547, no prior labs available,On 3 L of home oxygen, treated in ICU initially with IV Bumex subsequently transitioned to acetazolamide IV Echocardiogram showed EF greater than 70, moderately increased right ventricular cavity size, moderate tricuspid regurg, zgblcfjp-du-uvhgva pulmonary hypertension, no wall motion abnormality Chest x-ray 01/07 showed cardiomegaly, pulmonary vascular congestion and small bilateral effusion. CXR 01/11 showed bilateral effusions, possibly worsening Discussed with Cardiology and Nephrology they recommend to continue Bumex 1 mg b.i.d. s/p metolazone 5 mg x 1 on 01/07. Continue diamox 500mg BID. 01/11 changed to bumex drip and added high flow due to volume overload with clinical improvement. 01/12- Per cardiology, diuresis has slowed. Creat is increasing. Recommends dc'ing bumex and nephrology consult which was placed. Strict Is&Os/daily weight > 3.7liter neg Tavares catheter for fluid management, strict I&O Hypothermia No other SIRS criteria Rule out infectious etiology with CBC, CXR, UA, CT abdomen/pelvis CBC and BMP as well as liver panel ordered. Check for influenza, RSV, COVID-19 Acute on chronic kidney disease stage 3/cardiorenal syndrome baseline creatinine between 1.8 was on Bumex 1 mg b.i.d. at home Creatinine initially trending down, however gradually worsened despite discontinuation of diuretics once euvolemic and gentle fluids Renal ultrasound showed no obstruction Elevated phosphorus/magnesium, follow labs added phosphate binders Renvela 800 mg t.i.d. on 01/01 6th Per nephrology, add sodium zirconium. If no improvement, will need renal replacement Acute toxic metabolic encephalopathy likely r/t multiorgan failure and patient obtunded 01/13 ammonia 98- pr lactulose ordered with minimal improvement Discussed with Dr. Carrillo for possible ICU transfer. Prognosis guarded. Call placed to patient's brother who arrived at the hospital with patient's 2 sisters. Goals of care discussed and patient was made DNR/DNI 01/14 pt requested to have bipap removed with some increased work of breathing. Discussed prognosis with patient and family. Family opted for comfort measures. Pt requested [employer]. contacted and came to hospital per patient request 01/14 Pt transitioned to comfort care Acute on Chronic hypercarbic and hypoxic respiratory failure due to obstructive sleep apnea not on home CPAP/mild COPD exacerbation overnight sleep study done to be read by Dr. Mercer Continue BiPAP at night and daytime for naps. Supplemental O2, baseline 3-4 L, bipap added 01/11 due to increased WOB, volume overload Elevated bicarb added diamox, stable Continue updraft q.6 hours. Continue bipap. Transfer to ICU for intubation if indicated. Based on discussion with patient yesterday, desires to be full code even if on a ventilator. Should she become more lucid and awake, consider incentive spirometry Acute chf exacerbation pEF moderate TR and gswkbanu-vw-ytltky pulmonary hypertension Elevated BNP 2967 > 3589 >2860 > 2547, no prior labs available,On 3 L of home oxygen, treated in ICU initially with IV Bumex subsequently transitioned to acetazolamide IV Echocardiogram showed EF greater than 70, moderately increased right ventricular cavity size, moderate tricuspid regurg, eprrqedz-me-cglsmw pulmonary hypertension, no wall motion abnormality Chest x-ray 01/07 showed cardiomegaly, pulmonary vascular congestion and small bilateral effusion. CXR 01/11 showed bilateral effusions, possibly worsening Discussed with Cardiology and Nephrology they recommend to continue Bumex 1 mg b.i.d. s/p metolazone 5 mg x 1 on 01/07. Continue diamox 500mg BID. 01/11 changed to bumex drip and added high flow due to volume overload with clinical improvement. 01/12- Per cardiology, diuresis has slowed. Creat is increasing. Recommends dc'ing bumex and nephrology consult which was placed. Strict Is&Os/daily weight > 3.7liter neg Tavares catheter for fluid management, strict I&O Hypothermia No other SIRS criteria Rule out infectious etiology with CBC, CXR, UA, CT abdomen/pelvis CBC and BMP as well as liver panel ordered. Check for influenza, RSV, COVID-19 Acute on chronic kidney disease stage 3/cardiorenal syndrome baseline creatinine between 1.8 was on Bumex 1 mg b.i.d. at home Creatinine trending down 3.12 to 2.41 to 2.8 with diuresis > 3.14 >3.57 Renal ultrasound showed no obstruction Continue gentle fluid resuscitation and follow BMP Elevated phosphorus/magnesium, follow labs added phosphate binders Renvela 800 mg t.i.d. on 01/01 Per nephrology, add sodium zirconium If no improvement, will need renal replacement Acute toxic metabolic encephalopathy likely r/t multiorgan failure and patient obtunded 01/13 ammonia 98- pr lactulose ordered with minimal improvement Discussed with Dr. Carrillo for possible ICU transfer. Prognosis guarded. Call placed to patient's brother who arrived at the hospital with patient's 2 sisters. Goals of care discussed and patient was made DNR/DNI 01/14 pt requested to have bipap removed with some increased work of breathing. Discussed prognosis with patient and family. Family opted for comfort measures. Pt requested [employer]. contacted and came to hospital per patient request 01/14 Pt transitioned to comfort care Acute on Chronic hypercarbic and hypoxic respiratory failure due to obstructive sleep apnea not on home CPAP/mild COPD exacerbation overnight sleep study done to be read by Dr. Mercer Continue BiPAP at night and daytime for naps. Supplemental O2, baseline 3-4 L, bipap added 3/ due to increased WOB, volume overload Elevated bicarb added diamox, stable Continue updraft q.6 hours. Continue bipap. Transfer to ICU for intubation if indicated. Based on discussion with patient yesterday, desires to be full code even if on a ventilator. Should she become more lucid and awake, consider incentive spirometry Acute chf exacerbation pEF moderate TR and eurdorjd-fw-riamdt pulmonary hypertension Elevated BNP 2967 > 3589 >2860 > 2547, no prior labs available,On 3 L of home oxygen, treated in ICU initially with IV Bumex subsequently transitioned to acetazolamide IV Echocardiogram showed EF greater than 70, moderately increased right ventricular cavity size, moderate tricuspid regurg, keptxpej-ie-ylwklz pulmonary hypertension, no wall motion abnormality Chest x-ray 01/07 showed cardiomegaly, pulmonary vascular congestion and small bilateral effusion. CXR 01/11 showed bilateral effusions, possibly worsening Discussed with Cardiology and Nephrology they recommend to continue Bumex 1 mg b.i.d. s/p metolazone 5 mg x 1 on 01/07. Continue diamox 500mg BID. 01/11 changed to bumex drip and added high flow due to volume overload with clinical improvement. 01/12- Per cardiology, diuresis has slowed. Creat is increasing. Recommends dc'ing bumex and nephrology consult which was placed. Strict Is&Os/daily weight Tavares catheter for fluid management, strict I&O Hypothermia No other SIRS criteria Rule out infectious etiology with CBC, CXR, UA, CT abdomen/pelvis CBC and BMP as well as liver panel ordered. Check for influenza, RSV, COVID-19 UC + for ecoli. Treated with zosyn Acute on chronic kidney disease stage 3/cardiorenal syndrome baseline creatinine between 1.8 was on Bumex 1 mg b.i.d. at home Creatinine trending down 3.12 to 2.41 to 2.8 with diuresis > 3.14 >3.57 Renal ultrasound showed no obstruction Continue gentle fluid resuscitation and follow BMP Elevated phosphorus/magnesium, follow labs added phosphate binders Renvela 800 mg t.i.d. on 01/01 Per nephrology, add sodium zirconium If no improvement, will need renal replacement Acute toxic metabolic encephalopathy likely r/t multiorgan failure and patient obtunded 3/4 ammonia 98- pr lactulose ordered with minimal improvement Discussed with Dr. Carrillo for possible ICU transfer. Prognosis guarded. Call placed to patient's brother who arrived at the hospital with patient's 2 sisters. Goals of care discussed and patient was made DNR/DNI 3/5 pt requested to have bipap removed with some increased work of breathing. Discussed prognosis with patient and family. Family opted for comfort measures. Pt requested [employer]. contacted and came to hospital per patient request 3/5 Pt transitioned to comfort care Acute on Chronic hypercarbic and hypoxic respiratory failure due to obstructive sleep apnea not on home CPAP/mild COPD exacerbation overnight sleep study done to be read by Dr. Mercer Continue BiPAP at night and daytime for naps. Supplemental O2, baseline 3-4 L. bipap added 01/11 due to increased WOB, volume overload Elevated bicarb added diamox, stable Continue updraft q.6 hours. Continue bipap. Transfer to ICU for intubation if indicated. Based on discussion with patient yesterday, desires to be full code even if on a ventilator. Acute chf exacerbation pEF moderate TR and mqckkkoy-tz-nugcpe pulmonary hypertension Elevated BNP 2967 > 3589 >2860 > 2547, no prior labs available,On 3 L of home oxygen, treated in ICU initially with IV Bumex subsequently transitioned to acetazolamide IV Echocardiogram showed EF greater than 70, moderately increased right ventricular cavity size, moderate tricuspid regurg, zkvjqpbs-wp-hwgfrh pulmonary hypertension, no wall motion abnormality Chest x-ray 01/07 showed cardiomegaly, pulmonary vascular congestion and small bilateral effusion. CXR 01/11 showed bilateral effusions, possibly worsening Discussed with Cardiology and Nephrology they recommend to continue Bumex 1 mg b.i.d. s/p metolazone 5 mg x 1 on 01/07. Continue diamox 500mg BID. 01/11 changed to bumex drip and added high flow due to volume overload with clinical improvement. 01/12- Per cardiology, diuresis has slowed. Creat is increasing. Recommends dc'ing bumex and nephrology consult which was placed. Tavares catheter for fluid management, strict I&O Hypothermia No other SIRS criteria Rule out infectious etiology with CBC, CXR, UA, CT abdomen/pelvis CBC and BMP as well as liver panel ordered. Check for influenza, RSV, COVID-19 Acute on chronic kidney disease stage 3/cardiorenal syndrome baseline creatinine between 1.8 was on Bumex 1 mg b.i.d. at home Creatinine trending down 3.12 to 2.41 to 2.8 with diuresis > 3.14 >3.57 Renal ultrasound showed no obstruction Continue gentle fluid resuscitation and follow BMP Elevated phosphorus/magnesium, follow labs added phosphate binders Renvela 800 mg t.i.d. on 01/01 6th Per nephrology, add sodium zirconium If no improvement, will need renal replacement Strict I&O with tavares catheter pursued Supraventricular tachycardia Tele monitor showed frequent atrial tachycardia/SVT with episode of bradycardia case discussed with Cardiology, coreg dc'd 01/07, heart rate improved with BiPAP Continues with runs of tachcyardia. Metoprolol initially recommended. Discontinued due to bradycardia Acute on chronic macrocytic anemia likely anemia of chronic disease vs myelodysplastic syndrome Stool guaiac positive in ED nl B12/folate/iron studies Received 1 unit of packed RBC , hematocrit improved , Procrit given 01/07. Addl unit PRBC 01/10 Given worsening anemia despite the above and increasing BUN 130 today, recheck FOBT. IV PPI, clear liquids. Seen by GI, doubt GI bleed. Recommended Heme consult Heme input appreciated Elevated BUN Mentation baseline- no uremia Likely r/t steroid use. No gi bleed per gi Elevated troponin but flat, , asymptomatic no chest pain, abnormal EKG however no prior EKGs available for comparison. echocardiogram no WMA Constipation No BM since 12/31. Mild abd pain. No n/v Ordered KUB but unable to lay flat Continue docusate and miralax. Encourage PRNs (refuses lactulose). Added glycerin supp. Consider golytely once volume status improves Fecal impaction present. Unable to advance enema to assist with impaction. Disimpacted by General surgery on 01/12 without any further bowel movement CT abdomen/pelvis ordered showing distended gallbladder and pericholecystic fluid versus ascites. Moderate- sized right and trace L pleural effusions. Anasarca. Doubt cholecystitis based on physical exam Enemas prn, lactulose, milk of mag, colace Mechanical fall with left elbow/left hip and left knee injury Imaging study showed no acute fractures, x-ray left knee abnormal Ortho recommended no acute intervention outpatient follow-up upon discharge Repeat xr 01/11 showed large effusion. Compression bandage Posterior L thigh pain Venous duplex negative for DVT likely r/t edema/anasarca Hyperglycemia No history of diabetes hemoglobin A1c 5.4 Class 3 obesity Recommend low-calorie diet Deep tissue injury sacrum/ischium/right heel present on admission continue barrier cream and foam dressing to sacrum Supraventricular tachycardia Tele monitor showed frequent atrial tachycardia/SVT with episode of bradycardia case discussed with Cardiology, dinh espinal'rosalia 01/07, heart rate improved with BiPAP Continues with runs of tachcyardia. Metoprolol initially recommended. Discontinued due to bradycardia Acute on chronic macrocytic anemia likely anemia of chronic disease vs myelodysplastic syndrome Stool guaiac positive in ED nl B12/folate/iron studies Received 1 unit of packed RBC , hematocrit improved , Procrit given 2/26. Addl unit PRBC 01/10 Given worsening anemia despite the above and increasing BUN 130 today, recheck FOBT. IV PPI, clear liquids. Seen by GI, doubt GI bleed. Recommended Heme consult Heme following Elevated BUN Mentation baseline- no uremia Likely r/t steroid use. No gi bleed per gi Elevated troponin but flat, , asymptomatic no chest pain, abnormal EKG however no prior EKGs available for comparison. echocardiogram no WMA Constipation No BM since 12/31. Mild abd pain. No n/v Ordered KUB but unable to lay flat Continue docusate and miralax. Encourage PRNs (refuses lactulose). Added glycerin supp. Consider golytely once volume status improves Fecal impaction present. Unable to advance enema to assist with impaction. Disimpacted by General surgery on 01/12 without any further bowel movement CT abdomen/pelvis ordered Mechanical fall with left elbow/left hip and left knee injury Imaging study showed no acute fractures, x-ray left knee abnormal Ortho recommended no acute intervention outpatient follow-up upon discharge PT eval prior to discharge once respiratory status and heart rate stable Repeat xr 01/11 showed large effusion. Compression bandage and outpt follow up Posterior L thigh pain Venous duplex negative for DVT likely r/t edema. continue diuresis Hyperglycemia No history of diabetes hemoglobin A1c 5.4 Class 3 obesity Recommend low-calorie diet Deep tissue injury sacrum/ischium/right heel present on admission continue barrier cream and foam dressing to sacrum Transition to Comfort Measures only 3/ DC'd all therapeutic medications ativan prn, morphine prn, scopalmine, zofran prn Time Attestation Discharge Coordination Time (in mins): 60 Quality: Safe Use of Opioids Does Pt have an Active Cancer Diagnosis on the Problem List?: No Quality: Stroke Does the patient have a stroke diagnosis?: No Physical Exam Vital Signs: Vital Signs: Last Vital Signs Temp 97.0 F 01/14/25 07:32 Pulse 54 01/14/25 07:32 Resp 15 01/14/25 23:49 BP 118/53 L 01/14/25 07:32 Pulse Ox 97 01/14/25 07:32 O2 Del Method BiPAP 01/14/25 07:32 O2 Flow Rate 7 01/13/25 13:36 FiO2 40 01/13/25 16:30 BMI result Body Mass Index 41.4 Discharge Plan Discharge Date/Time: 01/15/25 03:00 Patient Disposition: Discharge Diagnosis: CHF exacacertion, COPD exacerbation, CHEYANNE, Acute on chronic hypoxic hypercapnic respiratory failure Referrals: Maine Myers MD [Primary Care Provider] - 1 Week Discharge Medications: No Action multivitamin Tablet 1 tab PO DAILY buspirone 5 mg tablet 5 mg PO TID aspirin [Aspir-81] 81 mg Tablet,Delayed Release (Dr/Ec) 81 mg PO DAILY carvedilol 3.125 mg tablet 3.125 mg PO BID docusate sodium 100 mg Capsule 100 mg PO DAILY PRN (Reason: Constipation) bumetanide 1 mg tablet 1 mg PO BID calcitriol 0.25 mcg capsule 0.25 mcg PO Q OTHER DAY Anoro Ellipta 62.5-25 mcg/actuation blister with device 1 ea INHALATION DAILY Print Language: Faroese Discharge Date/Time: 01/15/25 05:54
== END 2025-01-15 05:54 | disposition expired | DRG 291 ==
LOC: HO.ED 11:53 → HO.EDOVER 14:48 → HO.IMC 20:53 → HO.EDOVER 01-02 01:56 → HO.ICU 01-02 04:51 → HO.IMC 01-05 17:26
PROVIDERS: Internal Medicine; Internal Medicine Critical Care Medicine; Internal Medicine Pulmonary Disease; Nurse Practitioner Family; Student in an Organized Health Care Education/Training Program; Admitting Provider Hospitalist; Emergency Provider Emergency Medicine; PCP Internal Medicine; Visit Provider Physician Assistant
DX: I13.0 Hypertensive heart and chronic kidney disease with heart failure and stage 1 through stage 4 chronic kidney disease, or unspecified chronic kidney disease (principal); G92.8 Other toxic encephalopathy; I50.33 Acute on chronic diastolic (congestive) heart failure; J96.21 Acute and chronic respiratory failure with hypoxia; J96.22 Acute and chronic respiratory failure with hypercapnia; N17.9 Acute kidney failure, unspecified; Z68.41 Body mass index [BMI] 40.0-44.9, adult; I48.19 Other persistent atrial fibrillation; I47.10 Supraventricular tachycardia, unspecified; R73.9 Hyperglycemia, unspecified; E66.813 Obesity, class 3; Z71.3 Dietary counseling and surveillance; M25.462 Effusion, left knee; W19.XXXA Unspecified fall, initial encounter; G47.33 Obstructive sleep apnea (adult) (pediatric); I07.1 Rheumatic tricuspid insufficiency; K56.41 Fecal impaction; D46.9 Myelodysplastic syndrome, unspecified; R68.0 Hypothermia, not associated with low environmental temperature; Z66 Do not resuscitate; L89.156 Pressure-induced deep tissue damage of sacral region; I27.22 Pulmonary hypertension due to left heart disease; L89.616 Pressure-induced deep tissue damage of right heel; N18.32 Chronic kidney disease, stage 3b; D63.1 Anemia in chronic kidney disease; K76.82 Hepatic encephalopathy; J43.9 Emphysema, unspecified; Z20.822 Contact with and (suspected) exposure to COVID-19; Z99.81 Dependence on supplemental oxygen; Z87.891 Personal history of nicotine dependence; Z79.82 Long term (current) use of aspirin; Z79.899 Other long term (current) drug therapy
CPT/HCPCS: 0241U; 36415; 36600; 71045; 73502; 73560; 74176; 76775; 80048; 80053; 80076; 81001; 82040; 82140; 82272; 82550; 82570; 82607; 82746; 82784; 82803; 82947; 83010; 83036; 83540; 83615; 83735; 83880; 84100; 84156; 84165; 84300; 84443; 84484; 85014; 85018; 85025; 85027; 85045; 86334; 86850; 86900; 86901; 86923; 87086; 87088; 87186; 93005; 93306; 93971; 94640; 94660; 94799; 99285; J0456; J1120; J1644; J1939; J1940; J2270; J2470; J2543; J2919; J3475; P9016; P9047; Q5106; Q9957

== ENCOUNTER → 2025-01-01 05:40 | Outpatient (BNV) | payer MEDICARE, SELFPAY | PROVIDERS: Emergency Provider Emergency Medicine; PCP Internal Medicine; Visit Provider Radiology Diagnostic Radiology | DX: M25.552 Pain in left hip (principal); M25.462 Effusion, left knee; W19.XXXA Unspecified fall, initial encounter; R06.02 Shortness of breath; I51.7 Cardiomegaly | CPT/HCPCS: 71045; 73502; 73560 ==

== ENCOUNTER 2025-01-01 14:47 | Outpatient (BNV) | payer MEDICARE, SELFPAY | END 2025-01-07 10:30 | PROVIDERS: Admitting Provider Hospitalist; Emergency Provider Emergency Medicine; PCP Internal Medicine; Visit Provider Radiology Diagnostic Radiology | DX: R68.0 Hypothermia, not associated with low environmental temperature (principal); J90 Pleural effusion, not elsewhere classified; I51.7 Cardiomegaly | CPT/HCPCS: 71045 ==

== ENCOUNTER 2025-01-01 14:47 | Outpatient (BNV) | payer MEDICARE, SELFPAY | END 2025-01-11 08:40 | PROVIDERS: Admitting Provider Hospitalist; Emergency Provider Emergency Medicine; PCP Internal Medicine; Visit Provider Radiology Diagnostic Radiology | DX: M17.12 Unilateral primary osteoarthritis, left knee (principal); R06.02 Shortness of breath; J90 Pleural effusion, not elsewhere classified; M79.605 Pain in left leg; R22.42 Localized swelling, mass and lump, left lower limb | CPT/HCPCS: 71045; 73560; 93971 ==

== ENCOUNTER 2025-01-01 14:47 | Outpatient (BNV) | payer MEDICARE, SELFPAY | END 2025-01-07 11:33 | PROVIDERS: Admitting Provider Hospitalist; Emergency Provider Emergency Medicine; PCP Internal Medicine; Visit Provider Internal Medicine Cardiovascular Disease | DX: I45.10 Unspecified right bundle-branch block (principal); I49.1 Atrial premature depolarization; R94.31 Abnormal electrocardiogram [ECG] [EKG] | CPT/HCPCS: 93010 ==

== ENCOUNTER 2025-01-01 14:47 | Outpatient (BNV) | payer MEDICARE, SELFPAY | END 2025-01-02 01:20 | PROVIDERS: Admitting Provider Hospitalist; Emergency Provider Emergency Medicine; PCP Internal Medicine; Visit Provider Specialist | DX: R09.02 Hypoxemia (principal); I50.30 Unspecified diastolic (congestive) heart failure; J90 Pleural effusion, not elsewhere classified | CPT/HCPCS: 71045 ==

== ENCOUNTER 2025-01-01 14:47 | Outpatient (BNV) | payer MEDICARE, SELFPAY | END 2025-01-12 16:05 | PROVIDERS: Admitting Provider Hospitalist; Emergency Provider Emergency Medicine; PCP Internal Medicine; Visit Provider Radiology Diagnostic Radiology | DX: R18.8 Other ascites (principal); J90 Pleural effusion, not elsewhere classified; R91.8 Other nonspecific abnormal finding of lung field | CPT/HCPCS: 71045; 74176 ==

== ENCOUNTER 2025-01-01 14:47 | Outpatient (BNV) | payer MEDICARE, SELFPAY | END 2025-01-06 14:46 | PROVIDERS: Admitting Provider Hospitalist; Emergency Provider Emergency Medicine; PCP Internal Medicine; Visit Provider Radiology Diagnostic Radiology | DX: N18.9 Chronic kidney disease, unspecified (principal); K80.00 Calculus of gallbladder with acute cholecystitis without obstruction | CPT/HCPCS: 76775 ==

== ENCOUNTER 2025-01-01 14:47 | Outpatient (BNV) | payer MEDICARE, SELFPAY | END 2025-01-01 15:00 | PROVIDERS: Admitting Provider Hospitalist; Emergency Provider Emergency Medicine; PCP Internal Medicine; Visit Provider Internal Medicine | DX: I27.20 Pulmonary hypertension, unspecified (principal); I36.1 Nonrheumatic tricuspid (valve) insufficiency; I45.10 Unspecified right bundle-branch block; R94.31 Abnormal electrocardiogram [ECG] [EKG] | CPT/HCPCS: 93010; 93306 ==

== ENCOUNTER → 2025-01-01 14:47 | Outpatient (BNV) | payer MEDICARE, SELFPAY | PROVIDERS: Admitting Provider Hospitalist; Emergency Provider Emergency Medicine; PCP Internal Medicine; Visit Provider Internal Medicine | DX: D64.9 Anemia, unspecified (principal) | CPT/HCPCS: 99222 ==

== ENCOUNTER → 2025-01-01 14:47 | Outpatient (BNV) | payer MEDICARE, SELFPAY | PROVIDERS: Admitting Provider Hospitalist; Emergency Provider Emergency Medicine; PCP Internal Medicine; Visit Provider Internal Medicine Pulmonary Disease | DX: I50.33 Acute on chronic diastolic (congestive) heart failure (principal); J96.21 Acute and chronic respiratory failure with hypoxia; J96.22 Acute and chronic respiratory failure with hypercapnia; J44.9 Chronic obstructive pulmonary disease, unspecified; Z91.89 Other specified personal risk factors, not elsewhere classified; N18.9 Chronic kidney disease, unspecified | CPT/HCPCS: 99232 ==

== ENCOUNTER → 2025-01-01 14:47 | Outpatient (BNV) | payer MEDICARE, SELFPAY | PROVIDERS: Admitting Provider Hospitalist; Emergency Provider Emergency Medicine; PCP Internal Medicine; Visit Provider Internal Medicine Gastroenterology | DX: D64.9 Anemia, unspecified (principal) | CPT/HCPCS: 99223 ==

== ENCOUNTER → 2025-01-01 14:47 | Outpatient (BNV) | payer MEDICARE, SELFPAY | PROVIDERS: Admitting Provider Hospitalist; Emergency Provider Emergency Medicine; PCP Internal Medicine; Visit Provider Physician Assistant Surgical | DX: K56.41 Fecal impaction (principal) | CPT/HCPCS: 99222; 99232 ==

== ENCOUNTER → 2025-01-01 14:47 | Outpatient (BNV) | payer MEDICARE, SELFPAY | PROVIDERS: Admitting Provider Hospitalist; Emergency Provider Emergency Medicine; PCP Internal Medicine; Visit Provider Internal Medicine Cardiovascular Disease | DX: I50.9 Heart failure, unspecified (principal) | CPT/HCPCS: 99223; 99233 ==

== ENCOUNTER → 2025-01-01 14:47 | Outpatient (BNV) | payer MEDICARE, SELFPAY | PROVIDERS: Admitting Provider Hospitalist; Emergency Provider Emergency Medicine; PCP Internal Medicine; Visit Provider Internal Medicine | DX: I50.9 Heart failure, unspecified (principal); D64.9 Anemia, unspecified | CPT/HCPCS: 99223; 99233; 99499 ==

== ENCOUNTER → 2025-01-01 14:47 | Outpatient (BNV) | payer MEDICARE, SELFPAY | PROVIDERS: Admitting Provider Hospitalist; Emergency Provider Emergency Medicine; PCP Internal Medicine | DX: M25.462 Effusion, left knee (principal) | CPT/HCPCS: 99221 ==

== ENCOUNTER → 2025-01-01 14:47 | Outpatient (BNV) | payer MEDICARE, SELFPAY | PROVIDERS: Admitting Provider Hospitalist; Emergency Provider Emergency Medicine; PCP Internal Medicine; Visit Provider Nurse Practitioner Family | DX: J96.21 Acute and chronic respiratory failure with hypoxia (principal); J96.22 Acute and chronic respiratory failure with hypercapnia; I50.9 Heart failure, unspecified; J44.1 Chronic obstructive pulmonary disease with (acute) exacerbation | CPT/HCPCS: 99223 ==